=== PATIENT | female | born 1980 | race Caucasian/White ===

== ENCOUNTER → 2018-11-06 11:48 | Outpatient (CLI) | payer OTHER, SELFPAY ==
[2018-11-06 12:17] LABS: International Normalized Ratio 1.7; Prothrombin Time (Protime)PT. 19.6 SECONDS (11.7-14.9)
--- OUTSIDE RECORDS SUMMARY | 2019-02-08 02:00 | XMS RPT_ITS | Continuity of Care Document ---
:1980 Author Organization [facility] Address [facility] [address] [address] Phone Care Team Providers Name Role Phone Kylie Junior DO Unavailable Dr. Mago Ponce MD Unavailable Dr. Jayden Izaguirre Unavailable Dr. 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 Blood chemistry abnormality (Renamed from Abnormal blood chemistry) (R79.9, 790.6) Status: Active BMI 29.0-29.9,adult (Z68.29, V85.25) Status: Active Dysuria (R30.0, 788.1) Status: Active Elevated high sensitivity C-reactive protein (R79.82, 790.95) Status: Active Elevated liver function tests (R94.5, 790.6) Status: Active Encounter for gynecological examination with abnormal finding (Z01.411, V72.31) Status: Active Encounter for screening mammogram for breast cancer (Renamed from Encounter for screening mammogram for malignant neoplasm of breast) (Z12.31, V76.12) Status: Active Family history of thyroid disease (Z83.49, V18.19) Status: Active immunity check Status: Active [facility] WELLNESS EXAM Status: Active [facility] WELLNESS EXAM Status: Active [facility] WELLNESS PHYSICAL Status: Active Need for prophylactic vaccination and inoculation against influenza (Z23, V04.81) Status: Active Nonsmoker (Z78.9, V49.89) Status: Active Pregnancies () Comments: 0 Status: Active Screening for HPV (human papillomavirus) (Renamed from Encounter for screening for human papillomavirus (HPV)) (Z11.51, V73.81) Status: Active Screening for HPV (human papillomavirus) (Renamed from Encounter for screening for human papillomavirus (HPV)) (Z11.51, V73.81) Status: Active Sinusitis, chronic (J32.9, 473.9) Comments: happens 1-2 times a year- doesnt want further workup Status: Active 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, 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 Unspecified Diagnosis Status: Active 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 (I82.4Z9, 453.42) 05-Jun-2012 Status: Active Vitamin D deficiency (E55.9, 268.9) Comments: chronic stable-continue present regimen Status: Active Well female exam with routine gynecological exam (Z01.419, V72.31) Status: Active Medications Name Dates Details CALTRATE 600+D PLUS, 315-354XH-CVKJ (Oral Tablet) Active 1 tab qd (600-400 MG-UNIT) Coumadin 2 MG Oral Tablet uad Tablet qd for 0 days Quantity: 90 {Tablet} Refills: 3 Ordered:02-Nov-2018 Fast DOHuberta AFaayush BARCENAS Kylie A Start : 02-Nov-2018 Active Dispense as Written Comments:ELISABETH Coumadin 5 MG Oral Tablet 1 1/2 Tablet qd for 0 days Quantity: 135 {Tablet} Refills: 3 Ordered:30-Nov-2016 Fast DO, Kylie AFaayush DO Kylie A Start : 30-Nov-2016 Active Dispense as Written Comments:elisabeth Diflucan 150 MG Oral Tablet 1 (one) Tablet qd for 1 days Quantity: 1 {Tablet} Refills: 0 Ordered:03-Nov-2018 Long LINE CREW SUPERVISORJoyce Start : 03-Nov-2018 Active Eliquis 5 MG Oral Tablet 1 (one) Tablet bid for 0 days Quantity: 60 {Tablet} Refills: 11 Ordered:01-Nov-2018 Fast DO, Kylie AFast DO, Kylie A Start : 01-Nov-2018 Active GLUCOSAMINE 1500 COMPLEX (Oral Capsule) for 0 days Refills: 0 Ordered:08-Feb-2011 Darlene DrewActive MULTIVITAMIN (Oral Liquid) for 0 days Refills: 0 Ordered:11-Nov-2017 Slarb LINE CREW SUPERVISOR, AngelaActive Amoxicillin 875 MG Oral Tablet 1 (one) Tablet Tablet bid for 0 days Quantity: 20 {Tablet} Refills: 0 Ordered:17-Nov-2016 Jett Wang Start : 09-Jul-2016 End : 17-Nov-2016 Inactive COUMADIN, 5MG (Oral Tablet) 1 qd (5 MG) Inactive Comments:alt with 7.5mg ProAir HFA 108 (90 Base) MCG/ACT Inhalation Aerosol Solution 2 (two) Aerosol Soln Aerosol Soln puffs 15 min prior to exercise for 0 days Quantity: 1 {Inhaler} Refills: 2 Ordered:01-Nov-2018 Jammie Sanchez Start : 17-Nov-2016 End : 01-Nov-2018 Inactive ZYRTEC ALLERGY, 10MG (Oral Tablet) for 0 days Refills: 0 Ordered:24-Nov-2009 Mylene Harrison LPNInactive AUGMENTIN, 875-125MG (Oral Tablet) 1 (one) Tablet two times daily for 0 days Quantity: 28 {Tablet} Refills: 0 Ordered:29-Apr-2014 Darlene Drew Start : 14-Dec-2013 End : 29-Apr-2014 Discontinued Eliquis 2.5 MG Oral Tablet 1 (one) Tablet bid for 0 days Quantity: 60 {Tablet} Refills: 3 Ordered:17-Nov-2016 Fast DO, Kylie AFast DO, Kylie A Start : 17-Nov-2016 End : 30-Nov-2016 Discontinued Xarelto 20 MG Oral Tablet 1 (one) Tablet qd for 0 days Quantity: 30 {Tablet} Refills: 3 Ordered:17-Nov-2016 Fast DO, Kylie AFast DO, Kylie A Start : 17-Nov-2016 End : 30-Nov-2016 Discontinued Allergies and Adverse Reactions Name Dates Details NKDA (Allergy) Status: Active No Known Drug Allergies (Allergy) Onset: 08-Jun-2017 Status: Active Past Medical History Name Dates Details Abnormal blood chemistry (R79.9, 790.6) Status: Resolved as of 05-Jun-2012 Acute pharyngitis (J02.9, 462) Comments: add claritin if not help add otc PPI. david sheri few weeks if still sore throat Status: Resolved as of 07-Feb-2015 Acute Sinusitis (Renamed from Acute infection of nasal sinus) (J01.90, 461.9) Status: Inactive as of 14-Oct-2014 Bursitis of hip, unspecified laterality (726.5) Comments: we [facility] she will consdier and call if wants referral Status: Inactive as of 11-Nov-2014 family hx of thyroid disease Status: Inactive as of 14-Oct-2014 familyhx of high chol Status: Inactive as of 14-Oct-2014 Fatigue (R53.83, 780.79) Comments: discussed she notes specifically in afternoon so reviewed meals and doing alot of simple carbs- discussed hypoglycemia high protien freq meals low glycemic index and see if helps- if not appt sooner than 6 mos Status: Resolved as of 05-Jun-2012 Finger pain (M79.646, 729.5) Comments: fx? stove? soft tissue ijury? 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 [place] [address] Fax REHABILITATION SERVICES BRETT Escobar EVALUATION MR#: [id number] Acct: [id number] Name: TILA CARRERA Rep #: [id number] : 1980 36 From: Adrienne Mahoney DPT Referring Dr.: Kylie Junior DO Status: REG RCR Insurance: MEDICAL [facility] IO Patient's Visit Information TILA CARRERA is a 36 year old F referred to Physical Therapy by Kylie Junior DO with a diagnosis of Leg and Knee Pain. Date of Evaluation: 08/04/16 Physical Therapis t: Adrienne Mahoney - Visit Plan Frequency: 3x /Week Duration: 3 Weeks Plan: Focus on core s/s. - Subjective Subjective: Patient reports having issue with the right knee-January- ran the marathon and then took some time off. Pain is located in the anterior knee and the top of the gastroc. Taking time off-from March did not run- then started back after about a month- 2- 3 miles at a time 3-4x a week. Slower the pace the less pain she had. Has done a few half marathons- walk/run pace group. Would like to start training again. Had a massage and it felt much better. Worst: 3/ 10 Agg: running, getting in/out of the car, squats. Eases: rest, hot bath with Epsom salt. Best: 0/1-. Pain is located in the anterior knee and the gastroc top. Dull and achy pain. No radiating pain. 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 PMHx: DVT in the posterior knee when she was 25 years old and has been on blood thinners since. Just had a full ultrasound and no current blood clot Meds: Coumadin. Wears good shoes- gets new ones all the time. Has orthotics and does not wear them- aggravate the feet. - Objective Posture: FH, RS- can correct with verbal cues. Gait: no deviation noted with normal ambulation. Observation: pes planus in standing right>left- increased muscle bulk on the right. Squat: weight shift to the left-no heel raise. Anterior trunk lean and anterior pelvic tilt- challenged to cor rect with VC's. HR/TR: Heel raise- increased muscle tone left>right. TR : no differences. Balance: SLS 30 sec but increased sway and muscle activation right>left. Poor control with eyes closed. Sensation/Reflex: WNL. ROM: WNL. Palpation: not tender around knee- increased tenderness throughout head of lateral and medial gastroc. Strength: Core-fair minus, Hip: 4-/5 throughout, Knee: 4+/ 5, Ankle: 5/5. Flexibility: ITBand: severe, Gastroc: mod , Soleus-mod, Hamstring: mod, Quad: moderate - Goals Goal 1:: Patient will be I with HEP and progression Goal Time Frame: 4-6 Weeks Goal 2:: Pat ient will demo 4+/5 strength in LE where deficit to ease ADL's Goal Time Frame: 4-6 Weeks Goal 3:: Patient will maintain proper posture t/o tx session to demo increased core s/s. Goal Time Frame: 4-6 We eks Goal 4:: Patient will report 0/10 pain for 1 week with all normal ADL's and recreational activities. Goal Time Frame: 4-6 Weeks - Rehabilitation Potential Physical Therapy Diagnosis: Patient presen ts with hypomobility- she has decreased strength, flexibility and muscular endurance leading to pain with functional mobility. Rehabilitation Potential: Fair - Anticipated Interventions Patient/Client Instruction: Educate patient on: Benefits of Fitness Program For the Purpose of:: To increase tolerance to activity/condition/position Therapeutic Exercise to Include: Strength training, Endurance train ing, Balance training, Agility training, Body mechanics, Postural training, Flexibilty training, Gait and locomotor training, Dynamic Lumbar Stabilization, Scapular Strength/Stabilization For the Purpos e of:: To improve muscle performance and motor function Manual Therapy Techniques to Include: Functional dry needling For the Purpose of:: To decrease swelling/inflammation Thank you for the spencer cat to evaluate your patient. For Medicare and Medicare HMO plans, please review the plan of care and approve it. It will need to be FAXED BACK to us at [phone] for Medicare purposes. Please le t me know if there are questions or concerns regarding this plan of care. Physician Signature: Date: <Electronically signed by Pat Mahoney DPT> 08/04/16 1641 CC: Kylie Junior DO ELR Signed For Medicare only, by signing this I certify the plan of care. Physicians Signature Date 26-Mar-2016 PT D/C Summary (1) Result: Comments: See Note; NOTES: [facility] [address] [place] [address] Fax REHABILITATION SE RVICES DISCHARGE SUMMARY MR#: [id number] Acct: [id number] Name: TILA CARRERA Rep #: [id number] : 1980 36 From: Kade Dejesus PT, FRANK, SCS, CSCS Referring Dr.: Tonny Farris Status: REG RC R Insurance: [facility] - PT D/C Summary It has been my pleasure to treat TILA CARRERA under orders from Tonny Farris DO, for the diagnosis of RIGHT KNEE ,GASTROCSOLEUS STRAIN,PER HANSEN IN,,IT BAND for a total of 8 visit(s) . Please see the following information for a summary of their discharge status. - Subjective Subjective: I finished the marathon weekend and had a co urse CO of 4:25. Only had knee pain after I stopped and if I took smaller steps it seemed to go away. - Pain Right Pain Intensity (Out of 10): 0 - Objective Objective/Function: tree. well - Goals Goal 1:: Independant with HEP to manage knee pain Goal Progress: Goal Met Goal 2:: Decrease knee pain with running 75% to compete in a marathon, Goal Progress: Goal Met Goal 3:: Improve biom echanics of running to decrease knee pain. Goal Progress: Progressing Goal 4:: Patient able to run with in limitations to complete marathon. Goal 5:: Perform video anaylisis Goal Progress: Progressi ng - Plan Plan: Redesigned a HEp to include corrective exercises - D/C Information If there are questions or concerns regarding this patient's physical therapy, please feel free to call me at . Thank you for the referral of this patient. Sincerely, Kade Dejesus <Electronically signed by Kade Dejesus PT, FRANK, SCS, CSCS> 03/26/16 1541 CC: Kylie Junior DO; Tonny Farris Signed 08-Mar-2016 Inital Evaluation (1) - PT Result: Comments: See Note; NOTES: [facility] [address] [place], [place] [address] Fax REHABILITATION SE RVICES INITIAL EVALUATION MR#: [id number] Acct: [id number] Name: TILA CARRERA Rep #: [id number] : 1980 35 From: Yohannes Iverson PT, Cert. MDT Referring Dr.: Tonny Farris Status: REG R Insurance: [facility] Date: Patient's Visit Information TILA CARRERA is a 35 year old F referred to Physical Therapy by Tonny Farris DO with a diagnosis of RIGHT KNEE ,GASTROCS OLEUS STRAIN,PERONEAL SRAIN,,IT BAND. Date of Evaluation: 03/05/16 Physical Therapist: Yohannes Iverson - Visit Plan Frequency: 3x /Week Duration: 4 Weeks - Subjective Subjective: This 35 y/o f emale presents to physical therapy with right knee pain lateral aspect for 4 weeks. Patient noticed increase in pain during a run ,especially down hill , descending steps.Walking /standing /bike aggrav ates symptoms.Does trail running ,last race 25k traik run. Some better on trails. Denies parathesia/tingling. Runs in [place] long run, [place] run [place].Patients training for marathon ,last at [employer] run tuesday 12 miles ,walk run because pain. SOCIAL: single. HOBBIES : running. 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 - Pain Right Pain Intensity (Out of 10): 0 Pain Intensity Range: 10 - Objective POSTURE: PATELLA NIKOS ,normal arch,wide foot. GAIT: normal wilfredo. SHOE WEAR : lateral posterior heel. PALPATION : LATERAL I-TBAND ,latera G-S instertion ,lateral soleus,greater tronchen ter. AROM KNEE : 0- 135 DEGREES. FLEXABILTY: WNL I-T band,hams,quad,rectus femoris,IR /ER ,PRIFORMIS. MMT:5/5 quads/hams/ankle,ER/IR4/5,HIP EXT 4/5,GLUTS 4/5,HIPABD 4/5,4-/5 HIP ADD. PROPRIOCEPTION: sl iightlty impaired. NO ASSYMMTRIES AFTER PERFORMING BRIDGE. - Special Tests R Knee Esau - Meniscus: Negative R Knee Apley - Meniscus: Negative R Knee Patellar Apprehension - PFS: Negative R Kne e Patellar Grind - PFS: Negative R Knee Medial Patellar Plica - Plica Syndrome: Negative - Goals Goal 1:: Independant with HEP to manage knee pain Goal Time Frame: 4-6 Weeks Goal 2:: Decrease knee pain with running 75% to compete in a marathon, Goal Time Frame: 4-6 Weeks Goal 3:: Improve biomechanics of running to decrease knee pain. Goal Time Frame: 4-6 Weeks Goal 4:: Patient able to run wi th in limitations to complete marathon. Goal Time Frame: 4-6 Weeks Goal 5:: Perform video anaylisis Goal Time Frame: 4-6 Weeks - Rehabilitation Potential Physical Therapy Diagnosis: This 35 y/o fe male who is a advid runner has had knee pain with longer distance lateral aspect of knee along with IT BAND pain with tender trigger muscle along IT BAND and gastroc region thus will benifit from skill ed PT Rehabilitation Potential: Good - Anticipated Interventions Patient/Client Instruction: Educate patient on: Condition, Plan of Care, Benefits of Fitness Program For the Purpose of:: To decrea se pain, To decrease swelling/inflammation, To improve muscle performance and motor function, To improve ability of physical actions for home/community/work/ leisure, To improve gait and locomotor func tions, To improve health of tissue Other: RUNNING Therapeutic Exercise to Include: Strength training, Balance training, Agility training, Flexibilty training For the Purpose of:: To decrease pain, T o decrease swelling/inflammation, To improve nutrient delivery to tissue, To improve muscle performance and motor function, To increase tolerance to activity/condition/position, To improve ability of physical actions for home/community/work/ leisure, To improve gait and locomotor functions, To increase flexibility/ROM, To prevent re- injury Other: RUNNING Functional Training to Include: Functional sports training For the Purpose of:: To decrease pain, To increase oxygenation perfusion, To increase tolerance to activity/condition/position Other: RUNNING Manual Therapy Techniques to Include: Tr igger point massage, Massage, Mobilization, Functional dry needling Comment: HAWK For the Purpose of:: To decrease pain, To increase ROM, To improve muscle performance and motor function, To increase tolerance to activity/condition/position, To improve ability of physical actions for home/community/work/leisure, To improve health of tissue, To decrease soft tissue restriction, To prevent re-injur y IF ES: Yes Cryotherapy (ice pack, ice massage): Yes Thermo therapy (hot pack): Yes Ultrasound (thermal/non thermal): Yes For the Purpose of:: To decrease pain, To decrease swelling/inflammation, To improve health of tissue, To improve self management Thank you for the opportunity to evaluate your patient. For Medicare and Medicare HMO plans, please review the plan of care and approve it . It will need to be FAXED BACK to us at [phone] for Medicare purposes. Please let me know if there are questions or concerns regarding this plan of care. Physician Signature: Date: <Electronically signed by Yohanens Iversno PT, Cert. MDT> 03/08/16 1021 CC: Kylie Farris DT: 02/19 04/05 Signed For Medicare only, by signing this I certify the plan of care. Physicians Signature Date 21-Apr-2015 Inital Evaluation - PT Result: Comments: See Note; NOTES: [facility] 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 Farris with a diagnosis of right knee lateral gastroc IT band str ain. This is an individual, who is running and slipped or caught her foot on a metal object and fell forward onto her right knee. She typically runs between 20-40 miles a week with 1 speed work, 1 hil l work out if possible. She is training for a marathon on March 23 in [place]. This weekend she is traveling to [place] to compete in a 10 K with her friends. She denies injuring her knee prior . Dr. Farris took x-rays, but no MRI at this point. She is managing her pain with Advil or Aleve. She rates her pain at 5 or 6 or higher when she is running, none when she is walking. OBJECTIVE: This is a relatively healthy 34-year-old, who presents in no acute distress. When I took a look at her knee, there was no meniscal type symptoms. Both varus and valgus did not increase any of her familiar pain. She had no tenderness over the insertion of the IT band nor was able to elicit any clicking or popping over that region. When I turned my attention to her lower extremity over the lateral gastr oc soleus complex, she had crepitus and pain with palpation. She does have tight gastroc soleus complex to begin with. Neurologically, I felt she was intact. ASSESSMENT: Right soleus strain. PROB LEMS: 1. Decreased ADLs or ability to run. 2. Pain. 3. Altered strength. PLAN: The plan is to see her 2-3 times a week for 4-5 weeks depending on her progress. Today I used ultrasound, some soft tissue massage. I am going to have her use the softball and foam roller, both on her quads, hamstrings and gastrocs and then as she is feeling better, will initiate an eccentric strengthening program to help her compensate. I think the mechanism of injury of falling forward in a dorsiflexed foot is the same mechanism as the soleus strain. I asked her to use the compression sleeve with her when she is jogging to see if that helps a little bit. I did have an opportunity to look at her gait on the treadmill where she ran 5 miles per hour, then 6 and then 6.5. I did not notice anything unusual ot her than she has a little bit of a forefoot whip upon contact. Kade Emanuel C: Tonny Farris T: [facility] JOB: [id number] <Electronically signed by Kade Dejesus > 04/21/15 1615 CC: Signed For Medicare only, by signing this I certify the plan of care. Physicians Signature Date 21-Apr-2015 PT Discharge Summary Result: Comments: See Note; NOTES: [facility] [address] [place] [address] Fax REHABILITATION SERVICES DISCHARGE SUMMARY MR#: [id number] Acct: [id number] Name: TILA CARRERA Rep #: [id number] : 1980 35 From: Kade Dejesus Referring Dr.: Tonny Farris Status: PRE RCR Eval Date: Discharge Da te: DATE OF SERVICE: 04/15/2015 Tila has been seen for 10 of her scheduled 12 visits. She has recently competed in both Half [place] in [place] as well as a Full [place] in [place] on the same weekend. She has essentially no more right lateral soleus pain at all. I have given her some exercises to continue to perform specifically inhibition techniques and some stretching as well as so me eccentric strengthening. If Tila has any problems in the near future, I would be happy to see her otherwise she is discharged from our care. Kade Emanuel C: Tonny Farris T: [facility] JOB: [id number] <Electronically signed by Kade Dejesus > 04/21/15 1615 CC: Signed 07-Feb-2015 Knee 4 or More Views Result: Comments: See Note; NOTES: [facility] Imaging Services [address] [place] [address] Radiology Report MR#: [id number] Acct: [id number] Name: TILA CARRERA Rep #: [id number] : 1980 F 34 From: Rajani Grossman MD PCP: Kylie Junior DO Status: REG CLI Study: Knee 4 or More Views Date of Exam: 02/07/15 Exam# [id number] Ordering Dr: Kylie Junior DO STUDY: X-RAY - RI T KNEE REASON FOR EXAM: Female, 34 years old. Knee pain TECHNIQUE: 4 view(s) of the knee. COMPARISON: None. FINDINGS: Normal visualized distal femur. Norm al visualized proximal tibia and fibula. Normal proximal tibiofibular articulation. Normal medial femorotibial compartment. Normal lateral femorotibial compartment. Normal patellofemoral articulatio n. The soft tissue structures are unremarkable. IMPRESSION: Normal x-ray examination of the knee. Electronically Signed: Shamir Grossman MD at 14:4 9 EDT Tel , Service support [phone], RAD/Knee 4 or More Views IMPRESSION: Normal x-ray examination of the knee. Electronically Signed: Alireza Garza MD at 14:49 EDT Tel , Service support [phone], CC: Kylie Junior DO Search Analyst: Signed 07-Feb-2015 Knee 4 or More Views Result: Comments: See Note; NOTES: [facility] Imaging Services [address] [place] [address] Radiology Report MR#: [id number] Acct: [id number] Name: TILA CARRERA Rep #: [id number] : 1980 F 34 From: Rajani Grossman MD PCP: Kylie Junior DO Status: REG CLI Study: Knee 4 or More Views Date of Exam: 02/07/15 Exam# [id number] Ordering Dr: Kylie Junior DO STUDY: X-RAY - RI GHT KNEE REASON FOR EXAM: Female, 34 years old. Knee pain TECHNIQUE: 4 view(s) of the knee. COMPARISON: None. FINDINGS: Normal visualized distal femur. Norm al visualized proximal tibia and fibula. Normal proximal tibiofibular articulation. Normal medial femorotibial compartment. Normal lateral femorotibial compartment. Normal patellofemoral articulatio n. The soft tissue structures are unremarkable. IMPRESSION: Normal x-ray examination of the knee. Electronically Signed: Shamir Grossman MD at 14:4 9 EDT Tel , Service support [phone], RAD/Knee 4 or More Views IMPRESSION: Normal x-ray examination of the knee. 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 Status: Active Smoking Status Name Dates Details Former smoker Vital Signs Date Test Result Details :08 Temperature 97.9 f Comments: Method: Temporal Pulse 48 /min Comments: Pattern: Regular Respiration Rate 16 /min Comments: Pattern: Unlabored BP Systolic 108 mm[Hg] Comments: Patient Position: Sitting; Cuff Location: Left Arm; Cuff Size: Standard BP Diastolic 68 mm[Hg] Comments: Patient Position: Sitting; Cuff Location: Left Arm; Cuff Size: Standard Weight 183 lb Height 65.75 in Body Mass Index Calculated 29.76 kg/m2 Body Surface Area Calculated 1.92 m2 :49 Temperature 97.9 f Pulse 69 /min Comments: Pattern: Regular Respiration Rate 16 /min Comments: Pattern: Unlabored O2 SAT 98 % Comments: Room air BP Systolic 104 mm[Hg] Comments: Patient Position: Sitting; Cuff Location: Left Arm; Cuff Size: Standard BP Diastolic 72 mm[Hg] Comments: Patient Position: Sitting; Cuff Location: Left Arm; Cuff Size: Standard Weight 180 lb Height 65.75 in Body Mass Index Calculated 29.27 kg/m2 Body Surface Area Calculated 1.91 m2 :36 Temperature 98.2 f Comments: Method: Temporal Pulse 40 /min Comments: Pattern: Regular Respiration Rate 16 /min Comments: Pattern: Unlabored BP Systolic 115 mm[Hg] Comments: Patient Position: Sitting; Cuff Location: Left Arm; Cuff Size: Standard BP Diastolic 62 mm[Hg] Comments: Patient Position: Sitting; Cuff Location: Left Arm; Cuff Size: Standard Weight 182 lb Height 65.75 in Body Mass Index Calculated 29.6 kg/m2 Body Surface Area Calculated 1.92 m2 :04 Temperature 98 f Pulse 54 /min Comments: Pattern: Regular Respiration Rate 16 /min Comments: Pattern: Unlabored BP Systolic 106 mm[Hg] Comments: Patient Position: Sitting; Cuff Location: Left Arm; Cuff Size: Standard BP Diastolic 58 mm[Hg] Comments: Patient Position: Sitting; Cuff Location: Left Arm; Cuff Size: Standard Weight 182 lb Height 65.75 in Body Mass Index Calculated 29.6 kg/m2 Body Surface Area Calculated 1.92 m2 :08 Temperature 96.8 f Comments: Method: Temporal Pulse 72 /min Comments: Pattern: Regular Respiration Rate 16 /min Comments: Pattern: Unlabored O2 SAT 98 % Comments: Room air BP Systolic 126 mm[Hg] Comments: Patient Position: Sitting; Cuff Location: Left Arm; Cuff Size: Large BP Diastolic 70 mm[Hg] Comments: Patient Position: Sitting; Cuff Location: Left Arm; Cuff Size: Large Weight 173 lb Height 65.75 in Body Mass Index Calculated 28.14 kg/m2 Body Surface Area Calculated 1.88 m2 :03 Temperature 97.2 f Pulse 56 /min Comments: Pattern: Regular Respiration Rate 16 /min Comments: Pattern: Unlabored BP Systolic 102 mm[Hg] Comments: Patient Position: Sitting; Cuff Location: Left Arm; Cuff Size: Large BP Diastolic 72 mm[Hg] Comments: Patient Position: Sitting; Cuff Location: Left Arm; Cuff Size: Large Weight 173 lb Height 65.75 in Body Mass Index Calculated 28.14 kg/m2 Body Surface Area Calculated 1.88 m2 :17 Temperature 97.8 f Comments: Method: Temporal Pulse 56 /min Comments: Pattern: Regular Respiration Rate 18 /min Comments: Pattern: Unlabored O2 SAT 99 % Comments: Room air BP Systolic 108 mm[Hg] Comments: Patient Position: Sitting; Cuff Location: Left Arm; Cuff Size: Standard BP Diastolic 70 mm[Hg] Comments: Patient Position: Sitting; Cuff Location: Left Arm; Cuff Size: Standard Weight 170 lb Height 65.75 in Body Mass Index Calculated 27.65 kg/m2 Body Surface Area Calculated 1.86 m2 :19 Temperature 97 f Comments: Method: Temporal Pulse 64 /min Comments: Pattern: Regular Respiration Rate 20 /min Comments: Pattern: Unlabored BP Systolic 110 mm[Hg] Comments: Patient Position: Sitting; Cuff Location: Left Arm; Cuff Size: Standard BP Diastolic 70 mm[Hg] Comments: Patient Position: Sitting; Cuff Location: Left Arm; Cuff Size: Standard Weight 170 lb Height 65.75 in Body Mass Index Calculated 27.65 kg/m2 Body Surface Area Calculated 1.86 m2 :14 Temperature 98.5 f Comments: Method: Temporal Pulse 56 /min Comments: Pattern: Regular Respiration Rate 18 /min Comments: Pattern: Unlabored O2 SAT 98 % Comments: Room air BP Systolic 118 mm[Hg] Comments: Patient Position: Sitting; Cuff Location: Left Arm; Cuff Size: Standard BP Diastolic 72 mm[Hg] Comments: Patient Position: Sitting; Cuff Location: Left Arm; Cuff Size: Standard Weight 172.9 lb Height 65.75 in Body Mass Index Calculated 28.12 kg/m2 Body Surface Area Calculated 1.88 m2 :20 Temperature 98.8 f Pulse 48 /min Comments: Pattern: Regular Respiration Rate 16 /min Comments: Pattern: Unlabored BP Systolic 108 mm[Hg] Comments: Patient Position: Sitting; Cuff Location: Left Arm; Cuff Size: Large BP Diastolic 70 mm[Hg] Comments: Patient Position: Sitting; Cuff Location: Left Arm; Cuff Size: Large Weight 171 lb Height 65.75 in Body Mass Index Calculated 27.81 kg/m2 Body Surface Area Calculated 1.87 m2 :23 Temperature 100 f Pulse 46 /min Comments: Pattern: Regular Respiration Rate 18 /min Comments: Pattern: Unlabored BP Systolic 112 mm[Hg] Comments: Patient Position: Sitting; Cuff Location: Left Arm; Cuff Size: Large BP Diastolic 82 mm[Hg] Comments: Patient Position: Sitting; Cuff Location: Left Arm; Cuff Size: Large Weight 171 lb Height 65.75 in Body Mass Index Calculated 27.81 kg/m2 Body Surface Area Calculated 1.87 m2 :58 Temperature 98.6 f Comments: Method: Oral Pulse 64 /min Comments: Pattern: Regular Respiration Rate 18 /min Comments: Pattern: Unlabored BP Systolic 118 mm[Hg] Comments: Patient Position: Sitting; Cuff Location: Left Arm; Cuff Size: Large BP Diastolic 68 mm[Hg] Comments: Patient Position: Sitting; Cuff Location: Left Arm; Cuff Size: Large Weight 168.5625 lb Height 65.75 in Body Mass Index Calculated 27.41 kg/m2 Body Surface Area Calculated 1.85 m2 :37 Temperature 97.9 f Pulse 60 /min Comments: Pattern: Regular Respiration Rate 18 /min Comments: Pattern: Unlabored BP Systolic 110 mm[Hg] Comments: Patient Position: Sitting; Cuff Location: Left Arm; Cuff Size: Large BP Diastolic 76 mm[Hg] Comments: Patient Position: Sitting; Cuff Location: Left Arm; Cuff Size: Large Weight 187 lb Height 65.75 in Body Mass Index Calculated 30.41 kg/m2 Body Surface Area Calculated 1.94 m2 :00 Temperature 98.5 f Pulse 64 /min Comments: Pattern: Regular Respiration Rate 16 /min Comments: Pattern: Unlabored BP Systolic 108 mm[Hg] Comments: Patient Position: Sitting; Cuff Location: Left Arm; Cuff Size: Large BP Diastolic 74 mm[Hg] Comments: Patient Position: Sitting; Cuff Location: Left Arm; Cuff Size: Large Weight 190 lb Height 65.75 in Body Mass Index Calculated 30.9 kg/m2 Body Surface Area Calculated 1.95 m2 :21 Temperature 97.9 f Pulse 60 /min Comments: Pattern: Regular Respiration Rate 16 /min Comments: Pattern: Unlabored BP Systolic 106 mm[Hg] Comments: Patient Position: Sitting; Cuff Location: Left Arm; Cuff Size: Large BP Diastolic 60 mm[Hg] Comments: Patient Position: Sitting; Cuff Location: Left Arm; Cuff Size: Large Weight 203 lb Height 65.5 in Body Mass Index Calculated 33.27 kg/m2 Body Surface Area Calculated 2 m2 :27 Temperature 98.8 f Pulse 64 /min Comments: Pattern: Regular Respiration Rate 16 /min Comments: Pattern: Unlabored BP Systolic 124 mm[Hg] Comments: Patient Position: Sitting; Cuff Location: Left Arm; Cuff Size: Standard BP Diastolic 84 mm[Hg] Comments: Patient Position: Sitting; Cuff Location: Left Arm; Cuff Size: Standard Weight 201 lb Height 65.5 in Body Mass Index Calculated 32.94 kg/m2 Body Surface Area Calculated 1.99 m2 :02 Temperature 98.1 f Comments: Method: Oral Pulse 72 /min Comments: Pattern: Regular Respiration Rate 16 /min Comments: Pattern: Unlabored BP Systolic 100 mm[Hg] Comments: Patient Position: Sitting; Cuff Location: Left Arm; Cuff Size: Large BP Diastolic 62 mm[Hg] Comments: Patient Position: Sitting; Cuff Location: Left Arm; Cuff Size: Large Weight 202 lb :55 Temperature 100.3 f Comments: Method: Oral Pulse 80 /min Comments: Pattern: Regular Respiration Rate 20 /min Comments: Pattern: Unlabored BP Systolic 118 mm[Hg] Comments: Patient Position: Sitting; Cuff Location: Left Arm; Cuff Size: Large BP Diastolic 78 mm[Hg] Comments: Patient Position: Sitting; Cuff Location: Left Arm; Cuff Size: Large Weight 195 lb Height 66 in Body Mass Index Calculated 31.47 kg/m2 Body Surface Area Calculated 1.98 m2 [id number] Pulse 60 /min Comments: Pattern: Regular Respiration Rate 16 /min Comments: Pattern: Unlabored BP Systolic 142 mm[Hg] Comments: Patient Position: Supine; Cuff Location: Left Arm; Cuff Size: Standard BP Diastolic 90 mm[Hg] Comments: Patient Position: Supine; Cuff Location: Left Arm; Cuff Size: Standard Weight 195 lb Height 66 in Body Mass Index Calculated 31.47 kg/m2 Body Surface Area Calculated 1.98 m2 Head Circumference 0.00 cm Results Date Description Value Details :58 HPV automatic Comments: Source.............Cervix;EndocervixNo. of containers..01 ThinPrep VialPATIENT NOT FASTINGPERFORMED BY: WB [facility] [address] [id number] BY: =G [facility] Isidra ([id number]) [id number] [facility] [id number] Information: [id number] HPV, high-risk Negative Comments: This high-risk HPV test detects thirteen high- risk types(16/18/31/33/35/39/45/51/52/56/58/59/68) without differentiation. . (Normal) Note: PAPSMR (Normal) Comments: The Pap smear is a screening test designed to aid in the detection ofpremalignant and malignant conditions of the uterine cervix. It is not adiagnostic procedure and should not be used as the sole mean s of detectingcervical cancer. Both false-positive and false-negative reports do occur. .This liquid based ThinPrep(R) pap test w as screened with theuse of an image guided system. See Note . (Normal) DIAGNOSIS: SPRCS (Normal) Comments: NEGATIVE FOR INTRAEPITHELIAL LESION AND MALIGNANCY.FUNGAL ORGANISMS MORPHOLOGICALLY CONSISTENT WITH CATHERINE SPECIES AREPRESENT.CELLULAR CHANGES ASSOCIATED WITH INFLAMMATION ARE PRESENT.THIS SPECIMEN WAS RESCREENED PART OF OUR DOCTOR'S ASSISTANT PROGRAM.Satisfactory for evaluation. Endocervical and/or squamous metaplasticcells (endocervical component) are present.Z11.51Scjoshua Gerardo, Revenue Officer ([facility])Deirdre Martines, Supervisory Revenue Officer ([facility]) [id number]-[id number]:30 PT (Prothrobim Time) ([id number]) Comments: PATIENT NOT FASTINGPERFORMED BY: [facility] Wcayos1749 [facility] [id number] Prothrombin Time 32.4 {sec} (Abnormal) Range: 9.1-12.0 INR 3.4 (Abnormal) Range: 0.8-1.2 Comments: Reference interval is for non-anticoagulated patients. . Suggested INR therapeutic range for Vitamin K anta gonist therapy: Standard Dose (moderate intensity therapeutic range): 2.0 - 3.0 Higher intensity therapeutic range 2.5 - 3.5 :03 PT (Prothrobim Time) (42251) Comments: PATIENT NOT FASTINGPERFORMED BY: [facility] Bbsyez0919 [facility] [id number] Prothrombin Time 32.4 {sec} (Abnormal) Range: 9.1-12.0 INR 3.4 (Abnormal) Range: 0.8-1.2 Comments: Reference interval is for non-anticoagulated patients. . Suggested INR therapeutic range for Vitamin K anta gonist therapy: Standard Dose (moderate intensity therapeutic range): 2.0 - 3.0 Higher intensity therapeutic range 2.5 - 3.5 :14 PT (Prothrobim Time) Comments: PATIENT NOT FASTINGPERFORMED BY: [facility] [facility] Eqpvcb8508 [facility] [id number] Information: NURSE DRAW ([id number]) Prothrombin Time 22.2 {sec} (Abnormal) Range: 9.1-12.0 INR 2.2 (Abnormal) Range: 0.8-1.2 Comments: Reference interval is for non-anticoagulated patients. . Suggested INR therapeutic range for Vitamin K anta gonist therapy: Standard Dose (moderate intensity therapeutic range): 2.0 - 3.0 Higher intensity therapeutic range 2.5 - 3.5 :56 PT (Prothrobim Time) (66586) Comments: PATIENT NOT FASTINGPERFORMED BY: [facility] [facility] [id number] Prothrombin Time 24.0 {sec} (Abnormal) Range: 9.1-12.0 INR 2.4 (Abnormal) Range: 0.8-1.2 Comments: Reference interval is for non-anticoagulated patients. . Suggested INR therapeutic range for Vitamin K anta gonist therapy: Standard Dose (moderate intensity therapeutic range): 2.0 - 3.0 Higher intensity therapeutic range 2.5 - 3.5 :35 PT (Prothrobim Time) (11279) Comments: PATIENT NOT FASTINGPERFORMED BY: [facility] [facility] [id number] Prothrombin Time 19.3 {sec} (Abnormal) Range: 9.1-12.0 INR 2.0 (Abnormal) Range: 0.8-1.2 Comments: Reference interval is for non-anticoagulated patients. . Suggested INR therapeutic range for Vitamin K anta gonist therapy: Standard Dose (moderate intensity therapeutic range): 2.0 - 3.0 Higher intensity therapeutic range 2.5 - 3.5 :14 CBC W/AUTO DIFF WBC Comments: PATIENT NOT FASTINGPERFORMED BY: [facility] [facility] [id number] Information: NURSE DRAW ([id number]) Immature Grans (Abs) 0.0 {x10E3/uL} (Normal) Range: 0.0-0.1 Immature Granulocytes 0 % (Normal) Baso (Absolute) 0.0 {x10E3/uL} (Normal) Range: 0.0-0.2 Eos (Absolute) 0.1 {x10E3/uL} (Normal) Range: 0.0-0.4 Monocytes(Absolute) 0.3 {x10E3/uL} (Normal) Range: 0.1-0.9 Lymphs (Absolute) 1.5 {x10E3/uL} (Normal) Range: 0.7-3.1 Neutrophils (Absolute) 3.3 {x10E3/uL} (Normal) Range: 1.4-7.0 Basos 0 % (Normal) Eos 2 % (Normal) Monocytes 7 % (Normal) Lymphs 29 % (Normal) Neutrophils 62 % (Normal) Platelets 194 {x10E3/uL} (Normal) Range: 150-379 RDW 13.1 % (Normal) Range: 12.3-15.4 MCHC 32.4 g/dL (Normal) Range: 31.5-35.7 MCH 29.1 pg (Normal) Range: 26.6-33.0 MCV 90 fL (Normal) Range: 79-97 Hematocrit 41.3 % (Normal) Range: 34.0-46.6 Hemoglobin 13.4 g/dL (Normal) Range: 11.1-15.9 RBC 4.61 {x10E6/uL} (Normal) Range: 3.77-5.28 WBC 5.3 {x10E3/uL} (Normal) Range: 3.4-10.8 82-Pey-54729:14 METABOLIC PANEL, COMPREHENSIVE Comments: PATIENT NOT FASTINGPERFORMED BY: [facility]CoHoly Name [facility] CenterShdmaa6900 [facility] [id number] ([id number]) ALT (SGPT) 25 [iU]/L (Normal) Range: 0-32 AST (SGOT) 42 [iU]/L (Abnormal) Range: 0-40 Alkaline Phosphatase 47 [iU]/L (Normal) Range: 39-117 Bilirubin, Total 0.4 mg/dL (Normal) Range: 0.0-1.2 A/G Ratio 2.2 (Normal) Range: 1.2-2.2 Globulin, Total 2.1 g/dL (Normal) Range: 1.5-4.5 Albumin 4.6 g/dL (Normal) Range: 3.5-5.5 Protein, Total 6.7 g/dL (Normal) Range: 6.0-8.5 Calcium 9.4 mg/dL (Normal) Range: 8.7-10.2 Carbon Dioxide, Total 20 mmol/L (Normal) Range: 20-29 Chloride 101 mmol/L (Normal) Range: 96-106 Potassium 4.3 mmol/L (Normal) Range: 3.5-5.2 Sodium 139 mmol/L (Normal) Range: 134-144 BUN/Creatinine Ratio 20 (Normal) Range: 9-23 eGFR If Africn Am 128 mL/min/1.73 (Normal) eGFR If NonAfricn Am 111 mL/min/1.73 (Normal) Creatinine 0.69 mg/dL (Normal) Range: 0.57-1.00 BUN 14 mg/dL (Normal) Range: 6-20 Glucose 80 mg/dL (Normal) Range: 65-99 94-Uqb-98842:14 C-REACT PROT HIGH SENS(hsCRP) Comments: PATIENT NOT FASTINGPERFORMED BY: [facility] [id number] ([id number]) C-Reactive Protein, Cardiac 3.48 mg/L (Abnormal) Range: 0.00-3.00 Comments: Relative Risk for Future Cardiovascular Event Low <1.00 Average 1.00 - 3.00 High >3.00 :50 PT (Prothrobim Time) ([id number]) Comments: PATIENT WAS FASTINGPERFORMED BY: [place] [id number] Prothrombin Time 25.6 {sec} (Abnormal) Range: 9.1-12.0 INR 2.7 (Abnormal) Range: 0.8-1.2 Comments: Reference interval is for non-anticoagulated patients. . Suggested INR therapeutic range for Vitamin K anta gonist therapy: Standard Dose (moderate intensity therapeutic range): 2.0 - 3.0 Higher intensity therapeutic range 2.5 - 3.5 :26 CBC W/AUTO DIFF WBC ([id number]) Comments: PATIENT NOT FASTINGPERFORMED BY: [facility] InvestmentsCarolin[facility] [id number] Immature Grans (Abs) 0.0 {x10E3/uL} (Normal) Range: 0.0-0.1 Immature Granulocytes 0 % (Normal) Baso (Absolute) 0.0 {x10E3/uL} (Normal) Range: 0.0-0.2 Eos (Absolute) 0.1 {x10E3/uL} (Normal) Range: 0.0-0.4 Monocytes(Absolute) 0.4 {x10E3/uL} (Normal) Range: 0.1-0.9 Lymphs (Absolute) 1.9 {x10E3/uL} (Normal) Range: 0.7-3.1 Neutrophils (Absolute) 5.7 {x10E3/uL} (Normal) Range: 1.4-7.0 Basos 0 % (Normal) Eos 1 % (Normal) Monocytes 5 % (Normal) Lymphs 23 % (Normal) Neutrophils 71 % (Normal) Platelets 231 {x10E3/uL} (Normal) Range: 150-379 RDW 13.5 % (Normal) Range: 12.3-15.4 MCHC 32.8 g/dL (Normal) Range: 31.5-35.7 MCH 29.0 pg (Normal) Range: 26.6-33.0 MCV 88 fL (Normal) Range: 79-97 Hematocrit 42.1 % (Normal) Range: 34.0-46.6 Hemoglobin 13.8 g/dL (Normal) Range: 11.1-15.9 Comments: Please note reference interval change RBC 4.76 {x10E6/uL} (Normal) Range: 3.77-5.28 WBC 8.1 {x10E3/uL} (Normal) Range: 3.4-10.8 28-Oct-20178:26 METABOLIC PANEL, COMPREHENSIVE Comments: PATIENT NOT FASTINGPERFORMED BY: [facility]CoHoly Name [facility] CenterVnbveu5701 [facility] [id number] ([id number]) ALT (SGPT) 16 [iU]/L (Normal) Range: 0-32 AST (SGOT) 27 [iU]/L (Normal) Range: 0-40 Alkaline Phosphatase, S 55 [iU]/L (Normal) Range: 39-117 Bilirubin, Total 0.7 mg/dL (Normal) Range: 0.0-1.2 A/G Ratio 1.7 (Normal) Range: 1.2-2.2 Globulin, Total 2.6 g/dL (Normal) Range: 1.5-4.5 Albumin, Serum 4.4 g/dL (Normal) Range: 3.5-5.5 Protein, Total, Serum 7.0 g/dL (Normal) Range: 6.0-8.5 Calcium, Serum 9.2 mg/dL (Normal) Range: 8.7-10.2 Carbon Dioxide, Total 22 mmol/L (Normal) Range: 18-29 Chloride, Serum 101 mmol/L (Normal) Range: 96-106 Potassium, Serum 4.3 mmol/L (Normal) Range: 3.5-5.2 Sodium, Serum 139 mmol/L (Normal) Range: 134-144 BUN/Creatinine Ratio 22 (Normal) Range: 9-23 eGFR If Africn Am 112 mL/min/1.73 (Normal) eGFR If NonAfricn Am 97 mL/min/1.73 (Normal) Creatinine, Serum 0.78 mg/dL (Normal) Range: 0.57-1.00 BUN 17 mg/dL (Normal) Range: 6-20 Glucose, Serum 88 mg/dL (Normal) Range: 65-99 :19 PT (Prothrobim Time) ([id number]) Comments: PATIENT NOT FASTINGPERFORMED BY: SEVEN Authentic ResponseHoly Name Medical CenterShfxto2088 [facility] [id number] Prothrombin Time 26.4 {sec} (Abnormal) Range: 9.1-12.0 INR 2.7 (Abnormal) Range: 0.8-1.2 Comments: Reference interval is for non-anticoagulated patients. . Suggested INR therapeutic range for Vitamin K anta gonist therapy: Standard Dose (moderate intensity therapeutic range): 2.0 - 3.0 Higher intensity therapeutic range 2.5 - 3.5 02-Yfd-716415:06 PT (Prothrobim Time) (34102) Comments: PATIENT NOT FASTINGPERFORMED BY: [facility] ResponseHoly Name Medical CenterEwuwep4547 [facility] [id number] Prothrombin Time 27.6 {sec} (Abnormal) Range: 9.1-12.0 INR 2.9 (Abnormal) Range: 0.8-1.2 Comments: Reference interval is for non-anticoagulated patients. . Suggested INR therapeutic range for Vitamin K anta gonist therapy: Standard Dose (moderate intensity therapeutic range): 2.0 - 3.0 Higher intensity therapeutic range 2.5 - 3.5 :07 HPV automatic Comments: Source.............Cervix;EndocervixNo. of containers..01 CYTYC Thin Prep VialPATIENT NOT FASTINGPERFORMED BY: Lab[address] [id number] BY: =G [employer] ([id number]) [address] [place] [address] [place] [id number] Information: [id number] HPV, high-risk Negative Comments: This high-risk HPV test detects thirteen high- risk types(16/18/31/33/35/39/45/51/52/56/58/59/68) without differentiation. . (Normal) Note: PAPSMR (Normal) Comments: The Pap smear is a screening test designed to aid in the detection ofpremalignant and malignant conditions of the uterine cervix. It is not adiagnostic procedure and should not be used as the sole mean s of detectingcervical cancer. Both false-positive and false-negative reports do occur. .This liquid based ThinPrep(R) pap test w as screened with theuse of an image guided system. See Note . (Normal) DIAGNOSIS: SPRCS (Normal) Comments: UNSATISFACTORY FOR EVALUATION.Suggest follow up as clinically appropriate.Specimen processed and examined but unsatisfactory for evaluation ofepithelial abnormality because of insufficient cellularity.A reas of partially obscuring inflammtory exudate are present.Z11.51Jose Lynn, Revenue Officer ([employer])Asia Mcallister, Supervisory Revenue Officer ([employer]) 58-Rvs-566315:29 PT (Prothrobim Time) ([id number]) Comments: PATIENT NOT FASTINGPERFORMED BY: [facility]Co[facility] Wtfioc6238 TalkpushCarolinas [facility] [id number] Prothrombin Time 19.3 {sec} (Abnormal) Range: 9.1-12.0 INR 1.9 (Abnormal) Range: 0.8-1.2 Comments: Reference interval is for non-anticoagulated patients. . Suggested INR therapeutic range for Vitamin K anta gonist therapy: Standard Dose (moderate intensity therapeutic range): 2.0 - 3.0 Higher intensity therapeutic range 2.5 - 3.5 22-Xsu-845073:40 CBC W/AUTO DIFF WBC ([id number]) Comments: PATIENT NOT FASTINGPERFORMED BY: SingulexCoLyksKclile6493 [place] FreshplumCarolinas [facility] [id number] Immature Grans (Abs) 0.0 {x10E3/uL} (Normal) Range: 0.0-0.1 Immature Granulocytes 0 % (Normal) Baso (Absolute) 0.0 {x10E3/uL} (Normal) Range: 0.0-0.2 Eos (Absolute) 0.1 {x10E3/uL} (Normal) Range: 0.0-0.4 Monocytes(Absolute) 0.5 {x10E3/uL} (Normal) Range: 0.1-0.9 Lymphs (Absolute) 2.3 {x10E3/uL} (Normal) Range: 0.7-3.1 Neutrophils (Absolute) 4.6 {x10E3/uL} (Normal) Range: 1.4-7.0 Basos 0 % (Normal) Eos 1 % (Normal) Monocytes 7 % (Normal) Lymphs 30 % (Normal) Neutrophils 62 % (Normal) Platelets 206 {x10E3/uL} (Normal) Range: 150-379 RDW 13.8 % (Normal) Range: 12.3-15.4 MCHC 34.0 g/dL (Normal) Range: 31.5-35.7 MCH 29.3 pg (Normal) Range: 26.6-33.0 MCV 86 fL (Normal) Range: 79-97 Hematocrit 40.0 % (Normal) Range: 34.0-46.6 Hemoglobin 13.6 g/dL (Normal) Range: 11.1-15.9 RBC 4.64 {x10E6/uL} (Normal) Range: 3.77-5.28 WBC 7.5 {x10E3/uL} (Normal) Range: 3.4-10.8 74-Fmc-695715:40 METABOLIC PANEL, COMPREHENSIVE Comments: PATIENT NOT FASTINGPERFORMED BY: LabCoHoly Name Medical CenterEuakvz8009 [facility] [id number] ([id number]) ALT (SGPT) 15 [iU]/L (Normal) Range: 0-32 AST (SGOT) 24 [iU]/L (Normal) Range: 0-40 Alkaline Phosphatase, S 49 [iU]/L (Normal) Range: 39-117 Bilirubin, Total 0.4 mg/dL (Normal) Range: 0.0-1.2 A/G Ratio 1.7 (Normal) Range: 1.2-2.2 Globulin, Total 2.5 g/dL (Normal) Range: 1.5-4.5 Albumin, Serum 4.2 g/dL (Normal) Range: 3.5-5.5 Protein, Total, Serum 6.7 g/dL (Normal) Range: 6.0-8.5 Calcium, Serum 8.8 mg/dL (Normal) Range: 8.7-10.2 Carbon Dioxide, Total 21 mmol/L (Normal) Range: 18-29 Chloride, Serum 103 mmol/L (Normal) Range: 96-106 Potassium, Serum 4.1 mmol/L (Normal) Range: 3.5-5.2 Sodium, Serum 141 mmol/L (Normal) Range: 134-144 BUN/Creatinine Ratio 22 (Normal) Range: 9-23 eGFR If Africn Am 129 mL/min/1.73 (Normal) eGFR If NonAfricn Am 112 mL/min/1.73 (Normal) Creatinine, Serum 0.68 mg/dL (Normal) Range: 0.57-1.00 BUN 15 mg/dL (Normal) Range: 6-20 Glucose, Serum 65 mg/dL (Normal) Range: 65-99 24-Upt-574271:40 Vitamin D Hydroxy (30593) Comments: PATIENT NOT FASTINGPERFORMED BY: E-nterview70 TalkpushCarolinas [facility] [id number] Vitamin D, 25-Hydroxy 49.2 ng/mL (Normal) Range: 30.0-100.0 Comments: Vitamin D deficiency has been defined by the [place] of[place] and an Endocrine Society practice guideline as alevel of serum 25-OH vitamin D less than 20 ng/mL (1,2).The Endocrine Society went on to further define vitamin Dinsufficiency as a level between 21 and 29 ng/mL (2).1. IOM ([place] of [employer]). 2010. Dietary reference intakes for calcium and D. [place]: The National Academies Press.2. Dominick MF, [place], [place], et al. Evaluation, treatment, and prevention of vitamin D deficiency: an Endocrine Society clinical practice guideline. JCEM. 2010; 96(7):1911-30. 52-Obb-972117:29 METABOLIC PANEL, COMPREHENSIVE Comments: PATIENT NOT FASTINGPERFORMED BY: E-nterview70 [facility] [id number] ([id number]) ALT (SGPT) 17 [iU]/L (Normal) Range: 0-32 AST (SGOT) 20 [iU]/L (Normal) Range: 0-40 Alkaline Phosphatase, S 45 [iU]/L (Normal) Range: 39-117 Bilirubin, Total 0.6 mg/dL (Normal) Range: 0.0-1.2 A/G Ratio 1.7 (Normal) Range: 1.1-2.5 Globulin, Total 2.5 g/dL (Normal) Range: 1.5-4.5 Albumin, Serum 4.2 g/dL (Normal) Range: 3.5-5.5 Protein, Total, Serum 6.7 g/dL (Normal) Range: 6.0-8.5 Calcium, Serum 9.3 mg/dL (Normal) Range: 8.7-10.2 Carbon Dioxide, Total 24 mmol/L (Normal) Range: 18-29 Chloride, Serum 103 mmol/L (Normal) Range: 96-106 Potassium, Serum 4.3 mmol/L (Normal) Range: 3.5-5.2 Sodium, Serum 141 mmol/L (Normal) Range: 134-144 BUN/Creatinine Ratio 19 (Normal) Range: 8-20 eGFR If Africn Am 133 mL/min/1.73 (Normal) eGFR If NonAfricn Am 116 mL/min/1.73 (Normal) Creatinine, Serum 0.63 mg/dL (Normal) Range: 0.57-1.00 BUN 12 mg/dL (Normal) Range: 6-20 Glucose, Serum 83 mg/dL (Normal) Range: 65-99 25-Tlf-209593:29 CBC W/AUTO DIFF WBC (68110) Comments: PATIENT NOT FASTINGPERFORMED BY: [facility] Kavtxt3565 [facility] [id number] Immature Grans (Abs) 0.0 {x10E3/uL} (Normal) Range: 0.0-0.1 Immature Granulocytes 0 % (Normal) Baso (Absolute) 0.0 {x10E3/uL} (Normal) Range: 0.0-0.2 Eos (Absolute) 0.1 {x10E3/uL} (Normal) Range: 0.0-0.4 Monocytes(Absolute) 0.5 {x10E3/uL} (Normal) Range: 0.1-0.9 Lymphs (Absolute) 2.1 {x10E3/uL} (Normal) Range: 0.7-3.1 Neutrophils (Absolute) 3.7 {x10E3/uL} (Normal) Range: 1.4-7.0 Basos 0 % (Normal) Eos 1 % (Normal) Monocytes 8 % (Normal) Lymphs 33 % (Normal) Neutrophils 58 % (Normal) Platelets 212 {x10E3/uL} (Normal) Range: 150-379 RDW 13.3 % (Normal) Range: 12.3-15.4 MCHC 33.4 g/dL (Normal) Range: 31.5-35.7 MCH 29.1 pg (Normal) Range: 26.6-33.0 MCV 87 fL (Normal) Range: 79-97 Hematocrit 41.3 % (Normal) Range: 34.0-46.6 Hemoglobin 13.8 g/dL (Normal) Range: 11.1-15.9 RBC 4.74 {x10E6/uL} (Normal) Range: 3.77-5.28 WBC 6.3 {x10E3/uL} (Normal) Range: 3.4-10.8 68-Oss-945928:29 SED RATE ERYTHROCYTE (77548) Comments: PATIENT NOT FASTINGPERFORMED BY: [facility] ResponseHoly Name Medical CenterIgvopc8868 [facility] [id number] Sedimentation Rate-Westergren 2 mm/h (Normal) Range: 0-32 70-Hfw-837616:29 C-REACTIVE PROTEIN (93536) Comments: PATIENT NOT FASTINGPERFORMED BY: [facility] [facility] [id number] C-Reactive Protein, Quant 0.6 mg/L (Normal) Range: 0.0-4.9 52-Wae-279069:29 RUBELLA IgG (27153) Comments: PATIENT NOT FASTINGPERFORMED BY: [facility] [facility] [id number] Rubella Antibodies, IgG 1.44 {index} (Normal) Comments: Non-immune <0.90 Equivocal 0.90 - 0.99 Immune >0.99 78-Yqq-861343:29 RUBEOLA IgG (47172) Comments: PATIENT NOT FASTINGPERFORMED BY: [facility] [facility] [id number] Rubeola Ab, IgG 38.9 AU/mL (Normal) Comments: Negative <25.0 Equivocal 25.0 - 29.9 Positive >29.9 Presence of antibodies to Rubeola is presumptive evidence of immunity except when acute infection is suspected. 87-Asx-505108:29 MUMPS IgG (36102) Comments: PATIENT NOT FASTINGPERFORMED BY: [facility] [facility] [id number] Mumps Abs, IgG 43.9 AU/mL (Normal) Comments: Negative <9.0 Equivocal 9.0 - 10.9 Positive >10.9 A positive result genera lly indicates past exposure to Mumps virus or previous vaccination. 5-Vvc-666332:29 PT (Prothrobim Time) (67208) Comments: STANDING ORDER; PATIENT NOT FASTINGPERFORMED BY: [facility] [facility] [id number] Prothrombin Time 21.2 {sec} (Abnormal) Range: 9.1-12.0 INR 2.1 (Abnormal) Range: 0.8-1.2 Comments: Reference interval is for non-anticoagulated patients. . Suggested INR therapeutic range for Vitamin K anta gonist therapy: Standard Dose (moderate intensity therapeutic range): 2.0 - 3.0 Higher intensity therapeutic range 2.5 - 3.5 :14 PT (Prothrobim Time) Comments: STANDING ORDER; PATIENT NOT FASTINGPERFORMED BY: [facility] [facility] [id number] Information: [id number] ([id number]) Prothrombin Time 24.1 {sec} (Abnormal) Range: 9.1-12.0 INR 2.4 (Abnormal) Range: 0.8-1.2 Comments: Reference interval is for non-anticoagulated patients. . Suggested INR therapeutic range for Vitamin K anta gonist therapy: Standard Dose (moderate intensity therapeutic range): 2.0 - 3.0 Higher intensity therapeutic range 2.5 - 3.5 :32 PT (Prothrobim Time) Comments: STANDING ORDER; PATIENT NOT FASTINGPERFORMED BY: [facility] [facility] [id number] Information: [id number] ([id number]) Prothrombin Time 22.5 {sec} (Abnormal) Range: 9.1-12.0 INR 2.2 (Abnormal) Range: 0.8-1.2 Comments: Reference interval is for non-anticoagulated patients. . Suggested INR therapeutic range for Vitamin K anta gonist therapy: Standard Dose (moderate intensity therapeutic range): 2.0 - 3.0 Higher intensity therapeutic range 2.5 - 3.5 :00 URINE JAVON CULTURE-IDENTIFICATN Comments: PATIENT NOT FASTINGPERFORMED BY: [facility] [facility] [id number] Information: [id number] ([id number]) Result 1 ECV (Abnormal) Comments: Escherichia coli, identified by an automated biochemical system.Greater than 100,000 colony forming units per mL S = Susceptible; I = Intermediate; R = Resistant P = Positiv e; N = Negative MICS are expressed in micrograms per mL Antibiotic RSLT#1 RSLT#2 RSLT#3 RSLT#4Amoxicillin/Clavulanic Acid SAmpicillin SCefepi me SCeftriaxone SCefuroxime SCephalothin SCiprofloxacin SErtapenem SGentamicin SImipenem SLevofloxacin SNitrofurantoin SPiperacillin STetracycline STobramycin STrimethoprim/Sulfa S Urine Final report Culture,Comprehensi (Abnormal) ve :09 Urinalysis, Office (96579) UA - LEUKOCYTE ESTERASE Small (Normal) UA - NITRITE Negative (Normal) URINE UROBILINGN RICCO TIMED Normal mg/dL (Normal) UA - PROTEIN Negative mg/dL (Normal) UA - PH 5.0 (Normal) UA - BLOOD Hemolyzed Small (Normal) UA - SPECIFIC GRAVITY 1.020 (Normal) UA - KETONES Negative mg/dL (Normal) UA - BILIRUBIN Negative (Normal) UA - GLUCOSE Negative (Normal) 52-Bng-311339:42 PT (Prothrobim Time) (95895) Comments: STANDING ORDER; PATIENT NOT FASTINGPERFORMED BY: [facility] [facility] [id number] Prothrombin Time 27.3 {sec} (Abnormal) Range: 9.1-12.0 INR 2.7 (Abnormal) Range: 0.8-1.2 Comments: Reference interval is for non-anticoagulated patients. . Suggested INR therapeutic range for Vitamin K anta gonist therapy: Standard Dose (moderate intensity therapeutic range): 2.0 - 3.0 Higher intensity therapeutic range 2.5 - 3.5 3-Ktd-023214:00 PT (Prothrobim Time) (10346) Comments: STANDING ORDER; PATIENT NOT FASTINGPERFORMED BY: [facility] [facility] [id number] Prothrombin Time 24.1 {sec} (Abnormal) Range: 9.1-12.0 INR 2.4 (Abnormal) Range: 0.8-1.2 Comments: Reference interval is for non-anticoagulated patients. . Suggested INR therapeutic range for Vitamin K anta gonist therapy: Standard Dose (moderate intensity therapeutic range): 2.0 - 3.0 Higher intensity therapeutic range 2.5 - 3.5 5-Eqz-716816:48 PT (Prothrobim Time) (75117) Comments: STANDING ORDER; PATIENT NOT FASTINGPERFORMED BY: [facility] [facility] [id number] Prothrombin Time 24.3 {sec} (Abnormal) Range: 9.1-12.0 INR 2.4 (Abnormal) Range: 0.8-1.2 Comments: Reference interval is for non-anticoagulated patients. . Suggested INR therapeutic range for Vitamin K anta gonist therapy: Standard Dose (moderate intensity therapeutic range): 2.0 - 3.0 Higher intensity therapeutic range 2.5 - 3.5 :01 PT (Prothrobim Time) Comments: STANDING ORDER; PATIENT NOT FASTINGPERFORMED BY: [facility] [facility] [id number] Information: [id number] ([id number]) Prothrombin Time 29.0 {sec} (Abnormal) Range: 9.1-12.0 INR 2.8 (Abnormal) Range: 0.8-1.2 Comments: Reference interval is for non-anticoagulated patients. . Suggested INR therapeutic range for Vitamin K anta gonist therapy: Standard Dose (moderate intensity therapeutic range): 2.0 - 3.0 Higher intensity therapeutic range 2.5 - 3.5 :20 PT (Prothrobim Time) Comments: STANDING ORDER; PATIENT NOT FASTINGPERFORMED BY: [place] [address] [facility] [id number] Information: [id number] ([id number]) Prothrombin Time 31.4 {sec} (Abnormal) Range: 9.1-12.0 INR 3.0 (Abnormal) Range: 0.8-1.2 Comments: Reference interval is for non-anticoagulated patients. . Suggested INR therapeutic range for Vitamin K anta gonist therapy: Standard Dose (moderate intensity therapeutic range): 2.0 - 3.0 Higher intensity therapeutic range 2.5 - 3.5 50-Qfo-454968:35 PT (Prothrobim Time) Comments: STANDING ORDER; PATIENT NOT FASTINGPERFORMED BY: [facility] [facility] [id number] Information: [id number] ([id number]) Prothrombin Time 23.2 {sec} (Abnormal) Range: 9.1-12.0 INR 2.2 (Abnormal) Range: 0.8-1.2 Comments: Reference interval is for non-anticoagulated patients. . Suggested INR therapeutic range for Vitamin K anta gonist therapy: Standard Dose (moderate intensity therapeutic range): 2.0 - 3.0 Higher intensity therapeutic range 2.5 - 3.5 :22 PT (Prothrobim Time) Comments: STANDING ORDER; PATIENT NOT FASTINGPERFORMED BY: [facility] [facility] [id number] Information: [id number] ([id number]) Prothrombin Time 26.3 {sec} (Abnormal) Range: 9.1-12.0 INR 2.5 (Abnormal) Range: 0.8-1.2 Comments: Reference interval is for non-anticoagulated patients. . Suggested INR therapeutic range for Vitamin K anta gonist therapy: Standard Dose (moderate intensity therapeutic range): 2.0 - 3.0 Higher intensity therapeutic range 2.5 - 3.5 67-Kgz-287647:15 PT (Prothrobim Time) Comments: STANDING ORDER; PATIENT NOT FASTINGPERFORMED BY: [place] [address] [facility] [id number] Information: [id number] ([id number]) Prothrombin Time 20.6 {sec} (Abnormal) Range: 9.1-12.0 INR 2.0 (Abnormal) Range: 0.8-1.2 Comments: Reference interval is for non-anticoagulated patients. . Suggested INR therapeutic range for Vitamin K anta gonist therapy: Standard Dose (moderate intensity therapeutic range): 2.0 - 3.0 Higher intensity therapeutic range 2.5 - 3.5 :47 PT (Prothrobim Time) Comments: STANDING ORDER; PATIENT NOT FASTINGPERFORMED BY: [address] [id number] Information: [id number] ([id number]) Prothrombin Time 21.0 {sec} (Abnormal) Range: 9.1-12.0 INR 2.0 (Abnormal) Range: 0.8-1.2 Comments: Reference interval is for non-anticoagulated patients. . Suggested INR therapeutic range for Vitamin K anta gonist therapy: Standard Dose (moderate intensity therapeutic range): 2.0 - 3.0 Higher intensity therapeutic range 2.5 - 3.5 :40 Prothrombin Time w/INR Comments: Test performed at:[facility] [address]jpq[address]xw[address] [place], [place] [id number] INR 2.3 (Normal) PROTIME 25.6 s (Abnormal) Range: 11.7-14.9 :52 Prothrombin Time (PT) Comments: PATIENT NOT FASTINGPERFORMED BY: [address] [id number] Information: [id number] Prothrombin Time 20.4 {sec} (Abnormal) Range: 9.1-12.0 INR 1.9 (Abnormal) Range: 0.8-1.2 Comments: Reference interval is for non-anticoagulated patients. . Suggested INR therapeutic range for Vitamin K anta gonist therapy: Standard Dose (moderate intensity therapeutic range): 2.0 - 3.0 Higher intensity therapeutic range 2.5 - 3.5 :06 Prothrombin Time (PT) Comments: PATIENT NOT FASTINGPERFORMED BY: [place] [address] [facility] [id number] Information: [id number] Prothrombin Time 19.1 {sec} (Abnormal) Range: 9.1-12.0 INR 1.8 (Abnormal) Range: 0.8-1.2 Comments: Reference interval is for non-anticoagulated patients. . Suggested INR therapeutic range for Vitamin K anta gonist therapy: Standard Dose (moderate intensity therapeutic range): 2.0 - 3.0 Higher intensity therapeutic range 2.5 - 3.5 91-Juv-052407:43 PT (Prothrobim Time) Comments: Standing Order; PATIENT NOT FASTINGPERFORMED BY: [facility] [facility] [id number] Information: [id number] ([id number]) Prothrombin Time 27.4 {sec} (Abnormal) Range: 9.1-12.0 INR 2.6 (Abnormal) Range: 0.8-1.2 Comments: Reference interval is for non-anticoagulated patients. . Suggested INR therapeutic range for Vitamin K anta gonist therapy: Standard Dose (moderate intensity therapeutic range): 2.0 - 3.0 Higher intensity therapeutic range 2.5 - 3.5 :21 PT (Prothrobim Time) Comments: Standing Order; PATIENT NOT FASTINGPERFORMED BY: [facility] [facility] [id number] Information: [id number] ([id number]) Prothrombin Time 21.0 {sec} (Abnormal) Range: 9.1-12.0 INR 2.0 (Abnormal) Range: 0.8-1.2 Comments: Reference interval is for non-anticoagulated patients. . Suggested INR therapeutic range for Vitamin K anta gonist therapy: Standard Dose (moderate intensity therapeutic range): 2.0 - 3.0 Higher intensity therapeutic range 2.5 - 3.5 :01 PT (Prothrobim Time) Comments: Standing Order; PATIENT NOT FASTINGPERFORMED BY: [facility] [facility] [id number] Information: [id number] ([id number]) Prothrombin Time 27.3 {sec} (Abnormal) Range: 9.1-12.0 INR 2.5 (Abnormal) Range: 0.8-1.2 Comments: Reference interval is for non-anticoagulated patients. . Suggested INR therapeutic range for Vitamin K anta gonist therapy: Standard Dose (moderate intensity therapeutic range): 2.0 - 3.0 Higher intensity therapeutic range 2.5 - 3.5 :28 PT (Prothrobim Time) Comments: Standing Order; PATIENT NOT FASTINGPERFORMED BY: [place] [address] [facility] [id number] Information: [id number] ([id number]) Prothrombin Time 23.2 {sec} (Abnormal) Range: 9.1-12.0 INR 2.1 (Abnormal) Range: 0.8-1.2 Comments: Reference interval is for non-anticoagulated patients. . Suggested INR therapeutic range for Vitamin K anta gonist therapy: Standard Dose (moderate intensity therapeutic range): 2.0 - 3.0 Higher intensity therapeutic range 2.5 - 3.5 :58 PT (Prothrobim Time) Comments: Standing Order; PATIENT NOT FASTINGPERFORMED BY: [facility] [facility] [id number] Information: [id number] ([id number]) Prothrombin Time 29.7 {sec} (Abnormal) Range: 9.1-12.0 INR 2.7 (Abnormal) Range: 0.8-1.2 Comments: Reference interval is for non-anticoagulated patients. . Suggested INR therapeutic range for Vitamin K anta gonist therapy: Standard Dose (moderate intensity therapeutic range): 2.0 - 3.0 Higher intensity therapeutic range 2.5 - 3.5 17-Yup-332414:09 Throat Culture (10173) Comments: PATIENT NOT FASTINGPERFORMED BY: [facility] Xzspbo8632 [facility] [id number] Information: SRC:THRT [id number] Result 1 RRF (Normal) Comments: Routine respiratory fernando Upper Respiratory Culture Final report (Normal) 48-Gao-13658:20 Rapid Strep Test, Office (75622) Rapid Strep Test, Office Negative (Normal) 9-Xjf-956295:20 PT (Prothrobim Time) Comments: Standing Order; PATIENT NOT FASTINGPERFORMED BY: [facility]Co[facility] CenterYkkomp3688 [facility] [id number] Information: [id number] ([id number]) Prothrombin Time 26.6 {sec} (Abnormal) Range: 9.1-12.0 INR 2.4 (Abnormal) Range: 0.8-1.2 Comments: Reference interval is for non-anticoagulated patients. . Suggested INR therapeutic range for Vitamin K anta gonist therapy: Standard Dose (moderate intensity therapeutic range): 2.0 - 3.0 Higher intensity therapeutic range 2.5 - 3.5 04-Snw-47183:27 Rapid Strep Test, Office (79649) Rapid Strep Test, Office Positive (Normal) 65-Fbp-708491:18 PT (Prothrobim Time) Comments: Standing Order; PATIENT NOT FASTINGPERFORMED BY: [facility] CenterSoahbd8360 [facility] [id number] Information: [id number] (06153) Prothrombin Time 17.6 {sec} (Abnormal) Range: 9.1-12.0 INR 1.6 (Abnormal) Range: 0.8-1.2 Comments: Reference interval is for non-anticoagulated patients. . Suggested INR therapeutic range for Vitamin K anta gonist therapy: Standard Dose (moderate intensity therapeutic range): 2.0 - 3.0 Higher intensity therapeutic range 2.5 - 3.5 :14 PT (PROTHROMBIN TIME) Comments: PATIENT NOT FASTINGPERFORMED BY: [facility] Thnmen5000 [facility] [id number] Information: [id number] ([id number]) Prothrombin Time 20.8 {sec} (Abnormal) Range: 9.1-12.0 INR 2.0 (Abnormal) Range: 0.8-1.2 Comments: Reference interval is for non-anticoagulated patients. . Suggested INR therapeutic range for Vitamin K anta gonist therapy: Standard Dose (moderate intensity therapeutic range): 2.0 - 3.0 Higher intensity therapeutic range 2.5 - 3.5 :25 PT (Prothrobim Time) Comments: Standing Order; PATIENT NOT FASTINGPERFORMED BY: [facility] [facility] [id number] Information: [id number] ([id number]) Prothrombin Time 23.5 {sec} (Abnormal) Range: 9.1-12.0 INR 2.2 (Abnormal) Range: 0.8-1.2 Comments: Reference interval is for non-anticoagulated patients. . Suggested INR therapeutic range for Vitamin K anta gonist therapy: Standard Dose (moderate intensity therapeutic range): 2.0 - 3.0 Higher intensity therapeutic range 2.5 - 3.5 :29 PT (PROTHROMBIN TIME) Comments: PATIENT NOT FASTINGPERFORMED BY: [place] [address] [facility] [id number] Information: [id number] ([id number]) Prothrombin Time 26.1 {sec} (Abnormal) Range: 9.1-12.0 INR 2.4 (Abnormal) Range: 0.8-1.2 Comments: Reference interval is for non-anticoagulated patients. . Suggested INR therapeutic range for Vitamin K anta gonist therapy: Standard Dose (moderate intensity therapeutic range): 2.0 - 3.0 Higher intensity therapeutic range 2.5 - 3.5 :18 PT (Prothrobim Time) Comments: Standing Order; PATIENT NOT FASTINGPERFORMED BY: [facility] [facility] [id number] Information: [id number] ([id number]) Prothrombin Time 23.2 {sec} (Abnormal) Range: 9.1-12.0 INR 2.1 (Abnormal) Range: 0.8-1.2 Comments: Reference interval is for non-anticoagulated patients. . Suggested INR therapeutic range for Vitamin K anta gonist therapy: Standard Dose (moderate intensity therapeutic range): 2.0 - 3.0 Higher intensity therapeutic range 2.5 - 3.5 :18 PT (PROTHROMBIN TIME) Comments: PATIENT NOT FASTINGPERFORMED BY: [place] [address] [facility] [id number] Information: [id number] ([id number]) Prothrombin Time 22.3 {sec} (Abnormal) Range: 9.1-12.0 INR 2.1 (Abnormal) Range: 0.8-1.2 Comments: Reference interval is for non-anticoagulated patients. . Suggested INR therapeutic range for Vitamin K anta gonist therapy: Standard Dose (moderate intensity therapeutic range): 2.0 - 3.0 Higher intensity therapeutic range 2.5 - 3.5 :16 PT (PROTHROMBIN TIME) Comments: PATIENT NOT FASTINGPERFORMED BY: [place] [address] [facility] [id number] Information: [id number],2ND ORDER NO DRAW F EE (80011) Prothrombin Time 29.6 {sec} (Abnormal) Range: 9.1-12.0 INR 2.9 (Abnormal) Range: 0.8-1.2 Comments: Reference interval is for non-anticoagulated patients. . Suggested INR therapeutic range for Vitamin K anta gonist therapy: Standard Dose (moderate intensity therapeutic range): 2.0 - 3.0 Higher intensity therapeutic range 2.5 - 3.5 :52 PT (PROTHROMBIN TIME) Comments: PATIENT NOT FASTINGPERFORMED BY: [place] [address] [facility] [id number] Information: [id number] ([id number]) Prothrombin Time 25.4 {sec} (Abnormal) Range: 9.1-12.0 INR 2.4 (Abnormal) Range: 0.8-1.2 Comments: Reference interval is for non-anticoagulated patients. . Suggested INR therapeutic range for Vitamin K anta gonist therapy: Standard Dose (moderate intensity therapeutic range): 2.0 - 3.0 Higher intensity therapeutic range 2.5 - 3.5 23-Zrh-044493:47 HPV automatic Comments: Source.............Cervical;EndocervicalNo. of containers..01 CYTYC Thin Prep VialPATIENT NOT FASTINGPERFORMED BY: WB [facility] Ejlylrxsaj548 [facility] HospitalterenceGrace Hospitallouisepalisades medical center [place] [id number] BY: Lexa Escobar (59534) [facility] Ezoooncits183 [place] Octavianopalisades medical [facility] [place] [id number] Information: [id number] HPV, high-risk Negative Comments: This high-risk HPV test detects thirteen high- risk types(16/18/31/33/35/39/45/51/52/56/58/59/68) without differentiation. . (Normal) Note: PAPSMR (Normal) Comments: The Pap smear is a screening test designed to aid in the detection ofpremalignant and malignant conditions of the uterine cervix. It is not adiagnostic procedure and should not be used as the sole mean s of detectingcervical cancer. Both false-positive and false-negative reports do occur. .This liquid based ThinPrep(R) pap test w as screened with theuse of an image guided system. See Note . (Normal) DIAGNOSIS: SPRCS (Normal) Comments: NEGATIVE FOR INTRAEPITHELIAL LESION AND MALIGNANCY.Satisfactory for evaluation. Endocervical and/or squamous metaplasticcells (endocervical component) are present.V70.0 ; Routine general wa dical examin [facility] county medical centerGlendy Castillo Revenue Officer (ASCP) 00-Zul-285645:47 PT (PROTHROMBIN TIME) Comments: PATIENT NOT FASTINGPERFORMED BY: [facility] Tvllzr4684 [facility] [id number] Information: [id number] ([id number]) Prothrombin Time 24.4 {sec} (Abnormal) Range: 9.1-12.0 INR 2.3 (Abnormal) Range: 0.8-1.2 Comments: Reference interval is for non-anticoagulated patients. . Suggested INR therapeutic range for Vitamin K anta gonist therapy: Standard Dose (moderate intensity therapeutic range): 2.0 - 3.0 Higher intensity therapeutic range 2.5 - 3.5 :16 TSH (82576) Comments: PATIENT WAS FASTINGPERFORMED BY: [facility] [facility] [id number] TSH 1.090 {uIU/mL} (Normal) Range: 0.450-4.500 :16 LIPID PANEL (50603) Comments: PATIENT WAS FASTINGPERFORMED BY: [facility] [facility] [id number] LDL/HDL Ratio 1.4 {ratio_units} (Normal) Range: 0.0-3.2 LDL Cholesterol Calc 83 mg/dL (Normal) Range: 0-99 HDL Cholesterol 61 mg/dL (Normal) Comments: According to ATP-III Guidelines, HDL-C >59 mg/dL is considered anegative risk factor for CHD. VLDL Cholesterol David 24 mg/dL (Normal) Range: 5-40 Triglycerides 119 mg/dL (Normal) Range: 0-149 Cholesterol, Total 168 mg/dL (Normal) Range: 100-199 :16 CBC WITH MANUAL DIFF Comments: PATIENT WAS FASTINGPERFORMED BY: [facility] [facility] [id number] Information: [id number] ([id number]) Immature Grans (Abs) 0.0 {x10E3/uL} (Normal) Range: 0.0-0.1 Immature Granulocytes 0 % (Normal) Range: 0-2 Baso (Absolute) 0.0 {x10E3/uL} (Normal) Range: 0.0-0.2 Eos (Absolute) 0.1 {x10E3/uL} (Normal) Range: 0.0-0.4 Monocytes(Absolute) 0.4 {x10E3/uL} (Normal) Range: 0.1-0.9 Lymphs (Absolute) 1.9 {x10E3/uL} (Normal) Range: 0.7-3.1 Neutrophils (Absolute) 3.1 {x10E3/uL} (Normal) Range: 1.4-7.0 Basos 1 % (Normal) Range: 0-3 Eos 2 % (Normal) Range: 0-5 Monocytes 7 % (Normal) Range: 4-12 Lymphs 34 % (Normal) Range: 14-46 Neutrophils 56 % (Normal) Range: 40-74 Platelets 173 {x10E3/uL} (Normal) Range: 150-379 Comments: Please note reference interval change RDW 13.3 % (Normal) Range: 12.3-15.4 MCHC 33.0 g/dL (Normal) Range: 31.5-35.7 MCH 28.3 pg (Normal) Range: 26.6-33.0 MCV 86 fL (Normal) Range: 79-97 Hematocrit 40.6 % (Normal) Range: 34.0-46.6 Hemoglobin 13.4 g/dL (Normal) Range: 11.1-15.9 RBC 4.73 {x10E6/uL} (Normal) Range: 3.77-5.28 WBC 5.5 {x10E3/uL} (Normal) Range: 3.4-10.8 92-Kac-67470:16 METABOLIC PANEL, COMPREHENSIVE Comments: PATIENT WAS FASTINGPERFORMED BY: [facility] CenterSzdvfx7[facility] [id number] ([id number]) ALT (SGPT) 29 [iU]/L (Normal) Range: 0-32 AST (SGOT) 30 [iU]/L (Normal) Range: 0-40 Alkaline Phosphatase, S 50 [iU]/L (Normal) Range: 39-117 A/G Ratio 1.7 (Normal) Range: 1.1-2.5 Bilirubin, Total 0.7 mg/dL (Normal) Range: 0.0-1.2 Globulin, Total 2.4 g/dL (Normal) Range: 1.5-4.5 Albumin, Serum 4.1 g/dL (Normal) Range: 3.5-5.5 Protein, Total, Serum 6.5 g/dL (Normal) Range: 6.0-8.5 Calcium, Serum 9.3 mg/dL (Normal) Range: 8.7-10.2 Carbon Dioxide, Total 24 mmol/L (Normal) Range: 18-29 Comments: Please note reference interval change Chloride, Serum 102 mmol/L (Normal) Range: 97-108 Potassium, Serum 4.2 mmol/L (Normal) Range: 3.5-5.2 BUN/Creatinine Ratio 14 (Normal) Range: 8-20 Sodium, Serum 139 mmol/L (Normal) Range: 134-144 eGFR If Africn Am 129 mL/min/1.73 (Normal) eGFR If NonAfricn Am 111 mL/min/1.73 (Normal) BUN 10 mg/dL (Normal) Range: 6-20 Creatinine, Serum 0.71 mg/dL (Normal) Range: 0.57-1.00 Glucose, Serum 83 mg/dL (Normal) Range: 65-99 83-Dtn-063986:05 PT (Prothrobim Time) Comments: PATIENT NOT FASTINGPERFORMED BY: [address] [id number] Information: [id number] ([id number]) Prothrombin Time 27.2 {sec} (Abnormal) Range: 9.1-12.0 INR 2.6 (Abnormal) Range: 0.8-1.2 Comments: Reference interval is for non-anticoagulated patients. . Suggested INR therapeutic range for Vitamin K anta gonist therapy: Standard Dose (moderate intensity therapeutic range): 2.0 - 3.0 Higher intensity therapeutic range 2.5 - 3.5 83-Eym-972779:14 PT (PROTHROMBIN TIME) Comments: PATIENT NOT FASTINGPERFORMED BY: [place] [id number] [facility] [id number] Information: [id number] ([id number]) Prothrombin Time 20.0 {sec} (Abnormal) Range: 9.1-12.0 INR 1.9 (Abnormal) Range: 0.8-1.2 Comments: Reference interval is for non-anticoagulated patients. . Suggested INR therapeutic range for Vitamin K anta gonist therapy: Standard Dose (moderate intensity therapeutic range): 2.0 - 3.0 Higher intensity therapeutic range 2.5 - 3.5 8-Xov-997331:22 PT (PROTHROMBIN TIME) Comments: PATIENT NOT FASTINGPERFORMED BY: [place] [id number] [facility] [id number] Information: [id number] ([id number]) Prothrombin Time 18.0 {sec} (Abnormal) Range: 9.1-12.0 INR 1.7 (Abnormal) Range: 0.8-1.2 Comments: Reference interval is for non-anticoagulated patients. . Suggested INR therapeutic range for Vitamin K anta gonist therapy: Standard Dose (moderate intensity therapeutic range): 2.0 - 3.0 Higher intensity therapeutic range 2.5 - 3.5 67-Haq-308660:35 Prothrombin Time (PT) Comments: PATIENT NOT FASTINGPERFORMED BY: [place] [id number] [facility] [id number] Information: [id number] Prothrombin Time 26.9 {sec} (Abnormal) Range: 9.1-12.0 INR 2.6 (Abnormal) Range: 0.8-1.2 Comments: Reference interval is for non-anticoagulated patients. . Suggested INR therapeutic range for Vitamin K anta gonist therapy: Standard Dose (moderate intensity therapeutic range): 2.0 - 3.0 Higher intensity therapeutic range 2.5 - 3.5 53-Gbz-195598:26 PT (PROTHROMBIN TIME) Comments: PATIENT NOT FASTINGPERFORMED BY: [place] [id number] [facility] [id number] Information: [id number] ([id number]) Prothrombin Time 27.3 {sec} (Abnormal) Range: 9.1-12.0 INR 2.6 (Abnormal) Range: 0.8-1.2 Comments: Reference interval is for non-anticoagulated patients. . Suggested INR therapeutic range for Vitamin K anta gonist therapy: Standard Dose (moderate intensity therapeutic range): 2.0 - 3.0 Higher intensity therapeutic range 2.5 - 3.5 71-Rnx-848131:16 Prothrombin Time (PT) Comments: PERFORMED BY: [address] [id number] Information: PT ON ANTIBIOTICS Prothrombin Time 31.7 {sec} (Abnormal) Range: 9.1-12.0 INR 3.1 (Abnormal) Range: 0.8-1.2 Comments: Reference interval is for non-anticoagulated patients. . Suggested INR therapeutic range for Vitamin K anta gonist therapy: Standard Dose (moderate intensity therapeutic range): 2.0 - 3.0 Higher intensity therapeutic range 2.5 - 3.5 :32 PT (PROTHROMBIN TIME) Comments: PATIENT NOT FASTINGPERFORMED BY: [facility] [facility] [id number] Information: [id number] ([id number]) Prothrombin Time 36.1 {sec} (Abnormal) Range: 9.1-12.0 INR 3.5 (Abnormal) Range: 0.8-1.2 Comments: Reference interval is for non-anticoagulated patients. . Suggested INR therapeutic range for Vitamin K anta gonist therapy: Standard Dose (moderate intensity therapeutic range): 2.0 - 3.0 Higher intensity therapeutic range 2.5 - 3.5 :49 PT (PROTHROMBIN TIME) Comments: PATIENT NOT FASTINGPERFORMED BY: [facility] [facility] [id number] Information: [id number] ([id number]) Prothrombin Time 27.3 {sec} (Abnormal) Range: 9.1-12.0 INR 2.6 (Abnormal) Range: 0.8-1.2 Comments: Reference interval is for non-anticoagulated patients. . Suggested INR therapeutic range for Vitamin K anta gonist therapy: Standard Dose (moderate intensity therapeutic range): 2.0 - 3.0 Higher intensity therapeutic range 2.5 - 3.5 :09 Prothrombin Time (PT) Comments: PERFORMED BY: [facility] [facility] [id number] Prothrombin Time 16.0 {sec} (Abnormal) Range: 9.1-12.0 INR 1.5 (Abnormal) Range: 0.8-1.2 Comments: Reference interval is for non-anticoagulated patients. . Suggested INR therapeutic range for Vitamin K anta gonist therapy: Standard Dose (moderate intensity therapeutic range): 2.0 - 3.0 Higher intensity therapeutic range 2.5 - 3.5 :00 FINGER(S) MIN 2 VIEWS Radiology Report See Note (Normal) Comments: STUDY: X-RAY - RIGHT HAND, ATTENTION FOURTH FINGER REASON FOR EXAM: Female, 33 years old. Pain following injury. TECHNIQUE: 3 view(s) of the finger were obtained. COMPARISON: None._ FINDINGS:Normal metacarpal head. Normal metacarpophalangeal joint. Normal proximal phalanx. Normal middle phalanx. Normal distal phalanx. Normal proximal interphalangeal joint. Normal distal interphalangealjoint. IMPRESSION:Normal x-ray examination of the finger. Signed:Bud Major M.D.August 07, 2013 at 1:31:09 PM [phone] Signed GP/GP If you are the referring physician and would like to consult with theradiologist who provided this interpretation, please contact [place] at [phone]. I f this radiologist is unavailable, youwill be directed to another radiologist to assist. If you are a patient with a question regarding this report, pleasecontactyour referring physician directly. Profe ssional Interpretation Provided By: [employer], Phone , These documents contain legally protected and confidential healthinformation intended only for the use of the indiv idual or entity namedabove. If you are not the intended recipient, you are hereby notifiedthatany disclosure, copying, distribution, or other use of these documents isstrictly prohibited. If you have re ceived this information in error,pleasenotify the sender immediately and arrange for the return or destructionofthese documents. Dictated on 08/07/131330 by Archie Major MDribed on 08/07 by ITS IMPORTSign by Bud Major MD on 08/07/131334 Sign by: Bud Major MD 1-Wsz-491129:00 PT (Prothrobim Time) Comments: PATIENT NOT FASTINGPERFORMED BY: [place] [id number] [facility] [id number] Information: [id number] ([id number]) Prothrombin Time 12.2 {sec} (Abnormal) Range: 9.1-12.0 Comments: Please note reference interval change INR 1.2 (Normal) Range: 0.8-1.2 Comments: Reference interval is for non-anticoagulated patients. . Suggested INR therapeutic range for Vitamin K anta gonist therapy: Standard Dose (moderate intensity therapeutic range): 2.0 - 3.0 Higher intensity therapeutic range 2.5 - 3.5 Please note reference interval change 26-Fbu-629602:12 PT (Prothrobim Time) Comments: PATIENT NOT FASTINGPERFORMED BY: [facility] [facility] [id number] Information: [id number] ([id number]) Prothrombin Time 26.6 {sec} (Abnormal) Range: 9.1-12.0 INR 2.6 (Abnormal) Range: 0.8-1.2 Comments: Reference interval is for non-anticoagulated patients. . Suggested INR therapeutic range for Vitamin K anta gonist therapy: Standard Dose (moderate intensity therapeutic range): 2.0 - 3.0 Higher intensity therapeutic range 2.5 - 3.5 :29 PT (Prothrobim Time) Comments: PATIENT NOT FASTINGPERFORMED BY: [address] [id number] Information: ADD [id number] AND DRAW FEE [id number] ([id number]) Prothrombin Time 18.7 {sec} (Abnormal) Range: 9.1-12.0 INR 1.8 (Abnormal) Range: 0.8-1.2 Comments: Reference interval is for non-anticoagulated patients. . Suggested INR therapeutic range for Vitamin K anta gonist therapy: Standard Dose (moderate intensity therapeutic range): 2.0 - 3.0 Higher intensity therapeutic range 2.5 - 3.5 47-Plc-022560:01 PT (Prothrobim Time) Comments: PATIENT NOT FASTINGPERFORMED BY: [place] [id number] [facility] [id number] Information: [id number] ([id number]) Prothrombin Time 22.0 {sec} (Abnormal) Range: 9.1-12.0 INR 2.1 (Abnormal) Range: 0.8-1.2 Comments: Reference interval is for non-anticoagulated patients. . Suggested INR therapeutic range for Vitamin K anta gonist therapy: Standard Dose (moderate intensity therapeutic range): 2.0 - 3.0 Higher intensity therapeutic range 2.5 - 3.5 06-Hjt-126043:23 PT (Prothrobim Time) Comments: PATIENT NOT FASTINGPERFORMED BY: [place] [id number] [facility] [id number] Information: [id number] ([id number]) Prothrombin Time 28.7 {sec} (Abnormal) Range: 9.1-12.0 INR 2.8 (Abnormal) Range: 0.8-1.2 Comments: Reference interval is for non-anticoagulated patients. . Suggested INR therapeutic range for Vitamin K anta gonist therapy: Standard Dose (moderate intensity therapeutic range): 2.0 - 3.0 Higher intensity therapeutic range 2.5 - 3.5 78-Hhk-780209:35 PT (Prothrobim Time) Comments: PATIENT NOT FASTINGPERFORMED BY: [address] [id number] Information: ADD [id number] AND DRAW FEE [id number] ([id number]) Prothrombin Time 26.3 {sec} (Abnormal) Range: 9.1-12.0 INR 2.6 (Abnormal) Range: 0.8-1.2 Comments: Reference interval is for non-anticoagulated patients. . Suggested INR therapeutic range for Vitamin K anta gonist therapy: Standard Dose (moderate intensity therapeutic range): 2.0 - 3.0 Higher intensity therapeutic range 2.5 - 3.5 27-Yac-658846:57 Prothrombin Time (PT) Comments: PERFORMED BY: [address] [id number] Prothrombin Time 16.3 {sec} (Abnormal) Range: 9.1-12.0 INR 1.6 (Abnormal) Range: 0.8-1.2 Comments: Reference interval is for non-anticoagulated patients. . Suggested INR therapeutic range for Vitamin K anta gonist therapy: Standard Dose (moderate intensity therapeutic range): 2.0 - 3.0 Higher intensity therapeutic range 2.5 - 3.5 :11 PT (Prothrobim Time) Comments: PATIENT NOT FASTINGPERFORMED BY: [place] [id number] [facility] [id number] Information: [id number] ([id number]) Prothrombin Time 16.1 {sec} (Abnormal) Range: 9.1-12.0 INR 1.5 (Abnormal) Range: 0.8-1.2 Comments: Reference interval is for non-anticoagulated patients. . Suggested INR therapeutic range for Vitamin K anta gonist therapy: Standard Dose (moderate intensity therapeutic range): 2.0 - 3.0 Higher intensity therapeutic range 2.5 - 3.5 9-Cja-910471:16 Prothrombin Time (PT) Comments: PERFORMED BY: [facility] [facility] [id number] Prothrombin Time 21.4 {sec} (Abnormal) Range: 9.1-12.0 INR 2.1 (Abnormal) Range: 0.8-1.2 Comments: Reference interval is for non-anticoagulated patients. . Suggested INR therapeutic range for Vitamin K anta gonist therapy: Standard Dose (moderate intensity therapeutic range): 2.0 - 3.0 Higher intensity therapeutic range 2.5 - 3.5 1-Hxk-159043:04 PT (Prothrobim Time) Comments: PATIENT NOT FASTINGPERFORMED BY: [facility] [facility] [id number] Information: [id number] ([id number]) Prothrombin Time 46.9 {sec} (Abnormal) Range: 9.1-12.0 Comments: Please note reference interval change INR 4.6 (Abnormal) Range: 0.8-1.2 Comments: Client Requested Flag Reference interval is for non- anticoagulated patients. . Suggested INR therapeutic ra nge for Vitamin K antagonist therapy: Standard Dose (moderate intensity therapeutic range): 2.0 - 3.0 Higher intensi ty therapeutic range 2.5 - 3.5 Please note reference interval change :51 PT (Prothrobim Time) Comments: PATIENT NOT FASTINGPERFORMED BY: [place] [id number] [facility] [id number] Information: [id number] ([id number]) Prothrombin Time 18.5 {sec} (Abnormal) Range: 9.1-12.0 INR 1.8 (Abnormal) Range: 0.8-1.2 Comments: Reference interval is for non-anticoagulated patients. . Suggested INR therapeutic range for Vitamin K anta gonist therapy: Standard Dose (moderate intensity therapeutic range): 2.0 - 3.0 Higher intensity therapeutic range 2.5 - 3.5 :10 PT (Prothrobim Time) Comments: PATIENT NOT FASTINGPERFORMED BY: [place] [id number] [facility] [id number] Information: [id number] ([id number]) Prothrombin Time 22.5 {sec} (Abnormal) Range: 9.1-12.0 INR 2.2 (Abnormal) Range: 0.8-1.2 Comments: Reference interval is for non-anticoagulated patients. . Suggested INR therapeutic range for Vitamin K anta gonist therapy: Standard Dose (moderate intensity therapeutic range): 2.0 - 3.0 Higher intensity therapeutic range 2.5 - 3.5 :14 PT (Prothrobim Time) Comments: PATIENT NOT FASTINGPERFORMED BY: [facility] [facility] [id number] Information: [id number] ([id number]) Prothrombin Time 28.0 {sec} (Abnormal) Range: 9.1-12.0 INR 2.7 (Abnormal) Range: 0.8-1.2 Comments: Reference interval is for non-anticoagulated patients. . Suggested INR therapeutic range for Vitamin K anta gonist therapy: Standard Dose (moderate intensity therapeutic range): 2.0 - 3.0 Higher intensity therapeutic range 2.5 - 3.5 :12 PT (Prothrobim Time) Comments: PATIENT NOT FASTINGPERFORMED BY: [facility] [facility] [id number] Information: [id number] ([id number]) Prothrombin Time 18.6 {sec} (Abnormal) Range: 9.1-12.0 INR 1.8 (Abnormal) Range: 0.8-1.2 Comments: Reference interval is for non-anticoagulated patients. . Suggested INR therapeutic range for Vitamin K anta gonist therapy: Standard Dose (moderate intensity therapeutic range): 2.0 - 3.0 Higher intensity therapeutic range 2.5 - 3.5 :00 Prothrombin Time (PT) Comments: A duplicate report has been generated due to demographic updates.PERFORMED BY: [facility] [facility] [id number] Information: ACCT# CORRECTED 08-16-12. Prothrombin Time 21.1 {sec} (Abnormal) Range: 9.1-12.0 INR 2.0 (Abnormal) Range: 0.8-1.2 Comments: Reference interval is for non-anticoagulated patients. . Suggested INR therapeutic range for Vitamin K anta gonist therapy: Standard Dose (moderate intensity therapeutic range): 2.0 - 3.0 Higher intensity therapeutic range 2.5 - 3.5 :01 PT INR 2.6 (Normal) PTP 26.0 s (Abnormal) Range: 11.9-14.4 :00 PT INR 1.8 (Normal) PTP 19.6 s (Abnormal) Range: 11.9-14.4 :40 PT INR 1.9 (Normal) PTP 20.3 s (Abnormal) Range: 11.9-14.4 :02 PT INR 1.7 (Normal) PTP 18.9 s (Abnormal) Range: 11.9-14.4 :56 PT INR 2.2 (Normal) PTP 22.4 s (Abnormal) Range: 11.9-14.4 :00 PT INR 2.7 (Normal) PTP 26.1 s (Abnormal) Range: 11.9-14.4 :01 CBCMD RBCM NORM C+C {NORMAL} (Normal) PE ADEQUATE (Normal) EOS 2 % (Normal) Range: 0-5 MON 4 % (Normal) Range: 0-10 LYMPH 27 % (Normal) Range: 19-41 PMN 67 % (Normal) Range: 47-70 MAYCO 100 (Normal) ANC 5.2 3/uL (Normal) Range: 2.0-7.7 PLT 180 K/mm3 (Normal) Range: 150-450 RDW 13.4 % (Normal) Range: 11.6-14.6 MCHC 34.6 g/dL (Normal) Range: 32-36 MCH 29.9 pg (Normal) Range: 27.0-32.0 MCV 86.6 fL (Normal) Range: 81-99 HCT 39.1 % (Normal) Range: 37-47 HGB 13.5 g/dL (Normal) Range: 12.0-16.0 RBC 4.52 {M/mm3} (Normal) Range: 4.2-5.4 WBC 7.4 K/mm3 (Normal) Range: 4.4-11.0 :01 CMP GAP 7 (Normal) Range: 5-15 CO2 27.0 mmol/L (Normal) Range: 21.0-32.0 CL 106 mmol/L (Normal) Range: 98-107 K 4.2 mmol/L (Normal) Range: 3.5-5.1 NA 140 mmol/L (Normal) Range: 136-145 BIT 0.60 mg/dL (Normal) Range: 0.00-1.00 ALT 31 U/L (Normal) Range: 12-78 ALK 47 U/L (Abnormal) Range: 50-136 AST 26 U/L (Normal) Range: 15-37 CA 8.5 mg/dL (Normal) Range: 8.5-10.1 AG 1.6 {RATIO} (Normal) Range: 0.9-2.4 GLOB 2.7 g/dL (Normal) Range: 2.7-4.2 ALB 4.2 g/dL (Normal) Range: 3.4-5.0 TPROT 6.9 g/dL (Normal) Range: 6.4-8.2 BC 17.8 {RATIO} (Normal) Range: 10-20 GFRAA 93 mL/min (Normal) GFR 77 mL/min (Normal) CREAT 0.9 mg/dL (Normal) Range: 0.6-1.0 BUN 16 mg/dL (Normal) Range: 7-18 GLU 82 mg/dL (Normal) Range: 70-110 :01 LIPID VLDL 20 mg/dL (Normal) Range: 5-40 LDL 96 mg/dL (Normal) Range: 0-130 HDL 51 mg/dL (Normal) Comments: Reference Range HDL <40 mg/dL Low HDL Cholesterol HDL >or= 60 mg/dL High HDL Cholesterol TRIG 102 mg/dL (Normal) Comments: Serum Triglycerides Reference Interval Normal <150 mg/dL Borderline high 150 - 199 mg/dL High 200 - 499 mg/dL Very High > or = 500 mg/dL CHOL 167 mg/dL (Normal) Comments: <200 mg/dL Desirable 200-240 mg/dL Borderline >240 mg/dL High Risk PT INR 4.0 (Abnormal) PTP 35.3 s (Abnormal) Range: 11.9-14.4 : TSH 0.56 {uIU/mL} (Normal) Range: 0.358-3.74 : PAPIG3 tHPVHR Negative (Normal) Comments: This high-risk HPV test detects thirteen high-risk types(16/18/31/33/35/39/45/51/52/56/58/59/68) withoutdifferentiation. .Performed at: - [address] [id number] Director: Asha Osborne MD, Phone: [phone] at: =G - [facility] [address] [id number] Director: Asha Osborne MD, Phone: [phone] [facility] Comment (Normal) Comments: The Pap smear is a screening test designed to aid in thedetection of premalignant and malignant conditions of theuterine cervix. It is not a diagnostic procedure andshould not be used as the sole means of detecting cervicalcancer. Both false-positive and false-negative reports dooccur. . tCOM2 . (Normal) tDIAG Comment (Normal) Comments: NEGATIVE FOR INTRAEPITHELIAL LESION AND MALIGNANCY.Satisfactory for evaluation. Endocervical and/or squamous metaplasticcells (endocervical component) are present.Layne Andres, Revenue Officer ([facility] [place]This liquid based ThinPrep(R) pap test was screened withthe use of an image guided system. :13 PT INR 2.5 (Normal) PTP 25.2 s (Abnormal) Range: 11.9-14.4 :57 PT INR 1.0 (Normal) PTP 13.2 s (Normal) Range: 11.9-14.4 :01 PT INR 3.3 (Normal) PTP 31.9 s (Abnormal) Range: 11.9-14.4 :46 PT INR 3.2 (Normal) PTP 30.9 s (Abnormal) Range: 11.9-14.4 :01 PT INR 2.8 (Normal) PTP 28.4 s (Abnormal) Range: 11.9-14.4 :46 PRO TIME INR 2.6 (Normal) PROTIME 26.8 s (Abnormal) Range: 11.9-14.4 :44 PRO TIME INR 2.3 (Normal) PROTIME 24.4 s (Abnormal) Range: 11.9-14.4 :35 PRO TIME INR 2.3 (Normal) PROTIME 24.0 s (Abnormal) Range: 11.9-14.4 :51 PRO TIME INR 2.6 (Normal) PROTIME 26.4 s (Abnormal) Range: 11.9-14.4 :12 PRO TIME INR 2.5 (Normal) PROTIME 26.3 s (Abnormal) Range: 11.9-14.4 :13 PRO TIME INR 2.9 (Normal) PROTIME 29.1 s (Abnormal) Range: 11.9-14.4 :08 PRO TIME INR 2.0 (Normal) PROTIME 22.2 s (Abnormal) Range: 11.9-14.4 Comments: Effective APRIL 20, 2011. 06-Nmg-281701:28 PRO TIME INR 1.2 (Normal) PROTIME 13.0 s (Abnormal) Range: 9.1-11.7 :08 LQDPAP [id number] Comments: CYTOLOGY INFORMATION:- CLINICAL INFORMATION: - DATE LMP/MENOPAUSE: [id number] LMP- COLLECTION VIAL: Thin Prep Vial- ANALYSIS SPECIALIST SOURCE: - COLLECTION TECHNIQUE: PAPSMR Comment (Normal) Comments: The Pap smear is a screening test designed to aid in thedetection of premalignant and malignant conditions of theuterine cervix. It is not a diagnostic procedure andshould not be used as the sole means of detecting cervicalcancer. Both false-positive and false-negative reports dooccur. .The HPV DNA reflex criteria were not met with this speci menresult therefore, no HPV testing was performed. .Performed at: [facility] [id number] Director: Asha Osborne MD, Phone: [phone] COMM . (Normal) DIAGN Comment (Normal) Comments: NEGATIVE FOR INTRAEPITHELIAL LESION AND MALIGNANCY.Satisfactory for evaluation. Endocervical and/or squamous metaplasticcells (endocervical component) are present.Ada Perez, CytotechnologistThis liquid based ThinPrep(R) pap test was screened withthe use of an image guided system. 67-Rqe-158710:20 PRO TIME INR 2.4 (Normal) PROTIME 24.8 s (Abnormal) Range: 9.1-11.7 :23 VIT D,25 25530 66.3 ng/mL (Normal) Range: 32.0-100.0 Comments: Recent studies consider the lower limit of 32.0 ng/mL to claire threshold for optimal health.Terrance GARCIA. J Nutr. 2004;135(2):317-22.Performed at: - [address] [id number] Director: Ninfa Nash MD, Phone: [phone] :43 T4 FREE DIRECT 1.05 ng/dL (Normal) Range: 0.76-1.46 :43 VITAMIN B12 782 pg/mL (Normal) Range: 254-1320 Comments: There is a low frequency possibility that high titers ofintrinsic blocking antibodies may not be completely inactivated during the reaction pretreatment stepof this testing method. If test results are i n conflictwith the clinical diagnosis, patient should be testedfor the presence of intrinsic factor blocking antibodies. :43 TSH 0.58 {uIU/mL} (Normal) Range: 0.358-3.74 :43 FREE T3 2.6 pg/mL (Normal) Range: 2.18-3.98 :29 PRO TIME INR 1.8 (Normal) PROTIME 19.0 s (Abnormal) Range: 9.1-11.7 :23 PRO TIME INR 2.3 (Normal) PROTIME 23.9 s (Abnormal) Range: 9.1-11.7 :27 CBC MPV 10.1 fL (Normal) Range: 6.5-12.0 PLT 179 K/mm3 (Normal) Range: 150-450 RDW 12.8 % (Normal) Range: 11.6-14.6 MCH 30.1 pg (Normal) Range: 27.0-32.0 MCHC 34.8 g/dL (Normal) Range: 32-36 HCT 39.5 % (Normal) Range: 37-47 MCV 86.5 fL (Normal) Range: 81-99 HGB 13.8 g/dL (Normal) Range: 12.0-16.0 RBC 4.57 {M/mm3} (Normal) Range: 4.2-5.4 WBC 5.3 K/mm3 (Normal) Range: 4.4-11.0 :27 COMP METABOLIC GAP 8 (Normal) Range: 5-15 CL 105 mmol/L (Normal) Range: 98-107 CO2 26.0 mmol/L (Normal) Range: 21.0-32.0 K 4.0 mmol/L (Normal) Range: 3.5-5.1 NA 139 mmol/L (Normal) Range: 136-145 T BILI 0.50 mg/dL (Normal) Range: 0.00-1.00 ALK P 46 U/L (Abnormal) Range: 50-136 ALT 22 U/L (Normal) Range: 12-78 AST 15 U/L (Normal) Range: 15-37 A/G 1.3 {RATIO} (Normal) Range: 0.9-2.4 CA 9.4 mg/dL (Normal) Range: 8.5-10.1 GLOB 3.1 g/dL (Normal) Range: 2.7-4.2 ALB 4.0 g/dL (Normal) Range: 3.4-5.0 T PROT 7.1 g/dL (Normal) Range: 6.4-8.2 BUN/CRE 12.2 {RATIO} (Normal) Range: 10-20 CREAT,SERUM 0.9 mg/dL (Normal) Range: 0.6-1.0 EST GFR 78 mL/min (Normal) EST GFR - AA 95 mL/min (Normal) BUN 11 mg/dL (Normal) Range: 7-18 GLU 84 mg/dL (Normal) Range: 70-110 :27 LIPID HDL 57 mg/dL (Normal) Comments: Reference Range HDL <40 mg/dL Low HDL Cholesterol HDL >or= 60 mg/dL High HDL Cholesterol LDL 100 mg/dL (Normal) Range: 0-130 TRIG 119 mg/dL (Normal) Comments: Serum Triglycerides Reference Interval Normal <150 mg/dL Borderline high 150 - 199 mg/dL High 200 - 499 mg/dL Very High > or = 500 mg/dL VLDL 24 mg/dL (Normal) Range: 5-40 CHOL 181 mg/dL (Normal) Comments: <200 mg/dL Desirable 200-240 mg/dL Borderline >240 mg/dL High Risk :27 PRO TIME INR 3.8 (Abnormal) PROTIME 39.5 s (Abnormal) Range: 9.1-11.7 :58 PRO TIME INR 1.9 (Normal) PROTIME 19.6 s (Abnormal) Range: 9.1-11.7 :53 PRO TIME INR 2.2 (Normal) PROTIME 22.9 s (Abnormal) Range: 9.1-11.7 :12 PRO TIME INR 1.7 (Normal) PROTIME 17.5 s (Abnormal) Range: 9.1-11.7 :55 PRO TIME INR 1.4 (Normal) PROTIME 14.6 s (Abnormal) Range: 9.1-11.7 :19 PRO TIME INR 1.4 (Normal) PROTIME 14.3 s (Abnormal) Range: 9.1-11.7 :19 PRO TIME INR 1.9 (Normal) PROTIME 19.5 s (Abnormal) Range: 9.1-11.7 :08 PRO TIME INR 4.1 (Abnormal) Comments: RESULTS CALLED TO SOPHIA DIAZ 07/16/10 CRYSTAL HANSEN.REPORT READ BACK BY SAME . PROTIME 42.5 s (Abnormal) Range: 9.1-11.7 :49 PRO TIME INR 2.3 (Normal) PROTIME 24.1 s (Abnormal) Range: 9.1-11.7 :59 PRO TIME INR 2.6 (Normal) PROTIME 26.3 s (Abnormal) Range: 9.1-11.7 :28 PRO TIME INR 3.2 (Normal) PROTIME 32.9 s (Abnormal) Range: 9.1-11.7 :26 PRO TIME INR 2.8 (Normal) PROTIME 29.3 s (Abnormal) Range: 9.1-11.7 :59 PRO TIME INR 2.8 (Normal) PROTIME 29.1 s (Abnormal) Range: 9.1-11.7 :14 PRO TIME INR 2.1 (Normal) PROTIME 23.4 s (Abnormal) Range: 9.1-11.7 :48 PRO TIME INR 1.4 (Normal) PROTIME 15.0 s (Abnormal) Range: 9.1-11.7 :38 CULTURE, THROAT See Note (Normal) Comments: Normal throat fernando isolated. No beta-hemolyticstreptococcus isolated. :04 PRO TIME INR 2.4 (Normal) PROTIME 27.1 s (Abnormal) Range: 9.1-11.7 :15 PRO TIME Comments: STAT PLEASE CALL DR OATES WITH RESULTS INR 3.5 (Normal) PROTIME 40.9 s (Abnormal) Range: 9.1-11.7 0-Lho-[id number]:45 PT (PROTHROMBIN TIME) Comments: PATIENT NOT FASTINGPERFORMED BY: [id number] [id number] Information: [id number] ([id number]) Prothrombin Time 26.6 {sec} (Abnormal) Range: 9.1-12.0 INR 2.6 (Abnormal) Range: 0.8-1.2 Comments: Reference interval is for non-anticoagulated patients. . Suggested INR therapeutic range for Vitamin K anta gonist therapy: Standard Dose (moderate intensity therapeutic range): 2.0 - 3.0 Higher intensity therapeutic range 2.5 - 3.5 Plan of Care Name Dates Details Instructions BMI 29.0-29.9,adult : Eprescribed prescriptions (G8553) Indication: BMI 29.0-29.9,adult Nonsmoker : Eprescribed prescriptions (G8553) Indication: Nonsmoker Well female exam with routine gynecological exam : Self breast exam Indication: Well female exam with routine gynecological exam Well female exam with routine gynecological exam : *Well Female Maintenance ([facility]) Indication: Well female exam with routine gynecological exam Well female exam with routine gynecological exam : Pap/Pelvic/Bimanual/Rectal/Breast Exam was done. Indication: Well female exam with routine gynecological exam Nonsmoker : Eprescribed prescriptions (G8553) Indication: Nonsmoker Nonsmoker : Eprescribed prescriptions (G8553) Indication: Nonsmoker Dysuria : Eprescribed prescriptions (G8553) Indication: Dysuria Dysuria : Bladder Infection: Brief Version *: uti Indication: Dysuria Lower Leg Pain : Eprescribed prescriptions (G8553) Indication: Lower Leg Pain Acute pharyngitis : *URI Treatment Indication: Acute pharyngitis Acute pharyngitis : *URI Symptoms Indication: Acute pharyngitis Acute pharyngitis : *Antibiotic Usage Education - Female Indication: Acute pharyngitis Acute pharyngitis : Sore throat: diagnosis and treatment Indication: Acute pharyngitis Well female exam with routine gynecological exam : Self breast exam Indication: Well female exam with routine gynecological exam Well female exam with routine gynecological exam : Pap/Pelvic/Bimanual/Rectal/Breast Exam was done. Indication: Well female exam with routine gynecological exam 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 : Eprescribed prescriptions (G8553) Indication: 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 : Deep Vein Thrombosis *: blood clots Indication: 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 Well female exam with routine gynecological exam : Pap Test (Cervical Smear) *: pap smear of cervix Indication: Well female exam with routine gynecological exam Well female exam with routine gynecological exam : HPV Vaccine Information 2005 Indication: Well female exam with routine gynecological exam Well female exam with routine gynecological exam : Self breast exam Indication: Well female exam with routine gynecological exam Well female exam with routine gynecological exam : *Well Female Maintenance ([facility]) Indication: Well female exam with routine gynecological exam Well female exam with routine gynecological exam : Pap/Pelvic/Bimanual/Rectal/Breast Exam was done. Indication: Well female exam with routine gynecological exam Well female exam with routine gynecological exam : SELF BREAST EXAM Indication: Well female exam with routine gynecological exam Well female exam with routine gynecological exam : *Well Female Maintenance ([facility]) Indication: Well female exam with routine gynecological exam Well female exam with routine gynecological exam : Pap/Pelvic/Bimanual/Rectal/Breast Exam was done. Indication: Well female exam with routine gynecological exam Lower Leg Pain : Follow up Indication: Lower Leg Pain Planned Observations METABOLIC PANEL, COMPREHENSIVE ([id number])Indication: Elevated liver function tests On: 18-Vah-976985:23 Request CBC W/AUTO DIFF WBC ([id number])Indication: 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 On: 70-Cbz-802839:23 Request LIPID PANEL ([id number])Indication: Elevated high sensitivity C-reactive protein On: 27-Pfu-621487:21 Request Thin prep Pap ([id number]) (no STD testing)Indication: Encounter for gynecological examination with abnormal finding On: 18-Qys-096292:46 Request PT (Prothrobim Time) ([id number])Indication: 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 On: 03-Aug-2018 Request PT (Prothrobim Time) ([id number])Indication: 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 On: 04-Jul-2018 Request PT (Prothrobim Time) ([id number])Indication: 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 On: 04-Jun-2018 Request PT (Prothrobim Time) ([id number])Indication: 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 On: 06-Mar-2018 Request LIPID PANEL ([id number])Indication: Elevated high sensitivity C-reactive protein On: 06-Hdi-37410:35 Request Thin prep Pap ([id number]) (no STD testing)Indication: Well female exam with routine gynecological exam On: 93-Fok-474252:33 Request PT (Prothrobim Time) ([id number])Indication: 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 On: 08-Jul-2015 Request Comments: Standing Order PT (Prothrobim Time) ([id number])Indication: 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 On: 08-Jun-2015 Request Comments: Standing Order PT (Prothrobim Time) ([id number])Indication: 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 On: 09-May-2015 Request Comments: Standing Order JAVON CULTURE-OTHER ([id number])Indication: Acute pharyngitis On: 48-Lfs-92329:27 Request Thin prep Pap ([id number]) (no STD testing)Indication: Well female exam with routine gynecological exam On: 73-Udb-835833:14 Request PT (PROTHROMBIN TIME) ([id number])Indication: 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 On: 06-Apr-2014 Request CBC WITH MANUAL DIFF ([id number])Indication: 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 On: 1-Gbl-730580:33 Request METABOLIC PANEL, COMPREHENSIVE ([id number])Indication: 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 On: 0-Mhr-352413:32 Request TSH ([id number])Indication: family hx of thyroid disease On: 8-Syf-490582:32 Request LIPID PANEL ([id number])Indication: familyhx of high chol On: 2-Efg-773366:31 Request HPV automatic ([id number])Indication: Well female exam with routine gynecological exam On: 4-Xts-291994:58 Request Thin prep Pap ([id number]) (no STD testing)Indication: Well female exam with routine gynecological exam On: 2-Ytx-046417:58 Request PT (Prothrobim Time) ([id number])Indication: 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 On: 37-Fyg-228176:43 Request Comments: standing order Thin prep Pap ([id number]) (no STD testing)Indication: Well female exam with routine gynecological exam On: :19 Request PT (PROTHROMBIN TIME) ([id number])Indication: 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 On: :49 Request Vitamin D Hydroxy ([id number])Indication: Fatigue On: :49 Request T3, FREE (TRIDOTHYRONINE) ([id number])Indication: Fatigue On: :48 Request T4, FREE (THYROXINE) ([id number])Indication: Fatigue On: :48 Request VITAMIN B-12 (CYANOCOBALAMIN) ([id number])Indication: Fatigue On: :48 Request TSH ([id number])Indication: Fatigue On: :48 Request PT (PROTHROMBIN TIME) ([id number])Indication: Pulmonary embolism On: :45 Request Comments: standing order CBC & PLATELETS (AUTO) ([id number])Indication: Abnormal blood chemistry On: :45 Request LIPID PANEL ([id number])Indication: Abnormal blood chemistry On: :45 Request METABOLIC PANEL, COMPREHENSIVE ([id number])Indication: Abnormal blood chemistry On: :45 Request JAVON CULTURE-OTHER ([id number])Indication: Acute pharyngitis On: :57 Request Rapid Strep Test, Office ([id number])Indication: Acute pharyngitis On: :57 Request Planned Encounters Medical; [facility] 3 Month FU - On: 07-Feb-2019 15:30 [facility] Fast DO, Kylie A Fast DO, Kylie A Planned Procedures SCREENING DIGITAL TOMOSYNTHESIS OF On: 01-Nov-2018 Intent BREAST ([id number])By: Fast DO, Kylie A Fast DO, Kylie A ELECTROCARDIOGRAM, COMPLETE (ECG) On: 01-Nov-2018 Intent ([id number])By: Fast DO, Kylie A Fast Comments: ekg showed normal sinus rhythym, normal axis, no acute st/t wave changes sinus kellie= she a runner DO, Kylie A ELECTROCARDIOGRAM, COMPLETE (ECG) On: 11-Nov-2017 Intent ([id number])By: Kylie Junior DO Comments: ekg showed normal sinus rhythym, normal axis, no acute st/t wave changes sinus kellie DOHuberta A ELECTROCARDIOGRAM, COMPLETE (ECG) On: 29-Nov-2016 Intent ([id number])By: Kylie Junior DO Comments: ekg showed normal sinus rhythym, normal axis, no acute st/t wave changes Kylie BARCENAS A Flu Vaccine (Quadrivalent) On: 29-Sep-2016 Intent 06949Hs: Visit, Nurse Comments: Lot:[id number]:05/20/17mt:0.5mlRoute:IMSite: L DltdGiven By: MARISA Mccormick signed Radiology - Knee - Right - Weight On: 07-Feb-2015 Intent BearingBy: Kylie Junior DO Comments: stat call results Kylie BARCENAS Doppler Ultrasound OtherBy: Fast On: 07-Feb-2015 Intent Kylie BARCENAS DO, Debra A Comments: right leg- hx of dvt- stat call results SPECIMEN HNDLNG/TRNSPRT, OFFC > On: 14-Oct-2014 Intent LAB ([id number])By: Michael RAIN, Nata Prather Eprescribed prescriptions On: 14-Dec-2013 Intent (G8553)By: Darlene Drew FLU VAC, SPLIT, >3 YEARS, On: 06-Aug-2013 Intent INTRAMUSC ([id number])By: Darryl BARCENAS, Comments: Lot:[id number]:0.5mLRoute:IMSite:L DltdGiven By:ILYA signed Francine IMMUNIZ ADMNIN, 1 VAC, SNGL/COMBO On: 06-Aug-2013 Intent ([id number])By: Francine Andrews DO Eprescribed prescriptions On: 06-Aug-2013 Intent (G8553)By: Francine Andrews DO Radiology - Finger(s) - LeftBy: On: 06-Aug-2013 Intent Francine Andrews DO IMMUNIZ ADMNIN, 1 VAC, SNGL/COMBO On: 14-Aug-2012 Intent ([id number])By: Joyce Evans LPN Comments: Lot #[id number]-L dltd, IMDose prefilled syringegiven by:MARISA Velez signed FLU VAC, SPLIT, >3 YEARS, On: 14-Aug-2012 Intent INTRAMUSC ([id number])By: Joyce Evans LPN Eprescribed prescriptions On: 25-Apr-2012 Intent (G8553)By: Fast DO, Kylie A Fast DO, Kylie A FLU VAC, SPLIT, >3 YEARS, On: 18-Aug-2011 Intent INTRAMUSC ([id number])By: Sanjeev, Comments: Lot:[id number]:05/10/12Amt:prefilledRoute:IMSite:left deltGiven By: KELL Zaragoza Anais TDAP VACCINE >7 IM ([id number])By: Vernon On: 08-Feb-2011 Intent DO, Kylie A Fast DO, Kylie A Comments: Lot #[id number]/13Site-L dltd, IMDose prefilledgiven by: FLU VAC, SPLIT, >3 YEARS, On: 14-Sep-2010 Intent INTRAMUSC ([id number])By: Kimo, Comments: Lot #:[id number] Expiration date:mount given:.5mlRoute: IMSite given:left deltoid Given by: altaf JOHNSON IMMUNIZ ADMNIN, 1 VAC, SNGL/COMBO On: 14-Sep-2010 Intent ([id number])By: ELIZABETH Malin Doppler Ultrasound OtherBy: Ciesa On: 29-Jul-2009 Intent Юлия REYES Instructions Name Dates Details BMI 29.0-29.9,adult : How to access health information online Indication: BMI 29.0-29.9,adult BMI 29.0-29.9,adult : How to access health information online - Detail Indication: BMI 29.0-29.9,adult BMI 29.0-29.9,adult : Patient Instructions Indication: BMI 29.0-29.9,adult Nonsmoker : How to access health information online Indication: Nonsmoker Nonsmoker : How to access health information online - Detail Indication: Nonsmoker Nonsmoker : Patient Instructions Indication: Nonsmoker Nonsmoker : How to access health information online Indication: Nonsmoker Nonsmoker : How to access health information online - Detail Indication: Nonsmoker Nonsmoker : Patient Instructions Indication: Nonsmoker Nonsmoker : How to access health information online Indication: Nonsmoker Nonsmoker : How to access health information online - Detail Indication: Nonsmoker Nonsmoker : Patient Instructions Indication: Nonsmoker Dysuria : How to access health information online Indication: Dysuria Dysuria : How to access health information online - Detail Indication: Dysuria Dysuria : Patient Instructions Indication: Dysuria Lower Leg Pain : Patient Instructions Indication: Lower Leg Pain Well female exam with routine gynecological exam : Patient Instructions Indication: Well female exam with routine gynecological exam 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 : Patient Instructions Indication: 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 Acute Sinusitis (Renamed from Acute infection of nasal sinus) : Patient Instructions Indication: Acute Sinusitis (Renamed from Acute infection of nasal sinus) Finger pain : Patient Instructions Indication: Finger pain Encounters Phone Encounter On: 03-Nov-2018 14:39 Encounter Diagnosis: Unspecified Diagnosis End: 03-Nov-2018 14:42 [facility] Review On: 01-Nov-2018 13:07 Encounter Reason: Physical female exam - Last seen less than 1 month ago. General health: feels well with no complaints, has good energy level and is sleeping well. The patient's appetite is normal. Nutrition: normal/emeterio quate. Exercises 5 (5-6) days per week. Sleeps on average 8 hours per night. Normal bowel and bladder habits. Safety measures include appropriate use of safety belts, appropriate use of helmets and home smoke detectors , but do not include counseling regarding safe sex/HIV or counseling regarding substance abuse. There are no current emotional problems. screening, Pap smear and screening, visual acuit y (2016). Note for Physical exam: [facility]:Encounter Diagnosis: Nonsmoker, BMI 29.0-29.9,adult, 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 (453.42), [facility]LL[facility] EXAM, Encounter for screening mammogram for breast cancer (Renamed from Encounter for screening mammogram for malignant neoplasm of breast), Encounter for gynecological examination with abnormal finding, Screening for HPV (human papillomavirus) (Renamed from Encounter for screening for human papillomavirus (HPV)), Elevated high sensitivity C-reactive protein, Elevated liver function tests [facility] Phone Encounter On: 27-Mar-2018 11:29 [facility] End: 27-Mar-2018 11:31 Phone Encounter On: 02-Jan-2018 10:20 [facility] End: 02-Jan-2018 10:22 Office Visit On: 11-Nov-2017 7:40 Encounter Reason: Follow up tests - Diagnostic tests include other (labs). Date: (10/2017)., [ADDITIONAL REASON] Physical female exam - Last seen less than 1 month ago. General health: feels we End: 27-Nov-2017 15:28 ll with no complaints, has good energy level and is sleeping well. The patient's appetite is normal. Nutrition: normal/adequate. Exercises 7 days per week. Sleeps on average 7 hours per night. Normal jose wel and bladder habits. Safety measures include appropriate use of safety belts, appropriate use of helmets and home smoke detectors , but do not include counseling regarding safe sex/HIV or counseling regarding substance abuse. There are no current emotional problems. screening, Pap smear and screening, visual acuity (2015). Note for Physical exam: mostly running for exercise - at least mile daily and longer runs 4-5 days a week and it band was leg issue and better- got flu shot this year- had pap and skin check Encounter Diagnosis: Nonsmoker, BMI 29.0- 29.9,adult, Vitamin D deficiency, Thrombophlebitis migrans (453.1), [facility] EXAM, Elevated high sensitivity C-reactive protein, Abnormal lung function test [facility] Office Visit On: 28-Oct-2017 7:02 Encounter Diagnosis: Abnormal lung function test End: 28-Oct-2017 7:18 [facility] Historical Summary On: 07-Sep-2017 16:00 Encounter Diagnosis: 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 (453.42) End: 07-Sep-2017 16:01 [facility] Phone Encounter On: 10-Jun-2017 11:37 [facility] End: 10-Jun-2017 11:40 Office Visit On: 08-Jun-2017 13:31 Encounter Reason: Well Women Exam - The patient feels well with no complaints, has good energy level and is sleeping well. Pap smear: date of last pap: (2013). Contraceptive history: The patient is not using any method o End: 08-Jun-2017 14:54 f contraception at this time. Patient exercises 3 - 4 times per week. The patient's libido is normal. The patient reports that she performs monthly self breast exam. Calcium intake includes 1200 mg mar y supplment. The patient denies the use of oral contraceptives or hormone replacement therapy. Menstruation: Last menstrual period date: (may).Encounter Diagnosis: Nonsmoker, Well female exam with routine gynecological exam, Screening for HPV (human papillomavirus) (Renamed from Encounter for screening for human papillomavirus (HPV)), Atypical nevus [facility] Phone Encounter On: 28-Mar-2017 8:48 [facility] End: 28-Mar-2017 8:51 Office Visit On: 30-Nov-2016 10:32 Encounter Diagnosis: 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 (453.42) End: 30-Nov-2016 10:36 [facility] Office Visit On: 17-Nov-2016 8:00 Encounter Reason: Physical female exam - General health: feels well with no complaints, has good energy level and is sleeping well. The patient's appetite is normal. Nutrition: normal/adequate. Exercises 5 days per week. End: 01-Dec-2016 11:10 Sleeps on average 8 hours per night. Normal bowel and bladder habits. Safety measures include appropriate use of safety belts, appropriate use of helmets and home smoke detectors , but do not include c ounseling regarding safe sex/HIV or counseling regarding substance abuse. There are no current emotional problems. screening, Pap smear and screening, visual acuity (2014). Note for Physical exam: bp is good she not exercising like she was so weight upEncounter Diagnosis: BMI 29.0- 29.9,adult, Nonsmoker, 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 (453.42), immunity check, Atypical nevus, Blood chemistry abnormality (Renamed from Abnormal blood chemistry), Abnormal lung function test, [facility], Vitamin D deficiency [facility] Phone Encounter On: 30-Sep-2016 11:57 [facility] End: 30-Sep-2016 11:59 Office Visit On: 29-Sep-2016 15:40 Encounter Reason: Injections - The medication the patient is here to receive is other (flu inj).Encounter Diagnosis: Need for prophylactic vaccination and inoculation against influenza End: 29-Sep-2016 15:42 [facility] Phone Encounter On: 19-Jul-2016 12:06 [facility] End: 19-Jul-2016 12:08 Phone Encounter On: 12-Jul-2016 11:10 [facility] End: 12-Jul-2016 11:11 Office Visit On: 09-Jul-2016 7:07 Encounter Reason: UTI - The urinary symptoms are described as painful urination, frequency and urgency. The symptoms have been occurring for 1 day and have been increasing. The urine is described as bloody. There has be End: 09-Jul-2016 9:33 en no associated abdominal pain or low back pain. The patient denies the use of oral contraceptives, antibiotics, hormone replacement therapy or pyridium/uristat. Note for Infection: not drinking much caffeine - and drinking plenty of water- hit her all of suddenEncounter Diagnosis: Dysuria [facility] Phone Encounter On: 07-Apr-2016 15:16 [facility] End: 07-Apr-2016 15:18 Phone Encounter On: 22-Mar-2016 14:17 [facility] End: 22-Mar-2016 14:18 Phone Encounter On: 15-Jan-2016 15:20 [facility] End: 15-Jan-2016 15:21 Phone Encounter On: 18-Dec-2015 13:44 [facility] End: 18-Dec-2015 13:45 Phone Encounter On: 04-Dec-2015 14:54 [facility] End: 04-Dec-2015 14:55 Phone Encounter On: 06-Nov-2015 14:16 [facility] End: 06-Nov-2015 14:19 Phone Encounter On: 05-Nov-2015 15:34 Encounter Diagnosis: 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 (453.42) End: 05-Nov-2015 15:38 [facility] Phone Encounter On: 10-Sep-2015 11:50 [facility] End: 10-Sep-2015 11:56 Phone Encounter On: 02-Jul-2015 12:11 [facility] End: 02-Jul-2015 12:14 Phone Encounter On: 14-May-2015 16:09 [facility] End: 14-May-2015 16:11 Phone Encounter On: 05-Mar-2015 14:18 [facility] End: 05-Mar-2015 14:21 Office Visit On: 07-Feb-2015 7:59 Encounter Reason: Knee Pain - The injury involved the right knee. This occurred 5 day(s) ago at home. The injury resulted from a fall (was jogging). Symptoms include knee pain and swelling, while symptoms do not include End: 09-Feb-2015 22:47 warmth, redness, stiffness, decreased range of motion or difficulty ambulating. Symptoms are located in the right knee and right lateral knee. The pain radiates to the right lower leg (calf). The patien t describes the pain as dull. Onset was sudden. The symptoms occur constantly. The patient describes symptoms as unchanged. Associated symptoms do not include fever or chills. Note for Knee pain: no p ain unless running now- onlateral side of knee into calf- pain only when pushes off- no fever chills sob-- no leg swelling Encounter Diagnosis: Lower Leg Pain (719.46) [facility] Phone Encounter On: 06-Feb-2015 15:04 [facility] End: 06-Feb-2015 15:06 Phone Encounter On: 31-Jan-2015 7:57 [facility] End: 31-Jan-2015 7:59 Office Visit On: 29-Jan-2015 10:51 [facility] End: 29-Jan-2015 10:53 Phone Encounter On: 24-Dec-2014 9:11 [facility] End: 24-Dec-2014 9:11 Lab Order On: 11-Nov-2014 11:43 Encounter Diagnosis: PHARYNGITIS, ACUTE (462.) End: 11-Nov-2014 11:44 [facility] Office Visit On: 11-Nov-2014 9:17 Encounter Diagnosis: PHARYNGITIS, ACUTE (462.) End: 11-Nov-2014 9:38 [facility] Phone Encounter On: 22-Oct-2014 10:14 [facility] End: 22-Oct-2014 10:14 Office Visit On: 14-Oct-2014 9:18 Encounter Diagnosis: PHARYNGITIS, ACUTE (462.) End: 14-Oct-2014 9:36 [facility] Phone Encounter On: 13-Aug-2014 8:45 [facility] End: 13-Aug-2014 8:46 Lab Order On: 12-Aug-2014 15:12 Encounter Diagnosis: 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 (453.42) End: 12-Aug-2014 15:13 [facility] Phone Encounter On: 03-Jul-2014 9:18 [facility] End: 03-Jul-2014 9:19 Phone Encounter On: 19-Jun-2014 14:20 [facility] End: 19-Jun-2014 14:23 Office Visit On: 12-Jun-2014 10:01 [facility] End: 12-Jun-2014 10:06 Phone Encounter On: 15-May-2014 12:51 [facility] End: 15-May-2014 12:51 Office Visit On: 08-May-2014 14:13 Encounter Reason: Well Women Exam - The patient feels well with no complaints, has good energy level and is sleeping well. Pap smear: date of last pap: (April 2012). Contraceptive history: The patient is not using any met End: 08-May-2014 20:57 hod of contraception at this time. Patient exercises every other day. The patient's libido is normal. The patient reports that she does not perform monthly breast self exam. Calcium intake includes 1500 mg with Vit D daily supplement. The patient denies the use of oral contraceptives or hormone replacement therapy. Menstruation: Last menstrual period date: (tuesday).Encounter Diagnosis: Well Female (Younger Female) (V72.31) [facility] Office Visit On: 29-Apr-2014 10:16 Encounter Reason: Follow up for chronic medical issues - The patient feels well with minor complaints (right hip pain), has good energy level and is sleeping well. Patient has been compliant with instructions. Current wa End: 29-Apr-2014 11:09 dication use: no side effects and compliant with dosing regimen. Patient sleeps 8 hours per night. Nutrition: balanced diet and supplemental vitamins. The medical issues the patient is following up for include All identified problems below and other (hx of PE, dvt, headaches and lower leg pain). Note for Follow up for chronic medical issues: No routine labs done.- bp is good and weigth stable- she is vegetarian , [ADDITIONAL REASON] Hip Problem - Symptoms include hip problem, while symptoms do not include fever or chills. The symptoms are located in the right hip. The patient describes the hip problem as hip pa in. Onset was gradual 2 month(s) ago. The symptoms occur frequently. Encounter Diagnosis: 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 (453.42), Hip bursitis 726.5, screening , Family history of thyroid disease [facility] Phone Encounter On: 16-Apr-2014 9:15 [facility] End: 16-Apr-2014 9:16 Lab Order On: 12-Apr-2014 9:48 Encounter Diagnosis: 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 (453.42) End: 12-Apr-2014 14:03 [facility] Phone Encounter On: 05-Apr-2014 8:37 [facility] End: 05-Apr-2014 8:38 Phone Encounter On: 11-Mar-2014 9:07 [facility] End: 11-Mar-2014 9:09 Office Visit On: 14-Dec-2013 8:19 Encounter Reason: Cold Symptoms - Symptoms include nasal congestion, runny nose, postnasal drainage, scratchy throat, hoarseness, productive cough, facial pressure and facial pain, while symptoms do not include sore thro End: 14-Dec-2013 8:45 at, dry cough or headache. Onset was sudden 6 day(s) ago. The symptoms occur constantly. The patient describes this as improving. Associated symptoms include plugged ear(s), while associated symptoms do not include ear pain, wheezing, shortness of breath, fatigue, nausea, vomiting, diarrhea, fever or chills. The patient is not currently being treated for this problem. Note for Cold symptoms: she fee ls alot of draiange pain in face so bad over the weekend had to ice face- fair amount of cough but getting better- no fever - she is getting some colored draiange- tried sudafed sinus and mucinexEncounter Diagnosis: Acute Sinusitis (Renamed from Acute infection of nasal sinus), Laryngitis(464.00) [facility] Phone Encounter On: 30-Nov-2013 8:34 [facility] End: 30-Nov-2013 8:38 Office Visit On: 07-Nov-2013 15:47 Encounter Diagnosis: 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 (453.42) End: 07-Nov-2013 15:48 [facility] Office Visit On: 06-Aug-2013 15:19 Encounter Reason: Finger Sprain/Strain - The injury is to the right ring finger. The injury occurred 2 week(s) ago. The injury resulted from a fall. Presenting symptoms included pain, swelling and bruising.Encounter Diagnosis: Finger pain (729.5), End: 06-Aug-2013 17:09 Need for prophylactic vaccination and inoculation against influenza (V04.81) [facility] Phone Encounter On: 16-Nov-2012 16:24 [facility] End: 16-Nov-2012 16:29 Annotation/Addendum On: 16-Aug-2012 14:52 Encounter Diagnosis: 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 (453.42) End: 16-Aug-2012 14:53 [facility] Office Visit On: 14-Aug-2012 15:01 Encounter Reason: Injections - The medication the patient is here to receive is other.Encounter Diagnosis: Need for prophylactic vaccination and inoculation against influenza (V04.81) End: 14-Aug-2012 15:11 [facility] Phone Encounter On: 12-Jul-2012 15:56 [facility] End: 12-Jul-2012 15:57 Office Visit On: 05-Jun-2012 9:29 Encounter Reason: Follow up for chronic medical issues - The patient feels well with no complaints, has good energy level and is sleeping well. Patient has been compliant with instructions. Current medication use: no edel End: 05-Jun-2012 9:56 e effects and compliant with dosing regimen. Patient sleeps 8 hours per night. Nutrition: balanced diet and supplemental vitamins. The medical issues the patient is following up for include All identifi ed problems below and other (hx of PE, dvt, headaches and lower leg pain). Note for Follow up for chronic medical issues: she is feeling good and exercising rotuine,ly weight is coming down and lab ar e good- never went to [facility] for skin check is willing now- and no dale routine, [ADDITIONAL REASON] Follow up, Laboratory Test Results - Date: (04/28/12). 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 Pap smear: date of last pap: (03/09/11). Contraceptive history: The patient is not using any metho End: 25-Apr-2012 12:49 d of contraception at this time. Patient exercises every other day. The patient's libido is normal. The patient reports that she does not perform monthly breast self exam. Calcium intake includes 1500 m g with Vit D daily supplement. The patient denies the use of oral contraceptives or hormone replacement therapy. Menstruation: Last menstrual period date: (04/17/12). Note for Well Women Exam: her weig ht coming down 13 pounds- she exercises alot- and counting calories- bp is goodEncounter Diagnosis: Well Female (Younger Female) (V72.31), 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 (453.42), familyhx of high chol, family hx of thyroid disease [facility] Phone Encounter On: 12-Apr-2012 13:48 [facility] End: 12-Apr-2012 13:49 Annotation/Addendum On: 27-Mar-2012 15:45 [facility] End: 27-Mar-2012 15:47 Phone Encounter On: 13-Mar-2012 18:51 [facility] End: 13-Mar-2012 18:52 Annotation/Addendum On: 03-Jan-2012 11:41 Encounter Diagnosis: 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 (453.42) End: 03-Jan-2012 11:45 [facility] Office Visit On: 18-Aug-2011 11:37 Encounter Reason: Injections - The medication the patient is here to receive is other (flu vaccine).Encounter Diagnosis: Need for prophylactic vaccination and inoculation against influenza (V04.81) End: 18-Aug-2011 11:50 [facility] Phone Encounter On: 20-Jul-2011 16:55 [facility] End: 20-Jul-2011 16:57 Phone Encounter On: 01-Jun-2011 14:15 [facility] End: 01-Jun-2011 14:17 Phone Encounter On: 27-Apr-2011 17:34 [facility] End: 27-Apr-2011 17:38 Office Visit On: 09-Mar-2011 15:15 Encounter Reason: Well Women Exam - The patient feels well with no complaints, has good energy level and is sleeping well. Pap smear: date of last pap: (over 1 year ago). Contraceptive history: The patient is not using a End: 09-Mar-2011 22:31 ny method of contraception at this time. Patient exercises every other day. The patient's libido is normal. The patient reports that she does not perform monthly breast self exam. Calcium intake include s 1200 mg with Vit D daily supplement and 1 serving milk daily. The patient denies the use of oral contraceptives or hormone replacement therapy. Menstruation: Last menstrual period date: (02/15/11). Not e for Well Women Exam: she did get gardasil - did consent to new hpv testingEncounter Diagnosis: Well Female (Younger Female) (V72.31), Atypical Nevus(238.2), Fatigue (780.79) [facility] Erroneous Entry On: 16-Feb-2011 14:47 Encounter Diagnosis: 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 (453.42) End: 16-Feb-2011 14:49 [facility] Annotation/Addendum On: 08-Feb-2011 16:03 [facility] End: 08-Feb-2011 16:06 Office Visit On: 08-Feb-2011 14:18 Encounter Reason: Follow up for chronic medical issues - The patient feels well with minor complaints (ongoing lower leg pain on right near mishra- not sure if varicose veins or mishra splints), has good energy level and is End: 08-Feb-2011 15:34 sleeping well. Patient has been compliant with instructions. Current medication use: no side effects and compliant with dosing regimen. Patient sleeps 8 hours per night. Nutrition: balanced diet and sup plemental vitamins. The medical issues the patient is following up for include All identified problems below and other (hx of PE, dvt, headaches and lower leg pain). weight : ([employer]- 204). 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.42), Fatigue (780.79) [facility] Phone Encounter On: 19-Jan-2011 15:46 [facility] End: 19-Jan-2011 15:50 Phone Encounter On: 19-Jan-2011 15:44 Encounter Diagnosis: Abnormal blood chemistry (790.6), Pulmonary embolism (415.19) End: 19-Jan-2011 15:45 [facility] Phone Encounter On: 14-Oct-2010 17:26 [facility] End: 14-Oct-2010 17:29 Annotation/Addendum On: 07-Oct-2010 19:09 [facility] End: 07-Oct-2010 19:11 Office Visit On: 14-Sep-2010 15:37 Encounter Reason: here for flu vaccineEncounter Diagnosis: Need for prophylactic vaccination and inoculation against influenza (V04.81) End: 14-Sep-2010 15:50 [facility] Phone Encounter On: 24-Jul-2010 15:10 [facility] End: 24-Jul-2010 15:11 Phone Encounter On: 16-Jul-2010 16:35 [facility] End: 16-Jul-2010 16:38 Phone Encounter On: 04-Jun-2010 15:13 [facility] End: 04-Jun-2010 15:15 Phone Encounter On: 20-May-2010 17:46 [facility] End: 20-May-2010 17:48 Historical Summary On: 13-May-2010 17:34 [facility] End: 13-May-2010 17:35 Phone Encounter On: 24-Apr-2010 14:33 [facility] End: 24-Apr-2010 14:37 Historical Summary On: 27-Feb-2010 16:46 [facility] End: 27-Feb-2010 16:48 Office Visit On: 26-Dec-2009 6:57 Encounter Reason: Physical female exam - General health: feels well with no complaints. The patient's appetite is normal. Nutrition: normal/adequate. Exercises 2 days per week. Sleeps on average 7 hours per night. Normal End: 26-Dec-2009 7:34 bowel and bladder habits. Safety measures include appropriate use of safety belts and home smoke detectors. There are no current emotional problems. Encounter Diagnosis: Pulmonary embolism (415.19), 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 (453.42) [facility] Annotation/Addendum On: 24-Dec-2009 15:53 Encounter Diagnosis: Pulmonary embolism (415.19) End: 24-Dec-2009 15:56 [facility] Phone Encounter On: 24-Dec-2009 15:51 [facility] End: 24-Dec-2009 15:53 Phone Encounter On: 24-Dec-2009 15:38 Encounter Diagnosis: Abnormal blood chemistry (790.6) End: 24-Dec-2009 15:43 [facility] Office Visit On: 24-Nov-2009 14:54 Encounter Reason: Sore throat - The onset of the sore throat has been sudden and has been occurring in a persistent pattern for 2 days. The course has been worsening. The symptoms have been associated with difficulty in End: 24-Nov-2009 15:37 swallowing ,fever and swelling of neck glands, while the symptoms have not been associated with cough or ear pain. Encounter Diagnosis: PHARYNGITIS, ACUTE (462.), Lower Leg Pain (719.46) [facility] Phone Encounter On: 13-Aug-2009 13:28 [facility] End: 13-Aug-2009 13:29 Historical Summary On: 30-Jul-2009 10:03 [facility] End: 30-Jul-2009 10:06 Historical Summary On: 29-Jul-2009 18:50 [facility] End: 29-Jul-2009 18:52 Office Visit On: 29-Jul-2009 14:52 Encounter Reason: Leg pain - The leg pain began suddenly and has been occurring for 1 days. The symptoms have been occurring in a persistent pattern. The symptoms are described as a ache (when touch) and are mild to mode End: 29-Jul-2009 15:39 rate in severity. The symptoms occur at rest. There is involvement of the right lower extremity (on mishra, knot). There are no precipitating factors. There are no aggravating factors. There are no reliev ing factors. There has been no associated chest pain. Previous evaluations have included venogram (has had dopplers in the past to two blood clots). 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
--- OUTSIDE RECORDS SUMMARY | 2019-02-08 02:01 | XMS RPT_ITS | Continuity of Care Document ---
:1980 Author Organization [facility] Address [facility]7 [facility] [address] [place] [address] Phone Care Team Providers Name Role Phone Kylie Junior DO Unavailable Dr. Mago Ponce MD Unavailable Dr. Jayden Izaguirre Unavailable Dr. 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 Blood chemistry abnormality (Renamed from Abnormal blood chemistry) (R79.9, 790.6) Status: Active BMI 29.0-29.9,adult (Z68.29, V85.25) Status: Active Dysuria (R30.0, 788.1) Status: Active Elevated high sensitivity C-reactive protein (R79.82, 790.95) Status: Active Encounter for gynecological examination with [...] Active 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, 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.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, 453.42) 05-Jun-2012 Status: Active Vitamin D deficiency (E55.9, 268.9) Comments: chronic stable-continue present regimen Status: Active Well female exam with routine gynecological exam (Z01.419, V72.31) Status: Active Medications Name Dates Details CALTRATE 600+D PLUS, 212-246TU-LQRW (Oral Tablet) Active 1 tab qd (600-400 MG-UNIT) Coumadin 2 MG Oral Tablet uad Tablet qd for 0 days Quantity: 90 {Tablet} Refills: 3 Ordered:17-Oct-2017 Darlene Drew Start : 17-Oct-2017 Active Dispense as Written Comments:ELISABETH Coumadin 5 MG Oral Tablet 1 1/2 Tablet qd for 0 days Quantity: 135 {Tablet} Refills: 3 Ordered:30-Nov-2016 Fast DOKylie DO, Debra A Start : 30-Nov-2016 Active Dispense as Written Comments:elisabeth Eliquis 5 MG Oral Tablet 1 (one) Tablet bid for 0 days Quantity: 60 {Tablet} Refills: 11 Ordered:01-Nov-2018 Fast DOHuberta Kylie Prince DO Start : 01-Nov-2018 Active GLUCOSAMINE 1500 COMPLEX (Oral Capsule) for 0 days Refills: 0 Ordered:08-Feb-2011 Darlene DrewActive MULTIVITAMIN (Oral Liquid) for 0 days Refills: 0 Ordered:11-Nov-2017 Nila CASTORENA AngelaActive Amoxicillin 875 MG Oral Tablet 1 [...] 0 days Refills: 0 Ordered:24-Nov-2009 Mylene Harrison LPEVELYNnactive AUGMENTIN, 875-125MG (Oral Tablet) 1 (one) Tablet [...] - PT Result: Comments: See Note; NOTES: [facility]. [address] [place] [address] Fax REHABILITATION SERVICES BRETT Escobar EVALUATION MR#: [id number] Acct: [id number] Name: TILA CARRERA Rep #: [id number] : 1980 36 From: Adrienne Mahoney DPT Referring DrGladys: Kylie Junior DO Status: REG RCR Insurance: [facility] Patient's Visit Information TILA CARRERA is a [...] to be FAXED BACK to us at [phone] for Medicare purposes. Please le t me know if there are questions or concerns regarding this plan of care. Physician Signature: Date: <Electronically signed by Pat Mahoney DPT> 08/04/16 1641 CC: Kylie Junior DO ELR Signed For Medicare only, by signing this I certify the plan of care. Physicians Signature Date 26-Mar-2016 PT D/C Summary (1) Result: Comments: See Note; NOTES: [facility] [address] [place] [address] Fax REHABILITATION SE RVICES DISCHARGE SUMMARY MR#: [id number] Acct: [id number] Name: TILA CARRERA Rep #: [id number] : 1980 36 From: Kade Dejesus PT, FRANK, SCS, CSCS Referring DrGladys: Tonny Farris Status: REG RC R Insurance: [facility] - PT D/C Summary It has been my pleasure to treat TILA CARRERA under orders from Tonny Farris DO, for the diagnosis of RIGHT KNEE ,GASTROCSOLEUS STRAIN,PER TYRONE TELLEZ,,IT BAND for a total of 8 visit(s) . Please see the following information for a summary of their discharge status. - Subjective Subjective: I finished the marathon weekend and had a co urse AL of 4:25. Only had knee pain after [...] - PT Result: Comments: See Note; NOTES: [facility] [address] [facility]. [address] [place] [address] Fax REHABILITATION SE RVICES INITIAL EVALUATION MR#: [id number] Acct: [id number] Name: TILA CARRERA Rep #: [id number] : 1980 35 From: Yohannes Iverson PT, Cert. MDT Referring Dr.: Tonny Farris Status: REG R Insurance: [facility] Date: Patient's Visit Information TILA CARRERA is [...] parathesia/tingling. Runs in [place] run, [place].Patients training for marathon ,last at [employer] run tuesday 12 miles ,walk run because pain. SOCIAL: single. HOBBIES : running. 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 Please let me know if there are questions or concerns regarding this plan of care. Physician Signature: Date: <Electronically signed by Sarika Ozuna PT. MDT> 03/08/16 1021 CC: Kylie Farris DT: 02/19 04/05 Signed For Medicare only, by signing this I certify the plan of care. Physicians Signature Date 21-Apr-2015 Inital Evaluation - PT Result: Comments: See Note; NOTES: [facility] [address] [place] [address]. 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 This weekend she is traveling to [place] to compete in a 10 K with [...] whip upon contact. Kade Emanuel C: Tonny Kee: PAULY JOB: [id number] <Electronically signed by Kade Dejesus > 04/21/15 1615 CC: Signed For Medicare only, by signing this I certify the plan of care. Physicians Signature Date 21-Apr-2015 PT Discharge Summary Result: Comments: See Note; NOTES: [facility] [address] [place] [address]. [address] [place], [place] [id number] Fax REHABILITATION SERVICES DISCHARGE SUMMARY MR#: [id number] Acct: [id number] Name: TILA CARRERA Rep #: [id number] : 1980 35 From: Kade Dejesus Referring Dr.: Tonny Farris Status: PRE RCR Eval Date: Discharge Da te: DATE OF SERVICE: 04/15/2015 Tila has been seen for 10 of her scheduled 12 visits. She has recently competed in both Half [place] in [place] as well as a Full [place] in [place] on the same weekend. She has essentially [...] from our care. Kade Emanuel C: Tonny Kee: PAULY JOB: [id number] <Electronically signed by Kade Dejesus > 04/21/15 1615 CC: Signed 07-Feb-2015 Knee 4 or More Views Result: Comments: See Note; NOTES: [facility] Imaging Services [address] [place] [address] Radiology Report MR#: [id number] Acct: [id number] Name: DEBIJUANTILA Rep #: [id number] : 1980 F 34 From: Rajani Grossman MD PCP: Kylie Junior DO Status: REG CLI Study: Knee 4 or More Views Date of Exam: 02/07/15 Exam# [id number] Ordering Dr: Kylie Junior DO STUDY: X-RAY [...] 14:4 9 EDT Tel , Service support [phone], RAD/Knee 4 or More Views IMPRESSION: Normal x-ray examination of the knee. Electronically Signed: Alireza Garza MD at 14:49 EDT Tel , Service support [phone], CC: Kylie Junior DO Hand Button Splitter: Signed 07-Feb-2015 Knee 4 or More Views Result: Comments: See Note; NOTES: [facility] Imaging Services [address] [place] [address] Radiology Report MR#: [id number] Acct: [id number] Name: TILA CARRERA Rep #: [id number] : 1980 F 34 From: Rajani Grossamn MD PCP: Kylie Junior DO Status: REG CLI Study: Knee 4 or More Views Date of Exam: 02/07/15 Exam# [id number] Ordering Dr: Kylie Junior DO STUDY: X-RAY [...] 14:4 9 EDT Tel , Service support [phone], RAD/Knee 4 or More Views IMPRESSION: Normal x-ray examination of the knee. 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 Status: Active Smoking Status Name Dates Details Former smoker Vital Signs Date Test Result Details 67-Tpe-661661:08 Temperature 97.9 f Comments: Method: Temporal Pulse [...] kg/m2 Body Surface Area Calculated 1.87 m2 15-Jvw-938542:58 Temperature 98.6 f Comments: Method: Oral Pulse [...] kg/m2 Body Surface Area Calculated 1.98 m2 :54 Pulse 60 /min Comments: Pattern: Regular Respiration [...] 0.00 cm Results Date Description Value Details 33-Pnl-560307:30 PT (Prothrobim Time) (81531) Comments: PATIENT NOT FASTINGPERFORMED BY: Rajant CorporationKindred Hospital at WayneTycagq7669 [facility] [id number] Prothrombin Time 32.4 {sec} (Abnormal) Range: 9.1-12.0 INR 3.4 (Abnormal) Range: 0.8-1.2 Comments: Reference interval is for non-anticoagulated patients. . Suggested INR therapeutic range for Vitamin K anta gonist therapy: Standard Dose (moderate intensity therapeutic range): 2.0 - 3.0 Higher intensity therapeutic range 2.5 - 3.5 8-Xkv-006001:03 PT (Prothrobim Time) (57122) Comments: PATIENT NOT FASTINGPERFORMED BY: Rajant CorporationKindred Hospital at WayneVrrjae2847 [facility] [id number] Prothrombin Time 32.4 {sec} (Abnormal) Range: 9.1-12.0 INR 3.4 (Abnormal) Range: 0.8-1.2 Comments: Reference interval is for non-anticoagulated patients. . Suggested INR therapeutic range for Vitamin K anta gonist therapy: Standard Dose (moderate intensity therapeutic range): 2.0 - 3.0 Higher intensity therapeutic range 2.5 - 3.5 56-Ygh-92498:14 PT (Prothrobim Time) Comments: PATIENT NOT FASTINGPERFORMED BY: Rajant CorporationKindred Hospital at WayneYuxkzn4016 [facility] [id number] Information: NURSE DRAW ([id number]) Prothrombin Time 22.2 {sec} (Abnormal) Range: 9.1-12.0 INR 2.2 (Abnormal) Range: 0.8-1.2 Comments: Reference interval is for non-anticoagulated patients. . Suggested INR therapeutic range for Vitamin K anta gonist therapy: Standard Dose (moderate intensity therapeutic range): 2.0 - 3.0 Higher intensity therapeutic range 2.5 - 3.5 :56 PT (Prothrobim Time) (45651) Comments: PATIENT NOT FASTINGPERFORMED BY: [facility] [id number] Prothrombin Time 24.0 {sec} (Abnormal) Range: 9.1-12.0 INR 2.4 (Abnormal) Range: 0.8-1.2 Comments: Reference interval is for non-anticoagulated patients. . Suggested INR therapeutic range for Vitamin K anta gonist therapy: Standard Dose (moderate intensity therapeutic range): 2.0 - 3.0 Higher intensity therapeutic range 2.5 - 3.5 :35 PT (Prothrobim Time) (19665) Comments: PATIENT NOT FASTINGPERFORMED BY: [facility]6370 [facility] [id number] Prothrombin Time 19.3 {sec} (Abnormal) Range: 9.1-12.0 INR 2.0 (Abnormal) Range: 0.8-1.2 Comments: Reference interval is for non-anticoagulated patients. . Suggested INR therapeutic range for Vitamin K anta gonist therapy: Standard Dose (moderate intensity therapeutic range): 2.0 - 3.0 Higher intensity therapeutic range 2.5 - 3.5 :14 CBC W/AUTO DIFF WBC Comments: PATIENT NOT FASTINGPERFORMED BY: [facility]6370 [facility] [id number] Information: NURSE DRAW (49806) Immature Grans (Abs) 0.0 {x10E3/uL} (Normal) Range: [...] 3.77-5.28 WBC 5.3 {x10E3/uL} (Normal) Range: 3.4-10.8 63-Jqz-51674:14 METABOLIC PANEL, COMPREHENSIVE Comments: PATIENT NOT FASTINGPERFORMED BY: [facility] Pcsxni4339 [facility] [id number] ([id number]) ALT (SGPT) 25 [iU]/L (Normal) Range: 0-32 [...] 6-20 Glucose 80 mg/dL (Normal) Range: 65-99 40-Iqv-88165:14 C-REACT PROT HIGH SENS(hsCRP) Comments: PATIENT NOT FASTINGPERFORMED BY: [facility] [id number] ([id number]) C-Reactive Protein, Cardiac 3.48 mg/L (Abnormal) Range: 0.00-3.00 Comments: Relative Risk for Future Cardiovascular Event Low <1.00 Average 1.00 - 3.00 High >3.00 :50 PT (Prothrobim Time) (29921) Comments: PATIENT WAS FASTINGPERFORMED BY: [employer]70 [facility] [id number] Prothrombin Time 25.6 {sec} (Abnormal) Range: 9.1-12.0 INR 2.7 (Abnormal) Range: 0.8-1.2 Comments: Reference interval is for non-anticoagulated patients. . Suggested INR therapeutic range for Vitamin K anta gonist therapy: Standard Dose (moderate intensity therapeutic range): 2.0 - 3.0 Higher intensity therapeutic range 2.5 - 3.5 :26 CBC W/AUTO DIFF WBC (19977) Comments: PATIENT NOT FASTINGPERFORMED BY: [employer]70 [facility] [id number] Immature Grans (Abs) 0.0 {x10E3/uL} (Normal) Range: [...] PANEL, COMPREHENSIVE Comments: PATIENT NOT FASTINGPERFORMED BY: [facility] Shtzhs1740 [facility] [id number] ([id number]) ALT (SGPT) 16 [iU]/L (Normal) Range: 0-32 [...] (Normal) Range: 65-99 :19 PT (Prothrobim Time) (15957) Comments: PATIENT NOT FASTINGPERFORMED BY: [employer]6370 [facility] [id number] Prothrombin Time 26.4 {sec} (Abnormal) Range: 9.1-12.0 INR 2.7 (Abnormal) Range: 0.8-1.2 Comments: Reference interval is for non-anticoagulated patients. . Suggested INR therapeutic range for Vitamin K anta gonist therapy: Standard Dose (moderate intensity therapeutic range): 2.0 - 3.0 Higher intensity therapeutic range 2.5 - 3.5 29-Jry-603564:06 PT (Prothrobim Time) (41558) Comments: PATIENT NOT FASTINGPERFORMED BY: [employer]6370 KennedyiPolicy NetworksCone [facility] [id number] Prothrombin Time 27.6 {sec} (Abnormal) Range: 9.1-12.0 INR 2.9 (Abnormal) Range: 0.8-1.2 Comments: Reference interval is for non-anticoagulated patients. . Suggested INR therapeutic range for Vitamin K anta gonist therapy: Standard Dose (moderate intensity therapeutic range): 2.0 - 3.0 Higher intensity therapeutic range 2.5 - 3.5 :07 HPV automatic Comments: Source.............Cervix;EndocervixNo. of containers..01 CYTYC Thin Prep VialPATIENT NOT FASTINGPERFORMED BY: Rajant Corporationrp Michelet [place] [id number] BY: =G [employer] (49672) rp Michelet [place] [id number] Information: [id number] HPV, high-risk Negative Comments: This high-risk HPV [...] partially obscuring inflammtory exudate are present.Z11.51Jose Lynn, Quality Lead (ASCP)Asia Mcallister, Supervisory Quality Lead (ASCP) 51-Qrv-182883:29 PT (Prothrobim Time) (23221) Comments: PATIENT NOT FASTINGPERFORMED BY: [employer] Ijobke1529 [facility] CoinsetterAd[facility]Health [id number] Prothrombin Time 19.3 {sec} (Abnormal) Range: 9.1-12.0 INR 1.9 (Abnormal) Range: 0.8-1.2 Comments: Reference interval is for non-anticoagulated patients. . Suggested INR therapeutic range for Vitamin K anta gonist therapy: Standard Dose (moderate intensity therapeutic range): 2.0 - 3.0 Higher intensity therapeutic range 2.5 - 3.5 62-Org-093329:40 CBC W/AUTO DIFF WBC (68891) Comments: PATIENT NOT FASTINGPERFORMED BY: [employer] Ncqvga7858 Westfield Center RoadCone Health Moses [facility] [id number] Immature Grans (Abs) 0.0 {x10E3/uL} (Normal) Range: [...] 3.77-5.28 WBC 7.5 {x10E3/uL} (Normal) Range: 3.4-10.8 74-Nty-103528:40 METABOLIC PANEL, COMPREHENSIVE Comments: PATIENT NOT FASTINGPERFORMED BY: LabCoKindred Hospital at WayneUxgbnq3988 [facility] [id number] ([id number]) ALT (SGPT) 15 [iU]/L (Normal) Range: 0-32 [...] Glucose, Serum 65 mg/dL (Normal) Range: 65-99 65-Ymq-983061:40 Vitamin D Hydroxy (02731) Comments: PATIENT NOT FASTINGPERFORMED BY: LabCoKindred Hospital at WayneNlgrml8151 [facility] [id number] Vitamin D, 25-Hydroxy 49.2 ng/mL (Normal) Range: 30.0-100.0 Comments: Vitamin D deficiency has been defined by the [place] ofThe Metrohealth Systemcine and an Endocrine Society practice guideline as alevel of serum 25-OH vitamin D less than 20 ng/mL (1,2).The Endocrine Society went on to further define vitamin Dinsufficiency as a level between 21 and 29 ng/mL (2).1. IOM ([place] of Medicine). 2010. Dietary reference intakes for calcium and D. [place]: The National Academies Press.2. Dominick MF, Wale DEL RIO, Beverly DALE, et al. Evaluation, treatment, and prevention of vitamin D deficiency: an Endocrine Society clinical practice guideline. JCEM. 2010; 96(7):1911-30. 49-Yjm-961427:29 METABOLIC PANEL, COMPREHENSIVE Comments: PATIENT NOT FASTINGPERFORMED BY: [facility] Polvza1993 [facility] [id number] (11315) ALT (SGPT) 17 [iU]/L (Normal) Range: 0-32 [...] Glucose, Serum 83 mg/dL (Normal) Range: 65-99 88-Upb-774555:29 CBC W/AUTO DIFF WBC (24991) Comments: PATIENT NOT FASTINGPERFORMED BY: LabCoKindred Hospital at WayneUjkoqb1699 [facility] [id number] Immature Grans (Abs) 0.0 {x10E3/uL} (Normal) Range: [...] 3.77-5.28 WBC 6.3 {x10E3/uL} (Normal) Range: 3.4-10.8 64-Gjd-252538:29 SED RATE ERYTHROCYTE (17798) Comments: PATIENT NOT FASTINGPERFORMED BY: TrampolineCoKindred Hospital at WayneYlvenv3620 [facility] [id number] Sedimentation Rate-Westergren 2 mm/h (Normal) Range: 0-32 18-Gja-338214:29 C-REACTIVE PROTEIN (20383) Comments: PATIENT NOT FASTINGPERFORMED BY: LabCoKindred Hospital at WaynePyklly9351 [facility] [id number] C-Reactive Protein, Quant 0.6 mg/L (Normal) Range: 0.0-4.9 31-Abo-781315:29 RUBELLA IgG (36841) Comments: PATIENT NOT FASTINGPERFORMED BY: LabCoKindred Hospital at WayneHuuepu9565 [facility] [id number] Rubella Antibodies, IgG 1.44 {index} (Normal) Comments: Non-immune <0.90 Equivocal 0.90 - 0.99 Immune >0.99 59-Fte-140050:29 RUBEOLA IgG (06107) Comments: PATIENT NOT FASTINGPERFORMED BY: [facility]6370 [facility] [id number] Rubeola Ab, IgG 38.9 AU/mL (Normal) Comments: Negative <25.0 Equivocal 25.0 - 29.9 Positive >29.9 Presence of antibodies to Rubeola is presumptive evidence of immunity except when acute infection is suspected. 29-Cxg-360204:29 MUMPS IgG (55280) Comments: PATIENT NOT FASTINGPERFORMED BY: [facility]6370 [facility] [id number] Mumps Abs, IgG 43.9 AU/mL (Normal) Comments: Negative <9.0 Equivocal 9.0 - 10.9 Positive >10.9 A positive result genera lly indicates past exposure to Mumps virus or previous vaccination. 9-Zez-422922:29 PT (Prothrobim Time) (30665) Comments: STANDING ORDER; PATIENT NOT FASTINGPERFORMED BY: [facility]6370 [facility] [id number] Prothrombin Time 21.2 {sec} (Abnormal) Range: 9.1-12.0 INR 2.1 (Abnormal) Range: 0.8-1.2 Comments: Reference interval is for non-anticoagulated patients. . Suggested INR therapeutic range for Vitamin K anta gonist therapy: Standard Dose (moderate intensity therapeutic range): 2.0 - 3.0 Higher intensity therapeutic range 2.5 - 3.5 89-Tbz-31760:14 PT (Prothrobim Time) Comments: STANDING ORDER; PATIENT NOT FASTINGPERFORMED BY: [facility]6370 [facility] [id number] Information: [id number] (23309) Prothrombin Time 24.1 {sec} (Abnormal) Range: 9.1-12.0 INR 2.4 (Abnormal) Range: 0.8-1.2 Comments: Reference interval is for non-anticoagulated patients. . Suggested INR therapeutic range for Vitamin K anta gonist therapy: Standard Dose (moderate intensity therapeutic range): 2.0 - 3.0 Higher intensity therapeutic range 2.5 - 3.5 :32 PT (Prothrobim Time) Comments: STANDING ORDER; PATIENT NOT FASTINGPERFORMED BY: [facility] CenterCoKindred Hospital at WayneCnpmyt8125 [facility] [id number] Information: [id number] (51113) Prothrombin Time 22.5 {sec} (Abnormal) Range: 9.1-12.0 INR 2.2 (Abnormal) Range: 0.8-1.2 Comments: Reference interval is for non-anticoagulated patients. . Suggested INR therapeutic range for Vitamin K anta gonist therapy: Standard Dose (moderate intensity therapeutic range): 2.0 - 3.0 Higher intensity therapeutic range 2.5 - 3.5 :00 URINE JAVON CULTURE-IDENTIFICATN Comments: PATIENT NOT FASTINGPERFORMED BY: LabCoKindred Hospital at WayneOgfibn2744 [facility] [id number] Information: [id number] (08642) Result 1 ECV (Abnormal) Comments: Escherichia coli, [...] report Culture,Comprehensi (Abnormal) ve :09 Urinalysis, Office (36495) UA - LEUKOCYTE ESTERASE Small (Normal) UA - NITRITE Negative (Normal) URINE UROBILINGN RICCO TIMED Normal mg/dL (Normal) UA - PROTEIN Negative mg/dL (Normal) UA - PH 5.0 (Normal) UA - BLOOD Hemolyzed Small (Normal) UA - SPECIFIC GRAVITY 1.020 (Normal) UA - KETONES Negative mg/dL (Normal) UA - BILIRUBIN Negative (Normal) UA - GLUCOSE Negative (Normal) 58-Esx-580910:42 PT (Prothrobim Time) (29526) Comments: STANDING ORDER; PATIENT NOT FASTINGPERFORMED BY: [facility]ampolineStra[facility] Surgery6370 [facility] [id number] Prothrombin Time 27.3 {sec} (Abnormal) Range: 9.1-12.0 INR 2.7 (Abnormal) Range: 0.8-1.2 Comments: Reference interval is for non-anticoagulated patients. . Suggested INR therapeutic range for Vitamin K anta gonist therapy: Standard Dose (moderate intensity therapeutic range): 2.0 - 3.0 Higher intensity therapeutic range 2.5 - 3.5 6-Uao-740075:00 PT (Prothrobim Time) (93417) Comments: STANDING ORDER; PATIENT NOT FASTINGPERFORMED BY: [facility]Stra[facility] Surgery6370 [facility] [id number] Prothrombin Time 24.1 {sec} (Abnormal) Range: 9.1-12.0 INR 2.4 (Abnormal) Range: 0.8-1.2 Comments: Reference interval is for non-anticoagulated patients. . Suggested INR therapeutic range for Vitamin K anta gonist therapy: Standard Dose (moderate intensity therapeutic range): 2.0 - 3.0 Higher intensity therapeutic range 2.5 - 3.5 :48 PT (Prothrobim Time) (53550) Comments: STANDING ORDER; PATIENT NOT FASTINGPERFORMED BY: [facility]6370 [facility] [id number] Prothrombin Time 24.3 {sec} (Abnormal) Range: 9.1-12.0 INR 2.4 (Abnormal) Range: 0.8-1.2 Comments: Reference interval is for non-anticoagulated patients. . Suggested INR therapeutic range for Vitamin K anta gonist therapy: Standard Dose (moderate intensity therapeutic range): 2.0 - 3.0 Higher intensity therapeutic range 2.5 - 3.5 :01 PT (Prothrobim Time) Comments: STANDING ORDER; PATIENT NOT FASTINGPERFORMED BY: [facility]6370 [facility] [id number] Information: [id number] (99324) Prothrombin Time 29.0 {sec} (Abnormal) Range: 9.1-12.0 INR 2.8 (Abnormal) Range: 0.8-1.2 Comments: Reference interval is for non-anticoagulated patients. . Suggested INR therapeutic range for Vitamin K anta gonist therapy: Standard Dose (moderate intensity therapeutic range): 2.0 - 3.0 Higher intensity therapeutic range 2.5 - 3.5 :20 PT (Prothrobim Time) Comments: STANDING ORDER; PATIENT NOT FASTINGPERFORMED BY: [facility]6370 [facility] [id number] Information: [id number] (05249) Prothrombin Time 31.4 {sec} (Abnormal) Range: 9.1-12.0 INR 3.0 (Abnormal) Range: 0.8-1.2 Comments: Reference interval is for non-anticoagulated patients. . Suggested INR therapeutic range for Vitamin K anta gonist therapy: Standard Dose (moderate intensity therapeutic range): 2.0 - 3.0 Higher intensity therapeutic range 2.5 - 3.5 :35 PT (Prothrobim Time) Comments: STANDING ORDER; PATIENT NOT FASTINGPERFORMED BY: [place] [address]9670 [facility] [id number] Information: [id number] ([id number]) Prothrombin Time 23.2 {sec} (Abnormal) Range: 9.1-12.0 INR 2.2 (Abnormal) Range: 0.8-1.2 Comments: Reference interval is for non-anticoagulated patients. . Suggested INR therapeutic range for Vitamin K anta gonist therapy: Standard Dose (moderate intensity therapeutic range): 2.0 - 3.0 Higher intensity therapeutic range 2.5 - 3.5 :22 PT (Prothrobim Time) Comments: STANDING ORDER; PATIENT NOT FASTINGPERFORMED BY: [facility] [id number] Information: [id number] ([id number]) Prothrombin Time 26.3 {sec} (Abnormal) Range: 9.1-12.0 INR 2.5 (Abnormal) Range: 0.8-1.2 Comments: Reference interval is for non-anticoagulated patients. . Suggested INR therapeutic range for Vitamin K anta gonist therapy: Standard Dose (moderate intensity therapeutic range): 2.0 - 3.0 Higher intensity therapeutic range 2.5 - 3.5 :15 PT (Prothrobim Time) Comments: STANDING ORDER; PATIENT NOT FASTINGPERFORMED BY: [place] 5269670 [facility] [id number] Information: [id number] ([id number]) Prothrombin Time 20.6 {sec} (Abnormal) Range: 9.1-12.0 INR 2.0 (Abnormal) Range: 0.8-1.2 Comments: Reference interval is for non-anticoagulated patients. . Suggested INR therapeutic range for Vitamin K anta gonist therapy: Standard Dose (moderate intensity therapeutic range): 2.0 - 3.0 Higher intensity therapeutic range 2.5 - 3.5 :47 PT (Prothrobim Time) Comments: STANDING ORDER; PATIENT NOT FASTINGPERFORMED BY: [place] 5269670 [facility] [id number] Information: [id number] ([id number]) Prothrombin Time 21.0 {sec} (Abnormal) Range: 9.1-12.0 INR 2.0 (Abnormal) Range: 0.8-1.2 Comments: Reference interval is for non-anticoagulated patients. . Suggested INR therapeutic range for Vitamin K anta gonist therapy: Standard Dose (moderate intensity therapeutic range): 2.0 - 3.0 Higher intensity therapeutic range 2.5 - 3.5 :40 Prothrombin Time w/INR Comments: Test performed at:[facility] [address] [place], [place] [id number] INR 2.3 (Normal) PROTIME 25.6 s (Abnormal) Range: 11.7-14.9 :52 Prothrombin Time (PT) Comments: PATIENT NOT FASTINGPERFORMED BY: [address] [id number] Information: [id number] Prothrombin Time 20.4 {sec} (Abnormal) Range: 9.1-12.0 INR 1.9 (Abnormal) Range: 0.8-1.2 Comments: Reference interval is for non-anticoagulated patients. . Suggested INR therapeutic range for Vitamin K anta gonist therapy: Standard Dose (moderate intensity therapeutic range): 2.0 - 3.0 Higher intensity therapeutic range 2.5 - 3.5 :06 Prothrombin Time (PT) Comments: PATIENT NOT FASTINGPERFORMED BY: [place] 5269670 [facility] [id number] Information: [id number] Prothrombin Time 19.1 {sec} (Abnormal) Range: 9.1-12.0 INR 1.8 (Abnormal) Range: 0.8-1.2 Comments: Reference interval is for non-anticoagulated patients. . Suggested INR therapeutic range for Vitamin K anta gonist therapy: Standard Dose (moderate intensity therapeutic range): 2.0 - 3.0 Higher intensity therapeutic range 2.5 - 3.5 60-Ktp-169582:43 PT (Prothrobim Time) Comments: Standing Order; PATIENT NOT FASTINGPERFORMED BY: [place] 5269670 [facility] [id number] Information: [id number] ([id number]) Prothrombin Time 27.4 {sec} (Abnormal) Range: 9.1-12.0 INR 2.6 (Abnormal) Range: 0.8-1.2 Comments: Reference interval is for non-anticoagulated patients. . Suggested INR therapeutic range for Vitamin K anta gonist therapy: Standard Dose (moderate intensity therapeutic range): 2.0 - 3.0 Higher intensity therapeutic range 2.5 - 3.5 05-Rbr-377072:21 PT (Prothrobim Time) Comments: Standing Order; PATIENT NOT FASTINGPERFORMED BY: [facility] [id number] Information: [id number] ([id number]) Prothrombin Time 21.0 {sec} (Abnormal) Range: 9.1-12.0 INR 2.0 (Abnormal) Range: 0.8-1.2 Comments: Reference interval is for non-anticoagulated patients. . Suggested INR therapeutic range for Vitamin K anta gonist therapy: Standard Dose (moderate intensity therapeutic range): 2.0 - 3.0 Higher intensity therapeutic range 2.5 - 3.5 :01 PT (Prothrobim Time) Comments: Standing Order; PATIENT NOT FASTINGPERFORMED BY: [place] 5269670 [facility] [id number] Information: [id number] ([id number]) Prothrombin Time 27.3 {sec} (Abnormal) Range: 9.1-12.0 INR 2.5 (Abnormal) Range: 0.8-1.2 Comments: Reference interval is for non-anticoagulated patients. . Suggested INR therapeutic range for Vitamin K anta gonist therapy: Standard Dose (moderate intensity therapeutic range): 2.0 - 3.0 Higher intensity therapeutic range 2.5 - 3.5 :28 PT (Prothrobim Time) Comments: Standing Order; PATIENT NOT FASTINGPERFORMED BY: [facility] [id number] Information: [id number] ([id number]) Prothrombin Time 23.2 {sec} (Abnormal) Range: 9.1-12.0 INR 2.1 (Abnormal) Range: 0.8-1.2 Comments: Reference interval is for non-anticoagulated patients. . Suggested INR therapeutic range for Vitamin K anta gonist therapy: Standard Dose (moderate intensity therapeutic range): 2.0 - 3.0 Higher intensity therapeutic range 2.5 - 3.5 :58 PT (Prothrobim Time) Comments: Standing Order; PATIENT NOT FASTINGPERFORMED BY: [facility] [id number] Information: [id number] ([id number]) Prothrombin Time 29.7 {sec} (Abnormal) Range: 9.1-12.0 INR 2.7 (Abnormal) Range: 0.8-1.2 Comments: Reference interval is for non-anticoagulated patients. . Suggested INR therapeutic range for Vitamin K anta gonist therapy: Standard Dose (moderate intensity therapeutic range): 2.0 - 3.0 Higher intensity therapeutic range 2.5 - 3.5 93-Pub-788145:09 Throat Culture ([id number]) Comments: PATIENT NOT FASTINGPERFORMED BY: [facility] [id number] Information: SRC:THRT [id number] Result 1 RRF (Normal) Comments: Routine respiratory fernando Upper Respiratory Culture Final report (Normal) 76-Ilo-23161:20 Rapid Strep Test, Office (37136) Rapid Strep Test, Office Negative (Normal) 4-Wqs-617306:20 PT (Prothrobim Time) Comments: Standing Order; PATIENT NOT FASTINGPERFORMED BY: [place] [address]9670 [facility] [id number] Information: [id number] ([id number]) Prothrombin Time 26.6 {sec} (Abnormal) Range: 9.1-12.0 INR 2.4 (Abnormal) Range: 0.8-1.2 Comments: Reference interval is for non-anticoagulated patients. . Suggested INR therapeutic range for Vitamin K anta gonist therapy: Standard Dose (moderate intensity therapeutic range): 2.0 - 3.0 Higher intensity therapeutic range 2.5 - 3.5 :27 Rapid Strep Test, Office (06338) Rapid Strep Test, Office Positive (Normal) 81-Uqv-113043:18 PT (Prothrobim Time) Comments: Standing Order; PATIENT NOT FASTINGPERFORMED BY: [facility] [id number] Information: [id number] ([id number]) Prothrombin Time 17.6 {sec} (Abnormal) Range: 9.1-12.0 INR 1.6 (Abnormal) Range: 0.8-1.2 Comments: Reference interval is for non-anticoagulated patients. . Suggested INR therapeutic range for Vitamin K anta gonist therapy: Standard Dose (moderate intensity therapeutic range): 2.0 - 3.0 Higher intensity therapeutic range 2.5 - 3.5 :14 PT (PROTHROMBIN TIME) Comments: PATIENT NOT FASTINGPERFORMED BY: [facility] [id number] Information: [id number] ([id number]) Prothrombin Time 20.8 {sec} (Abnormal) Range: 9.1-12.0 INR 2.0 (Abnormal) Range: 0.8-1.2 Comments: Reference interval is for non-anticoagulated patients. . Suggested INR therapeutic range for Vitamin K anta gonist therapy: Standard Dose (moderate intensity therapeutic range): 2.0 - 3.0 Higher intensity therapeutic range 2.5 - 3.5 :25 PT (Prothrobim Time) Comments: Standing Order; PATIENT NOT FASTINGPERFORMED BY: [place] [address]96[address] [facility] [id number] Information: [id number] ([id number]) Prothrombin Time 23.5 {sec} (Abnormal) Range: 9.1-12.0 INR 2.2 (Abnormal) Range: 0.8-1.2 Comments: Reference interval is for non-anticoagulated patients. . Suggested INR therapeutic range for Vitamin K anta gonist therapy: Standard Dose (moderate intensity therapeutic range): 2.0 - 3.0 Higher intensity therapeutic range 2.5 - 3.5 :29 PT (PROTHROMBIN TIME) Comments: PATIENT NOT FASTINGPERFORMED BY: [facility] [id number] Information: [id number] ([id number]) Prothrombin Time 26.1 {sec} (Abnormal) Range: 9.1-12.0 INR 2.4 (Abnormal) Range: 0.8-1.2 Comments: Reference interval is for non-anticoagulated patients. . Suggested INR therapeutic range for Vitamin K anta gonist therapy: Standard Dose (moderate intensity therapeutic range): 2.0 - 3.0 Higher intensity therapeutic range 2.5 - 3.5 :18 PT (Prothrobim Time) Comments: Standing Order; PATIENT NOT FASTINGPERFORMED BY: [facility] [id number] Information: [id number] ([id number]) Prothrombin Time 23.2 {sec} (Abnormal) Range: 9.1-12.0 INR 2.1 (Abnormal) Range: 0.8-1.2 Comments: Reference interval is for non-anticoagulated patients. . Suggested INR therapeutic range for Vitamin K anta gonist therapy: Standard Dose (moderate intensity therapeutic range): 2.0 - 3.0 Higher intensity therapeutic range 2.5 - 3.5 60-Kfo-841043:18 PT (PROTHROMBIN TIME) Comments: PATIENT NOT FASTINGPERFORMED BY: [place] 5269670 [facility] [id number] Information: [id number] ([id number]) Prothrombin Time 22.3 {sec} (Abnormal) Range: 9.1-12.0 INR 2.1 (Abnormal) Range: 0.8-1.2 Comments: Reference interval is for non-anticoagulated patients. . Suggested INR therapeutic range for Vitamin K anta gonist therapy: Standard Dose (moderate intensity therapeutic range): 2.0 - 3.0 Higher intensity therapeutic range 2.5 - 3.5 :16 PT (PROTHROMBIN TIME) Comments: PATIENT NOT FASTINGPERFORMED BY: [address] [id number] Information: [id number],2ND ORDER NO DRAW F EE ([id number]) Prothrombin Time 29.6 {sec} (Abnormal) Range: 9.1-12.0 INR 2.9 (Abnormal) Range: 0.8-1.2 Comments: Reference interval is for non-anticoagulated patients. . Suggested INR therapeutic range for Vitamin K anta gonist therapy: Standard Dose (moderate intensity therapeutic range): 2.0 - 3.0 Higher intensity therapeutic range 2.5 - 3.5 :52 PT (PROTHROMBIN TIME) Comments: PATIENT NOT FASTINGPERFORMED BY: [place] 52696[address] [facility] [id number] Information: [id number] ([id number]) Prothrombin Time 25.4 {sec} (Abnormal) Range: 9.1-12.0 INR 2.4 (Abnormal) Range: 0.8-1.2 Comments: Reference interval is for non-anticoagulated patients. . Suggested INR therapeutic range for Vitamin K anta gonist therapy: Standard Dose (moderate intensity therapeutic range): 2.0 - 3.0 Higher intensity therapeutic range 2.5 - 3.5 42-Ocs-602621:47 HPV automatic Comments: Source.............Cervical;EndocervicalNo. of containers..01 CYTYC Thin Prep VialPATIENT NOT FASTINGPERFORMED BY: WB [facility] Hbe[address]kviav[address] [id number] BY: Lexa Escobar ([id number]) [facility] Rwdnhmaupj284 [facility] W [id number] Information: [id number] HPV, high-risk Negative Comments: This high-risk HPV [...] (endocervical component) are present.V70.0 ; Routine general me dical examin [facility] hospitalGlendy Castillo Quality Lead (ASCP) 99-Bgf-074590:47 PT (PROTHROMBIN TIME) Comments: PATIENT NOT FASTINGPERFORMED BY: [facility] Thaliv4395 [facility] [id number] Information: [id number] ([id number]) Prothrombin Time 24.4 {sec} (Abnormal) Range: 9.1-12.0 INR 2.3 (Abnormal) Range: 0.8-1.2 Comments: Reference interval is for non-anticoagulated patients. . Suggested INR therapeutic range for Vitamin K anta gonist therapy: Standard Dose (moderate intensity therapeutic range): 2.0 - 3.0 Higher intensity therapeutic range 2.5 - 3.5 :16 TSH (79944) Comments: PATIENT WAS FASTINGPERFORMED BY: [employer] Nrmqrg9888 [facility] [id number] TSH 1.090 {uIU/mL} (Normal) Range: 0.450-4.500 :16 LIPID PANEL (88354) Comments: PATIENT WAS FASTINGPERFORMED BY: LabAridhia InformaticsKindred Hospital at WayneGgaezz3963 [facility] [id number] LDL/HDL Ratio 1.4 {ratio_units} (Normal) Range: 0.0-3.2 [...] MANUAL DIFF Comments: PATIENT WAS FASTINGPERFORMED BY: LabCoKindred Hospital at WayneLtgvqw6981 [facility] [id number] Information: [id number] ([id number]) Immature Grans (Abs) 0.0 {x10E3/uL} (Normal) Range: [...] 3.77-5.28 WBC 5.5 {x10E3/uL} (Normal) Range: 3.4-10.8 12-Ngi-81437:16 METABOLIC PANEL, COMPREHENSIVE Comments: PATIENT WAS FASTINGPERFORMED BY: LabCoKindred Hospital at WayneRfpvfg3516 [facility] [id number] (70947) ALT (SGPT) 29 [iU]/L (Normal) Range: 0-32 [...] Glucose, Serum 83 mg/dL (Normal) Range: 65-99 35-Lde-541038:05 PT (Prothrobim Time) Comments: PATIENT NOT FASTINGPERFORMED BY: [place] 5269670 [facility] [id number] Information: [id number] ([id number]) Prothrombin Time 27.2 {sec} (Abnormal) Range: 9.1-12.0 INR 2.6 (Abnormal) Range: 0.8-1.2 Comments: Reference interval is for non-anticoagulated patients. . Suggested INR therapeutic range for Vitamin K anta gonist therapy: Standard Dose (moderate intensity therapeutic range): 2.0 - 3.0 Higher intensity therapeutic range 2.5 - 3.5 61-Yzo-561930:14 PT (PROTHROMBIN TIME) Comments: PATIENT NOT FASTINGPERFORMED BY: [facility] [id number] Information: [id number] (87173) Prothrombin Time 20.0 {sec} (Abnormal) Range: 9.1-12.0 INR 1.9 (Abnormal) Range: 0.8-1.2 Comments: Reference interval is for non-anticoagulated patients. . Suggested INR therapeutic range for Vitamin K anta gonist therapy: Standard Dose (moderate intensity therapeutic range): 2.0 - 3.0 Higher intensity therapeutic range 2.5 - 3.5 0-Yyi-341232:22 PT (PROTHROMBIN TIME) Comments: PATIENT NOT FASTINGPERFORMED BY: [facility] [id number] Information: [id number] (05264) Prothrombin Time 18.0 {sec} (Abnormal) Range: 9.1-12.0 INR 1.7 (Abnormal) Range: 0.8-1.2 Comments: Reference interval is for non-anticoagulated patients. . Suggested INR therapeutic range for Vitamin K anta gonist therapy: Standard Dose (moderate intensity therapeutic range): 2.0 - 3.0 Higher intensity therapeutic range 2.5 - 3.5 43-Hfc-228395:35 Prothrombin Time (PT) Comments: PATIENT NOT FASTINGPERFORMED BY: [address] [id number] Information: [id number], [id number] Prothrombin Time 26.9 {sec} (Abnormal) Range: 9.1-12.0 INR 2.6 (Abnormal) Range: 0.8-1.2 Comments: Reference interval is for non-anticoagulated patients. . Suggested INR therapeutic range for Vitamin K anta gonist therapy: Standard Dose (moderate intensity therapeutic range): 2.0 - 3.0 Higher intensity therapeutic range 2.5 - 3.5 19-Zhb-545234:26 PT (PROTHROMBIN TIME) Comments: PATIENT NOT FASTINGPERFORMED BY: [address] [id number] Information: [id number] ([id number]) Prothrombin Time 27.3 {sec} (Abnormal) Range: 9.1-12.0 INR 2.6 (Abnormal) Range: 0.8-1.2 Comments: Reference interval is for non-anticoagulated patients. . Suggested INR therapeutic range for Vitamin K anta gonist therapy: Standard Dose (moderate intensity therapeutic range): 2.0 - 3.0 Higher intensity therapeutic range 2.5 - 3.5 36-Dvz-499334:16 Prothrombin Time (PT) Comments: PERFORMED BY: [address] [id number] Information: PT ON ANTIBIOTICS Prothrombin Time 31.7 {sec} (Abnormal) Range: 9.1-12.0 INR 3.1 (Abnormal) Range: 0.8-1.2 Comments: Reference interval is for non-anticoagulated patients. . Suggested INR therapeutic range for Vitamin K anta gonist therapy: Standard Dose (moderate intensity therapeutic range): 2.0 - 3.0 Higher intensity therapeutic range 2.5 - 3.5 :32 PT (PROTHROMBIN TIME) Comments: PATIENT NOT FASTINGPERFORMED BY: [facility] [id number] Information: [id number] (83094) Prothrombin Time 36.1 {sec} (Abnormal) Range: 9.1-12.0 INR 3.5 (Abnormal) Range: 0.8-1.2 Comments: Reference interval is for non-anticoagulated patients. . Suggested INR therapeutic range for Vitamin K anta gonist therapy: Standard Dose (moderate intensity therapeutic range): 2.0 - 3.0 Higher intensity therapeutic range 2.5 - 3.5 :49 PT (PROTHROMBIN TIME) Comments: PATIENT NOT FASTINGPERFORMED BY: [facility] [id number] Information: [id number] ([id number]) Prothrombin Time 27.3 {sec} (Abnormal) Range: 9.1-12.0 INR 2.6 (Abnormal) Range: 0.8-1.2 Comments: Reference interval is for non-anticoagulated patients. . Suggested INR therapeutic range for Vitamin K anta gonist therapy: Standard Dose (moderate intensity therapeutic range): 2.0 - 3.0 Higher intensity therapeutic range 2.5 - 3.5 :09 Prothrombin Time (PT) Comments: PERFORMED BY: [facility] [id number] Prothrombin Time 16.0 {sec} (Abnormal) Range: 9.1-12.0 [...] Major M.D.August 07, 2013 at 1:31:09 PM [id number] Signed GP/GP If you are the referring physician and would like to consult with theradiologist who provided this interpretation, please contact [place] at [phone]. I f this radiologist is unavailable, youwill be directed to another radiologist to assist. If you are a patient with a question regarding this report, pleasecontactyour referring physician directly. Profe ssional Interpretation Provided By: [employer], Phone , These documents contain legally protected [...] the return or destructionofthese documents. Dictated on 08/07/131 by Luke Major MDscribed on 08/07 by ITS IMPORTSign by Moriah RAIN,Bud on 08/07/131334 Sign by: Bud Major MD 2-Lyj-049616:00 PT (Prothrobim Time) Comments: PATIENT NOT FASTINGPERFORMED BY: [facility] [id number] Information: [id number] ([id number]) Prothrombin Time 12.2 {sec} (Abnormal) Range: 9.1-12.0 Comments: Please note reference interval change INR 1.2 (Normal) Range: 0.8-1.2 Comments: Reference interval is for non-anticoagulated patients. . Suggested INR therapeutic range for Vitamin K anta gonist therapy: Standard Dose (moderate intensity therapeutic range): 2.0 - 3.0 Higher intensity therapeutic range 2.5 - 3.5 Please note reference interval change 95-Bkd-006583:12 PT (Prothrobim Time) Comments: PATIENT NOT FASTINGPERFORMED BY: [facility] [id number] Information: [id number] (86367) Prothrombin Time 26.6 {sec} (Abnormal) Range: 9.1-12.0 INR 2.6 (Abnormal) Range: 0.8-1.2 Comments: Reference interval is for non-anticoagulated patients. . Suggested INR therapeutic range for Vitamin K anta gonist therapy: Standard Dose (moderate intensity therapeutic range): 2.0 - 3.0 Higher intensity therapeutic range 2.5 - 3.5 4-Lij-513246:29 PT (Prothrobim Time) Comments: PATIENT NOT FASTINGPERFORMED BY: [facility] [id number] Information: ADD [id number] AND DRAW FEE [id number] (06402) Prothrombin Time 18.7 {sec} (Abnormal) Range: 9.1-12.0 INR 1.8 (Abnormal) Range: 0.8-1.2 Comments: Reference interval is for non-anticoagulated patients. . Suggested INR therapeutic range for Vitamin K anta gonist therapy: Standard Dose (moderate intensity therapeutic range): 2.0 - 3.0 Higher intensity therapeutic range 2.5 - 3.5 :01 PT (Prothrobim Time) Comments: PATIENT NOT FASTINGPERFORMED BY: [facility] [address] [id number] Information: [id number] ([id number]) Prothrombin Time 22.0 {sec} (Abnormal) Range: 9.1-12.0 INR 2.1 (Abnormal) Range: 0.8-1.2 Comments: Reference interval is for non-anticoagulated patients. . Suggested INR therapeutic range for Vitamin K anta gonist therapy: Standard Dose (moderate intensity therapeutic range): 2.0 - 3.0 Higher intensity therapeutic range 2.5 - 3.5 :23 PT (Prothrobim Time) Comments: PATIENT NOT FASTINGPERFORMED BY: [address] [id number] Information: [id number] ([id number]) Prothrombin Time 28.7 {sec} (Abnormal) Range: 9.1-12.0 INR 2.8 (Abnormal) Range: 0.8-1.2 Comments: Reference interval is for non-anticoagulated patients. . Suggested INR therapeutic range for Vitamin K anta gonist therapy: Standard Dose (moderate intensity therapeutic range): 2.0 - 3.0 Higher intensity therapeutic range 2.5 - 3.5 :35 PT (Prothrobim Time) Comments: PATIENT NOT FASTINGPERFORMED BY: [address] [id number] Information: ADD [id number] AND DRAW FEE [id number] (35153) Prothrombin Time 26.3 {sec} (Abnormal) Range: 9.1-12.0 INR 2.6 (Abnormal) Range: 0.8-1.2 Comments: Reference interval is for non-anticoagulated patients. . Suggested INR therapeutic range for Vitamin K anta gonist therapy: Standard Dose (moderate intensity therapeutic range): 2.0 - 3.0 Higher intensity therapeutic range 2.5 - 3.5 :57 Prothrombin Time (PT) Comments: PERFORMED BY: [address] [place] [id number] Prothrombin Time 16.3 {sec} (Abnormal) Range: 9.1-12.0 INR 1.6 (Abnormal) Range: 0.8-1.2 Comments: Reference interval is for non-anticoagulated patients. . Suggested INR therapeutic range for Vitamin K anta gonist therapy: Standard Dose (moderate intensity therapeutic range): 2.0 - 3.0 Higher intensity therapeutic range 2.5 - 3.5 4-Wvg-803906:11 PT (Prothrobim Time) Comments: PATIENT NOT FASTINGPERFORMED BY: [place] [address] [facility] [id number] Information: [id number] ([id number]) Prothrombin Time 16.1 {sec} (Abnormal) Range: 9.1-12.0 INR 1.5 (Abnormal) Range: 0.8-1.2 Comments: Reference interval is for non-anticoagulated patients. . Suggested INR therapeutic range for Vitamin K anta gonist therapy: Standard Dose (moderate intensity therapeutic range): 2.0 - 3.0 Higher intensity therapeutic range 2.5 - 3.5 3-Fsx-346136:16 Prothrombin Time (PT) Comments: PERFORMED BY: [place] 52696[address] [facility] [id number] Prothrombin Time 21.4 {sec} (Abnormal) Range: 9.1-12.0 INR 2.1 (Abnormal) Range: 0.8-1.2 Comments: Reference interval is for non-anticoagulated patients. . Suggested INR therapeutic range for Vitamin K anta gonist therapy: Standard Dose (moderate intensity therapeutic range): 2.0 - 3.0 Higher intensity therapeutic range 2.5 - 3.5 9-Bct-852742:04 PT (Prothrobim Time) Comments: PATIENT NOT FASTINGPERFORMED BY: [place] [address]96[address] [facility] [id number] Information: [id number] ([id number]) Prothrombin Time 46.9 {sec} (Abnormal) Range: 9.1-12.0 Comments: Please note reference interval change INR 4.6 (Abnormal) Range: 0.8-1.2 Comments: Client Requested Flag Reference interval is for non- anticoagulated patients. . Suggested INR therapeutic ra nge for Vitamin K antagonist therapy: Standard Dose (moderate intensity therapeutic range): 2.0 - 3.0 Higher intensi ty therapeutic range 2.5 - 3.5 Please note reference interval change 65-Gsj-611433:51 PT (Prothrobim Time) Comments: PATIENT NOT FASTINGPERFORMED BY: [place] [address]96[address] [facility] [id number] Information: [id number] ([id number]) Prothrombin Time 18.5 {sec} (Abnormal) Range: 9.1-12.0 INR 1.8 (Abnormal) Range: 0.8-1.2 Comments: Reference interval is for non-anticoagulated patients. . Suggested INR therapeutic range for Vitamin K anta gonist therapy: Standard Dose (moderate intensity therapeutic range): 2.0 - 3.0 Higher intensity therapeutic range 2.5 - 3.5 16-Aqz-051262:10 PT (Prothrobim Time) Comments: PATIENT NOT FASTINGPERFORMED BY: [facility] [id number] Information: [id number] ([id number]) Prothrombin Time 22.5 {sec} (Abnormal) Range: 9.1-12.0 INR 2.2 (Abnormal) Range: 0.8-1.2 Comments: Reference interval is for non-anticoagulated patients. . Suggested INR therapeutic range for Vitamin K anta gonist therapy: Standard Dose (moderate intensity therapeutic range): 2.0 - 3.0 Higher intensity therapeutic range 2.5 - 3.5 :14 PT (Prothrobim Time) Comments: PATIENT NOT FASTINGPERFORMED BY: [facility] [id number] Information: [id number] ([id number]) Prothrombin Time 28.0 {sec} (Abnormal) Range: 9.1-12.0 INR 2.7 (Abnormal) Range: 0.8-1.2 Comments: Reference interval is for non-anticoagulated patients. . Suggested INR therapeutic range for Vitamin K anta gonist therapy: Standard Dose (moderate intensity therapeutic range): 2.0 - 3.0 Higher intensity therapeutic range 2.5 - 3.5 :12 PT (Prothrobim Time) Comments: PATIENT NOT FASTINGPERFORMED BY: SEVEN [facility] [id number] Information: [id number] ([id number]) Prothrombin Time 18.6 {sec} (Abnormal) Range: 9.1-12.0 INR 1.8 (Abnormal) Range: 0.8-1.2 Comments: Reference interval is for non-anticoagulated patients. . Suggested INR therapeutic range for Vitamin K anta gonist therapy: Standard Dose (moderate intensity therapeutic range): 2.0 - 3.0 Higher intensity therapeutic range 2.5 - 3.5 :00 Prothrombin Time (PT) Comments: A duplicate report has been generated due to demographic updates.PERFORMED BY: SEVEN [facility] [id number] Information: ACCT# CORRECTED 08-16-12. Prothrombin Time 21.1 [...] (Normal) PTP 22.4 s (Abnormal) Range: 11.9-14.4 49-Rdg-793777:00 PT INR 2.7 (Normal) PTP 26.1 s [...] 200-240 mg/dL Borderline >240 mg/dL High Risk : PT INR 4.0 (Abnormal) PTP 35.3 s (Abnormal) Range: 11.9-14.4 : TSH 0.56 {uIU/mL} (Normal) Range: 0.358-3.74 : PAPIG3 tHPVHR Negative (Normal) Comments: This high-risk HPV test detects thirteen high-risk types(16/18/31/33/35/39/45/51/52/56/58/59/68) withoutdifferentiation. .Performed at: - [facility] [id number] Director: Asha Osborne MD, Phone: [phone] at: =G - [facility] [address] [id number] Director: Asha Osborne MD, Phone: [phone] tPAPSMR Comment (Normal) Comments: The Pap smear is [...] squamous metaplasticcells (endocervical component) are present.Layne Andres, Quality Lead ([facility] )This liquid based ThinPrep(R) pap test was [...] Range: 11.9-14.4 Comments: Effective APRIL 20, 2011. 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 .Performed at: [address] [id number] Director: Asha Osborne MD, Phone: [phone] COMM . (Normal) DIAGN Comment (Normal) Comments: NEGATIVE FOR INTRAEPITHELIAL LESION AND MALIGNANCY.Satisfactory for evaluation. Endocervical and/or squamous metaplasticcells (endocervical component) are present.Ada Perez, CytotechnologistThis liquid based ThinPrep(R) pap test was screened withthe use of an image guided system. 04-Xlr-561591:20 PRO TIME INR 2.4 (Normal) PROTIME 24.8 s (Abnormal) Range: 9.1-11.7 :23 VIT D,25 16675 66.3 ng/mL (Normal) Range: 32.0-100.0 Comments: Recent studies consider the lower limit of 32.0 ng/mL to claire threshold for optimal health.Terrance GARCIA. J Nutr. 2004;135(2):317-22.Performed at: - Lab[address] [id number] Director: Ninfa Nash MD, Phone: [phone] 81-Kra-918309:43 T4 FREE DIRECT 1.05 ng/dL (Normal) Range: [...] PRO TIME Comments: STAT PLEASE CALL DR AOTES WITH RESULTS INR 3.5 (Normal) PROTIME 40.9 s (Abnormal) Range: 9.1-11.7 2-Ycd-029536:45 PT (PROTHROMBIN TIME) Comments: PATIENT NOT FASTINGPERFORMED BY: SEVEN [facility] [id number] [place] [place] [id number] Information: [id number] ([id number]) Prothrombin Time 26.6 {sec} (Abnormal) Range: 9.1-12.0 [...] up Indication: Lower Leg Pain Planned Observations HPV automatic (25972)Indication: Screening for HPV (human papillomavirus) (Renamed from Encounter for screening for human papillomavirus (HPV)) On: 67-Qco-644803:47 Request Thin prep Pap (13597) (no STD testing)Indication: Encounter for gynecological examination with abnormal finding On: 47-Rkc-752187:46 Request PT (Prothrobim Time) (87272)Indication: 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 On: 03-Aug-2018 Request PT (Prothrobim Time) ([id number])Indication: 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 On: 04-Jul-2018 Request PT (Prothrobim Time) (85875)Indication: 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 On: 04-Jun-2018 Request PT (Prothrobim Time) (07288)Indication: 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 On: 06-Mar-2018 Request LIPID PANEL (06083)Indication: Elevated high sensitivity C-reactive protein On: 24-Yzl-73708:35 Request Thin prep Pap (57160) (no STD testing)Indication: Well female exam with routine gynecological exam On: 17-Tig-350042:33 Request PT (Prothrobim Time) (77098)Indication: 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 On: 08-Jul-2015 Request Comments: Standing Order PT (Prothrobim Time) (79307)Indication: 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 On: 08-Jun-2015 Request Comments: Standing Order PT (Prothrobim Time) ([id number])Indication: 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 On: 09-May-2015 Request Comments: Standing Order JAVON CULTURE-OTHER ([id number])Indication: Acute pharyngitis On: 61-Ilk-38054:27 Request Thin prep Pap (52068) (no STD testing)Indication: Well female exam with routine gynecological exam On: 33-Bde-527645:14 Request PT (PROTHROMBIN TIME) ([id number])Indication: 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 On: 06-Apr-2014 Request CBC WITH MANUAL DIFF ([id number])Indication: 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 On: 3-Eih-173825:33 Request METABOLIC PANEL, COMPREHENSIVE (75986)Indication: 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 On: 7-Zwn-797226:32 Request TSH (67148)Indication: family hx of thyroid disease On: 3-Ywu-333603:32 Request LIPID PANEL (94099)Indication: familyhx of high chol On: 6-Nre-285424:31 Request HPV automatic (27320)Indication: Well female exam with routine gynecological exam On: 4-Avi-415233:58 Request Thin prep Pap (98842) (no STD testing)Indication: Well female exam with routine gynecological exam On: 0-Plj-012498:58 Request PT (Prothrobim Time) (45160)Indication: 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 On: 87-Khl-189093:43 Request Comments: standing order Thin prep Pap (80170) (no STD testing)Indication: Well female exam with routine gynecological exam On: :19 Request PT (PROTHROMBIN TIME) (00311)Indication: 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 On: :49 Request Vitamin D Hydroxy (06433)Indication: Fatigue On: :49 Request T3, FREE (TRIDOTHYRONINE) (03823)Indication: Fatigue On: :48 Request T4, FREE (THYROXINE) (44894)Indication: Fatigue On: :48 Request VITAMIN B-12 (CYANOCOBALAMIN) (76412)Indication: Fatigue On: :48 Request TSH (70300)Indication: Fatigue On: :48 Request PT (PROTHROMBIN TIME) (45738)Indication: Pulmonary embolism On: :45 Request Comments: standing order CBC & PLATELETS (AUTO) ([id number])Indication: Abnormal blood chemistry On: :45 Request LIPID PANEL (29478)Indication: Abnormal blood chemistry On: :45 Request METABOLIC PANEL, COMPREHENSIVE (75642)Indication: Abnormal blood chemistry On: :45 Request JAVON CULTURE-OTHER (32577)Indication: Acute pharyngitis On: :57 Request Rapid Strep Test, Office (67717)Indication: Acute pharyngitis On: :57 Request Planned Procedures SCREENING DIGITAL TOMOSYNTHESIS OF On: 01-Nov-2018 Intent BREAST (03823)By: Fast DO, Kylie A Fast DO, Kylie A ELECTROCARDIOGRAM, COMPLETE (ECG) On: 01-Nov-2018 Intent (96532)By: Fast DO, Kylie A Fast DO, Kylie A ELECTROCARDIOGRAM, COMPLETE (ECG) On: 11-Nov-2017 Intent (98686)By: Fast DO, Kylie A Fast Comments: ekg showed normal sinus rhythym, normal axis, no acute st/t wave changes sinus kellie DO, Kylie A ELECTROCARDIOGRAM, COMPLETE (ECG) On: 29-Nov-2016 Intent (07964)By: Fast DO, Kylie A Fast Comments: ekg showed normal sinus rhythym, normal axis, no acute st/t wave changes DO, Kylie A Flu Vaccine (Quadrivalent) On: 29-Sep-2016 Intent 52015Ke: Visit, Nurse Comments: Lot:[id number]:05/20/17mt:0.5mlRoute:IMSite: L DltdGiven By: MARISA Mccormick signed Radiology - Knee - Right - Weight On: 07-Feb-2015 Intent BearingBy: Fast DO, Kylie A Fast Comments: stat call results DO, Kylie A Doppler Ultrasound OtherBy: Fast On: 07-Feb-2015 Intent DO, Kylie A Fast DO, Kylie A Comments: right leg- hx of dvt- stat call results SPECIMEN HNDLNG/TRNSPRT, OFFC > On: 14-Oct-2014 Intent LAB ([id number])By: Nata Rodriguez MD Eprescribed prescriptions On: 14-Dec-2013 Intent (G8553)By: Darlene Drew FLU VAC, SPLIT, >3 YEARS, On: 06-Aug-2013 Intent INTRAMUSC (30856)By: Darryl BARCENAS, Comments: Lot:[id number]:Dose:0.5mLRoute:IMSite:L DltdGiven By:ILYA signed Francine IMMUNIZ ADMNIN, 1 VAC, SNGL/COMBO On: 06-Aug-2013 Intent (32977)By: Francine Andrews DO Eprescribed prescriptions On: 06-Aug-2013 Intent (G8553)By: Francine Andrews DO Radiology - Finger(s) - LeftBy: On: 06-Aug-2013 Intent Francine Andrews DO IMMUNIZ ADMNIN, 1 VAC, SNGL/COMBO On: 14-Aug-2012 Intent (81081)By: Joyce Evans LPN Comments: Lot #[id number]-L dltd, IMDose prefilled syringegiven by:MARISA Velez signed FLU VAC, SPLIT, >3 YEARS, On: 14-Aug-2012 Intent INTRAMUSC (93628)By: Joyce Evans LPN Eprescribed prescriptions On: 25-Apr-2012 Intent (G8553)By: Vernon DO, Kylie A Fast DO, Kylie A FLU VAC, SPLIT, >3 YEARS, On: 18-Aug-2011 Intent INTRAMUSC (47416)By: Sanjeev, Comments: Lot:[id number]:05/10/12Amt:prefilledRoute:IMSite:left deltGiven By: KELL Zaragoza Anais TDAP VACCINE >7 IM (06883)By: Vernon On: 08-Feb-2011 Intent DO, Kylie A Fast DO, Kylie A Comments: Lot #[id number]/13Site-L dltd, IMDose prefilledgiven by:MICHELLE FLU VAC, SPLIT, >3 YEARS, On: 14-Sep-2010 Intent INTRAMUSC (19056)By: Kimo, Comments: Lot #:[id number] 4-p Expiration date:mount given:.5mlRoute: IMSite given:left deltoid Given by: altaf JOHNSON IMMUNIZ ADMNIN, 1 VAC, SNGL/COMBO On: 14-Sep-2010 Intent (81394)By: ELIZABETH Malin Doppler Ultrasound OtherBy: Ciesa On: [...] : Patient Instructions Indication: Finger pain Encounters Review On: 01-Nov-2018 13:07 Encounter Reason: Physical [...] Encounter for screening for human papillomavirus (HPV)) [facility] Phone Encounter On: 27-Mar-2018 [...] screening, Pap smear and screening, visual acuity (2016). Note for Physical exam: mostly running for [...] replacement therapy. Menstruation: Last menstrual period date: ( of may).Encounter Diagnosis: Nonsmoker, Well female exam with routine [...] replacement therapy. Menstruation: Last menstrual period date: (last tuesday).Encounter Diagnosis: Well Female (Younger Female) (V72.31) [facility] Office Visit On: 29-Apr-2014 10:16 Encounter Reason: Follow up for chronic medical issues - The patient feels well with minor complaints (right hip pain), has good energy level and is sleeping well. Patient has been compliant with instructions. Current me End: 29-Apr-2014 11:09 dication use: no side [...] lab ar e good- never went 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
--- OUTSIDE RECORDS SUMMARY | 2019-02-08 02:02 | XMS RPT_ITS ---
:1980 Author Organization OH[facility] Care Team Providers Name Role Phone Fast DO, Kylie A Attending Unavailable Fast DO, Kylie A Referring Unavailable Fast DO, Kylie A Consulting Unavailable Fast, Kylie Attending Unavailable Fast, Kylie Referring Unavailable Fast, Kylie Primary Care Unavailable Fast, Kylie Primary Care Unavailable Referred, Self Attending Unavailable PROBLEMS PROBLEMS DATE TYPE CONDITION / CODE ATTENDING STATUS SOURCE 11/06/2018 Unknown I82.4Z9 - Acute Fast, Kylie Active [place] embolism and [facility] thrombosis of Hospital unspecified deep Repository veins of unspecified distal lower extremity / I82.4Z9(ICD-10) PROCEDURES PROCEDURES No Procedure Records FoundRESULTS RESULTS PROTHROMBIN TIME W/INR Collected: 11/06/2018 Status: F Source: [place] 10:[address] [facility] REPOSITORY TYPE CODE TESTS RESULT OUT OF RANGE REFERENCE UNITS LAB L300.4150 11.7-14.9 SECONDS High PROTIME 19.6 LAB L300.4200 Normal INR 1.7 Performed By: #### L300.3900 #### [facility] [address] [place], [address] ALLERGIES ALLERGIES No Allergies Records FoundENCOUNTERS ENCOUNTERS ADMIT/DISCHARGE ACCOUNT ADMITTING ENCOUNTER LOCATION SOURCE NUMBER CLASS 12/11/2018 [id number] Ambulatory [address] ing:MASS Repository 11/06/2018 [id number] Ambulatory [place] [facility] ing:LAB Repository 11/01/2018 [id number] Ambulatory Building:[facility] OHIP Practices Repository PAYERS PAYERS ENCOUNTER GUARANTOR PAYER SUBSCRIBER SOURCE 12/11/2018 CIRILO [facility]ather Primary NOT GIVENUNK [place] [id number] Insurance:SELF PAY [place], [place] Number: Effective Repository [id number]: [phone]) Date:2018-01-10-8218 (HP) 11/06/2018 CIRILO Prather Primary CIRILO M [place] [id number] Insurance:MEDICAL FORRESTDOB: [facility] [id number]: Repository [id number]: [phone] [id number] [phone] () Date:[id number] [address] [address]YA: 11/06/2018 Secondary NOT GIVENUNK [place] Insurance:SELF PAY [facility] Number: Effective Repository Date:2018-11-06 11/01/2018 CIRILO Prather Primary CIRILO M [facility] Practices FORRESTDOB: Insurance:Medical FORRESTDOB: Repository [facility] [id number] Wendy Number: Wendy CainSal[place], [place] [id number] DrW[place], [place] [address]Ysr: ([phone]) Date:[id number] 13611Klr: Name:[facility] [phone] () (HP)Tel: [phone], [place] [phone] () [phone]: 11/01/2018 Secondary CIRILO M [facility] Practices Insurance:Medical FORRESTDOB: Repository [facility] [id number] Number: Wendy [id number] [place], [place] Date: - [address]Niq: 330 [id number] [phone] (HP) Name:[facility] [address] [address], [place] [phone]:
--- OUTSIDE RECORDS SUMMARY | 2019-02-08 02:02 | XMS RPT_ITS | Continuity of Care Document ---
:1980 Author Organization [facility] Address [address] [facility] [address] [place] [address] Phone Care Team Providers Name Role Phone [...] Medications Name Dates Details CALTRATE 600+D PLUS, [id number]-ZTGR (Oral Tablet) Active 1 tab qd (600-400 MG-UNIT) Coumadin 2 MG Oral Tablet uad Tablet qd for 0 days Quantity: 90 {Tablet} Refills: 3 Ordered:02-Nov-2018 Kylie Junior DO, DO, Debra A Start : 02-Nov-2018 Active Dispense as Written Comments:ELISABETH Coumadin 5 MG Oral Tablet 1 1/2 Tablet qd for 0 days Quantity: 135 {Tablet} Refills: 3 Ordered:30-Nov-2016 Kylie Junior DO, DO, Debra A Start : 30-Nov-2016 Active Dispense as Written Comments:elisabeth Eliquis 5 MG Oral Tablet 1 (one) Tablet bid for 0 days Quantity: 60 {Tablet} Refills: 11 Ordered:01-Nov-2018 Kylie Junior DO, DO, Debra A Start : 01-Nov-2018 Active GLUCOSAMINE 1500 COMPLEX (Oral Capsule) for 0 days Refills: 0 Ordered:08-Feb-2011 Darlene DrewActive MULTIVITAMIN (Oral Liquid) for 0 days Refills: 0 Ordered:11-Nov-2017 Slarb KELL, AngelaActive Amoxicillin 875 MG Oral Tablet 1 (one) Tablet Tablet bid for 0 days Quantity: 20 {Tablet} Refills: 0 Ordered:17-Nov-2016 Felipe Jett Start : 09-Jul-2016 End : 17-Nov-2016 Inactive [...] days Quantity: 60 {Tablet} Refills: 3 Ordered:17-Nov-2016 Kylie Junior DO, DO Kylie A Start : 17-Nov-2016 End : 30-Nov-2016 Discontinued Xarelto 20 MG Oral Tablet 1 (one) Tablet qd for 0 days Quantity: 30 {Tablet} Refills: 3 Ordered:17-Nov-2016 Kylie Junior DO, DO Kylie A Start : 17-Nov-2016 End : [...] (726.5) Comments: [facility] will consdier and call if wants [...] - PT Result: Comments: See Note; NOTES: [facility] [address] [place] [address]. [address] [place] [address] Fax REHABILITATION SERVICES INITIA L EVALUATION MR#: [id number] Acct: [id number] Name: TILA CARRERA Rep #: [id number] : 1980 36 From: Adrienne Mahoney DPT Referring Dr.: Kylie Junior DO Status: REG RCR Insurance: MEDICAL [facility] Patient's Visit Information TILA CARRERA is a 36 year old F referred to Physical Therapy by Kylie Jnuior DO with a diagnosis of Leg and [...] to be FAXED BACK to us at [phone] for Medicare purposes. Please le t me know if there are questions or concerns regarding this plan of care. Physician Signature: Date: <Electronically signed by Pat MACDONALDT> 08/04/16 1641 CC: Kylie Junior DO ELR Signed For Medicare only, by signing this I certify the plan of care. Physicians Signature Date 26-Mar-2016 PT D/C Summary (1) Result: Comments: See Note; NOTES: [facility] [address] [place] [address] Fax REHABILITATION SE RVICES DISCHARGE SUMMARY MR#: [id number] Acct: [id number] Name: TILA CARRERA Rep #: [id number] : 1980 36 From: Kade Dejesus PT, FRANK, SCS, CSCS Referring Dr.: Tonny Farris Status: REG RC R Insurance: [facility] - PT D/C Summary It has been my pleasure to treat TILA CARRERA under orders from Tonny Farris DO, for the diagnosis of RIGHT KNEE ,GASTROCSOLEUS STRAIN,PER TYRONE TELLEZ,,IT BAND for a total of 8 visit(s) . Please see the following information for a summary of their discharge status. - Subjective Subjective: I finished the marathon weekend and had a co urse [place] of 4:25. Only had knee pain after [...] for the referral of this patient. Sincerely, Kdae Dejesus <Electronically signed by Kade Dejesus PT, FRANK, SCS, CSCS> 03/26/16 1541 CC: Kylie Junior DO; Tonny Farris Signed 08-Mar-2016 Inital Evaluation (1) - PT Result: Comments: See Note; NOTES: [facility] [address] [place], [place] [address] Fax REHABILITATION SE RVICES INITIAL EVALUATION MR#: [id number] Acct: [id number] Name: TILA CARRERA Rep #: [id number] : 1980 35 From: Yohannes Iverson PT, Cert. MDT Referring Dr.: Tonny Farris Status: REG [facility] Insurance: [facility] Date: Patient's Visit Information TILA CARRERA is [...] parathesia/tingling. Runs in [place], [place].Patients training for marathon ,last at [employer] [place] tuesday 12 miles ,walk run because pain. SOCIAL: single. HOBBIES : running. 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 Please let me know if there are questions or concerns regarding this plan of care. Physician Signature: Date: <Electronically signed by Yohannes Iverson PT, Cert. MDT> 03/08/16 1021 CC: Kylie Farris DT: 02/19 04/05 Signed For Medicare only, by signing this I certify the plan of care. Physicians Signature Date 21-Apr-2015 Inital Evaluation - PT Result: Comments: See Note; NOTES: [facility] [address] [place] [address]. 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 This weekend she is traveling to [place] to compete in a 10 K with [...] of a forefoot whip upon contact. Kade Emanuel: Tonny Kee: PAULY JOB: [id number] <Electronically signed by Kade Dejesus > 04/21/15 1615 CC: Signed For Medicare only, by signing this I certify the plan of care. Physicians Signature Date 21-Apr-2015 PT Discharge Summary Result: Comments: See Note; NOTES: [facility] [address] [place] [address]. [address] [place] [address] Fax REHABILITATION SERVICES DISCHARGE SUMMARY MR#: [id number] Acct: [id number] Name: TILA CARRERA Rep #: [id number] : 1980 35 From: Kade Dejesus Referring : Tonny Farris Status: PRE RCR Eval Date: Discharge Da te: DATE OF SERVICE: 04/15/2015 Tila has been seen for 10 of her scheduled 12 visits. She has recently competed in both [place] in [place] as well as a Full [place] in [place] on the same weekend. She has essentially no more right lateral soleus pain at all. I have given her some exercises to continue to perform specifically inhibition techniques and some stretching as well as so me eccentric strengthening. If Tila has any problems in the near future, I would be happy to see her otherwise she is discharged from our care. Kade Emanuel: Tonny Kee: PAULY JOB: [id number] <Electronically signed by Kade Dejesus > 04/21/15 1615 CC: Signed 07-Feb-2015 Knee 4 or More Views Result: Comments: See Note; NOTES: [facility] Imaging Services [address] [place] [address] Radiology Report MR#: [id number] Acct: [id number] Name: TILA CARRERA Rep #: [id number] : 1980 F 34 From: Rajani Grossman MD PCP: Kylie Junior DO Status: REG CLI Study: Knee 4 or More Views Date of Exam: 02/07/15 Exam# [id number] Ordering Dr: Kylie Junior DO STUDY: X-RAY [...] 14:4 9 EDT Tel , Service support [phone], RAD/Knee 4 or More Views IMPRESSION: Normal x-ray examination of the knee. Electronically Signed: Alireza Garza MD at 14:49 EDT Tel , Service support [phone], CC: Kylie Junior DO Co Op: Signed 07-Feb-2015 Knee 4 or More Views Result: Comments: See Note; NOTES: [facility] Imaging Services [address] [place] [address] Radiology Report MR#: [id number] Acct: [id number] Name: TILA CARRERA Rep #: [id number] : 1980 F 34 From: Rajani Grossman MD PCP: Kylie Junior DO Status: REG CLI Study: Knee 4 or More Views Date of Exam: 02/07/15 Exam# [id number] Ordering Dr: Kylie Junior DO STUDY: X-RAY [...] 14:4 9 EDT Tel , Service support [phone], RAD/Knee 4 or More Views IMPRESSION: Normal x-ray examination of the knee. 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 Status: Active No Caffeine Use Status: Active [...] kg/m2 Body Surface Area Calculated 1.87 m2 43-Cgh-587393:58 Temperature 98.6 f Comments: Method: Oral Pulse [...] kg/m2 Body Surface Area Calculated 1.98 m2 9-Kli-124891:54 Pulse 60 /min Comments: Pattern: Regular Respiration [...] 0.00 cm Results Date Description Value Details 19-Hun-674481:30 PT (Prothrobim Time) (77674) Comments: PATIENT NOT FASTINGPERFORMED BY: bookletmobile Urbytv0973 [facility] [id number] Prothrombin Time 32.4 {sec} (Abnormal) Range: 9.1-12.0 INR 3.4 (Abnormal) Range: 0.8-1.2 Comments: Reference interval is for non-anticoagulated patients. . Suggested INR therapeutic range for Vitamin K anta gonist therapy: Standard Dose (moderate intensity therapeutic range): 2.0 - 3.0 Higher intensity therapeutic range 2.5 - 3.5 4-Exp-570287:03 PT (Prothrobim Time) (28885) Comments: PATIENT NOT FASTINGPERFORMED BY: bookletmobileVirtua MarltonKlxyla5458 [facility] [id number] Prothrombin Time 32.4 {sec} (Abnormal) Range: 9.1-12.0 INR 3.4 (Abnormal) Range: 0.8-1.2 Comments: Reference interval is for non-anticoagulated patients. . Suggested INR therapeutic range for Vitamin K anta gonist therapy: Standard Dose (moderate intensity therapeutic range): 2.0 - 3.0 Higher intensity therapeutic range 2.5 - 3.5 25-Ggo-93213:14 PT (Prothrobim Time) Comments: PATIENT NOT FASTINGPERFORMED BY: [place] [id number] [facility] [id number] Information: NURSE DRAW ([id number]) Prothrombin Time 22.2 {sec} (Abnormal) Range: 9.1-12.0 INR 2.2 (Abnormal) Range: 0.8-1.2 Comments: Reference interval is for non-anticoagulated patients. . Suggested INR therapeutic range for Vitamin K anta gonist therapy: Standard Dose (moderate intensity therapeutic range): 2.0 - 3.0 Higher intensity therapeutic range 2.5 - 3.5 :56 PT (Prothrobim Time) (06801) Comments: PATIENT NOT FASTINGPERFORMED BY: bookletmobileGallup Indian Medical CenterMpmlyk8727 [facility] [id number] Prothrombin Time 24.0 {sec} (Abnormal) Range: 9.1-12.0 INR 2.4 (Abnormal) Range: 0.8-1.2 Comments: Reference interval is for non-anticoagulated patients. . Suggested INR therapeutic range for Vitamin K anta gonist therapy: Standard Dose (moderate intensity therapeutic range): 2.0 - 3.0 Higher intensity therapeutic range 2.5 - 3.5 :35 PT (Prothrobim Time) (42531) Comments: PATIENT NOT FASTINGPERFORMED BY: bookletmobile Hivorn4684 [facility] [id number] Prothrombin Time 19.3 {sec} (Abnormal) Range: 9.1-12.0 INR 2.0 (Abnormal) Range: 0.8-1.2 Comments: Reference interval is for non-anticoagulated patients. . Suggested INR therapeutic range for Vitamin K anta gonist therapy: Standard Dose (moderate intensity therapeutic range): 2.0 - 3.0 Higher intensity therapeutic range 2.5 - 3.5 :14 CBC W/AUTO DIFF WBC Comments: PATIENT NOT FASTINGPERFORMED BY: [facility]6370 [facility] [id number] Information: NURSE DRAW (03609) Immature Grans (Abs) 0.0 {x10E3/uL} (Normal) Range: [...] 3.77-5.28 WBC 5.3 {x10E3/uL} (Normal) Range: 3.4-10.8 62-Gfx-08099:14 METABOLIC PANEL, COMPREHENSIVE Comments: PATIENT NOT FASTINGPERFORMED BY: LabCoVirtua MarltonMxmktf1131 [facility] [id number] (81611) ALT (SGPT) 25 [iU]/L (Normal) Range: 0-32 [...] 6-20 Glucose 80 mg/dL (Normal) Range: 65-99 44-Ejl-11012:14 C-REACT PROT HIGH SENS(hsCRP) Comments: PATIENT NOT FASTINGPERFORMED BY: [employer] [facility] [id number] (09314) C-Reactive Protein, Cardiac 3.48 mg/L (Abnormal) Range: 0.00-3.00 Comments: Relative Risk for Future Cardiovascular Event Low <1.00 Average 1.00 - 3.00 High >3.00 :50 PT (Prothrobim Time) (52438) Comments: PATIENT WAS FASTINGPERFORMED BY: [employer] [facility] [id number] Prothrombin Time 25.6 {sec} (Abnormal) Range: 9.1-12.0 INR 2.7 (Abnormal) Range: 0.8-1.2 Comments: Reference interval is for non-anticoagulated patients. . Suggested INR therapeutic range for Vitamin K anta gonist therapy: Standard Dose (moderate intensity therapeutic range): 2.0 - 3.0 Higher intensity therapeutic range 2.5 - 3.5 :26 CBC W/AUTO DIFF WBC (98173) Comments: PATIENT NOT FASTINGPERFORMED BY: [facility]70 StudyEggCaroMont [facility] [id number] Immature Grans (Abs) 0.0 {x10E3/uL} (Normal) Range: [...] PANEL, COMPREHENSIVE Comments: PATIENT NOT FASTINGPERFORMED BY: LabCoVirtua MarltonSckeau1380 [facility] [id number] (75036) ALT (SGPT) 16 [iU]/L (Normal) Range: 0-32 [...] (Normal) Range: 65-99 :19 PT (Prothrobim Time) (71359) Comments: PATIENT NOT FASTINGPERFORMED BY: [facility] [id number] Prothrombin Time 26.4 {sec} (Abnormal) Range: 9.1-12.0 INR 2.7 (Abnormal) Range: 0.8-1.2 Comments: Reference interval is for non-anticoagulated patients. . Suggested INR therapeutic range for Vitamin K anta gonist therapy: Standard Dose (moderate intensity therapeutic range): 2.0 - 3.0 Higher intensity therapeutic range 2.5 - 3.5 63-Bfs-588950:06 PT (Prothrobim Time) (95731) Comments: PATIENT NOT FASTINGPERFORMED BY: SinColalin6370 [facility] [id number] Prothrombin Time 27.6 {sec} (Abnormal) Range: 9.1-12.0 INR 2.9 (Abnormal) Range: 0.8-1.2 Comments: Reference interval is for non-anticoagulated patients. . Suggested INR therapeutic range for Vitamin K anta gonist therapy: Standard Dose (moderate intensity therapeutic range): 2.0 - 3.0 Higher intensity therapeutic range 2.5 - 3.5 :07 HPV automatic Comments: Source.............Cervix;EndocervixNo. of containers..01 CYTYC Thin Prep VialPATIENT NOT FASTINGPERFORMED BY: WB [facility] [place] [id number] BY: =G LabBNY Mellon (16187) rp [place] [id number] Information: [id number] HPV, high-risk Negative Comments: This high-risk HPV [...] partially obscuring inflammtory exudate are present.Z11.51Jose Lynn, Inside Sales Associate (ASCP)Asia Mcallister, Supervisory Inside Sales Associate (ASCP) 48-Uwc-263104:29 PT (Prothrobim Time) (31905) Comments: PATIENT NOT FASTINGPERFORMED BY: CB [facility] Qnxuij5469 [facility] [id number] Prothrombin Time 19.3 {sec} (Abnormal) Range: 9.1-12.0 INR 1.9 (Abnormal) Range: 0.8-1.2 Comments: Reference interval is for non-anticoagulated patients. . Suggested INR therapeutic range for Vitamin K anta gonist therapy: Standard Dose (moderate intensity therapeutic range): 2.0 - 3.0 Higher intensity therapeutic range 2.5 - 3.5 72-Fka-932470:40 CBC W/AUTO DIFF WBC (62554) Comments: PATIENT NOT FASTINGPERFORMED BY: [facility]6370 [facility] [id number] Immature Grans (Abs) 0.0 {x10E3/uL} (Normal) Range: [...] 3.77-5.28 WBC 7.5 {x10E3/uL} (Normal) Range: 3.4-10.8 33-Ftx-855543:40 METABOLIC PANEL, COMPREHENSIVE Comments: PATIENT NOT FASTINGPERFORMED BY: [facility]6370 [facility] [id number] (16336) ALT (SGPT) 15 [iU]/L (Normal) Range: 0-32 [...] Glucose, Serum 65 mg/dL (Normal) Range: 65-99 75-Xdx-967955:40 Vitamin D Hydroxy (25137) Comments: PATIENT NOT FASTINGPERFORMED BY: [facility] Yulpjt9732 [facility] [id number] Vitamin D, 25-Hydroxy 49.2 ng/mL (Normal) Range: 30.0-100.0 Comments: Vitamin D deficiency has been defined by the [place] of[place]icine and an Endocrine Society practice guideline as alevel of serum 25-OH vitamin D less than 20 ng/mL (1,2).The Endocrine Society went on to further define vitamin Dinsufficiency as a level between 21 and 29 ng/mL (2).1. IOM ([place] of Medicine). 2010. Dietary reference intakes for calcium and D. [place]: The National Academies Press.2. Dominick MF, Wale [place], Beverly DALE, et al. Evaluation, treatment, and prevention of vitamin D deficiency: an Endocrine Society clinical practice guideline. JCEM. 2010; 96(7):8471-30. 18-Sbb-207616:29 METABOLIC PANEL, COMPREHENSIVE Comments: PATIENT NOT FASTINGPERFORMED BY: LabCoVirtua MarltonKuqcma0570 [facility] [id number] (83786) ALT (SGPT) 17 [iU]/L (Normal) Range: 0-32 [...] Glucose, Serum 83 mg/dL (Normal) Range: 65-99 99-Vgu-568228:29 CBC W/AUTO DIFF WBC (77852) Comments: PATIENT NOT FASTINGPERFORMED BY: LabCoVirtua MarltonUhzwwc3357 [facility] [id number] Immature Grans (Abs) 0.0 {x10E3/uL} (Normal) Range: [...] 3.77-5.28 WBC 6.3 {x10E3/uL} (Normal) Range: 3.4-10.8 87-Pux-920834:29 SED RATE ERYTHROCYTE (83597) Comments: PATIENT NOT FASTINGPERFORMED BY: bookletmobile Tiukyn4818 [facility] [id number] Sedimentation Rate-Westergren 2 mm/h (Normal) Range: 0-32 91-Vxd-874516:29 C-REACTIVE PROTEIN (37618) Comments: PATIENT NOT FASTINGPERFORMED BY: bookletmobile Acgwlv2132 [facility]EggCaroMont [facility] [id number] C-Reactive Protein, Quant 0.6 mg/L (Normal) Range: 0.0-4.9 00-Tbd-916337:29 RUBELLA IgG (37290) Comments: PATIENT NOT FASTINGPERFORMED BY: bookletmobile Saofky6995 [facility] [id number] Rubella Antibodies, IgG 1.44 {index} (Normal) Comments: Non-immune <0.90 Equivocal 0.90 - 0.99 Immune >0.99 52-Hkj-941719:29 RUBEOLA IgG (13979) Comments: PATIENT NOT FASTINGPERFORMED BY: [facility]6370 [facility] [id number] Rubeola Ab, IgG 38.9 AU/mL (Normal) Comments: Negative <25.0 Equivocal 25.0 - 29.9 Positive >29.9 Presence of antibodies to Rubeola is presumptive evidence of immunity except when acute infection is suspected. 29-Saa-693068:29 MUMPS IgG (24221) Comments: PATIENT NOT FASTINGPERFORMED BY: [facility]6370 [facility] [id number] Mumps Abs, IgG 43.9 AU/mL (Normal) Comments: Negative <9.0 Equivocal 9.0 - 10.9 Positive >10.9 A positive result genera lly indicates past exposure to Mumps virus or previous vaccination. 7-Lgw-042252:29 PT (Prothrobim Time) (78528) Comments: STANDING ORDER; PATIENT NOT FASTINGPERFORMED BY: [facility]6370 [facility] [id number] Prothrombin Time 21.2 {sec} (Abnormal) Range: 9.1-12.0 INR 2.1 (Abnormal) Range: 0.8-1.2 Comments: Reference interval is for non-anticoagulated patients. . Suggested INR therapeutic range for Vitamin K anta gonist therapy: Standard Dose (moderate intensity therapeutic range): 2.0 - 3.0 Higher intensity therapeutic range 2.5 - 3.5 27-Eaj-08109:14 PT (Prothrobim Time) Comments: STANDING ORDER; PATIENT NOT FASTINGPERFORMED BY: [place] 1340570 [facility] [id number] Information: [id number] (33505) Prothrombin Time 24.1 {sec} (Abnormal) Range: 9.1-12.0 INR 2.4 (Abnormal) Range: 0.8-1.2 Comments: Reference interval is for non-anticoagulated patients. . Suggested INR therapeutic range for Vitamin K anta gonist therapy: Standard Dose (moderate intensity therapeutic range): 2.0 - 3.0 Higher intensity therapeutic range 2.5 - 3.5 :32 PT (Prothrobim Time) Comments: STANDING ORDER; PATIENT NOT FASTINGPERFORMED BY: [facility] LeatherAsc[facility] Hospital6370 [facility] [id number] Information: [id number] (80011) Prothrombin Time 22.5 {sec} (Abnormal) Range: 9.1-12.0 INR 2.2 (Abnormal) Range: 0.8-1.2 Comments: Reference interval is for non-anticoagulated patients. . Suggested INR therapeutic range for Vitamin K anta gonist therapy: Standard Dose (moderate intensity therapeutic range): 2.0 - 3.0 Higher intensity therapeutic range 2.5 - 3.5 :00 URINE JAVON CULTURE-IDENTIFICATN Comments: PATIENT NOT FASTINGPERFORMED BY: LabCoVirtua MarltonBfebsu7327 [facility] [id number] Information: [id number] (18369) Result 1 ECV (Abnormal) Comments: Escherichia coli, [...] report Culture,Comprehensi (Abnormal) ve :09 Urinalysis, Office (60894) UA - LEUKOCYTE ESTERASE Small (Normal) UA - NITRITE Negative (Normal) URINE UROBILINGN RICCO TIMED Normal mg/dL (Normal) UA - PROTEIN Negative mg/dL (Normal) UA - PH 5.0 (Normal) UA - BLOOD Hemolyzed Small (Normal) UA - SPECIFIC GRAVITY 1.020 (Normal) UA - KETONES Negative mg/dL (Normal) UA - BILIRUBIN Negative (Normal) UA - GLUCOSE Negative (Normal) :42 PT (Prothrobim Time) (64814) Comments: STANDING ORDER; PATIENT NOT FASTINGPERFORMED BY: bookletmobileLaura [place] [id number] [facility] [id number] Prothrombin Time 27.3 {sec} (Abnormal) Range: 9.1-12.0 INR 2.7 (Abnormal) Range: 0.8-1.2 Comments: Reference interval is for non-anticoagulated patients. . Suggested INR therapeutic range for Vitamin K anta gonist therapy: Standard Dose (moderate intensity therapeutic range): 2.0 - 3.0 Higher intensity therapeutic range 2.5 - 3.5 5-Wkj-568637:00 PT (Prothrobim Time) (87799) Comments: STANDING ORDER; PATIENT NOT FASTINGPERFORMED BY: [facility]atherAsc[facility]6370 [facility] [id number] Prothrombin Time 24.1 {sec} (Abnormal) Range: 9.1-12.0 INR 2.4 (Abnormal) Range: 0.8-1.2 Comments: Reference interval is for non-anticoagulated patients. . Suggested INR therapeutic range for Vitamin K anta gonist therapy: Standard Dose (moderate intensity therapeutic range): 2.0 - 3.0 Higher intensity therapeutic range 2.5 - 3.5 :48 PT (Prothrobim Time) (47232) Comments: STANDING ORDER; PATIENT NOT FASTINGPERFORMED BY: [place] [id number] [facility] [id number] Prothrombin Time 24.3 {sec} (Abnormal) Range: 9.1-12.0 INR 2.4 (Abnormal) Range: 0.8-1.2 Comments: Reference interval is for non-anticoagulated patients. . Suggested INR therapeutic range for Vitamin K anta gonist therapy: Standard Dose (moderate intensity therapeutic range): 2.0 - 3.0 Higher intensity therapeutic range 2.5 - 3.5 :01 PT (Prothrobim Time) Comments: STANDING ORDER; PATIENT NOT FASTINGPERFORMED BY: [address] Gonzalez StreetDublin [place] [id number] Information: [id number] (68362) Prothrombin Time 29.0 {sec} (Abnormal) Range: 9.1-12.0 INR 2.8 (Abnormal) Range: 0.8-1.2 Comments: Reference interval is for non-anticoagulated patients. . Suggested INR therapeutic range for Vitamin K anta gonist therapy: Standard Dose (moderate intensity therapeutic range): 2.0 - 3.0 Higher intensity therapeutic range 2.5 - 3.5 66-Mdk-677375:20 PT (Prothrobim Time) Comments: STANDING ORDER; PATIENT NOT FASTINGPERFORMED BY: [place] [id number] [facility] [id number] Information: [id number] (15790) Prothrombin Time 31.4 {sec} (Abnormal) Range: 9.1-12.0 INR 3.0 (Abnormal) Range: 0.8-1.2 Comments: Reference interval is for non-anticoagulated patients. . Suggested INR therapeutic range for Vitamin K anta gonist therapy: Standard Dose (moderate intensity therapeutic range): 2.0 - 3.0 Higher intensity therapeutic range 2.5 - 3.5 37-Wqw-946875:35 PT (Prothrobim Time) Comments: STANDING ORDER; PATIENT NOT FASTINGPERFORMED BY: [facility]6370 [facility] [id number] Information: [id number] (61973) Prothrombin Time 23.2 {sec} (Abnormal) Range: 9.1-12.0 INR 2.2 (Abnormal) Range: 0.8-1.2 Comments: Reference interval is for non-anticoagulated patients. . Suggested INR therapeutic range for Vitamin K anta gonist therapy: Standard Dose (moderate intensity therapeutic range): 2.0 - 3.0 Higher intensity therapeutic range 2.5 - 3.5 :22 PT (Prothrobim Time) Comments: STANDING ORDER; PATIENT NOT FASTINGPERFORMED BY: [place] [id number] [facility] [id number] Information: [id number] ([id number]) Prothrombin Time 26.3 {sec} (Abnormal) Range: 9.1-12.0 INR 2.5 (Abnormal) Range: 0.8-1.2 Comments: Reference interval is for non-anticoagulated patients. . Suggested INR therapeutic range for Vitamin K anta gonist therapy: Standard Dose (moderate intensity therapeutic range): 2.0 - 3.0 Higher intensity therapeutic range 2.5 - 3.5 :15 PT (Prothrobim Time) Comments: STANDING ORDER; PATIENT NOT FASTINGPERFORMED BY: bookletmobileVirtua MarltonRymkaa4085 [facility] [id number] Information: [id number] ([id number]) Prothrombin Time 20.6 {sec} (Abnormal) Range: 9.1-12.0 INR 2.0 (Abnormal) Range: 0.8-1.2 Comments: Reference interval is for non-anticoagulated patients. . Suggested INR therapeutic range for Vitamin K anta gonist therapy: Standard Dose (moderate intensity therapeutic range): 2.0 - 3.0 Higher intensity therapeutic range 2.5 - 3.5 :47 PT (Prothrobim Time) Comments: STANDING ORDER; PATIENT NOT FASTINGPERFORMED BY: [facility]Asc[facility]6370 [facility] [id number] Information: [id number] ([id number]) Prothrombin Time 21.0 {sec} (Abnormal) Range: 9.1-12.0 INR 2.0 (Abnormal) Range: 0.8-1.2 Comments: Reference interval is for non-anticoagulated patients. . Suggested INR therapeutic range for Vitamin K anta gonist therapy: Standard Dose (moderate intensity therapeutic range): 2.0 - 3.0 Higher intensity therapeutic range 2.5 - 3.5 :40 Prothrombin Time w/INR Comments: Test performed at:[facility] [address] [place], [place] [address] INR 2.3 (Normal) PROTIME 25.6 s (Abnormal) Range: 11.7-14.9 :52 Prothrombin Time (PT) Comments: PATIENT NOT FASTINGPERFORMED BY: [facility]6370 [facility] [id number] Information: [id number] Prothrombin Time 20.4 {sec} (Abnormal) Range: 9.1-12.0 INR 1.9 (Abnormal) Range: 0.8-1.2 Comments: Reference interval is for non-anticoagulated patients. . Suggested INR therapeutic range for Vitamin K anta gonist therapy: Standard Dose (moderate intensity therapeutic range): 2.0 - 3.0 Higher intensity therapeutic range 2.5 - 3.5 4-Vze-749520:06 Prothrombin Time (PT) Comments: PATIENT NOT FASTINGPERFORMED BY: [place] [id number] [facility] [id number] Information: [id number] Prothrombin Time 19.1 {sec} (Abnormal) Range: 9.1-12.0 INR 1.8 (Abnormal) Range: 0.8-1.2 Comments: Reference interval is for non-anticoagulated patients. . Suggested INR therapeutic range for Vitamin K anta gonist therapy: Standard Dose (moderate intensity therapeutic range): 2.0 - 3.0 Higher intensity therapeutic range 2.5 - 3.5 71-Rne-180338:43 PT (Prothrobim Time) Comments: Standing Order; PATIENT NOT FASTINGPERFORMED BY: [facility]6370 [facility] [id number] Information: [id number] ([id number]) Prothrombin Time 27.4 {sec} (Abnormal) Range: 9.1-12.0 INR 2.6 (Abnormal) Range: 0.8-1.2 Comments: Reference interval is for non-anticoagulated patients. . Suggested INR therapeutic range for Vitamin K anta gonist therapy: Standard Dose (moderate intensity therapeutic range): 2.0 - 3.0 Higher intensity therapeutic range 2.5 - 3.5 67-Bpl-740146:21 PT (Prothrobim Time) Comments: Standing Order; PATIENT NOT FASTINGPERFORMED BY: [facility]6370 [facility] [id number] Information: [id number] ([id number]) Prothrombin Time 21.0 {sec} (Abnormal) Range: 9.1-12.0 INR 2.0 (Abnormal) Range: 0.8-1.2 Comments: Reference interval is for non-anticoagulated patients. . Suggested INR therapeutic range for Vitamin K anta gonist therapy: Standard Dose (moderate intensity therapeutic range): 2.0 - 3.0 Higher intensity therapeutic range 2.5 - 3.5 :01 PT (Prothrobim Time) Comments: Standing Order; PATIENT NOT FASTINGPERFORMED BY: [place] [id number] [facility] [id number] Information: [id number] ([id number]) Prothrombin Time 27.3 {sec} (Abnormal) Range: 9.1-12.0 INR 2.5 (Abnormal) Range: 0.8-1.2 Comments: Reference interval is for non-anticoagulated patients. . Suggested INR therapeutic range for Vitamin K anta gonist therapy: Standard Dose (moderate intensity therapeutic range): 2.0 - 3.0 Higher intensity therapeutic range 2.5 - 3.5 :28 PT (Prothrobim Time) Comments: Standing Order; PATIENT NOT FASTINGPERFORMED BY: [place] [id number] [facility] [id number] Information: [id number] ([id number]) Prothrombin Time 23.2 {sec} (Abnormal) Range: 9.1-12.0 INR 2.1 (Abnormal) Range: 0.8-1.2 Comments: Reference interval is for non-anticoagulated patients. . Suggested INR therapeutic range for Vitamin K anta gonist therapy: Standard Dose (moderate intensity therapeutic range): 2.0 - 3.0 Higher intensity therapeutic range 2.5 - 3.5 :58 PT (Prothrobim Time) Comments: Standing Order; PATIENT NOT FASTINGPERFORMED BY: [facility]6370 [facility] [id number] Information: [id number] ([id number]) Prothrombin Time 29.7 {sec} (Abnormal) Range: 9.1-12.0 INR 2.7 (Abnormal) Range: 0.8-1.2 Comments: Reference interval is for non-anticoagulated patients. . Suggested INR therapeutic range for Vitamin K anta gonist therapy: Standard Dose (moderate intensity therapeutic range): 2.0 - 3.0 Higher intensity therapeutic range 2.5 - 3.5 75-Bnp-923429:09 Throat Culture (69331) Comments: PATIENT NOT FASTINGPERFORMED BY: [place] [id number] [facility] [id number] Information: SRC:THRT [id number] Result 1 RRF (Normal) Comments: Routine respiratory fernando Upper Respiratory Culture Final report (Normal) 66-Trg-37814:20 Rapid Strep Test, Office (58953) Rapid Strep Test, Office Negative (Normal) 6-Ahn-511262:20 PT (Prothrobim Time) Comments: Standing Order; PATIENT NOT FASTINGPERFORMED BY: [facility]6370 [facility] [id number] Information: [id number] ([id number]) Prothrombin Time 26.6 {sec} (Abnormal) Range: 9.1-12.0 INR 2.4 (Abnormal) Range: 0.8-1.2 Comments: Reference interval is for non-anticoagulated patients. . Suggested INR therapeutic range for Vitamin K anta gonist therapy: Standard Dose (moderate intensity therapeutic range): 2.0 - 3.0 Higher intensity therapeutic range 2.5 - 3.5 49-Bis-18556:27 Rapid Strep Test, Office (29065) Rapid Strep Test, Office Positive (Normal) 23-Uwc-102095:18 PT (Prothrobim Time) Comments: Standing Order; PATIENT NOT FASTINGPERFORMED BY: [facility]6370 [facility] [id number] Information: [id number] ([id number]) Prothrombin Time 17.6 {sec} (Abnormal) Range: 9.1-12.0 INR 1.6 (Abnormal) Range: 0.8-1.2 Comments: Reference interval is for non-anticoagulated patients. . Suggested INR therapeutic range for Vitamin K anta gonist therapy: Standard Dose (moderate intensity therapeutic range): 2.0 - 3.0 Higher intensity therapeutic range 2.5 - 3.5 :14 PT (PROTHROMBIN TIME) Comments: PATIENT NOT FASTINGPERFORMED BY: [facility]6370 [facility] [id number] Information: [id number] ([id number]) Prothrombin Time 20.8 {sec} (Abnormal) Range: 9.1-12.0 INR 2.0 (Abnormal) Range: 0.8-1.2 Comments: Reference interval is for non-anticoagulated patients. . Suggested INR therapeutic range for Vitamin K anta gonist therapy: Standard Dose (moderate intensity therapeutic range): 2.0 - 3.0 Higher intensity therapeutic range 2.5 - 3.5 :25 PT (Prothrobim Time) Comments: Standing Order; PATIENT NOT FASTINGPERFORMED BY: [facility]6370 [facility] [id number] Information: [id number] ([id number]) Prothrombin Time 23.5 {sec} (Abnormal) Range: 9.1-12.0 INR 2.2 (Abnormal) Range: 0.8-1.2 Comments: Reference interval is for non-anticoagulated patients. . Suggested INR therapeutic range for Vitamin K anta gonist therapy: Standard Dose (moderate intensity therapeutic range): 2.0 - 3.0 Higher intensity therapeutic range 2.5 - 3.5 :29 PT (PROTHROMBIN TIME) Comments: PATIENT NOT FASTINGPERFORMED BY: [facility]6370 [facility] [id number] Information: [id number] ([id number]) Prothrombin Time 26.1 {sec} (Abnormal) Range: 9.1-12.0 INR 2.4 (Abnormal) Range: 0.8-1.2 Comments: Reference interval is for non-anticoagulated patients. . Suggested INR therapeutic range for Vitamin K anta gonist therapy: Standard Dose (moderate intensity therapeutic range): 2.0 - 3.0 Higher intensity therapeutic range 2.5 - 3.5 :18 PT (Prothrobim Time) Comments: Standing Order; PATIENT NOT FASTINGPERFORMED BY: [facility]6370 [facility] [id number] Information: [id number] ([id number]) Prothrombin Time 23.2 {sec} (Abnormal) Range: 9.1-12.0 INR 2.1 (Abnormal) Range: 0.8-1.2 Comments: Reference interval is for non-anticoagulated patients. . Suggested INR therapeutic range for Vitamin K anta gonist therapy: Standard Dose (moderate intensity therapeutic range): 2.0 - 3.0 Higher intensity therapeutic range 2.5 - 3.5 22-Mhy-372701:18 PT (PROTHROMBIN TIME) Comments: PATIENT NOT FASTINGPERFORMED BY: [facility]6370 [facility] [id number] Information: [id number] ([id number]) Prothrombin Time 22.3 {sec} (Abnormal) Range: 9.1-12.0 INR 2.1 (Abnormal) Range: 0.8-1.2 Comments: Reference interval is for non-anticoagulated patients. . Suggested INR therapeutic range for Vitamin K anta gonist therapy: Standard Dose (moderate intensity therapeutic range): 2.0 - 3.0 Higher intensity therapeutic range 2.5 - 3.5 :16 PT (PROTHROMBIN TIME) Comments: PATIENT NOT FASTINGPERFORMED BY: [place] [id number] [facility] [id number] Information: [id number],2ND ORDER NO DRAW F EE ([id number]) Prothrombin Time 29.6 {sec} (Abnormal) Range: 9.1-12.0 INR 2.9 (Abnormal) Range: 0.8-1.2 Comments: Reference interval is for non-anticoagulated patients. . Suggested INR therapeutic range for Vitamin K anta gonist therapy: Standard Dose (moderate intensity therapeutic range): 2.0 - 3.0 Higher intensity therapeutic range 2.5 - 3.5 :52 PT (PROTHROMBIN TIME) Comments: PATIENT NOT FASTINGPERFORMED BY: [facility]6370 [facility] [id number] Information: [id number] ([id number]) Prothrombin Time 25.4 {sec} (Abnormal) Range: 9.1-12.0 INR 2.4 (Abnormal) Range: 0.8-1.2 Comments: Reference interval is for non-anticoagulated patients. . Suggested INR therapeutic range for Vitamin K anta gonist therapy: Standard Dose (moderate intensity therapeutic range): 2.0 - 3.0 Higher intensity therapeutic range 2.5 - 3.5 30-Igb-945955:47 HPV automatic Comments: Source.............Cervical;EndocervicalNo. of containers..01 CYTYC Thin Prep VialPATIENT NOT FASTINGPERFORMED BY: WB [facility] [address] [id number] BY: Lexa Escobar ([id number]) [facility] [address] [id number] Information: [id number] HPV, high-risk Negative Comments: This high-risk HPV [...] (endocervical component) are present.V70.0 ; Routine general hi dical examin [facility] health care centerGlendy Castillo Inside Sales Associate (ASCP) 49-Nmj-545484:47 PT (PROTHROMBIN TIME) Comments: PATIENT NOT FASTINGPERFORMED BY: [facility] Eymsfu6827 Kennedy RoadDublin [place] [id number] Information: [id number] ([id number]) Prothrombin Time 24.4 {sec} (Abnormal) Range: 9.1-12.0 INR 2.3 (Abnormal) Range: 0.8-1.2 Comments: Reference interval is for non-anticoagulated patients. . Suggested INR therapeutic range for Vitamin K anta gonist therapy: Standard Dose (moderate intensity therapeutic range): 2.0 - 3.0 Higher intensity therapeutic range 2.5 - 3.5 :16 TSH (07285) Comments: PATIENT WAS FASTINGPERFORMED BY: bookletmobile Itevli3095 [facility] [id number] TSH 1.090 {uIU/mL} (Normal) Range: 0.450-4.500 :16 LIPID PANEL (31388) Comments: PATIENT WAS FASTINGPERFORMED BY: bookletmobileVirtua MarltonEucteh7247 [facility] [id number] LDL/HDL Ratio 1.4 {ratio_units} (Normal) Range: 0.0-3.2 [...] MANUAL DIFF Comments: PATIENT WAS FASTINGPERFORMED BY: [facility]atherAsc[facility]6370 [facility] [id number] Information: [id number] ([id number]) Immature Grans (Abs) 0.0 {x10E3/uL} (Normal) Range: [...] 3.77-5.28 WBC 5.5 {x10E3/uL} (Normal) Range: 3.4-10.8 :16 METABOLIC PANEL, COMPREHENSIVE Comments: PATIENT WAS FASTINGPERFORMED BY: LabCoVirtua MarltonAzxkjl5181 [facility] [id number] (86910) ALT (SGPT) 29 [iU]/L (Normal) Range: 0-32 [...] Glucose, Serum 83 mg/dL (Normal) Range: 65-99 87-Nzq-304602:05 PT (Prothrobim Time) Comments: PATIENT NOT FASTINGPERFORMED BY: [place] 1340570 [facility] [id number] Information: [id number] ([id number]) Prothrombin Time 27.2 {sec} (Abnormal) Range: 9.1-12.0 INR 2.6 (Abnormal) Range: 0.8-1.2 Comments: Reference interval is for non-anticoagulated patients. . Suggested INR therapeutic range for Vitamin K anta gonist therapy: Standard Dose (moderate intensity therapeutic range): 2.0 - 3.0 Higher intensity therapeutic range 2.5 - 3.5 :14 PT (PROTHROMBIN TIME) Comments: PATIENT NOT FASTINGPERFORMED BY: [facility]6370 [facility] [id number] Information: [id number] ([id number]) Prothrombin Time 20.0 {sec} (Abnormal) Range: 9.1-12.0 INR 1.9 (Abnormal) Range: 0.8-1.2 Comments: Reference interval is for non-anticoagulated patients. . Suggested INR therapeutic range for Vitamin K anta gonist therapy: Standard Dose (moderate intensity therapeutic range): 2.0 - 3.0 Higher intensity therapeutic range 2.5 - 3.5 1-Tft-203091:22 PT (PROTHROMBIN TIME) Comments: PATIENT NOT FASTINGPERFORMED BY: [facility]6370 [facility] [id number] Information: [id number] ([id number]) Prothrombin Time 18.0 {sec} (Abnormal) Range: 9.1-12.0 INR 1.7 (Abnormal) Range: 0.8-1.2 Comments: Reference interval is for non-anticoagulated patients. . Suggested INR therapeutic range for Vitamin K anta gonist therapy: Standard Dose (moderate intensity therapeutic range): 2.0 - 3.0 Higher intensity therapeutic range 2.5 - 3.5 97-Iud-022767:35 Prothrombin Time (PT) Comments: PATIENT NOT FASTINGPERFORMED BY: [address] [id number] Information: [id number], [id number] Prothrombin Time 26.9 {sec} (Abnormal) Range: 9.1-12.0 INR 2.6 (Abnormal) Range: 0.8-1.2 Comments: Reference interval is for non-anticoagulated patients. . Suggested INR therapeutic range for Vitamin K anta gonist therapy: Standard Dose (moderate intensity therapeutic range): 2.0 - 3.0 Higher intensity therapeutic range 2.5 - 3.5 61-Gtv-069800:26 PT (PROTHROMBIN TIME) Comments: PATIENT NOT FASTINGPERFORMED BY: [place] 1340570 [facility] [id number] Information: [id number] ([id number]) Prothrombin Time 27.3 {sec} (Abnormal) Range: 9.1-12.0 INR 2.6 (Abnormal) Range: 0.8-1.2 Comments: Reference interval is for non-anticoagulated patients. . Suggested INR therapeutic range for Vitamin K anta gonist therapy: Standard Dose (moderate intensity therapeutic range): 2.0 - 3.0 Higher intensity therapeutic range 2.5 - 3.5 34-Rvb-045101:16 Prothrombin Time (PT) Comments: PERFORMED BY: [address] [id number] Information: PT ON ANTIBIOTICS Prothrombin Time 31.7 {sec} (Abnormal) Range: 9.1-12.0 INR 3.1 (Abnormal) Range: 0.8-1.2 Comments: Reference interval is for non-anticoagulated patients. . Suggested INR therapeutic range for Vitamin K anta gonist therapy: Standard Dose (moderate intensity therapeutic range): 2.0 - 3.0 Higher intensity therapeutic range 2.5 - 3.5 :32 PT (PROTHROMBIN TIME) Comments: PATIENT NOT FASTINGPERFORMED BY: [place] 1340570 [facility] [id number] Information: [id number] ([id number]) Prothrombin Time 36.1 {sec} (Abnormal) Range: 9.1-12.0 INR 3.5 (Abnormal) Range: 0.8-1.2 Comments: Reference interval is for non-anticoagulated patients. . Suggested INR therapeutic range for Vitamin K anta gonist therapy: Standard Dose (moderate intensity therapeutic range): 2.0 - 3.0 Higher intensity therapeutic range 2.5 - 3.5 :49 PT (PROTHROMBIN TIME) Comments: PATIENT NOT FASTINGPERFORMED BY: [facility]6370 [facility] [id number] Information: [id number] ([id number]) Prothrombin Time 27.3 {sec} (Abnormal) Range: 9.1-12.0 INR 2.6 (Abnormal) Range: 0.8-1.2 Comments: Reference interval is for non-anticoagulated patients. . Suggested INR therapeutic range for Vitamin K anta gonist therapy: Standard Dose (moderate intensity therapeutic range): 2.0 - 3.0 Higher intensity therapeutic range 2.5 - 3.5 :09 Prothrombin Time (PT) Comments: PERFORMED BY: [facility]6370 [facility] [id number] Prothrombin Time 16.0 {sec} (Abnormal) Range: 9.1-12.0 INR 1.5 (Abnormal) Range: 0.8-1.2 Comments: Reference interval is for non-anticoagulated patients. . Suggested INR therapeutic range for Vitamin K anta gonist therapy: Standard Dose (moderate intensity therapeutic range): 2.0 - 3.0 Higher intensity therapeutic range 2.5 - 3.5 79-Ypw-60786:00 FINGER(S) MIN 2 VIEWS Radiology Report See [...] Major M.D.August 07, 2013 at 1:31:09 PM [phone] Signed GP/GP If you are the referring physician and would like to consult with theradiologist who provided this interpretation, please contact [place] at [phone]. I f this radiologist is unavailable, youwill be directed to another radiologist to assist. If you are a patient with a question regarding this report, pleasecontactyour referring physician directly. Profe ssional Interpretation Provided By: [employer], Phone , These documents contain legally protected [...] the return or destructionofthese documents. Dictated on 08/07/13 1331 by Moriah RAIN,JerrellrieleTranscribed on 08/07 1335 by ITS IMPORTSign by Bud Major MD on 08/07/13 1335 Sign by: Bud Major MD 4-Aym-851160:00 PT (Prothrobim Time) Comments: PATIENT NOT FASTINGPERFORMED BY: LabCoVirtua MarltonYmknbh3359 [facility] [id number] Information: [id number] ([id number]) Prothrombin Time 12.2 {sec} (Abnormal) Range: 9.1-12.0 Comments: Please note reference interval change INR 1.2 (Normal) Range: 0.8-1.2 Comments: Reference interval is for non-anticoagulated patients. . Suggested INR therapeutic range for Vitamin K anta gonist therapy: Standard Dose (moderate intensity therapeutic range): 2.0 - 3.0 Higher intensity therapeutic range 2.5 - 3.5 Please note reference interval change 00-Lrl-197083:12 PT (Prothrobim Time) Comments: PATIENT NOT FASTINGPERFORMED BY: [facility]6370 [facility] [id number] Information: [id number] ([id number]) Prothrombin Time 26.6 {sec} (Abnormal) Range: 9.1-12.0 INR 2.6 (Abnormal) Range: 0.8-1.2 Comments: Reference interval is for non-anticoagulated patients. . Suggested INR therapeutic range for Vitamin K anta gonist therapy: Standard Dose (moderate intensity therapeutic range): 2.0 - 3.0 Higher intensity therapeutic range 2.5 - 3.5 0-Yke-749833:29 PT (Prothrobim Time) Comments: PATIENT NOT FASTINGPERFORMED BY: [facility]Asc[facility]6370 [facility] [id number] Information: ADD [id number] AND DRAW FEE [id number] ([id number]) Prothrombin Time 18.7 {sec} (Abnormal) Range: 9.1-12.0 INR 1.8 (Abnormal) Range: 0.8-1.2 Comments: Reference interval is for non-anticoagulated patients. . Suggested INR therapeutic range for Vitamin K anta gonist therapy: Standard Dose (moderate intensity therapeutic range): 2.0 - 3.0 Higher intensity therapeutic range 2.5 - 3.5 :01 PT (Prothrobim Time) Comments: PATIENT NOT FASTINGPERFORMED BY: [place] 1340570 [facility] [id number] Information: [id number] ([id number]) Prothrombin Time 22.0 {sec} (Abnormal) Range: 9.1-12.0 INR 2.1 (Abnormal) Range: 0.8-1.2 Comments: Reference interval is for non-anticoagulated patients. . Suggested INR therapeutic range for Vitamin K anta gonist therapy: Standard Dose (moderate intensity therapeutic range): 2.0 - 3.0 Higher intensity therapeutic range 2.5 - 3.5 :23 PT (Prothrobim Time) Comments: PATIENT NOT FASTINGPERFORMED BY: [place] 1340570 [facility] [id number] Information: [id number] ([id number]) Prothrombin Time 28.7 {sec} (Abnormal) Range: 9.1-12.0 INR 2.8 (Abnormal) Range: 0.8-1.2 Comments: Reference interval is for non-anticoagulated patients. . Suggested INR therapeutic range for Vitamin K anta gonist therapy: Standard Dose (moderate intensity therapeutic range): 2.0 - 3.0 Higher intensity therapeutic range 2.5 - 3.5 :35 PT (Prothrobim Time) Comments: PATIENT NOT FASTINGPERFORMED BY: [place] 1340570 [facility] [id number] Information: ADD [id number] AND DRAW FEE [id number] ([id number]) Prothrombin Time 26.3 {sec} (Abnormal) Range: 9.1-12.0 INR 2.6 (Abnormal) Range: 0.8-1.2 Comments: Reference interval is for non-anticoagulated patients. . Suggested INR therapeutic range for Vitamin K anta gonist therapy: Standard Dose (moderate intensity therapeutic range): 2.0 - 3.0 Higher intensity therapeutic range 2.5 - 3.5 :57 Prothrombin Time (PT) Comments: PERFORMED BY: [facility]6370 [facility] [id number] Prothrombin Time 16.3 {sec} (Abnormal) Range: 9.1-12.0 INR 1.6 (Abnormal) Range: 0.8-1.2 Comments: Reference interval is for non-anticoagulated patients. . Suggested INR therapeutic range for Vitamin K anta gonist therapy: Standard Dose (moderate intensity therapeutic range): 2.0 - 3.0 Higher intensity therapeutic range 2.5 - 3.5 9-Dky-657949:11 PT (Prothrobim Time) Comments: PATIENT NOT FASTINGPERFORMED BY: [place] 1340570 [facility] [id number] Information: [id number] ([id number]) Prothrombin Time 16.1 {sec} (Abnormal) Range: 9.1-12.0 INR 1.5 (Abnormal) Range: 0.8-1.2 Comments: Reference interval is for non-anticoagulated patients. . Suggested INR therapeutic range for Vitamin K anta gonist therapy: Standard Dose (moderate intensity therapeutic range): 2.0 - 3.0 Higher intensity therapeutic range 2.5 - 3.5 1-Okf-214086:16 Prothrombin Time (PT) Comments: PERFORMED BY: [facility]6370 [facility] [id number] Prothrombin Time 21.4 {sec} (Abnormal) Range: 9.1-12.0 INR 2.1 (Abnormal) Range: 0.8-1.2 Comments: Reference interval is for non-anticoagulated patients. . Suggested INR therapeutic range for Vitamin K anta gonist therapy: Standard Dose (moderate intensity therapeutic range): 2.0 - 3.0 Higher intensity therapeutic range 2.5 - 3.5 8-Yax-510900:04 PT (Prothrobim Time) Comments: PATIENT NOT FASTINGPERFORMED BY: [place] 1340570 [facility] [id number] Information: [id number] ([id number]) Prothrombin Time 46.9 {sec} (Abnormal) Range: 9.1-12.0 Comments: Please note reference interval change INR 4.6 (Abnormal) Range: 0.8-1.2 Comments: Client Requested Flag Reference interval is for non- anticoagulated patients. . Suggested INR therapeutic ra nge for Vitamin K antagonist therapy: Standard Dose (moderate intensity therapeutic range): 2.0 - 3.0 Higher intensi ty therapeutic range 2.5 - 3.5 Please note reference interval change 00-Kkk-184769:51 PT (Prothrobim Time) Comments: PATIENT NOT FASTINGPERFORMED BY: [place] [id number] [facility] [id number] Information: [id number] ([id number]) Prothrombin Time 18.5 {sec} (Abnormal) Range: 9.1-12.0 INR 1.8 (Abnormal) Range: 0.8-1.2 Comments: Reference interval is for non-anticoagulated patients. . Suggested INR therapeutic range for Vitamin K anta gonist therapy: Standard Dose (moderate intensity therapeutic range): 2.0 - 3.0 Higher intensity therapeutic range 2.5 - 3.5 27-Lru-891140:10 PT (Prothrobim Time) Comments: PATIENT NOT FASTINGPERFORMED BY: [place] [id number] [facility] [id number] Information: [id number] ([id number]) Prothrombin Time 22.5 {sec} (Abnormal) Range: 9.1-12.0 INR 2.2 (Abnormal) Range: 0.8-1.2 Comments: Reference interval is for non-anticoagulated patients. . Suggested INR therapeutic range for Vitamin K anta gonist therapy: Standard Dose (moderate intensity therapeutic range): 2.0 - 3.0 Higher intensity therapeutic range 2.5 - 3.5 :14 PT (Prothrobim Time) Comments: PATIENT NOT FASTINGPERFORMED BY: [place] [id number] [facility] [id number] Information: [id number] ([id number]) Prothrombin Time 28.0 {sec} (Abnormal) Range: 9.1-12.0 INR 2.7 (Abnormal) Range: 0.8-1.2 Comments: Reference interval is for non-anticoagulated patients. . Suggested INR therapeutic range for Vitamin K anta gonist therapy: Standard Dose (moderate intensity therapeutic range): 2.0 - 3.0 Higher intensity therapeutic range 2.5 - 3.5 :12 PT (Prothrobim Time) Comments: PATIENT NOT FASTINGPERFORMED BY: [facility]6[address] [facility] [id number] Information: [id number] ([id number]) Prothrombin Time 18.6 {sec} (Abnormal) Range: 9.1-12.0 INR 1.8 (Abnormal) Range: 0.8-1.2 Comments: Reference interval is for non-anticoagulated patients. . Suggested INR therapeutic range for Vitamin K anta gonist therapy: Standard Dose (moderate intensity therapeutic range): 2.0 - 3.0 Higher intensity therapeutic range 2.5 - 3.5 :00 Prothrombin Time (PT) Comments: A duplicate report has been generated due to demographic updates.PERFORMED BY: [facility]atherAsc[facility] [id number] Information: ACCT# CORRECTED 08-16-12. Prothrombin Time 21.1 [...] 7-18 GLU 82 mg/dL (Normal) Range: 70-110 : LIPID VLDL 20 mg/dL (Normal) Range: 5-40 [...] thirteen high-risk types(16/18/31/33/35/39/45/51/52/56/58/59/68) withoutdifferentiation. .Performed at: - Me bC[address] [id number] Director: Asha Osborne MD, Phone: [phone] at: =G - [facility] [id number] Director: Asha Osborne MD, Phone: [phone] tPAPSMR Comment (Normal) Comments: The Pap smear [...] squamous metaplasticcells (endocervical component) are present.Layne Andres, Inside Sales Associate ([facility] )This liquid based ThinPrep(R) pap test was [...] (Normal) PTP 28.4 s (Abnormal) Range: 11.9-14.4 21-Dll-235826:46 PRO TIME INR 2.6 (Normal) PROTIME 26.8 [...] Range: 11.9-14.4 Comments: Effective APRIL 20, 2011. 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 .Performed at: [address] [id number] Director: Asha Osborne MD, Phone: [phone] COMM . (Normal) DIAGN Comment (Normal) Comments: NEGATIVE FOR INTRAEPITHELIAL LESION AND MALIGNANCY.Satisfactory for evaluation. Endocervical and/or squamous metaplasticcells (endocervical component) are present.Ada Perez, CytotechnologistThis liquid based ThinPrep(R) pap test was screened withthe use of an image guided system. 01-Vkx-110531:20 PRO TIME INR 2.4 (Normal) PROTIME 24.8 s (Abnormal) Range: 9.1-11.7 :23 VIT D,25 95754 66.3 ng/mL (Normal) Range: 32.0-100.0 Comments: Recent studies consider the lower limit of 32.0 ng/mL to claire threshold for optimal health.Terrance GARCIA. J Nutr. 2004;135(2):317-22.Performed at: [facility] [id number] Director: Ninfa Nash MD, Phone: [phone] :43 T4 FREE DIRECT 1.05 ng/dL (Normal) [...] (Normal) PROTIME 27.1 s (Abnormal) Range: 9.1-11.7 9-Tyq-652526:15 PRO TIME Comments: STAT PLEASE CALL DR OATES WITH RESULTS INR 3.5 (Normal) PROTIME 40.9 s (Abnormal) Range: 9.1-11.7 1-Cjs-462359:45 PT (PROTHROMBIN TIME) Comments: PATIENT NOT FASTINGPERFORMED BY: [facility] Jjuabj3122 [facility] [id number] Information: [id number] ([id number]) Prothrombin Time 26.6 {sec} (Abnormal) Range: 9.1-12.0 [...] Leg Pain Planned Observations METABOLIC PANEL, COMPREHENSIVE ([id number])Indication: Elevated liver function tests On: 34-Lla-397906:23 Request CBC W/AUTO DIFF WBC (12030)Indication: 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 On: 54-Zvd-652546:23 Request LIPID PANEL (17507)Indication: Elevated high sensitivity C-reactive protein On: 22-Shf-570764:21 Request HPV automatic (82173)Indication: Screening for HPV (human papillomavirus) (Renamed from Encounter for screening for human papillomavirus (HPV)) On: 40-Gwh-055126:47 Request Thin prep Pap ([id number]) (no STD testing)Indication: Encounter for gynecological examination with abnormal finding On: 09-Bfp-324004:46 Request PT (Prothrobim Time) ([id number])Indication: 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 On: 03-Aug-2018 Request PT (Prothrobim Time) ([id number])Indication: 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 On: 04-Jul-2018 Request PT (Prothrobim Time) ([id number])Indication: 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 On: 04-Jun-2018 Request PT (Prothrobim Time) ([id number])Indication: 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 On: 06-Mar-2018 Request LIPID PANEL ([id number])Indication: Elevated high sensitivity C-reactive protein On: 84-Eni-76730:35 Request Thin prep Pap (78206) (no STD testing)Indication: Well female exam with routine gynecological exam On: 03-Roo-628262:33 Request PT (Prothrobim Time) ([id number])Indication: 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 On: 08-Jul-2015 Request Comments: Standing Order PT (Prothrobim Time) ([id number])Indication: 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 On: 08-Jun-2015 Request Comments: Standing Order PT (Prothrobim Time) ([id number])Indication: 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 On: 09-May-2015 Request Comments: Standing Order JAVON CULTURE-OTHER ([id number])Indication: Acute pharyngitis On: 07-Nlz-80715:27 Request Thin prep Pap ([id number]) (no STD testing)Indication: Well female exam with routine gynecological exam On: 51-Rqb-561617:14 Request PT (PROTHROMBIN TIME) ([id number])Indication: 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 On: 06-Apr-2014 Request CBC WITH MANUAL DIFF ([id number])Indication: 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 On: 4-Exq-787089:33 Request METABOLIC PANEL, COMPREHENSIVE ([id number])Indication: 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 On: 6-Kfx-618836:32 Request TSH ([id number])Indication: family hx of thyroid disease On: 7-Boh-238233:32 Request LIPID PANEL ([id number])Indication: familyhx of high chol On: 8-Mpt-001159:31 Request HPV automatic ([id number])Indication: Well female exam with routine gynecological exam On: :58 Request Thin prep Pap (59241) (no STD testing)Indication: Well female exam with routine gynecological exam On: :58 Request PT (Prothrobim Time) ([id number])Indication: 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 On: :43 Request Comments: standing order Thin prep Pap ([id number]) (no STD testing)Indication: Well female exam with routine gynecological exam On: :19 Request PT (PROTHROMBIN TIME) ([id number])Indication: 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 On: :49 Request Vitamin D Hydroxy (56583)Indication: Fatigue On: :49 Request T3, FREE (TRIDOTHYRONINE) (90778)Indication: Fatigue On: :48 Request T4, FREE (THYROXINE) ([id number])Indication: Fatigue On: :48 Request VITAMIN B-12 (CYANOCOBALAMIN) (79028)Indication: Fatigue On: :48 Request TSH ([id number])Indication: Fatigue On: :48 Request PT (PROTHROMBIN TIME) ([id number])Indication: Pulmonary embolism On: :45 Request Comments: standing order CBC & PLATELETS (AUTO) ([id number])Indication: Abnormal blood chemistry On: :45 Request LIPID PANEL (36097)Indication: Abnormal blood chemistry On: :45 Request METABOLIC PANEL, COMPREHENSIVE (94336)Indication: Abnormal blood chemistry On: :45 Request JAVON CULTURE-OTHER (06368)Indication: Acute pharyngitis On: :57 Request Rapid Strep Test, Office ([id number])Indication: Acute pharyngitis On: :57 Request Planned Encounters Medical; [facility] 3 Month FU - On: 07-Feb-2019 15:30 [facility] Fast DO, Kylie A Fast DO, Kylie A Planned Procedures SCREENING DIGITAL TOMOSYNTHESIS OF On: 01-Nov-2018 Intent BREAST (20026)By: Kylie Junior DO A Fast DO, Kylie A ELECTROCARDIOGRAM, COMPLETE (ECG) On: 01-Nov-2018 Intent (50667)By: Kylie Junior DO Comments: ekg showed normal sinus rhythym, normal axis, no acute st/t wave changes sinus kellie= she a runner DO, Kylie A ELECTROCARDIOGRAM, COMPLETE (ECG) On: 11-Nov-2017 Intent (06162)By: Kylie Junior DO Comments: ekg showed normal sinus rhythym, normal axis, no acute st/t wave changes sinus kellie DO, Kylie A ELECTROCARDIOGRAM, COMPLETE (ECG) On: 29-Nov-2016 Intent (01367)By: Kylie Junior DO Comments: ekg showed normal sinus rhythym, normal axis, no acute st/t wave changes DO Kylie A Flu Vaccine (Quadrivalent) On: 29-Sep-2016 Intent 57389Jl: Visit, Nurse Comments: Lot:[id number]:05/20/17mt:0.5mlRoute:IMSite: L DltdGiven By: MARISA Mccormick signed Radiology - Knee - Right - Weight On: 07-Feb-2015 Intent BearingBy: Kylie Junior DO Comments: stat call results Kylie BARCENAS Doppler Ultrasound OtherBy: Fast On: 07-Feb-2015 Intent Kylie BARCENAS DO Kylie A Comments: right leg- hx of dvt- stat call results SPECIMEN HNDLNG/TRNSPRT, OFFC > On: 14-Oct-2014 Intent LAB ([id number])By: Nata Rodriguez MD Eprescribed prescriptions On: 14-Dec-2013 Intent (G8553)By: Darlene Drew FLU VAC, SPLIT, >3 YEARS, On: 06-Aug-2013 Intent INTRAMUSC (75420)By: Darryl BARCENAS, Comments: Lot:[id number]:Dose:0.5mLRoute:IMSite:L DltdGiven By:ILYA signed Francine IMMUNIZ ADMNIN, 1 VAC, SNGL/COMBO On: 06-Aug-2013 Intent (67950)By: Francine Andrews DO Eprescribed prescriptions On: 06-Aug-2013 Intent (G8553)By: Darryl BARCENAS Francine Radiology - Finger(s) - LeftBy: On: 06-Aug-2013 Intent Darryl BARCENAS Francine IMMUNIZ ADMNIN, 1 VAC, SNGL/COMBO On: 14-Aug-2012 Intent (51132)By: Joyce Evans LPN Comments: Lot #[id number]-L dltd, IMDose prefilled syringegiven by:MARISA Velez signed FLU VAC, SPLIT, >3 YEARS, On: 14-Aug-2012 Intent INTRAMUSC (88811)By: Joyce Evans LPN Eprescribed prescriptions On: 25-Apr-2012 Intent (G8553)By: Fast DO, Kylie A Fast DO, Kylie A FLU VAC, SPLIT, >3 YEARS, On: 18-Aug-2011 Intent INTRAMUSC (67767)By: Sanjeev, Comments: Lot:[id number]:05/10/12Amt:prefilledRoute:IMSite:left deltGiven By: KELL Zaragoza Anais TDAP VACCINE >7 IM (24149)By: Vernon On: 08-Feb-2011 Intent DO, Kylie A Fast DO, Kylie A Comments: Lot #[id number]/13Site-L dltd, IMDose prefilledgiven by: FLU VAC, SPLIT, >3 YEARS, On: 14-Sep-2010 Intent INTRAMUSC (65103)By: Kimo, Comments: Lot #:[id number] Expiration date:mount given:.5mlRoute: IMSite given:left deltoid Given by: altaf JOHNSON IMMUNIZ ADMNIN, 1 VAC, SNGL/COMBO On: 14-Sep-2010 Intent (21223)By: ELIZABETH Malin Doppler Ultrasound OtherBy: Janice On: 29-Jul-2009 Intent Юлия REYES Instructions Name [...] lab ar e good- never went to [facility] for skin check is willing now- and [...] chronic medical issues: - 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
== END ==
PROVIDERS: Family Provider Internal Medicine; PCP Internal Medicine; Referring Provider Internal Medicine; Visit Provider Internal Medicine
DX: I82.4Z9 Acute embolism and thrombosis of unspecified deep veins of unspecified distal lower extremity (principal)
CPT/HCPCS: 85610

== ENCOUNTER → 2018-12-22 15:47 | Outpatient (CLI) | payer OTHER, SELFPAY ==
--- NOTE | 2018-12-22 15:50 | BI_ITS ---
MAMMOGRAPHY - BILATERAL SCREENING REASON FOR EXAM: Female, 38 years old. Routine annual screening examination. PERTINENT HISTORY: Non-contributory. TECHNIQUE: Digital bilateral breast karissa (3D mammographic acquisition) in the CC and MLO projections. 2-D mediolateral oblique (MLO) and craniocaudad (CC) views of both breasts were obtained. CAD: Full Field Digital Mammography with Computer Added Detection was performed. COMPARISON: None. Baseline examination. FINDINGS: Breast Composition: The breasts are heterogeneously dense, which may obscure small masses. There are no dominant masses or suspicious calcifications. No other significant abnormalities are identified. BI/SCREENING MAMM (CAD), BILAT IMPRESSION: Negative screening mammogram. Yearly followup mammogram recommended. (A) ASSESSMENT CATEGORY: BIRADS Category 1: Negative. A letter regarding these results will be sent to the patient by the facility within 30 days. Approximately 10% of breast cancers are not detected by mammography. A normal mammogram should not delay biopsy of a clinically suspicious abnormality. [id number] Electronically Signed: Bud Major MD at 8:38 EST , Service support ,
== END ==
PROVIDERS: Family Provider Internal Medicine; PCP Internal Medicine; Referring Provider Internal Medicine; Visit Provider Internal Medicine
DX: Z12.31 Encounter for screening mammogram for malignant neoplasm of breast (principal)
CPT/HCPCS: 77063; 77067

== ENCOUNTER → 2021-01-01 16:26 | Outpatient (CLI) | payer OTHER, SELFPAY ==
--- NOTE | 2021-01-01 16:28 | BI_ITS ---
MAMMOGRAPHY - BILATERAL SCREENING REASON FOR EXAM: Female, 40 years old. Routine annual screening examination. PERTINENT HISTORY: Non-contributory. TECHNIQUE: Digital bilateral breast nola (3D mammographic acquisition) in the CC and MLO projections. 2-D mediolateral oblique (MLO) and craniocaudad (CC) views of both breasts were obtained. CAD: Full Field Digital Mammography with Computer Added Detection was performed. COMPARISON: Comparison is made with prior examination dated 12/22/2018. FINDINGS: Breast Composition: The breasts are heterogeneously dense, which may obscure small masses. There are no dominant masses or suspicious calcifications. No other significant abnormalities are identified. There has been no significant change since the prior study. BI/SCRN MAMM (CAD)W/NOLA BILAT IMPRESSION: Stable bilateral screening mammogram. Yearly follow-up mammogram recommended. (A) ASSESSMENT CATEGORY: BIRADS Category 1: Negative. A letter regarding these results will be sent to the patient by the facility within 30 days. Approximately 10% of breast cancers are not detected by mammography. A normal mammogram should not delay biopsy of a clinically suspicious abnormality. [id number] Electronically Signed: Bud Major MD at 10:15 EST , Service support ,
== END ==
PROVIDERS: PCP Internal Medicine; Referring Provider Internal Medicine; Visit Provider Internal Medicine
DX: Z12.31 Encounter for screening mammogram for malignant neoplasm of breast (principal)
CPT/HCPCS: 77063; 77067

== ENCOUNTER → 2023-10-31 | Outpatient (CLI) | payer OTHER, SELFPAY ==
--- NOTE | 2023-10-31 14:58 | BI_ITS ---
MAMMOGRAPHY - BILATERAL SCREENING REASON FOR EXAM: Female, 43 years old. Routine annual screening examination. PERTINENT HISTORY: Non-contributory. TECHNIQUE: Digital bilateral breast nola (3D mammographic acquisition) in the CC and MLO projections. 2-D mediolateral oblique (MLO) and craniocaudad (CC) views of both breasts were obtained. CAD: Full Field Digital Mammography with Computer Added Detection was performed. COMPARISON: Comparison is made with prior study of January 01, 2021 and December 22, 2018. FINDINGS: Breast Composition: The breasts are heterogeneously dense, which may obscure small masses. There are no dominant masses or suspicious calcifications. No other significant abnormalities are identified. There has been no significant change since the prior study. BI/SCRN MAMM (CAD)W/NOLA BILAT IMPRESSION: Stable bilateral screening mammogram. Yearly follow-up mammogram recommended. (A) ASSESSMENT CATEGORY: BIRADS Category 1: Negative. A letter regarding these results will be sent to the patient by the facility within 30 days. Approximately 10% of breast cancers are not detected by mammography. A normal mammogram should not delay biopsy of a clinically suspicious abnormality. [id number] Electronically Signed: Bud Major MD at 8:09 EST ,
== END | disposition home or self-care (01) ==
LOC: OPBI 14:58
PROVIDERS: PCP Internal Medicine; Referring Provider Internal Medicine; Visit Provider Internal Medicine
DX: Z12.31 Encounter for screening mammogram for malignant neoplasm of breast (principal)
CPT/HCPCS: 77063; 77067

== ENCOUNTER → 2024-04-10 | Outpatient (CLI) | payer OTHER, SELFPAY ==
[2024-04-10 15:27] LABS: Absolute Lymphocyte Count 1.99 X10^3/uL (0.83-4.51); Absolute Neutrophil Count 3.9 X10^3/uL (2.0-7.7); Basophil# 0.04 X10^3/uL; Basophil% 0.6 % (0-1); Eosinophil# 0.08 X10^3/uL; Eosinophils% 1.2 % (0-5); Hematocrit 39.7 % (37-47); Lymphocyte # 1.99 X10^3/ul (0.83-4.51); Lymphocyte % 30.7 % (19-41); Mean Corp Hgb Conc 32.7 g/dL (32-36); Mean Corpuscular Hgb 28.8 pg (27.0-32.0); Mean Corpuscular Volume 87.8 fL (81-99); Mean Platelet Vol. 11.6 fl (6.2-12.0); Monocyte# 0.42 X10^3/uL; Monocyte% 6.5 % (0-10); NRBC Flagged by Analyzer 0 % (0-5); Neutrophil # 3.94 X10^3/uL (2.7-7.7); Neutrophil % 60.8 % (47-70); Platelet Count 206 K/mm3 (150-450); RBC Distribution Width CV 11.9 % (11.6-14.6); RBC Distribution Width SD 38.2 fl (35.1-43.9); Red Blood Count 4.52 M/mm3 (4.2-5.4); White Blood Count 6.5 K/mm3 (4.4-11.0)
[2024-04-10 15:55] LABS: Erythrocyte Sedimentation Rate 2 mm/hr (0-30)
[2024-04-10 15:57] LABS: ALB/GLOB Ratio 1.2 RATIO (0.9-2.4); AST(SGOT) 19 U/L (15-37); Alanine Aminotransfer ALT/SGPT 20 U/L (13-56); Albumin, Serum 3.8 g/dL (3.2-5.0); Alkaline Phosphatase 42 U/L (45-117); Anion Gap 9 (5-15); BUN 19 mg/dL (7-18); BUN/Creat Ratio 29.5 RATIO (10-20); CRP < 2.90 mg/L (0.0-3.0); Calcium,Total 9.5 mg/dL (8.5-10.1); Chloride 105 mmol/L (98-107); Creatinine, Serum 0.64 mg/dL (0.55-1.02); EST Glomerular Filtration Rate 106 mL/min (>60); Est Glom Filt Rate - Afr Amer 129 mL/min (>60); Globulin 3.2 g/dL (2.2-4.2); Glucose 92 mg/dL (74-106); Sodium Level 140 mmol/L (136-145)
== END | disposition home or self-care (01) ==
LOC: LABSPEC 15:10
PROVIDERS: PCP Internal Medicine; Referring Provider Internal Medicine; Visit Provider Internal Medicine
DX: R10.11 Right upper quadrant pain (principal)
CPT/HCPCS: 80053; 85025; 85652; 86140

== ENCOUNTER → 2025-07-29 | Outpatient (CLI) | payer OTHER, SELFPAY ==
--- NOTE | 2025-07-29 08:00 | BI_ITS ---
EXAM: SCRN MAMM (CAD)W/NOLA BILAT DATE: 07/29/2025 CLINICAL HISTORY: F, Age 45 y/o , SCREENING TECHNIQUE: Procedure Code: BISMWCADBTOM Modality: MG Procedure: SCRN MAMM (CAD)W/NOLA BILAT COMPARISON: Prior exam(s) dated 10/31/2023. FINDINGS: TISSUE DENSITY: There are scattered areas of fibroglandular density. Bilateral Breast Mammographic Findings: There are no suspicious masses, suspicious cluster of microcalcifications, architectural distortion or secondary signs of malignancy identified in either breast. There has been no significant change since the prior study. BI/SCRN MAMM (CAD)W/ONLA BILAT IMPRESSION: Negative screening mammogram OVERALL FINAL ASSESSMENT BI-RADS 1: NEGATIVE. RECOMMENDATION: Routine annual follow-up in 1 Year A letter with findings and recommendations will be mailed to the patient. Reading Location: [id number]
--- OUTSIDE RECORDS SUMMARY | 2025-07-29 08:11 | XMS RPT_ITS | CCD ---
Author Organization [facility] Care Team Providers Care Ring Striker Name Role Phone Fast, Kylie A Unavailable Mago Ponce Unavailable Jayden Izaguirre Unavailable Jamaal Robles Unavailable Slarb, Julia Unavailable Unavailable Manchak, Jammie Unavailable Unavailable Unavailable Unavailable Fast, Kylie A Unavailable Unavailable Fast, Kylie A Unavailable Unavailable Fast, Kylie A Unavailable Unavailable Long, Joyce L Unavailable Unavailable Fast, Kylie A Unavailable Mago Ponce Unavailable Jayden Izaguirre Unavailable Jamaal Robles Unavailable Manchak, Jammie Unavailable Unavailable Long, Joyce L Unavailable Unavailable Unavailable Unavailable Manchak, Jammie Unavailable Unavailable Rosario Goodwin Unavailable Unavailable Fast DO, Kylie A Unavailable Dr. Mago Ponce MD Unavailable Dr. Jayden Izaguirre Unavailable Dr. Jamaal Robles Unavailable Manchak ENVIRONMENTAL HEALTH SANITARIAN, Jammie Unavailable Unavailable Unavailable Unavailable Fast DO, Kylie A Unavailable Fast, Kylie Referring Unavailable Fast, Kylie Attending Unavailable Fast, Kylie Primary Care Unavailable Medications Completed/Discontinued Medications Medication Drug Class(es) Dates Sig (Normalized) Sig (Original) [id number] 200 actuat albuterol 0.09 mg/actuat metered dose inhaler (16 sources) beta2-Adrenergic Agonist Start: 11-17-2016 End: 11-01-2018 ProAir HFA 108 (90 Base) MCG/ACT Inhalation Aerosol Solution 2 (two) Aerosol Soln Aerosol Soln puffs 15 min prior to exercise for 0 days Quantity: 1 {Inhaler} Refills: 2 Ordered: 01-Nov-2018 Jammie Sanchez CMA Start : 17-Nov-2016 End : 01-Nov-2018 Inactive Start: 11-17-2016 End: 11-01-2018 ProAir HFA 108 (90 Base) MCG /ACT Inhalation Aerosol Solution 2 (two) Aerosol Soln Aerosol Soln puffs 15 min prior to exercise for 0 days Quantity: 1 {Inhaler} Refills: 2 Ordered: 01-Nov-2018 Jammie Sanchez CMA Start : 17-Nov-2016 End : 01-Nov-2018 Inactive amoxicillin 500 mg oral capsule (17 sources) Penicillin-class Antibacterial Start: 07-20-2022 End: 07-30-2022 take 500 mg by mouth twice daily Amoxicillin Discontinued 500 MG PO TWICE A DAY 09 09July 19, 2022 11:00pm July 29, 2022 11:04pm Start: 07-09-2016 End: 11-17-2016 take 1 tablet by mouth twice daily Amoxicillin 875 MG Oral Tablet 1 (one) Tablet Tablet bid for 0 days Quantity: 20 {Tablet} Refills: 0 Ordered: 17-Nov-2016 KellyJett vanessa Start : 09-Jul-2016 End : 17-Nov-2016 Inactive amoxicillin 875 mg / clavulanate 125 mg oral tablet (16 sources) Penicillin-class Antibacterial Start: 12-14-2013 End: 04-29-2014 take 1 tablet by mouth twice daily AUGMENTIN, 875-125MG (Oral Tablet) 1 (one) Tablet two times daily for 0 days Quantity: 28 {Tablet} Refills: 0 Ordered: 29-Apr-2014 Darlene Drew Start : 14-Dec-2013 End : 29-Apr-2014 Discontinued apixaban 5 mg oral tablet (20 sources) Factor Xa Inhibitor Start: 09-13-2023 take 1 tablet by mouth twice daily Eliquis 5 mg oral tablet 1 (one) Tablet bid for 90 days Quantity: 180 {Tablet} Refills: 0 Ordered: 13-Sep-2023 Fast DO, Kylie A Fast DO, Kylie A Start : 13-Sep-2023 Active Comments: Mail order. will get more refills at next appt Start: 05-23-2023 take 1 tablet by ryan twice daily Eliquis 5 mg oral tablet 1 (one) Tablet bid for 90 days Quantity: 180 {Tablet} Refills: 0 Ordered: 23-May-2023 Fast DO, Kylie A Fast DO, Kylie A Start : 23-May-2023 Active Comments: Mail order. Start: 02-21-2023 take 1 tablet by ryan twice daily Eliquis 5 mg oral tablet 1 (one) Tablet bid for 0 days Quantity: 180 {Tablet} Refills: 0 Ordered: 21-Feb-2023 Fast DO, Kylie A Fast DO, Kylie A Start : 21-Feb-2023 Active Comments: Mail order. Start: 02-05-2022 take 1 tablet by [facility] twice daily Eliquis 5 MG Oral Tablet 1 (one) Tablet bid for 0 days Quantity: 180 {Tablet} Refills: 3 Ordered: 05-Feb-2022 Fast DO, Kylie A Fast DO, Kylie A Start : 05-Feb-2022 Active Comments: Mail order. Start: 11-02-2021 take 1 tablet by [facility] twice daily Eliquis 5 MG Oral Tablet 1 (one) Tablet bid for 0 days Quantity: 180 {Tablet} Refills: 3 Ordered: 02-Nov-2021 Fast DO, Kylie A Fast DO, Kylie A Start : 02-Nov-2021 Active Comments: Mail order. Start: 11-07-2020 take 1 tablet by [facility] twice daily Eliquis 5 MG Oral Tablet 1 (one) Tablet bid for 0 days Quantity: 180 {Tablet} Refills: 3 Ordered: 07-Nov-2020 Fast DO, Kylie A Fast DO, Kylie A Start : 07-Nov-2020 Active Comments: Mail order. Start: 11-20-2019 take 1 tablet by [facility] twice daily Eliquis 5 MG Oral Tablet 1 (one) Tablet bid for 0 days Quantity: 180 {Tablet} Refills: 3 Ordered: 20-Nov-2019 Fast DO, Kylie A Fast DO, Kylie A Start : 20-Nov-2019 Active Comments: Mail order. Start: 12-06-2018 take 1 tablet by ryan th twice daily Eliquis 5 MG Oral Tablet 1 (one) Tablet bid for 0 days Quantity: 180 {Tablet} Refills: 3 Ordered: 06-Dec-2018 Fast DO, Kylie A Fast DO, Kylie A Start : 06-Dec-2018 Active Start: 11-01-2018 take 1 tablet by ryan th twice daily Eliquis 5 MG Oral Tablet 1 (one) Tablet bid for 0 days Quantity: 60 {Tablet} Refills: 11 Ordered: 01-Nov-2018 Fast DO, Kylie A Fast DO, Kylie A Start : 01-Nov-2018 Active Start: 11-17-2016 End: 11-30-2016 take 1 tablet by mouth twice daily Eliquis 2.5 MG Oral Tablet 1 (one) Tablet bid for 0 days Quantity: 60 {Tablet} Refills: 3 Ordered: 17-Nov-2016 Fast DO, Kylie A Fast DO, Kylie A Start : 17-Nov-2016 End : 30-Nov-2016 Discontinued Comment on above: Mail order. Mail order. will get more refills at next appt azithromycin 250 mg oral tablet (5 sources) Macrolide Antimicrobial Start: 06-02-20 Azithromycin 250 MG Oral Tablet 2 (two) Tablet pills today then 1 qd for 4 days for 0 days Quantity: 6 {Tablet} Refills: 0 Ordered: 02-Jun-2022 Fast DO Kylie A Fast DO, Kylie A Start : 02-Jun-2022 Active calcium carbonate 1500 mg / cholecalciferol 400 unt oral tablet (4 sources) Vitamin D take 1 tablet by mouth once daily CALTRATE 600+D PLUS, [id number] (Oral Tablet) 1 tab qd (600-400 MG-UNIT) Active CALTRATE 600+D PLUS, [id number] (Oral Tablet) (12 sources) take 1 tablet by mouth once daily CALTRATE 600+D PLUS, [id number] (Oral Tablet) 1 tab qd (600-400 MG-UNIT) Active cetirizine hydrochloride 10 mg oral tablet (16 sources) Histamine-1 Receptor Antagonist ZYRTEC ALLERGY, 10MG (Oral Tablet) for 0 days Refills: 0 Ordered: 24-Nov-2009 Mylene Harrison RN Inactive ZYRTEC ALLERGY, 10MG (Oral Tablet) for 0 days Refills: 0 Ordered: 24-Nov-2009 Mylene Harrison LPN Inactive fluconazole 150 mg oral tablet (14 sources) Azole Antifungal Start: 11-03-2018 End: 11-04-2018 take 1 tablet by mouth once daily Diflucan 150 MG Oral Tablet 1 (one) Tablet qd for 1 days Quantity: 1 {Tablet} Refills: 0 Ordered: 03-Nov-2018 Joyce Evans RN Start : 03-Nov-2018 End : 04-Nov-2018 Inactive Glucosamine 1500 Complex (3 sources) GLUCOSAMINE 1500 COMPLEX (Oral Capsule) for 0 days Refills: 0 Ordered: 08-Feb-2011 Darlene Drew Active GLUCOSAMINE 1500 COMPLEX (Oral Capsule) (13 sources) GLUCOSAMINE 1500 COMPLEX (Oral Capsule) for 0 days Refills: 0 Ordered: 08-Feb-2011 Darlene Drew Active Multivitamin preparation (16 sources) MULTIVITAMIN (Or al Liquid) for 0 days Refills: 0 Ordered: 03-Jun-2022 Fast DO, Kylie A Fast DO, Kylie A Active MULTIVITAMIN (Or al Liquid) for 0 days Refills: 0 Ordered: 24-Dec-2020 Manchak ENVIRONMENTAL HEALTH SANITARIAN, Jammie Active MULTIVITAMIN (Or al Liquid) for 0 days Refills: 0 Ordered: 05-Dec-2019 Manchak ENVIRONMENTAL HEALTH SANITARIAN, Jammie Active MULTIVITAMIN (Or al Liquid) for 0 days Refills: 0 Ordered: 01-Nov-2018 Manchak , Jammie Active MULTIVITAMIN (Or al Liquid) for 0 days Refills: 0 Ordered: 11-Nov-2017 Julia Dotson LPN Active rivaroxaban 20 mg oral tablet (16 sources) Factor Xa Inhibitor Start: 11-17-2016 End: 11-30-2016 take 1 tablet by mouth once daily Xarelto 20 MG Oral Tablet 1 (one) Tablet qd for 0 days Quantity: 30 {Tablet} Refills: 3 Ordered: 17-Nov-2016 Fast DO, Kylie A Fast DO, Kylie A Start : 17-Nov-2016 End : 30-Nov-2016 Discontinued warfarin sodium 2 mg oral tablet (20 sources) Vitamin K Antagonist Start: 11-30-2018 End: 11-30-2018 take 1 tablet by mouth once daily Coumadin 2 MG Oral Tablet uad Tablet qd for 0 days Quantity: 90 {Tablet} Refills: 3 Ordered: 30-Nov-2018 Fast DO, Kylie A Fast DO, Kylie A Start : 30-Nov-2018 End : 30-Nov-2018 Discontinued Dispense as Written Comments: Mail order. ELISABETH Start: 10-17-2017 take 1 tablet by ryan th once daily Coumadin 2 MG Oral Tablet uad Tablet qd for 0 days Quantity: 90 {Tablet} Refills: 3 Ordered: 02-Nov-2018 Fast DO, Kylie A Fast DO, Kylie A Start : 02-Nov-2018 Active Dispense as Written Comments: ELISABETH Start: 11-30-2016 End: 11-30-2018 Coumadin 5 MG Oral Tablet 1 1/2 Tablet qd for 0 days Quantity: 135 {Tablet} Refills: 3 Ordered: 30-Nov-2018 Fast DO, Kylie A Fast DO, Kylie A Start : 30-Nov-2018 End : 30-Nov-2018 Discontinued Dispense as Written Comments: Mail order. elisabeth Comment on above: elisabeth alt with 7.5mg Mail order. ELISABETH Problems Active Problems Problem Classification Problem Date Documented Da te Episodic/Chronic Administrative/social admission (8 sources) Medical examinations/reports status; Translations: [Well female exam with routine gynecological exam] 11-11-2017 Episodic Genitourinary symptoms and ill-defined conditions (20 sources) Dysuria; Translations: [Dysuria] 11-11-2017 Episodic Headache; including migraine (20 sources) Headache; Translations: [Headache] Resolved: 2 08-26-2015 Episodic Malaise and fatigue (20 sources) Fatigue; Translations: [Fatigue] Resolved: 2 08-06-2013 Episodic Comment on above: discussed she notes specifically in afternoon so reviewed meals and doing alot of simple carbs- discussed hypoglycemia high protien freq meals low glycemic index and see if helps- if not appt sooner than 6 mos Neoplasms of unspecified nature or uncertain behavior (20 sources) Neoplasm of uncertain behavior of skin; Translations: [Atypical Spitz nevus] 11-11-2017 Episodic Nutritional deficiencies (20 sources) Vitamin D deficiency; Translations: [Vitamin D deficiency] 11-27-2017 Chronic Comment on above: chronic stable-celina nue present regimen great control Other aftercare (13 sources) Long-term current use of anticoagulant; Translations: [Anticoagulant long-term use] 12-28-2020 Episodic Comment on above: monitoring toleratin g well Other and unspecified benign neoplasm (20 sources) Dysplastic nevus of skin; Translations: [Atypical nevus] 11-11-2017 Episodic Other connective tissue disease (20 sources) Pain in finger; Translations: [Finger pain] Resolved: 4 01-01-2016 Episodic Comment on above: fx? stove? soft tiss ue ijury? Other connective tissue disease (20 sources) Enthesopathy of hip region; Translations: [Bursitis of hip, unspecified laterality] Resolved: 4 10-10-2015 Episodic Comment on above: we [facility] [employer] she will consdier and call if wants referral Other non-traumatic joint disorders (20 sources) Pain in unspecified knee; Translations: [Lower Leg Pain] Resolved: 5 05-13-2015 Episodic Other nutritional; endocrine; and metabolic disorders (9 sources) Body mass index 25-29 - overweight; Translations: [BMI 29.0-29.9,adult] Resolved: 1 08-06-2020 Chronic Other nutritional; endocrine; and metabolic disorders (9 sources) Body mass index 25-29 - overweight; Translations: [BMI 28.0-28.9,adult] Resolved: 1 12-24-2020 Episodic Other nutritional; endocrine; and metabolic disorders (20 sources) Overweight in adulthood with body mass index of 25 or more but less than 30; Translations: [BMI 28.0-28.9,adult] Resolved: 1 06-03-2022 Episodic Other screening for suspected conditions (not mental disorders or infectious disease) (20 sources) Breast neoplasm screening status; Translations: [C-reactive protein abnormal] Onset: 5 Resolved: 0 11-01-2018 Episodic Comment on above: better Other upper respiratory infections (20 sources) Chronic sinusitis; Translations: [Sinusitis, chronic] 11-11-2017 Chronic Comment on above: happens 1-2 times a year- doesnt want further workup Peripheral and visceral atherosclerosis (8 sources) Vascular disorder of lower extremity; Translations: [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] Onset: 2 11-01-2018 Chronic Phlebitis; thrombophlebitis and thromboembolism (20 sources) Thrombophlebitis migrans; Translations: [Thrombophlebitis migrans] 11-11-2017 Chronic Comment on above: doing well on eliqui s with no bleeding or issues Phlebitis; thrombophlebitis and thromboembolism (20 sources) Vascular disorder of lower extremity; Translations: [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] Onset: 2 12-24-2020 Episodic Pulmonary heart disease (20 sources) Pulmonary embolism; Translations: [Pulmonary embolism] Resolved: 2 08-06-2013 Episodic Residual codes; unclassified (20 sources) FH: Thyroid disorder; Translations: [Family history of thyroid disease] 11-11-2017 Episodic Residual codes; unclassified (12 sources) Needs influenza immunization; Translations: [Need for prophylactic vaccination and inoculation against influenza] 11-11-2017 Episodic Residual codes; unclassified (4 sources) Increased body mass index; Translations: [BMI 29.0-29.9,adult] 11-01-2018 Episodic Residual codes; unclassified (1 source) Requires diphtheria, tetanus and pertussis vaccination; Translations: [Need for Tdap vaccination (Renamed from Need for xfqyvrijae-rkbepfv-qhq tussis (Tdap) vaccine, adult/adolescent)] 12-24-2020 Episodic Residual codes; unclassified (20 sources) Non-smoker; Translations: [Nonsmoker] 12-24-2020 Episodic Unclassified (20 sources) Unclassified (20 sources) Patient encounter status; Translations: [Encounter for gynecological examination with abnormal finding] 11-01-2018 Unclassified (20 sources) 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 (453.42) Unclassified (20 sources) [facility] WELLNESS EXAM 11-01-2018 Unclassified (20 sources) Non-smoker; Translations: [Nonsmoker] 11-01-2018 Unclassified (20 sources) TONYA-1 homozygous Resolved: 4 10-14-2014 Unclassified (20 sources) Atypical Nevus(238.2) Unclassified (20 sources) screening Resolved: 4 10-14-2014 Unclassified (20 sources) BMI 29.0-29.9,adult Unclassified (17 sources) Encounter for screening mammogram for breast cancer (Renamed from Encounter for screening mammogram for malignant neoplasm of breast) Unclassified (20 sources) Screening for HPV (human papillomavirus) (Renamed from Encounter for screening for human papillomavirus (HPV)) Unclassified (12 sources) Sinusitis,chronic (473.9) Unclassified (20 sources) Elevated high sensitivity C-reactive protein Unclassified (20 sources) Abnormal lung function test Unclassified (12 sources) Hip bursitis 726.5 Unclassified (12 sources) Family history of thyroid disease Unclassified (19 sources) Elevated liver function tests Unclassified (8 sources) BMI 26.0-26.9,adult Viral infection (9 sources) Disease caused by 2019-nCoV; Translations: [COVID] 06-03-2022 Episodic Past or Other Problems Problem Classification Problem Date Documented Date Episodic/Chronic Headache; including migraine (5 sources) Headache; including migraine Immunizations and screening for infectious disease (20 sources) Need for prophylactic vaccination and inoculation against influenza; Translations: [Needs influenza immunization] 12-05-2019 Episodic Influenza (4 sources) Influenza Other non-traumatic joint disorders (8 sources) Knee pain; Translations: [Lower Leg Pain] Resolved: 05-13-2015 05-13-2015 Episodic Other screening for suspected conditions (not mental disorders or infectious disease) (4 sources) Elevated C-reactive protein; Translations: [Elevated high sensitivity C-reactive protein] Resolved: 12-05-2019 08-06-2020 Other upper respiratory infections (20 sources) Laryngitis; Translations: [Acute pharyngitis] Resolved: 02-07-2015 10-31-2015 Episodic Comment on above: voice rest humidific ation- mucinex and water add claritin if not help add otc PPI. david sheri few weeks if still sore throat Pneumonia (except that caused by tuberculosis or sexually transmitted disease) (16 sources) Infective pneumonia; Translations: [Pneumonia, organism unspecified] Resolved: 02-08-2011 10-07-2015 Episodic Unclassified (20 sources) [facility] WELLNESS PHYSICAL 11-11-2017 Unclassified (20 sources) Lower Leg Pain (719.46) Unclassified (20 sources) PHARYNGITIS, ACUTE (462.) Unclassified (20 sources) Abnormal blood chemistry (790.6) Unclassified (20 sources) immunity check 11-11-2017 Unclassified (16 sources) Pregnancies (); Translations: [Pregnancies ()] 11-01-2018 Comment on above: 0 Unclassified (20 sources) Well Female (Younger Female) (V72.31) Unclassified (20 sources) family hx of thyroid disease Resolved: 10-14-2014 10-14-2014 Unclassified (20 sources) familyhx of high chol Resolved: 10-14-2014 10-14-2014 Unclassified (12 sources) Well female exam with routine gynecological exam Unclassified (20 sources) Atypical nevus Unclassified (12 sources) Blood chemistry abnormality (Renamed from Abnormal blood chemistry) Unclassified (12 sources) Finger pain (729.5) Unclassified (20 sources) Unspecified Diagnosis 11-03-2018 Unclassified (5 sources) BMI 28.0-28.9,adult Unclassified (5 sources) Need for Tdap vaccination (Renamed from Need for oqrnzwfcsu-ujpftfu-a ertussis (Tdap) vaccine, adult/adolescent) Unclassified (5 sources) Anticoagulant long-term use Unclassified (5 sources) Immunity status testing Viral infection (1 source) Disease caused by nCoV Results Test Name Value Interpretation Reference Range Facility CBC, PLATELETS & MANUAL DIFF ([id number])Ordered By: Radio Station Operator on 12-08-2020 Basophils (Bld) [#/Vol] 0.0 {x10E3/uL} Normal 0.0-0.2 [facility]; [facility] Work Phone: Comment on above: PATIENT WAS FASTINGP ERFORMED BY: [facility]pl[facility]oFormerly [facility] [id number] Information: NURSE DRAW Basophils (Bld) [#/Vol] 0.0 10*3/uL Normal 0.0-0.2 [facility]; [facility] Work Phone: Comment on above: PATIENT WAS FASTINGP ERFORMED BY: [employer] Disrupt CKFormerly [facility] [id number] Information: NURSE DRAW Basophils/100 WBC (Bld) 1 % Normal [facility]; [facility] Work Phone: Comment on above: PATIENT WAS FASTINGP ERFORMED BY: [employer] ZeristaFormerly [facility] [id number] Information: NURSE DRAW Eosinophils (Bld) [#/Vol] 0.1 {x10E3/uL} Normal 0.0-0.4 [facility]; [facility] Work Phone: Comment on above: PATIENT WAS FASTINGP ERFORMED BY: [place] [id number] [facility] [id number] Information: NURSE DRAW Eosinophils (Bld) [#/Vol] 0.1 10*3/uL Normal 0.0-0.4 [facility]; [facility] Work Phone: Comment on above: PATIENT WAS FASTINGP ERFORMED BY: [address] [id number] Information: NURSE DRAW Eosinophils/100 WBC (Bld) 2 % Normal [facility]; [facility] Work Phone: Comment on above: PATIENT WAS FASTINGP ERFORMED BY: [address] [id number] Information: NURSE DRAW Erythrocyte distribution width (RBC) [Ratio] 12.1 % Normal 11.7-15.4 [facility]; [facility] Work Phone: Comment on above: PATIENT WAS FASTINGP ERFORMED BY: [address] [id number] Information: NURSE DRAW Hematocrit (Bld) [Volume fraction] 40.4 % Normal 34.0-46.6 [facility]; [facility] Work Phone: Comment on above: PATIENT WAS FASTINGP ERFORMED BY: [address] [id number] Information: NURSE DRAW Hemoglobin (Bld) [Mass/Vol] 13.5 g/dL Normal 11.1-15.9 [facility]; [facility] Work Phone: Comment on above: PATIENT WAS FASTINGP ERFORMED BY: [address] [id number] Information: NURSE DRAW Immature granulocytes (Bld) [#/Vol] 0.0 {x10E3/uL} Normal 0.0-0.1 [facility]; [facility] Work Phone: Comment on above: PATIENT WAS FASTINGP ERFORMED BY: SEVEN Negromaryjo Clatjj0054 [facility] [id number] Information: NURSE DRAW Immature granulocytes (Bld) [#/Vol] 0.0 10*3/uL Normal 0.0-0.1 [facility]; [facility] Work Phone: Comment on above: PATIENT WAS FASTINGP ERFORMED BY: [facility] [id number] [id number] Information: NURSE DRAW Immature granulocytes/100 WBC (Bld) 0 % Normal [facility]; [facility] Work Phone: Comment on above: PATIENT WAS FASTINGP ERFORMED BY: SEVEN [address] [id number] Information: NURSE DRAW Lymphocytes (Bld) [#/Vol] 1.7 {x10E3/uL} Normal 0.7-3.1 [facility]; [facility] Work Phone: Comment on above: PATIENT WAS FASTINGP ERFORMED BY: SEVEN Negromaryjo [address] [id number] Information: NURSE DRAW Lymphocytes (Bld) [#/Vol] 1.7 10*3/uL Normal 0.7-3.1 [facility]; [facility] Work Phone: Comment on above: PATIENT WAS FASTINGP ERFORMED BY: SEVEN Phillip[address] [id number] Information: NURSE DRAW Lymphocytes/100 WBC (Bld) 38 % Normal [facility]; [facility] Work Phone: Comment on above: PATIENT WAS FASTINGP ERFORMED BY: [facility] [id number] [id number] Information: NURSE DRAW MCH (RBC) [Entitic mass] 29.9 pg Normal 26.6-33.0 [facility]; [facility] Work Phone: Comment on above: PATIENT WAS FASTINGP ERFORMED BY: SEVEN Negro [id number] [id number] Information: NURSE DRAW MCHC (RBC) [Mass/Vol] 33.4 g/dL Normal 31.5-35.7 [facility]; [facility] Work Phone: Comment on above: PATIENT WAS FASTINGP ERFORMED BY: SEVEN Phillip[address] [id number] Information: NURSE DRAW MCV (RBC) [Entitic vol] 89 fL Normal 79-97 [facility]; [facility] Work Phone: Comment on above: PATIENT WAS FASTINGP ERFORMED BY: [facility] [id number] [id number] Information: NURSE DRAW Monocytes (Bld) [#/Vol] 0.4 {x10E3/uL} Normal 0.1-0.9 [facility]; [facility] Work Phone: Comment on above: PATIENT WAS FASTINGP ERFORMED BY: SEVEN Phillip[address] [id number] Information: NURSE DRAW Monocytes (Bld) [#/Vol] 0.4 10*3/uL Normal 0.1-0.9 [facility]; [facility] Work Phone: Comment on above: PATIENT WAS FASTINGP ERFORMED BY: [address] [id number] Information: NURSE DRAW Monocytes/100 WBC (Bld) 8 % Normal [facility]; [facility] Work Phone: Comment on above: PATIENT WAS FASTINGP ERFORMED BY: SEVEN Phillip[address] [id number] Information: NURSE DRAW Neutrophils (Bld) [#/Vol] 2.3 {x10E3/uL} Normal 1.4-7.0 [facility]; [facility] Work Phone: Comment on above: PATIENT WAS FASTINGP ERFORMED BY: SEVEN Serna70 [facility] [id number] Information: NURSE DRAW Neutrophils (Bld) [#/Vol] 2.3 10*3/uL Normal 1.4-7.0 [facility]; [facility] Work Phone: Comment on above: PATIENT WAS FASTINGP ERFORMED BY: SEVEN Lenz6370 [facility] [id number] Information: NURSE DRAW Neutrophils/100 WBC (Bld) 51 % Normal [facility]; [facility] Work Phone: Comment on above: PATIENT WAS FASTINGP ERFORMED BY: SEVEN Lenz6370 [facility] [id number] Information: NURSE DRAW Platelets (Bld) [#/Vol] 177 {x10E3/uL} Normal 150-450 [facility]; [facility] Work Phone: Comment on above: PATIENT WAS FASTINGP ERFORMED BY: SEVEN Migdalia Lenz6370 [facility] [id number] Information: NURSE DRAW Platelets (Bld) [#/Vol] 177 10*3/uL Normal 150-450 [facility]; [facility] Work Phone: Comment on above: PATIENT WAS FASTINGP ERFORMED BY: SEVEN Negro Tzkcyp5710 [facility] [id number] Information: NURSE DRAW RBC (Bld) [#/Vol] 4.52 {x10E6/uL} Normal 3.77-5.28 [facility] Internal Medicine; [facility] Work Phone: Comment on above: PATIENT WAS FASTINGP ERFORMED BY: SEVEN Rioslin6370 [facility] [id number] Information: NURSE DRAW RBC (Bld) [#/Vol] 4.52 10*6/uL Normal 3.77-5.28 [facility] Internal Medicine; [facility] Work Phone: Comment on above: PATIENT WAS FASTINGP ERFORMED BY: SEVEN LabComaryjo Fixvja4683 [address] RoadDieterblin [place] [id number] Information: NURSE DRAW WBC (Bld) [#/Vol] 4.5 {x10E3/uL} Normal 3.4-10.8 [facility] Internal Medicine; [facility] Work Phone: Comment on above: PATIENT WAS FASTINGP ERFORMED BY: SEVEN [facility] Tkryjh4589 Kennedy Roadblin [place] [id number] Information: NURSE DRAW WBC (Bld) [#/Vol] 4.5 10*3/uL Normal 3.4-10.8 [facility] Internal Medicine; [facility] Work Phone: Comment on above: PATIENT WAS FASTINGP ERFORMED BY: SEVEN Rioslin6370 [address] RoadDublin [place] [id number] Information: NURSE DRAW METABOLIC PANEL, JOE SMITH ([id number])Ordered By: Radio Station Operator on 12-08-2020 Albumin [Mass/Vol] 4.4 g/dL Normal 3.8-4.8 [facility] Internal Medicine; [facility] Work Phone: Comment on above: PATIENT WAS FASTINGP ERFORMED BY: SEVEN Rioslin6370 [address] [facility] Hospitalbl[facility] [place] [id number]; fu 2-3 DF Albumin/Globulin [Mass ratio] 1.8 {ratio} Normal 1.2-2.2 [facility] Internal Medicine; [facility] Work Phone: Comment on above: PATIENT WAS FASTINGP ERFORMED BY: CB [facility] Zguvil1703 [address] RoadDublin [place] [id number]; fu 2-3 DF ALP [Catalytic activity/Vol] 50 [iU]/L Normal 39-117 [facility]; [facility] Work Phone: Comment on above: PATIENT WAS FASTINGP ERFORMED BY: CB [facility] Jvinid8157 [address] RoadDublin [place] [id number]; fu 2-3 DF ALP [Catalytic activity/Vol] 50 U/L Normal 39-117 [facility] Internal Medicine; [facility] Work Phone: Comment on above: PATIENT WAS FASTINGP ERFORMED BY: CB [facility] Mmkggk2260 [address] RoadDublin [place] [id number]; fu 2-3 DF ALT [Catalytic activity/Vol] 21 [iU]/L Normal 0-32 [facility]; [facility] Work Phone: Comment on above: PATIENT WAS FASTINGP ERFORMED BY: CB [facility] Cjfnxy6566 [address] RoadDublin [place] [id number]; fu 2-3 DF ALT [Catalytic activity/Vol] 21 U/L Normal 0-32 [facility]; [facility] Work Phone: Comment on above: PATIENT WAS FASTINGP ERFORMED BY: CB [facility] Lwqbrg7071 [address] RoadDublin [place] [id number]; fu 2-3 DF AST [Catalytic activity/Vol] 28 [iU]/L Normal 0-40 [facility]; [facility] Work Phone: Comment on above: PATIENT WAS FASTINGP ERFORMED BY: CB [facility] Frdcab5828 [address] RoadDublin [place] [id number]; fu 2-3 DF AST [Catalytic activity/Vol] 28 U/L Normal 0-40 [facility]; [facility] Work Phone: Comment on above: PATIENT WAS FASTINGP ERFORMED BY: CB [facility] Fzyicc1193 [address] RoadDublin [place] [id number]; fu 2-3 DF Bilirubin [Mass/Vol] 0.5 mg/dL Normal 0.0-1.2 [facility]; [facility] Work Phone: Comment on above: PATIENT WAS FASTINGP ERFORMED BY: CB [facility] Fzuxrz8458 [address] RoadDublin [place] [id number]; fu 2-3 DF Calcium [Mass/Vol] 9.2 mg/dL Normal 8.7-10.2 [facility]; [facility] Work Phone: Comment on above: PATIENT WAS FASTINGP ERFORMED BY: CB [facility] Jfujfv2707 [address] RoadDublin [place] [id number]; fu 2-3 DF Chloride [Moles/Vol] 103 mmol/L Normal 96-106 [facility]; [facility] Work Phone: Comment on above: PATIENT WAS FASTINGP ERFORMED BY: CB [facility] Rgtohh5977 [address] RoadDublin [place] [id number]; fu 2-3 DF CO2 [Moles/Vol] 23 mmol/L Normal 20-29 [facility] Internal Medicine; [facility] Work Phone: Comment on above: PATIENT WAS FASTINGP ERFORMED BY: CB [facility] Hnpidn9313 [address] RoadDublin [place] [id number]; fu 2-3 DF Creatinine [Mass/Vol] 0.60 mg/dL Normal 0.57-1.00 [facility]; [facility] Work Phone: Comment on above: PATIENT WAS FASTINGP ERFORMED BY: CB [facility] Hnkdqm6550 [address] RoadDublin [place] [id number]; fu 2-3 DF GFR/1.73 sq M predicted among blacks CKD-EPI (S/P/Bld) [Vol rate/Area] 132 mL/min/1.73 Normal [facility]; [facility] Work Phone: Comment on above: PATIENT WAS FASTINGP ERFORMED BY: CB [facility] Baqtbq4970 [address] RoadDublin [place] [id number]; fu 2-3 DF GFR/1.73 sq M predicted among non-blacks CKD-EPI (S/P/Bld) [Vol rate/Area] 114 mL/min/1.73 Normal [facility]; [facility] Work Phone: Comment on above: PATIENT WAS FASTINGP ERFORMED BY: CB [facility] Tqdqzf0028 [address] RoadDublin [place] [id number]; fu 2-3 DF Globulin (S) [Mass/Vol] 2.5 g/dL Normal 1.5-4.5 [facility]; [facility] Work Phone: Comment on above: PATIENT WAS FASTINGP ERFORMED BY: CB [facility] Hteoyr6690 [address] RoadDublin [place] [id number]; fu 2-3 DF Glucose [Mass/Vol] 88 mg/dL Normal 65-99 [facility] Internal Medicine; [facility] Work Phone: Comment on above: PATIENT WAS FASTINGP ERFORMED BY: [facility] Ddcwfz9548 [address] RoadDublin [place] [id number]; fu 2-3 DF Potassium [Moles/Vol] 4.2 mmol/L Normal 3.5-5.2 [facility]; [facility] Work Phone: Comment on above: PATIENT WAS FASTINGP ERFORMED BY: CB [facility] Sefikz9574 [address] RoadDublin [place] [id number]; fu 2-3 DF Protein [Mass/Vol] 6.9 g/dL Normal 6.0-8.5 [facility] Internal [facility]; [facility] Work Phone: Comment on above: PATIENT WAS FASTINGP ERFORMED BY: [facility] Lhhlzx7415 [address] RoadDublin [place] [id number]; fu 2-3 DF Sodium [Moles/Vol] 138 mmol/L Normal 134-144 [facility] Internal Medicine; [facility] Work Phone: Comment on above: PATIENT WAS FASTINGP ERFORMED BY: [facility] Ktblus7963 [address] RoadDublin [place] [id number]; fu 2-3 DF Urea nitrogen [Mass/Vol] 16 mg/dL Normal 6-24 [facility]; [facility] Work Phone: Comment on above: PATIENT WAS FASTINGP ERFORMED BY: [facility] Tolawp2588 [address] RoadDublin [place] [id number]; fu 2-3 DF Urea nitrogen/Creatinine [Mass ratio] 27 mg/mg Abnormal 9-23 [facility]; [facility] Work Phone: Comment on above: PATIENT WAS FASTINGP ERFORMED BY: [facility] Cgorug7260 [address] RoadDublin [place] [id number]; fu 2-3 DF SARS-CoV-2 Antibody, IgGOrde red By: Radio Station Operator on 12-08-2020 SARS-CoV-2 Antibody, IgG Negative Normal [facility]; [facility] Work Phone: Comment on above: This sample does not contain detectable SARS-CoV-2 IgG antibodies.This negative result does not rule out SARS-CoV-2 infection.Correlation with epidemiologic risk factors and other clinical andlaboratory findings is recommended. Serologic results should not beused as the sole basis to diagnose or exclude recent [id number].This assay was performed using the [employer] renalrin Liaison(R)SARS-CoV-2 S1/S2 IgG assay. Test(s) 100490-HIKM- CoV-2 Antibody, IgGhas not been FDA cleared or approved. This test hasbeen authorized by FDA under an Emergency Use Authorization(EUA). This test is only authorized for the duration of thedeclaration that circumstances exist justifying the authorizationof emergency use of in vitro diagnostics for detection and/ordiagnosis of COVID-19 under Section 564(b)(1) of the Act, 21U.S.C. 360bbb-3(b)(1), unless the authorization is terminated orrevoked sooner. This test has been authorized only for detectingthe presence of antibodies against SARS-CoV-2, not for any otherviruses or pathogens.PATIENT NOT FASTINGPERFORMED BY: [facility]6370 [facility] [id number] Information: NURSE DRAW SARS-CoV-2 Antibody, IgG Negative Normal [facility]; [facility] Work Phone: Comment on above: This sample does not contain detectable SARS-CoV-2 IgG antibodies.This negative result does not rule out SARS-CoV-2 infection.Correlation with epidemiologic risk factors and other clinical andlaboratory findings is recommended. Serologic results should not beused as the sole basis to diagnose or exclude recent [id number].This assay was performed using the [employer] Liaison(R)SARS-CoV-2 S1/S2 IgG assay. Test(s) 731244-QOMM- CoV-2 Antibody, IgGhas not been FDA cleared or approved. This test hasbeen authorized by FDA under an Emergency Use Authorization(EUA). This test is only authorized for the duration of thedeclaration that circumstances exist justifying the authorizationof emergency use of in vitro diagnostics for detection and/ordiagnosis of COVID-19 under Section 564(b)(1) of the Act, 21U.S.C. 360bbb-3(b)(1), unless the authorization is terminated orrevoked sooner. This test has been authorized only for detectingthe presence of antibodies against SARS-CoV-2, not for any otherviruses or pathogens.PATIENT NOT FASTINGPERFORMED BY: [address] [id number] Information: NURSE DRAW CBC W/AUTO DIFF WBC ([id number])O rdered By: Radio Station Operator on 11-23-2019 Basophils (Bld) [#/Vol] 0.0 {x10E3/uL} Normal 0.0-0.2 [facility] Work Phone: Comment on above: PATIENT WAS FASTINGP ERFORMED BY: [address] [id number]; appt 15 Basophils (Bld) [#/Vol] 0.0 10*3/uL Normal 0.0-0.2 [facility]; [facility] Work Phone: Comment on above: PATIENT WAS FASTINGP ERFORMED BY: [address] [id number]; appt 15 Basophils/100 WBC (Bld) 0 % Normal [facility] Work Phone: Comment on above: PATIENT WAS FASTINGP ERFORMED BY: [facility]6370 [facility] [id number]; appt 115 Eosinophils (Bld) [#/Vol] 0.1 {x10E3/uL} Normal 0.0-0.4 [facility] Work Phone: Comment on above: PATIENT WAS FASTINGP ERFORMED BY: [address] [id number]; appt 15 Eosinophils (Bld) [#/Vol] 0.1 10*3/uL Normal 0.0-0.4 [facility]; [facility] Work Phone: Comment on above: PATIENT WAS FASTINGP ERFORMED BY: SEVEN LabComaryjo LenzZmgouc5439 [address] [facility] [id number]; appt 12/05 Eosinophils/100 WBC (Bld) 2 % Normal [facility] Work Phone: Comment on above: PATIENT WAS FASTINGP ERFORMED BY: SEVEN LabCo Epfwrb9474 [facility] [id number]; appt 12/05 Erythrocyte distribution width (RBC) [Ratio] 13.8 % Normal 12.3-15.4 [facility] Work Phone: Comment on above: Effective November 26, 2019, the RDW pediatric reference interval will be removed and the adult reference interval will be changing to: Female 11.7 - 15.4 Male 11.6 - 15.4 PATIENT WAS FASTINGP ERFORMED BY: SEVEN LabYelena Wrkupk4406 [facility] [id number]; appt 12/05 Hematocrit (Bld) [Volume fraction] 41.9 % Normal 34.0-46.6 [facility] Work Phone: Comment on above: PATIENT WAS FASTINGP ERFORMED BY: SEVEN LabYelena Klwayl8760 [facility] [id number]; appt 12/05 Hemoglobin (Bld) [Mass/Vol] 14.1 g/dL Normal 11.1-15.9 [facility] Work Phone: Comment on above: PATIENT WAS FASTINGP ERFORMED BY: [facility] Xwcfec6157 [address] [facility] [id number]; appt 12/05 Immature granulocytes (Bld) [#/Vol] 0.0 {x10E3/uL} Normal 0.0-0.1 [facility] Work Phone: Comment on above: PATIENT WAS FASTINGP ERFORMED BY: [facility] Dannfn1228 [address] [facility] [id number]; appt 12/05 Immature granulocytes (Bld) [#/Vol] 0.0 10*3/uL Normal 0.0-0.1 [facility]; [facility] Work Phone: Comment on above: PATIENT WAS FASTINGP ERFORMED BY: SEVEN Migdalia Lenz6370 [facility] [id number]; appt 12/05 Immature granulocytes/100 WBC (Bld) 0 % Normal [facility] Work Phone: Comment on above: PATIENT WAS FASTINGP ERFORMED BY: SEVEN PhillipYelena Jzqedm5144 [facility] [id number]; appt 12/05 Lymphocytes (Bld) [#/Vol] 1.8 {x10E3/uL} Normal 0.7-3.1 [facility] Work Phone: Comment on above: PATIENT WAS FASTINGP ERFORMED BY: SEVEN Rioslin6370 [facility] [id number]; appt 12/05 Lymphocytes (Bld) [#/Vol] 1.8 10*3/uL Normal 0.7-3.1 [facility]; [facility] Work Phone: Comment on above: PATIENT WAS FASTINGP ERFORMED BY: SEVEN Rioslin6370 [facility] [id number]; appt 12/05 Lymphocytes/100 WBC (Bld) 32 % Normal [facility] Work Phone: Comment on above: PATIENT WAS FASTINGP ERFORMED BY: SEVEN [facility] Bpvuic7234 [facility] [id number]; appt 12/05 MCH (RBC) [Entitic mass] 29.4 pg Normal 26.6-33.0 [facility] Work Phone: Comment on above: PATIENT WAS FASTINGP ERFORMED BY: SEVEN [facility] Omfdyd4590 [facility] [id number]; appt 12/05 MCHC (RBC) [Mass/Vol] 33.7 g/dL Normal 31.5-35.7 [facility] Work Phone: Comment on above: PATIENT WAS FASTINGP ERFORMED BY: SEVEN Tom Ilbdnd6286 [address] RoadDublin [place] [id number]; appt 12/05 MCV (RBC) [Entitic vol] 88 fL Normal 79-97 [facility] Work Phone: Comment on above: PATIENT WAS FASTINGP ERFORMED BY: SEVEN [facility] Nugmlv6957 [address] RoadDublin [place] [id number]; appt 12/05 Monocytes (Bld) [#/Vol] 0.4 {x10E3/uL} Normal 0.1-0.9 [facility] Work Phone: Comment on above: PATIENT WAS FASTINGP ERFORMED BY: SEVEN [facility] Siicog0073 [address] RoadDublin [place] [id number]; appt 12/05 Monocytes (Bld) [#/Vol] 0.4 10*3/uL Normal 0.1-0.9 [facility]; [facility] Work Phone: Comment on above: PATIENT WAS FASTINGP ERFORMED BY: SEVEN [facility] Qzoiyb6538 [address] RoadDublin [place] [id number]; appt 12/05 Monocytes/100 WBC (Bld) 8 % Normal [facility] Work Phone: Comment on above: PATIENT WAS FASTINGP ERFORMED BY: SEVEN [facility] Eittjr2041 [address] RoadDublin [place] [id number]; appt 12/05 Neutrophils (Bld) [#/Vol] 3.3 {x10E3/uL} Normal 1.4-7.0 [facility] Work Phone: Comment on above: PATIENT WAS FASTINGP ERFORMED BY: [facility] Gtywkj8906 [address] RoadDublin [place] [id number]; appt 12/05 Neutrophils (Bld) [#/Vol] 3.3 10*3/uL Normal 1.4-7.0 [facility]; [facility] Work Phone: Comment on above: PATIENT WAS FASTINGP ERFORMED BY: [facility] Skcsvr8141 [address] RoadDublin [place] [id number]; appt 12/05 Neutrophils/100 WBC (Bld) 58 % Normal [facility] Work Phone: Comment on above: PATIENT WAS FASTINGP ERFORMED BY: SEVEN LabComaryjo RiosYcoljm5429 [address] RoadDublin [place] [id number]; appt 12/05 Platelets (Bld) [#/Vol] 209 {x10E3/uL} Normal 150-450 [facility] Work Phone: Comment on above: PATIENT WAS FASTINGP ERFORMED BY: CB [facility] Mydymw0762 [address] RoadDublin [place] [id number]; appt 12/05 Platelets (Bld) [#/Vol] 209 10*3/uL Normal 150-450 [facility]; [facility] Work Phone: Comment on above: PATIENT WAS FASTINGP ERFORMED BY: SEVEN [facility] Talewc3782 [address] RoadDublin [place] [id number]; appt 12/05 RBC (Bld) [#/Vol] 4.79 {x10E6/uL} Normal 3.77-5.28 [facility] Internal Medicine Work Phone: Comment on above: PATIENT WAS FASTINGP ERFORMED BY: SEVEN [facility] Vvlfdj7489 [address] RoadDublin [place] [id number]; appt 12/05 RBC (Bld) [#/Vol] 4.79 10*6/uL Normal 3.77-5.28 [facility] Internal Medicine; [facility] Work Phone: Comment on above: PATIENT WAS FASTINGP ERFORMED BY: CB [facility] Mxbmmj2573 [address] RoadDublin [place] [id number]; appt 12/05 WBC (Bld) [#/Vol] 5.7 {x10E3/uL} Normal 3.4-10.8 [facility] Internal Medicine Work Phone: Comment on above: PATIENT WAS FASTINGP ERFORMED BY: CB [facility] Wqrxua6192 [address] RoadDublin [place] [id number]; appt 12/05 WBC (Bld) [#/Vol] 5.7 10*3/uL Normal 3.4-10.8 [facility] Internal Medicine; [facility] Work Phone: Comment on above: PATIENT WAS FASTINGP ERFORMED BY: SEVEN CodinGamemaryjo RiosIundlu48[address] [facility]Former[facility] [id number]; appt 12/05 METABOLIC PANEL, MARICELI LUIS ([id number])Ordered By: Radio Station Operator on 11-23-2019 Albumin [Mass/Vol] 4.3 g/dL Normal 3.5-5.5 [facility] Internal Medicine Work Phone: Comment on above: Effective December 10, 2019 Albumin reference interval will be changing to: Age Male Female 0 - 7 days 3.6 - 4.9 3.6 - 4.9 8 - 30 days 3.4 - 4.7 3.4 - 4.7 1 - 6 month 3.7 - 4.8 3.7 - 4.8 7 months - 2 years 3.9 - 5.0 3.9 - 5.0 3 - 5 years 4.0 - 5.0 4.0 - 5.0 6 - 12 years 4.1 - 5.0 4.0 - 5.0 13 - 30 years 4.1 - 5.2 3.9 - 5.0 31 - 50 years 4.0 - 5.0 3.8 - 4.8 51 - 60 years 3.8 - 4.9 3.8 - 4.9 61 - 70 years 3.8 - 4.8 3.8 - 4.8 71 - 80 years 3.7 - 4.7 3.7 - 4.7 81 - 89 years 3.6 - 4.6 3.6 - 4.6 >89 years 3.5 - 4.6 3.5 - 4.6 PATIENT WAS FASTINGP ERFORMED BY: SEVEN CodinGamemaryjo Nlfnkd3327 [facility] [id number] Albumin/Globulin [Mass ratio] 1.9 {ratio} Normal 1.2-2.2 [facility] Work Phone: Comment on above: PATIENT WAS FASTINGP ERFORMED BY: SEVEN iCeutica6370 [facility] [id number] ALP [Catalytic activity/Vol] 45 [iU]/L Normal 39-117 [facility] Work Phone: Comment on above: PATIENT WAS FASTINGP ERFORMED BY: SEVEN [facility] Wdlahn4286 [address] RoadDublin [place] [id number] ALP [Catalytic activity/Vol] 45 U/L Normal 39-117 [facility]; [facility] Work Phone: Comment on above: PATIENT WAS FASTINGP ERFORMED BY: CB [facility] Kbjusw8556 [address] RoadDublin [place] [id number] ALT [Catalytic activity/Vol] 25 [iU]/L Normal 0-32 [facility] Work Phone: Comment on above: PATIENT WAS FASTINGP ERFORMED BY: SEVEN [facility] Pktfkf7086 [address] RoadDublin [place] [id number] ALT [Catalytic activity/Vol] 25 U/L Normal 0-32 [facility]; [facility] Work Phone: Comment on above: PATIENT WAS FASTINGP ERFORMED BY: [facility] Nbundg5206 [address] RoadDublin [place] [id number] AST [Catalytic activity/Vol] 22 [iU]/L Normal 0-40 [facility] Work Phone: Comment on above: PATIENT WAS FASTINGP ERFORMED BY: LabIsauro Tivtrh9858 [address] RoadDublin [place] [id number] AST [Catalytic activity/Vol] 22 U/L Normal 0-40 [facility]; [facility] Work Phone: Comment on above: PATIENT WAS FASTINGP ERFORMED BY: [facility] Ohkmhv2880 [address] RoadDublin [place] [id number] Bilirubin [Mass/Vol] 0.5 mg/dL Normal 0.0-1.2 Comp [facility] Internal Medicine Work Phone: Comment on above: PATIENT WAS FASTINGP ERFORMED BY: CB [facility] Ecnddg0026 [address] RoadDublin [place] [id number] Calcium [Mass/Vol] 9.2 mg/dL Normal 8.7-10.2 [facility] Internal Medicine Work Phone: Comment on above: PATIENT WAS FASTINGP ERFORMED BY: CB [facility] Hqcess4137 [address] RoadDublin [place] [id number] Chloride [Moles/Vol] 102 mmol/L Normal 96-106 Comp [facility] Internal Medicine Work Phone: Comment on above: PATIENT WAS FASTINGP ERFORMED BY: CB [facility] Fvbqgt2157 [address] RoadD[address] [place] [id number] CO2 [Moles/Vol] 21 mmol/L Normal 20-29 [facility] Internal Medicine Work Phone: Comment on above: PATIENT WAS FASTINGP ERFORMED BY: CB [facility] Ufdyni5905 [address] RoadDublin [place] [id number] Creatinine [Mass/Vol] 0.82 mg/dL Normal 0.57-1.00 [facility] Work Phone: Comment on above: PATIENT WAS FASTINGP ERFORMED BY: CB [facility] Xcfmwe5106 [address] RoadD[address] [place] [id number] GFR/1.73 sq M predicted among blacks CKD-EPI (S/P/Bld) [Vol rate/Area] 104 mL/min/1.73 Normal [facility] Work Phone: Comment on above: PATIENT WAS FASTINGP ERFORMED BY: CB [facility] Bdlqqh5446 [address] RoadDublin [place] [id number] GFR/1.73 sq M predicted among non-blacks CKD-EPI (S/P/Bld) [Vol rate/Area] 90 mL/min/1.73 Normal [facility] Work Phone: Comment on above: PATIENT WAS FASTINGP ERFORMED BY: CB [facility] Sduxaf9275 [address] RoadD[address] [place] [id number] Globulin (S) [Mass/Vol] 2.3 g/dL Normal 1.5-4.5 [facility] Work Phone: Comment on above: PATIENT WAS FASTINGP ERFORMED BY: CB [facility] Yrsxff8483 [address] RoadDublin [place] [id number] Glucose [Mass/Vol] 94 mg/dL Normal 65-99 [facility] Internal Medicine Work Phone: Comment on above: PATIENT WAS FASTINGP ERFORMED BY: [facility] Ujsloh4976 [facility] [id number] Potassium [Moles/Vol] 4.3 mmol/L Normal 3.5-5.2 [facility] Internal Medicine Work Phone: Comment on above: PATIENT WAS FASTINGP ERFORMED BY: [facility] Fhwcqm4594 [facility] [id number] Protein [Mass/Vol] 6.6 g/dL Normal 6.0-8.5 [facility] Internal Medicine Work Phone: Comment on above: PATIENT WAS FASTINGP ERFORMED BY: [facility] Pksdwc2890 [facility] [id number] Sodium [Moles/Vol] 140 mmol/L Normal 134-144 [facility] Internal Medicine Work Phone: Comment on above: PATIENT WAS FASTINGP ERFORMED BY: [facility] Fzfbif8510 [facility] [id number] Urea nitrogen [Mass/Vol] 25 mg/dL Abnormal 6-20 [facility] Internal Medicine Work Phone: Comment on above: PATIENT WAS FASTINGP ERFORMED BY: [facility] Iplqco7573 [facility] [id number] Urea nitrogen/Creatinine [Mass ratio] 30 mg/mg Abnormal 9-23 [facility] Internal Medicine Work Phone: Comment on above: PATIENT WAS FASTINGP ERFORMED BY: [facility] Bzafhz9118 [facility] [id number] Prothrombin Time w/INROrdere d By: Radio Station Operator on 11-06-2018 INR Coag RelTime (PPP) 1.7 {INR} Normal [facility] Work Phone: Comment on above: [facility] [address] [place], [place], [address] Prothrombin time (PT) Coag time (PPP) 19.6 s Abnormal 11.7-14.9 Comprehensi Internal Medicine Work Phone: Comment on above: [facility] Ugmdfumgtj4419 Yun[address] Talamantes [place], [place], [address] HPV automatic ([id number])Ordered By: Radio Station Operator on 11-01-2018 HPV 16+18+31+33+35+39+45 +51+52+56+58+59+68 DNA Probe+sig amp Ql (Cvx) Negative Normal [facility] Work Phone: Comment on above: This high-risk HPV t est detects thirteen high-risk types(16/18/31/33/35/39/45/51/52/56/58/59/68) without differentiation. . Source.............C ervix;EndocervixNo. of containers..01 ThinPrep VialPATIENT NOT FASTINGPERFORMED BY: Pint Please[address] [place] [address] [facility]SmartCentral [facility] [id number] BY: =G Pint Please[address] [place], [place] [address]Spotfav Reporting TechnologiesApparityCentral Valley Medical Center [id number] Information: [id number] HPV 16+18+31+33+35+39+45 +51+52+56+58+59+68 DNA Probe+sig amp Ql (Cvx) Negative Normal [facility]; [facility] Work Phone: Comment on above: This high-risk HPV t est detects thirteen high-risk types(16/18/31/33/35/39/45/51/52/56/58/59/68) without differentiation. . Source.............C ervix;EndocervixNo. of containers..01 ThinPrep VialPATIENT NOT FASTINGPERFORMED BY: Pint Please[address] [place] [address] [facility]SmartCentral [facility] Center [id number] BY: =G Pint Please[address] [place] [address] [facility]SmartCentral [facility] Center [id number] Information: [id number] Microscopic observation Other stain Nom (Unsp spec) . Normal [facility] Work Phone: Comment on above: Source.............C ervix;EndocervixNo. of containers..01 ThinPrep VialPATIENT NOT FASTINGPERFORMED BY: [employer] Michelet Bennett [place] [id number] BY: =G Migdalia Bennett [place] [id number] Information: [id number] Pathology report final diagnosis Narrative [facility] Normal [facility] Work Phone: Comment on above: NEGATIVE FOR INTRAEP ITHELIAL LESION AND MALIGNANCY.FUNGAL ORGANISMS MORPHOLOGICALLY CONSISTENT WITH CATHERINE SPECIES AREPRESENT.CELLULAR CHANGES ASSOCIATED WITH INFLAMMATION ARE PRESENT.THIS SPECIMEN WAS RESCREENED PART OF OUR JEWEL INSPECTOR PROGRAM.Satisfactory for evaluation. Endocervical and/or squamous metaplasticcells (endocervical component) are present.Z11.51Scjoshua Gerardo, Hotel Maintenance Engineer (ASCP)Deirdre Martines, Supervisory Hotel Maintenance Engineer (ASCP) Source.............C ervix;EndocervixNo. of containers..01 ThinPrep VialPATIENT NOT FASTINGPERFORMED BY: [employer] Michelet Bennett [place] [id number] BY: =G Migdalia Bennett [place] [id number] Information: [id number] HPV automatic ([id number]) PAPSMR Normal [facility] Work Phone: Comment on above: The Pap smear is a s creening test designed to aid in the detection ofpremalignant and malignant conditions of the uterine cervix. It is not adiagnostic procedure and should not be used as the sole means of detectingcervical cancer. Both false-positive and false-negative reports do occur. .This liquid based ThinPrep(R) pap test was screened with theuse of an image guided system. Source.............C ervix;EndocervixNo. of containers..01 ThinPrep VialPATIENT NOT FASTINGPERFORMED BY: LabComaryjo Tafoya [facility] HospitalPaoloKindred Hospital South [facility] [id number] BY: =G Migdalia Tafoya [facility] HospitalClaudehoboken university medical center W [id number] Information: [id number] C-REACT PROT HIGH SENS(hsCRP ) (52527)Ordered By: Radio Station Operator on 10-20-2018 CRP High sensitivity method mass conc 3.48 mg/L Abnormal 0.00-3.00 [facility] Work Phone: Comment on above: Relative Risk for Fu ture Cardiovascular Event Low <1.00 Average 1.00 - 3.00 High >3.00 PATIENT NOT FASTINGP ERFORMED BY: SEVEN [address] [id number] CBC W/AUTO DIFF WBC (07579)O rdered By: Radio Station Operator on 10-20-2018 Basophils #/vol (Bld) 0.0 {x10E3/uL} Normal 0.0-0.2 [facility] Work Phone: Comment on above: PATIENT NOT FASTINGP ERFORMED BY: SEVEN [address] [id number] Information: NURSE DRAW Basophils (Bld) [#/Vol] 0.0 10*3/uL Normal 0.0-0.2 [facility]; [facility] Work Phone: Comment on above: PATIENT NOT FASTINGP ERFORMED BY: SEVEN [address] [id number] Information: NURSE DRAW Basophils Auto #/vol (Bld) 0.0 {x10E3/uL} Normal 0.0-0.2 [facility] Work Phone: Basophils/100 WBC (Bld) 0 % Normal [facility] Work Phone: Comment on above: PATIENT NOT FASTINGP ERFORMED BY: SEVEN [address] [id number] Information: NURSE DRAW Basophils/100 WBC Auto (Bld) 0 % Normal [facility] Work Phone: Eosinophils #/vol (Bld) 0.1 {x10E3/uL} Normal 0.0-0.4 [facility] Work Phone: Comment on above: PATIENT NOT FASTINGP ERFORMED BY: SEVEN Migdalia Vpszjq3073 [facility] [id number] Information: NURSE DRAW Eosinophils (Bld) [#/Vol] 0.1 10*3/uL Normal 0.0-0.4 [facility]; [facility] Work Phone: Comment on above: PATIENT NOT FASTINGP ERFORMED BY: SEVEN [address] [id number] Information: NURSE DRAW Eosinophils Auto #/vol (Bld) 0.1 {x10E3/uL} Normal 0.0-0.4 [facility] Work Phone: Eosinophils/100 WBC (Bld) 2 % Normal [facility] Work Phone: Comment on above: PATIENT NOT FASTINGP ERFORMED BY: SEVEN [place] [id number] [facility] [id number] Information: NURSE DRAW Eosinophils/100 WBC Auto (Bld) 2 % Normal [facility] Work Phone: Erythrocyte distribution width Auto Ratio (RBC) 13.1 % Normal 12.3-15.4 [facility] Work Phone: Erythrocyte distribution width Ratio (RBC) 13.1 % Normal 12.3-15.4 [facility] Work Phone: Comment on above: PATIENT NOT FASTINGP ERFORMED BY: SEVEN LabJulie V[place] [id number] [facility] [id number] Information: NURSE DRAW Hematocrit Auto Volume Fraction (Bld) 41.3 % Normal 34.0-46.6 [facility] Work Phone: Hematocrit Volume Fraction (Bld) 41.3 % Normal 34.0-46.6 [facility] Work Phone: Comment on above: PATIENT NOT FASTINGP ERFORMED BY: SEVEN LabCoKelly V[place] [id number] [facility] [id number] Information: NURSE DRAW Hemoglobin mass conc (Bld) 13.4 g/dL Normal 11.1-15.9 [facility] Work Phone: Comment on above: PATIENT NOT FASTINGP ERFORMED BY: SEVEN Tom[address] [id number] Information: NURSE DRAW Immature granulocytes #/vol (Bld) 0.0 {x10E3/uL} Normal 0.0-0.1 [facility] Work Phone: Comment on above: PATIENT NOT FASTINGP ERFORMED BY: [address] [id number] Information: NURSE DRAW Immature granulocytes (Bld) [#/Vol] 0.0 10*3/uL Normal 0.0-0.1 [facility]; [facility] Work Phone: Comment on above: PATIENT NOT FASTINGP ERFORMED BY: [address] [id number] Information: NURSE DRAW Immature granulocytes/100 WBC (Bld) 0 % Normal [facility] Work Phone: Comment on above: PATIENT NOT FASTINGP ERFORMED BY: Phillip[address] [id number] Information: NURSE DRAW Lymphocytes #/vol (Bld) 1.5 {x10E3/uL} Normal 0.7-3.1 [facility] Work Phone: Comment on above: PATIENT NOT FASTINGP ERFORMED BY: [address] [id number] Information: NURSE DRAW Lymphocytes (Bld) [#/Vol] 1.5 10*3/uL Normal 0.7-3.1 [facility]; [facility] Work Phone: Comment on above: PATIENT NOT FASTINGP ERFORMED BY: [address] [id number] Information: NURSE DRAW Lymphocytes Auto #/vol (Bld) 1.5 {x10E3/uL} Normal 0.7-3.1 [facility] Work Phone: Lymphocytes/100 WBC (Bld) 29 % Normal [facility] Work Phone: Comment on above: PATIENT NOT FASTINGP ERFORMED BY: SEVEN Rioslin6370 [facility] [id number] Information: NURSE DRAW Lymphocytes/100 WBC Auto (Bld) 29 % Normal [facility] Work Phone: MCH Auto Entitic mass (RBC) 29.1 pg Normal 26.6-33.0 [facility] Work Phone: MCH Entitic mass (RBC) 29.1 pg Normal 26.6-33.0 [facility] Work Phone: Comment on above: PATIENT NOT FASTINGP ERFORMED BY: SEVEN [address] [id number] Information: NURSE DRAW MCHC Auto mass conc (RBC) 32.4 g/dL Normal 31.5-35.7 [facility] Work Phone: MCHC mass conc (RBC) 32.4 g/dL Normal 31.5-35.7 [facility] Internal Medicine Work Phone: Comment on above: PATIENT NOT FASTINGP ERFORMED BY: SEVEN [address] [id number] Information: NURSE DRAW MCV Auto Entitic volume (RBC) 90 fL Normal 79-97 [facility] Work Phone: MCV Entitic volume (RBC) 90 fL Normal 79-97 [facility] Work Phone: Comment on above: PATIENT NOT FASTINGP ERFORMED BY: SEVEN [address] [id number] Information: NURSE DRAW Monocytes #/vol (Bld) 0.3 {x10E3/uL} Normal 0.1-0.9 [facility] Work Phone: Comment on above: PATIENT NOT FASTINGP ERFORMED BY: SEVEN Negron Oexqpf2607 [facility] [id number] Information: NURSE DRAW Monocytes (Bld) [#/Vol] 0.3 10*3/uL Normal 0.1-0.9 [facility]; [facility] Work Phone: Comment on above: PATIENT NOT FASTINGP ERFORMED BY: SEVEN PhillipIsauro RiosXujvfj0198 [facility] [id number] Information: NURSE DRAW Monocytes Auto #/vol (Bld) 0.3 {x10E3/uL} Normal 0.1-0.9 [facility] Work Phone: Monocytes/100 WBC (Bld) 7 % Normal [facility] Work Phone: Comment on above: PATIENT NOT FASTINGP ERFORMED BY: SEVEN [facility] HospitalIsauro RiosCtvahu[address] [id number] Information: NURSE DRAW Monocytes/100 WBC Auto (Bld) 7 % Normal [facility] Work Phone: Neutrophils #/vol (Bld) 3.3 {x10E3/uL} Normal 1.4-7.0 [facility] Work Phone: Comment on above: PATIENT NOT FASTINGP ERFORMED BY: SEVEN Rioslin6370 [facility] [id number] Information: NURSE DRAW Neutrophils (Bld) [#/Vol] 3.3 10*3/uL Normal 1.4-7.0 [facility]; [facility] Work Phone: Comment on above: PATIENT NOT FASTINGP ERFORMED BY: SEVEN [place] [id number] [facility] [id number] Information: NURSE DRAW Neutrophils Auto #/vol (Bld) 3.3 {x10E3/uL} Normal 1.4-7.0 [facility] Work Phone: Neutrophils/100 WBC (Bld) 62 % Normal [facility] Work Phone: Comment on above: PATIENT NOT FASTINGP ERFORMED BY: SEVEN [address] [id number] Information: NURSE DRAW Neutrophils/100 WBC Auto (Bld) 62 % Normal [facility] Work Phone: Platelets #/vol (Bld) 194 {x10E3/uL} Normal 150-379 [facility] Work Phone: Comment on above: PATIENT NOT FASTINGP ERFORMED BY: SEVEN Rioslin6370 [facility] [id number] Information: NURSE DRAW Platelets (Bld) [#/Vol] 194 10*3/uL Normal 150-379 [facility]; [facility] Work Phone: Comment on above: PATIENT NOT FASTINGP ERFORMED BY: SEVEN iRoslin6370 [facility] [id number] Information: NURSE DRAW Platelets Auto #/vol (Bld) 194 {x10E3/uL} Normal 150-379 [facility] Work Phone: RBC #/vol (Bld) 4.61 {x10E6/uL} Normal 3.77-5.28 [facility]erens[facility] Internal [facility] Work Phone: Comment on above: PATIENT NOT FASTINGP ERFORMED BY: SEVEN Rioslin6370 [facility] [id number] Information: NURSE DRAW RBC (Bld) [#/Vol] 4.61 10*6/uL Normal 3.77-5.28 Compr ensive Internal Medicine; [facility] Work Phone: Comment on above: PATIENT NOT FASTINGP ERFORMED BY: SEVEN PhillipYelenaKelly Ville [id number] [facility] [id number] Information: NURSE DRAW RBC Auto #/vol (Bld) 4.61 {x10E6/uL} Normal 3.77-5.28 [facility] Work Phone: WBC #/vol (Bld) 5.3 {x10E3/uL} Normal 3.4-10.8 Compr ensive Internal Medicine Work Phone: Comment on above: PATIENT NOT FASTINGP ERFORMED BY: SEVEN Rioslin6370 [facility] [id number] Information: NURSE DRAW WBC (Bld) [#/Vol] 5.3 10*3/uL Normal 3.4-10.8 [facility] Internal [facility]; [facility] Work Phone: Comment on above: PATIENT NOT FASTINGP ERFORMED BY: SEVEN Tom Tzmtjd9249 [facility] [id number] Information: NURSE DRAW WBC Auto #/vol (Bld) 5.3 {x10E3/uL} Normal 3.4-10.8 [facility] Work Phone: METABOLIC PANEL, JOE SMITH ([id number])Ordered By: Radio Station Operator on 10-20-2018 Albumin mass conc 4.6 g/dL Normal 3.5-5.5 Compreh [facility] Internal Medicine Work Phone: Comment on above: PATIENT NOT FASTINGP ERFORMED BY: SEVEN Tom Rghhwu1048 [facility] [id number] Albumin/Globulin mass ratio 2.2 {ratio} Normal 1.2-2.2 [facility] Work Phone: Comment on above: PATIENT NOT FASTINGP ERFORMED BY: SEVEN Rioslin6370 [facility] [id number] ALP [Catalytic activity/Vol] 47 U/L Normal 39-117 [facility]; [facility] Work Phone: Comment on above: PATIENT NOT FASTINGP ERFORMED BY: SEVEN Rioslin6370 [facility] [id number] ALP enzyme act/vol 47 [iU]/L Normal 39-117 [facility] Internal Medicine Work Phone: Comment on above: PATIENT NOT FASTINGP ERFORMED BY: SEVEN Rioslin6370 [facility] [id number] ALT [Catalytic activity/Vol] 25 U/L Normal 0-32 [facility]; [facility] Work Phone: Comment on above: PATIENT NOT FASTINGP ERFORMED BY: CB [facility] Gjdrek84[address] [place] [id number] ALT enzyme act/vol 25 [iU]/L Normal 0-32 [facility] Internal Medicine Work Phone: Comment on above: PATIENT NOT FASTINGP ERFORMED BY: CB [facility] Przrhd5043 [address] RoadDublin [place] [id number] AST [Catalytic activity/Vol] 42 U/L Abnormal 0-40 [facility]; [facility] Work Phone: Comment on above: PATIENT NOT FASTINGP ERFORMED BY: CB [facility] Ckdrnq6362 [address]Dublin [place] [id number] AST enzyme act/vol 42 [iU]/L Abnormal 0-40 [facility] Internal Medicine Work Phone: Comment on above: PATIENT NOT FASTINGP ERFORMED BY: SEVEN [facility] Ahdhad0963 [address]Dublin [place] [id number] Bilirubin mass conc 0.4 mg/dL Normal 0.0-1.2 Compr ensive Internal Medicine Work Phone: Comment on above: PATIENT NOT FASTINGP ERFORMED BY: CB [facility] Cbznyk1041 [address]Dublin [place] [id number] Calcium mass conc 9.4 mg/dL Normal 8.7-10.2 [facility] Work Phone: Comment on above: PATIENT NOT FASTINGP ERFORMED BY: [facility] Czpqys2254 [address] [place] [id number] Chloride molar conc 101 mmol/L Normal 96-106 Compr ensive Internal Medicine Work Phone: Comment on above: PATIENT NOT FASTINGP ERFORMED BY: CB [facility] Mtaqwy9906 [address] [place] [id number] CO2 molar conc 20 mmol/L Normal 20-29 Comprehens mckayla Internal Medicine Work Phone: Comment on above: PATIENT NOT FASTINGP ERFORMED BY: CB [facility] Znlzzn3292 [address]Dublin [place] [id number] Creatinine mass conc 0.69 mg/dL Normal 0.57-1.00 Comp [facility] centerensive Internal Medicine Work Phone: Comment on above: PATIENT NOT FASTINGP ERFORMED BY: SEVEN PhillipIsauro RiosLdmues0161 [facility] [id number] GFR/1.73 sq M predicted among blacks CKD-EPI vol rate/area (S/P/Bld) 128 mL/min/1.73 Normal Comprehensiv e Internal Medicine Work Phone: Comment on above: PATIENT NOT FASTINGP ERFORMED BY: SEVEN PhillipYelena Xuzpfv9989 [facility] [id number] GFR/1.73 sq M predicted among non-blacks CKD-EPI vol rate/area (S/P/Bld) 111 mL/min/1.73 Normal [facility] Work Phone: Comment on above: PATIENT NOT FASTINGP ERFORMED BY: SEVEN Tom Hdhxan6500 [facility] [id number] Globulin Calculated mass conc (S) 2.1 g/dL Normal 1.5-4.5 [facility] Work Phone: Globulin mass conc (S) 2.1 g/dL Normal 1.5-4.5 [facility] Work Phone: Comment on above: PATIENT NOT FASTINGP ERFORMED BY: SEVEN Rioslin6370 [facility] [id number] Glucose mass conc 80 mg/dL Normal 65-99 Compreh ensive Internal Medicine Work Phone: Comment on above: PATIENT NOT FASTINGP ERFORMED BY: SEVEN TomSt. Joseph's Wayne HospitalZeebvr5034 [facility] [id number] Potassium molar conc 4.3 mmol/L Normal 3.5-5.2 Comp rehensive Internal Medicine Work Phone: Comment on above: PATIENT NOT FASTINGP ERFORMED BY: SEVEN Tom Dnvxfb6094 [facility] [id number] Protein mass conc 6.7 g/dL Normal 6.0-8.5 Compreh ensive Internal Medicine Work Phone: Comment on above: PATIENT NOT FASTINGP ERFORMED BY: [facility]6370 [facility] [id number] Sodium molar conc 139 mmol/L Normal 134-144 Compreh ensive Internal Medicine Work Phone: Comment on above: PATIENT NOT FASTINGP ERFORMED BY: SEVEN Tom Ilynse5886 [facility] [id number] Urea nitrogen mass conc 14 mg/dL Normal 6-20 [facility] Work Phone: Comment on above: PATIENT NOT FASTINGP ERFORMED BY: [facility]6370 [facility] [id number] Urea nitrogen/Creatinine mass ratio 20 mg/mg Normal 9-23 [facility] Work Phone: Comment on above: PATIENT NOT FASTINGP ERFORMED BY: [facility] Dxshvf9426 [facility] [id number] PT (Prothrobim Time) (03888) Ordered By: Radio Station Operator on 10-20-2018 INR Coag RelTime (PPP) 2.2 {INR} Abnormal 0.8-1.2 [facility] Work Phone: Comment on above: Reference interval i s for non-anticoagulated patients. . Suggested INR therapeutic range for Vitamin K antagonist therapy: Standard Dose (moderate intensity therapeutic range): 2.0 - 3.0 Higher intensity therapeutic range 2.5 - 3.5 PATIENT NOT FASTINGP ERFORMED BY: [facility]6370 [facility] [id number] Information: NURSE DRAW Prothrombin time (PT) Coag time (PPP) 22.2 {sec} Abnormal 9.1-12.0 Comprehensi ve Internal Medicine Work Phone: Comment on above: PATIENT NOT FASTINGP ERFORMED BY: [place] [id number] [facility] [id number] Information: NURSE DRAW PT Coag (PPP) [Time] 22.2 s Abnormal 9.1-12.0 Comp rehensive Internal Medicine; [facility] Work Phone: Comment on above: PATIENT NOT FASTINGP ERFORMED BY: [place] [id number] [facility] [id number] Information: NURSE DRAW PT (Prothrobim Time) (94966) Ordered By: Radio Station Operator on 08-30-2018 INR Coag RelTime (PPP) 2.4 {INR} Abnormal 0.8-1.2 [facility] Work Phone: Comment on above: Reference interval i s for non-anticoagulated patients. . Suggested INR therapeutic range for Vitamin K antagonist therapy: Standard Dose (moderate intensity therapeutic range): 2.0 - 3.0 Higher intensity therapeutic range 2.5 - 3.5 PATIENT NOT FASTINGP ERFORMED BY: SEVEN [facility]Henry [facility]6370 [facility] [id number] Prothrombin time (PT) Coag time (PPP) 24.0 {sec} Abnormal 9.1-12.0 Comprehensi ve Internal Medicine Work Phone: Comment on above: PATIENT NOT FASTINGP ERFORMED BY: SEVEN [facility]Saint [facility] Ihbsps7025 [facility] [id number] PT Coag (PPP) [Time] 24.0 s Abnormal 9.1-12.0 [facility]; [facility] Work Phone: Comment on above: PATIENT NOT FASTINGP ERFORMED BY: SEVEN Tom Ccnjkt7037 [facility] [id number] PT (Prothrobim Time) (91094) Ordered By: Radio Station Operator on 05-05-2018 INR Coag RelTime (PPP) 2.0 {INR} Abnormal 0.8-1.2 [facility] Work Phone: Comment on above: Reference interval i s for non-anticoagulated patients. . Suggested INR therapeutic range for Vitamin K antagonist therapy: Standard Dose (moderate intensity therapeutic range): 2.0 - 3.0 Higher intensity therapeutic range 2.5 - 3.5 PATIENT NOT FASTINGP ERFORMED BY: SEVEN [facility]6370 [facility] [id number] Prothrombin time (PT) Coag time (PPP) 19.3 {sec} Abnormal 9.1-12.0 Comprehensi ve Internal Medicine Work Phone: Comment on above: PATIENT NOT FASTINGP ERFORMED BY: SEVEN [facility] Pmdcet0057 [address]Dublin [place] [id number] PT Coag (PPP) [Time] 19.3 s Abnormal 9.1-12.0 [facility] Internal Medicine; [facility] Internal Medicine Work Phone: Comment on above: PATIENT NOT FASTINGP ERFORMED BY: CB [facility] Esfiao6174 [address] [place] [id number] PT (Prothrobim Time) (03126) Ordered By: Radio Station Operator on 04-03-2018 INR Coag RelTime (PPP) 3.4 {INR} Abnormal 0.8-1.2 [facility] Internal Medicine Work Phone: Comment on above: Reference interval i s for non-anticoagulated patients. . Suggested INR therapeutic range for Vitamin K antagonist therapy: Standard Dose (moderate intensity therapeutic range): 2.0 - 3.0 Higher intensity therapeutic range 2.5 - 3.5 PATIENT NOT FASTINGP ERFORMED BY: CB [facility] Conzem9259 [address]Dublin [place] [id number] Prothrombin time (PT) Coag time (PPP) 32.4 {sec} Abnormal 9.1-12.0 [facility] Work Phone: Comment on above: PATIENT NOT FASTINGP ERFORMED BY: CB [facility] Htwvtl6082 [address] [place] [id number] PT Coag (PPP) [Time] 32.4 s Abnormal 9.1-12.0 [facility] Internal Medicine; [facility] Internal Medicine Work Phone: Comment on above: PATIENT NOT FASTINGP ERFORMED BY: CB [facility] Afwiyf9620 [address]Dublin [place] [id number] PT (Prothrobim Time) (81721) Ordered By: Radio Station Operator on 03-24-2018 INR Coag RelTime (PPP) 3.4 {INR} Abnormal 0.8-1.2 [facility] Internal Medicine Work Phone: Comment on above: Reference interval i s for non-anticoagulated patients. . Suggested INR therapeutic range for Vitamin K antagonist therapy: Standard Dose (moderate intensity therapeutic range): 2.0 - 3.0 Higher intensity therapeutic range 2.5 - 3.5 PATIENT NOT FASTINGP ERFORMED BY: SEVEN Lenz6370 [address] [place] [id number] Prothrombin time (PT) Coag time (PPP) 32.4 {sec} Abnormal 9.1-12.0 Comprehensi ve Internal Medicine Work Phone: Comment on above: PATIENT NOT FASTINGP ERFORMED BY: SEVEN Rioslin6370 [address] [place] [id number] PT Coag (PPP) [Time] 32.4 s Abnormal 9.1-12.0 Comp rehensive Internal Medicine; [facility] Work Phone: Comment on above: PATIENT NOT FASTINGP ERFORMED BY: SEVEN Migdalia Rioslin6370 [address] [place] [id number] PT (Prothrobim Time) (28374) Ordered By: Radio Station Operator on 12-30-2017 INR Coag RelTime (PPP) 2.7 {INR} Abnormal 0.8-1.2 [facility] Work Phone: Comment on above: Reference interval i s for non-anticoagulated patients. . Suggested INR therapeutic range for Vitamin K antagonist therapy: Standard Dose (moderate intensity therapeutic range): 2.0 - 3.0 Higher intensity therapeutic range 2.5 - 3.5 PATIENT NOT FASTINGP ERFORMED BY: SEVEN Migdalia Rioslin6[address] Kennedy RoadDublin [place] [id number] Prothrombin time (PT) Coag time (PPP) 26.4 {sec} Abnormal 9.1-12.0 Comprehensi ve Internal Medicine Work Phone: Comment on above: PATIENT NOT FASTINGP ERFORMED BY: SEVEN Rioslin6[address] Kennedy RoadDublin [place] [id number] PT Coag (PPP) [Time] 26.4 s Abnormal 9.1-12.0 Comp rehensive [facility] Medicine; [facility] Work Phone: Comment on above: PATIENT NOT FASTINGP ERFORMED BY: SEVEN Rioslin6[address] RoadDublin [place] [id number] CBC W/AUTO DIFF WBC (39906)O rdered By: Radio Station Operator on 10-28-2017 Basophils #/vol (Bld) 0.0 {x10E3/uL} Normal 0.0-0.2 [facility] Work Phone: Comment on above: PATIENT NOT FASTINGP ERFORMED BY: [address] [id number] Basophils (Bld) [#/Vol] 0.0 10*3/uL Normal 0.0-0.2 [facility]; [facility] Work Phone: Comment on above: PATIENT NOT FASTINGP ERFORMED BY: [address] [id number] Basophils Auto #/vol (Bld) 0.0 {x10E3/uL} Normal 0.0-0.2 [facility] Work Phone: Basophils/100 WBC (Bld) 0 % Normal [facility] Work Phone: Comment on above: PATIENT NOT FASTINGP ERFORMED BY: [address] [id number] Basophils/100 WBC Auto (Bld) 0 % Normal [facility] Work Phone: Eosinophils #/vol (Bld) 0.1 {x10E3/uL} Normal 0.0-0.4 [facility] Work Phone: Comment on above: PATIENT NOT FASTINGP ERFORMED BY: [place] [id number] [facility] [id number] Eosinophils (Bld) [#/Vol] 0.1 10*3/uL Normal 0.0-0.4 [facility]; [facility] Work Phone: Comment on above: PATIENT NOT FASTINGP ERFORMED BY: [place] [id number] [facility] [id number] Eosinophils Auto #/vol (Bld) 0.1 {x10E3/uL} Normal 0.0-0.4 [facility] Work Phone: Eosinophils/100 WBC (Bld) 1 % Normal [facility] Work Phone: Comment on above: PATIENT NOT FASTINGP ERFORMED BY: SEVEN PhillipComaryjo Pnmukr3355 [facility] [id number] Eosinophils/100 WBC Auto (Bld) 1 % Normal [facility] Work Phone: Erythrocyte distribution width Auto Ratio (RBC) 13.5 % Normal 12.3-15.4 [facility] Work Phone: Erythrocyte distribution width Ratio (RBC) 13.5 % Normal 12.3-15.4 [facility] Work Phone: Comment on above: PATIENT NOT FASTINGP ERFORMED BY: SEVEN PhillipIsauro RiosOvpnnt2531 [facility] [id number] Hematocrit Auto Volume Fraction (Bld) 42.1 % Normal 34.0-46.6 [facility] Work Phone: Hematocrit Volume Fraction (Bld) 42.1 % Normal 34.0-46.6 [facility] Work Phone: Comment on above: PATIENT NOT FASTINGP ERFORMED BY: SEVEN PhillipIsauro RiosXljskd0024 [facility] [id number] Hemoglobin mass conc (Bld) 13.8 g/dL Normal 11.1-15.9 [facility] Work Phone: Comment on above: Please note refere nce interval change PATIENT NOT FASTINGP ERFORMED BY: SEVEN LabComaryjo RiosWmsvif8295 [facility] [id number] Immature granulocytes #/vol (Bld) 0.0 {x10E3/uL} Normal 0.0-0.1 [facility] Work Phone: Comment on above: PATIENT NOT FASTINGP ERFORMED BY: SEVEN [facility] Vczzvt2208 [facility] [id number] Immature granulocytes (Bld) [#/Vol] 0.0 10*3/uL Normal 0.0-0.1 [facility]; [facility] Work Phone: Comment on above: PATIENT NOT FASTINGP ERFORMED BY: SEVEN [facility] Xvnkka9373 [address] [facility] [place] [id number] Immature granulocytes/100 WBC (Bld) 0 % Normal [facility] Work Phone: Comment on above: PATIENT NOT FASTINGP ERFORMED BY: SEVEN [facility] Atdcmx4546 [address] [facility] [id number] Lymphocytes #/vol (Bld) 1.9 {x10E3/uL} Normal 0.7-3.1 [facility] Work Phone: Comment on above: PATIENT NOT FASTINGP ERFORMED BY: [facility] Wfoboh6334 [address] [facility] [id number] Lymphocytes (Bld) [#/Vol] 1.9 10*3/uL Normal 0.7-3.1 [facility]; [facility] Work Phone: Comment on above: PATIENT NOT FASTINGP ERFORMED BY: [facility] Qcorah2827 [address] [facility] [id number] Lymphocytes Auto #/vol (Bld) 1.9 {x10E3/uL} Normal 0.7-3.1 [facility] Work Phone: Lymphocytes/100 WBC (Bld) 23 % Normal [facility] Work Phone: Comment on above: PATIENT NOT FASTINGP ERFORMED BY: LabCoSt. Joseph's Wayne HospitalIazwfc4506 [facility] [id number] Lymphocytes/100 WBC Auto (Bld) 23 % Normal [facility] Work Phone: MCH Auto Entitic mass (RBC) 29.0 pg Normal 26.6-33.0 [facility] Work Phone: MCH Entitic mass (RBC) 29.0 pg Normal 26.6-33.0 [facility] Work Phone: Comment on above: PATIENT NOT FASTINGP ERFORMED BY: [facility] Ufmzuh2280 [address] [facility] [id number] MCHC Auto mass conc (RBC) 32.8 g/dL Normal 31.5-35.7 [facility] Work Phone: MCHC mass conc (RBC) 32.8 g/dL Normal 31.5-35.7 Comp [facility] Internal Medicine Work Phone: Comment on above: PATIENT NOT FASTINGP ERFORMED BY: SEVEN LabSaint [facility] Drmkid7980 [facility] [id number] MCV Auto Entitic volume (RBC) 88 fL Normal 79-97 [facility] Work Phone: MCV Entitic volume (RBC) 88 fL Normal 79-97 [facility] Work Phone: Comment on above: PATIENT NOT FASTINGP ERFORMED BY: LabHenry [facility]6370 [facility] [id number] Monocytes #/vol (Bld) 0.4 {x10E3/uL} Normal 0.1-0.9 [facility] Work Phone: Comment on above: PATIENT NOT FASTINGP ERFORMED BY: LabHenry [facility]6370 [facility] [id number] Monocytes (Bld) [#/Vol] 0.4 10*3/uL Normal 0.1-0.9 [facility]; [facility] Work Phone: Comment on above: PATIENT NOT FASTINGP ERFORMED BY: LabHenry [facility]6370 [facility] [id number] Monocytes Auto #/vol (Bld) 0.4 {x10E3/uL} Normal 0.1-0.9 [facility] Work Phone: Monocytes/100 WBC (Bld) 5 % Normal [facility] Work Phone: Comment on above: PATIENT NOT FASTINGP ERFORMED BY: LabHenry [facility]6370 [facility] [id number] Monocytes/100 WBC Auto (Bld) 5 % Normal [facility] Work Phone: Neutrophils #/vol (Bld) 5.7 {x10E3/uL} Normal 1.4-7.0 [facility] Work Phone: Comment on above: PATIENT NOT FASTINGP ERFORMED BY: SEVEN [facility] Ilrwgy5590 [address] RoadDublin [place] [id number] Neutrophils (Bld) [#/Vol] 5.7 10*3/uL Normal 1.4-7.0 [facility]; [facility] Work Phone: Comment on above: PATIENT NOT FASTINGP ERFORMED BY: CB [facility] Opofqh4218 [address] RoadDublin [place] [id number] Neutrophils Auto #/vol (Bld) 5.7 {x10E3/uL} Normal 1.4-7.0 [facility] Work Phone: Neutrophils/100 WBC (Bld) 71 % Normal [facility] Work Phone: Comment on above: PATIENT NOT FASTINGP ERFORMED BY: SEVEN LabComaryjo LnezClqtuq2496 [address] RoadDublin [place] [id number] Neutrophils/100 WBC Auto (Bld) 71 % Normal [facility] Work Phone: Platelets #/vol (Bld) 231 {x10E3/uL} Normal 150-379 [facility] Work Phone: Comment on above: PATIENT NOT FASTINGP ERFORMED BY: CB [facility] Kytqfa7963 [address] RoadDublin [place] [id number] Platelets (Bld) [#/Vol] 231 10*3/uL Normal 150-379 [facility]; [facility] Work Phone: Comment on above: PATIENT NOT FASTINGP ERFORMED BY: CB [facility] Lpfeit3509 [address] RoadDublin [place] [id number] Platelets Auto #/vol (Bld) 231 {x10E3/uL} Normal 150-379 [facility] Work Phone: RBC #/vol (Bld) 4.76 {x10E6/uL} Normal 3.77-5.28 Comp [facility] Internal Medicine Work Phone: Comment on above: PATIENT NOT FASTINGP ERFORMED BY: CB [facility] Dyuvlm4866 [address] RoadDublin [place] [id number] RBC (Bld) [#/Vol] 4.76 10*6/uL Normal 3.77-5.28 Compr ensive Internal Medicine; [facility] Work Phone: Comment on above: PATIENT NOT FASTINGP ERFORMED BY: SEVEN [facility] Vfnmbx6786 [address] [facility]in [place] [id number] RBC Auto #/vol (Bld) 4.76 {x10E6/uL} Normal 3.77-5.28 [facility] Work Phone: WBC #/vol (Bld) 8.1 {x10E3/uL} Normal 3.4-10.8 Compr ensive [facility] Medicine Work Phone: Comment on above: PATIENT NOT FASTINGP ERFORMED BY: SEVEN LabComaryjo RiosTncjeo7594 [address] [facility] [id number] WBC (Bld) [#/Vol] 8.1 10*3/uL Normal 3.4-10.8 Compre [facility] Internal Medicine; [facility] Work Phone: Comment on above: PATIENT NOT FASTINGP ERFORMED BY: SEVEN [facility] Rurtre4225 [facility] [id number] WBC Auto #/vol (Bld) 8.1 {x10E3/uL} Normal 3.4-10.8 [facility] Work Phone: METABOLIC PANEL, COMPREHENSI VE (63810)Ordered By: Radio Station Operator on 10-28-2017 Albumin mass conc 4.4 g/dL Normal 3.5-5.5 Compreh [facility] Internal Medicine Work Phone: Comment on above: PATIENT NOT FASTINGP ERFORMED BY: SEVEN [facility] Sgtrxc9912 [facility] [id number] Albumin/Globulin mass ratio 1.7 {ratio} Normal 1.2-2.2 [facility] Work Phone: Comment on above: PATIENT NOT FASTINGP ERFORMED BY: SEVEN [facility] Xwrrll1126 [address] [facility] [id number] ALP [Catalytic activity/Vol] 55 U/L Normal 39-117 [facility]; [facility] Work Phone: Comment on above: PATIENT NOT FASTINGP ERFORMED BY: CB [facility] Wjwkas8836 [address] RoadDublin [place] [id number] ALP enzyme act/vol 55 [iU]/L Normal 39-117 [facility] Internal Medicine Work Phone: Comment on above: PATIENT NOT FASTINGP ERFORMED BY: CB [facility] Yhtiis9633 [address] RoadDublin [place] [id number] ALT [Catalytic activity/Vol] 16 U/L Normal 0-32 [facility] Internal Medicine; [facility] Internal Medicine Work Phone: Comment on above: PATIENT NOT FASTINGP ERFORMED BY: CB [facility] Bplaku8943 [address] RoadDublin [place] [id number] ALT enzyme act/vol 16 [iU]/L Normal 0-32 [facility] Internal Medicine Work Phone: Comment on above: PATIENT NOT FASTINGP ERFORMED BY: CB [facility] Hzbxoy6746 [address] RoadDublin [place] [id number] AST [Catalytic activity/Vol] 27 U/L Normal 0-40 [facility] Internal Medicine; [facility] Internal Medicine Work Phone: Comment on above: PATIENT NOT FASTINGP ERFORMED BY: SEVEN [facility] Qviqlc4597 [address] RoadDublin [place] [id number] AST enzyme act/vol 27 [iU]/L Normal 0-40 [facility] Internal Medicine Work Phone: Comment on above: PATIENT NOT FASTINGP ERFORMED BY: CB [facility] Qmaipl2844 [address] RoadDublin [place] [id number] Bilirubin mass conc 0.7 mg/dL Normal 0.0-1.2 [facility] Internal Medicine Work Phone: Comment on above: PATIENT NOT FASTINGP ERFORMED BY: CB [facility] Agqjvx3821 [address] RoadDublin [place] [id number] Calcium mass conc 9.2 mg/dL Normal 8.7-10.2 [facility] Internal Medicine Work Phone: Comment on above: PATIENT NOT FASTINGP ERFORMED BY: CB [facility] Xoqtxy9026 [address] RoadDublin [place] [id number] Chloride molar conc 101 mmol/L Normal 96-106 Compr ehensive Internal Medicine Work Phone: Comment on above: PATIENT NOT FASTINGP ERFORMED BY: SEVEN Rioslin6370 [facility] [id number] CO2 molar conc 22 mmol/L Normal 18-29 Comprehens mckayla Internal Medicine Work Phone: Comment on above: PATIENT NOT FASTINGP ERFORMED BY: SEVEN [facility] Xtjobo3492 [facility] [id number] Creatinine mass conc 0.78 mg/dL Normal 0.57-1.00 Comp rehensive Internal Medicine Work Phone: Comment on above: PATIENT NOT FASTINGP ERFORMED BY: SEVEN Tom Btjfce4027 [facility] [id number] GFR/1.73 sq M predicted among blacks CKD-EPI vol rate/area (S/P/Bld) 112 mL/min/1.73 Normal Comprehensiv e Internal Medicine Work Phone: Comment on above: PATIENT NOT FASTINGP ERFORMED BY: SEVEN LabYelena Syjafj9796 [facility] [id number] GFR/1.73 sq M predicted among non-blacks CKD-EPI vol rate/area (S/P/Bld) 97 mL/min/1.73 Normal [facility] Work Phone: Comment on above: PATIENT NOT FASTINGP ERFORMED BY: SEVEN [facility] Ehpshg5620 [facility] [id number] Globulin Calculated mass conc (S) 2.6 g/dL Normal 1.5-4.5 [facility] Work Phone: Globulin mass conc (S) 2.6 g/dL Normal 1.5-4.5 [facility] Work Phone: Comment on above: PATIENT NOT FASTINGP ERFORMED BY: SEVEN [facility] Sbfxxu1331 [facility] [id number] Glucose mass conc 88 mg/dL Normal 65-99 Compreh ensive Internal Medicine Work Phone: Comment on above: PATIENT NOT FASTINGP ERFORMED BY: SEVEN Migdalia Lenz[address] ZeristaAtrium Health Lincolnin [place] [id number] Potassium molar conc 4.3 mmol/L Normal 3.5-5.2 Comp rehensive Internal Medicine Work Phone: Comment on above: PATIENT NOT FASTINGP ERFORMED BY: SEVEN PhillipIsauro RiosAesbml1389 [address] ZeristaAtrium Health Lincolnin [place] [id number] Protein mass conc 7.0 g/dL Normal 6.0-8.5 Compreh ensive Internal Medicine Work Phone: Comment on above: PATIENT NOT FASTINGP ERFORMED BY: SEVEN PhillipIsauro RiosAywqky9335 [address] [facility] [id number] Sodium molar conc 139 mmol/L Normal 134-144 Compreh ensive Internal Medicine Work Phone: Comment on above: PATIENT NOT FASTINGP ERFORMED BY: SEVEN Rioslin6370 [facility] [id number] Urea nitrogen mass conc 17 mg/dL Normal 6-20 [facility] Work Phone: Comment on above: PATIENT NOT FASTINGP ERFORMED BY: SEVEN PhillipIsauro RiosZqltxn7170 [facility] [id number] Urea nitrogen/Creatinine mass ratio 22 mg/mg Normal 9-23 [facility] Work Phone: Comment on above: PATIENT NOT FASTINGP ERFORMED BY: SEVEN Rioslin6370 [facility] [id number] PT (Prothrobim Time) (54097) Ordered By: Radio Station Operator on 10-28-2017 INR Coag RelTime (PPP) 2.7 {INR} Abnormal 0.8-1.2 [facility] Work Phone: Comment on above: Reference interval i s for non-anticoagulated patients. . Suggested INR therapeutic range for Vitamin K antagonist therapy: Standard Dose (moderate intensity therapeutic range): 2.0 - 3.0 Higher intensity therapeutic range 2.5 - 3.5 PATIENT WAS FASTINGP ERFORMED BY: SEVEN PhillipIsauro Gfspte3693 [facility] [id number] Prothrombin time (PT) Coag time (PPP) 25.6 {sec} Abnormal 9.1-12.0 Comprehensi ve Internal Medicine Work Phone: Comment on above: PATIENT WAS FASTINGP ERFORMED BY: [facility] Choytn8082 [facility] [id number] PT Coag (PPP) [Time] 25.6 s Abnormal 9.1-12.0 Comp rehensive Internal Medicine; [facility] Work Phone: Comment on above: PATIENT WAS FASTINGP ERFORMED BY: [facility]6370 [facility] [id number] PT (Prothrobim Time) (42060) Ordered By: Radio Station Operator on 09-07-2017 INR Coag RelTime (PPP) 2.9 {INR} Abnormal 0.8-1.2 [facility] Work Phone: Comment on above: Reference interval i s for non-anticoagulated patients. . Suggested INR therapeutic range for Vitamin K antagonist therapy: Standard Dose (moderate intensity therapeutic range): 2.0 - 3.0 Higher intensity therapeutic range 2.5 - 3.5 PATIENT NOT FASTINGP ERFORMED BY: [facility]6370 [facility] [id number] Prothrombin time (PT) Coag time (PPP) 27.6 {sec} Abnormal 9.1-12.0 Comprehensi Internal Medicine Work Phone: Comment on above: PATIENT NOT FASTINGP ERFORMED BY: [facility]6370 [facility] [id number] PT Coag (PPP) [Time] 27.6 s Abnormal 9.1-12.0 Comp rehensive Internal Medicine; [facility] Work Phone: Comment on above: PATIENT NOT FASTINGP ERFORMED BY: [facility]6370 [facility] [id number] HPV automatic (70832)Ordered By: Radio Station Operator on 06-09-2017 HPV 16+18+31+33+35+39+45 +51+52+56+58+59+68 DNA Probe+sig amp Ql (Cvx) Negative Normal [facility] Work Phone: Comment on above: This high-risk HPV t est detects thirteen high-risk types(16/18/31/33/35/39/45/51/52/56/58/59/68) without differentiation. . Source.............C ervix;EndocervixNo. of containers..01 CYTYC Thin Prep VialPATIENT NOT FASTINGPERFORMED BY: Immunity Project19 Robinson StreetSpotfav Reporting TechnologiesPaoli Hospital [id number] BY: =G [employer] Project[address] [id number] Information: [id number] HPV 16+18+31+33+35+39+45 +51+52+56+58+59+68 DNA Probe+sig amp Ql (Cvx) Negative Normal [facility]; [facility] Work Phone: Comment on above: This high-risk HPV t est detects thirteen high-risk types(16/18/31/33/35/39/45/51/52/56/58/59/68) without differentiation. . Source.............C ervix;EndocervixNo. of containers..01 CYTYC Thin Prep VialPATIENT NOT FASTINGPERFORMED BY: Pint Please[address] [place] [address] [id number] BY: =G Immunity Project[address] [id number] Information: [id number] Microscopic observation Other stain Nom (Unsp spec) . Normal [facility] Work Phone: Comment on above: Source.............C ervix;EndocervixNo. of containers..01 CYTYC Thin Prep VialPATIENT NOT FASTINGPERFORMED BY: Pint Please[address] [place], [place] [address]Spotfav Reporting TechnologiesPaoli Hospital [id number] BY: =G Pint Please120 [place] Octavianoh[facility] W [id number] Information: [id number] Pathology report final diagnosis Narrative SPRCS Normal [facility] Work Phone: Comment on above: UNSATISFACTORY FOR E VALUATION.Suggest follow up as clinically appropriate.Specimen processed and examined but unsatisfactory for evaluation ofepithelial abnormality because of insufficient cellularity.Areas of partially obscuring inflammtory exudate are present.Z11.51Jose Lynn, Hotel Maintenance Engineer (ASCP)Asia Mcallister, Supervisory Hotel Maintenance Engineer (ASCP) Source.............C ervix;EndocervixNo. of containers..01 CYTYC Thin Prep VialPATIENT NOT FASTINGPERFORMED BY: [employer] Dfvuconwqw016 [place] [facility] W [id number] BY: =G Immunity Projectton120 [place] OctavianoCentral Valley Medical Center [id number] Information: [id number] HPV automatic (83127) PAPSMR Normal [facility] Work Phone: Comment on above: The Pap smear is a s creening test designed to aid in the detection ofpremalignant and malignant conditions of the uterine cervix. It is not adiagnostic procedure and should not be used as the sole means of detectingcervical cancer. Both false-positive and false-negative reports do occur. .This liquid based ThinPrep(R) pap test was screened with theuse of an image guided system. Source.............C ervix;EndocervixNo. of containers..01 CYTYC Thin Prep VialPATIENT NOT FASTINGPERFORMED BY: [employer] Jaufqkeiff[address] [place] [facility] W [id number] BY: =G Lab[employer] Jjkrpinbbv460 [place] [facility] W [id number] Information: [id number] CBC W/AUTO DIFF WBC (25325)O rdered By: Radio Station Operator on 06-08-2017 Basophils #/vol (Bld) 0.0 {x10E3/uL} Normal 0.0-0.2 [facility] Work Phone: Comment on above: PATIENT NOT FASTINGP ERFORMED BY: SEVEN Rioslin6370 [facility] [id number] Basophils (Bld) [#/Vol] 0.0 10*3/uL Normal 0.0-0.2 [facility]; [facility] Work Phone: Comment on above: PATIENT NOT FASTINGP ERFORMED BY: PhillipJulie [place] 7524570 [facility] [id number] Basophils Auto #/vol (Bld) 0.0 {x10E3/uL} Normal 0.0-0.2 [facility] Work Phone: Basophils/100 WBC (Bld) 0 % Normal [facility] Work Phone: Comment on above: PATIENT NOT FASTINGP ERFORMED BY: Phillip[address] [id number] Basophils/100 WBC Auto (Bld) 0 % Normal [facility] Work Phone: Eosinophils #/vol (Bld) 0.1 {x10E3/uL} Normal 0.0-0.4 [facility] Work Phone: Comment on above: PATIENT NOT FASTINGP ERFORMED BY: [place] [id number] [facility] [id number] Eosinophils (Bld) [#/Vol] 0.1 10*3/uL Normal 0.0-0.4 [facility]; [facility] Work Phone: Comment on above: PATIENT NOT FASTINGP ERFORMED BY: [place] 3617870 [facility] [id number] Eosinophils Auto #/vol (Bld) 0.1 {x10E3/uL} Normal 0.0-0.4 [facility] Work Phone: Eosinophils/100 WBC (Bld) 1 % Normal [facility] Work Phone: Comment on above: PATIENT NOT FASTINGP ERFORMED BY: SEVEN [facility] Wjodvm9454 [address] [facility] [place] [id number] Eosinophils/100 WBC Auto (Bld) 1 % Normal [facility] Work Phone: Erythrocyte distribution width Auto Ratio (RBC) 13.8 % Normal 12.3-15.4 [facility] Work Phone: Erythrocyte distribution width Ratio (RBC) 13.8 % Normal 12.3-15.4 [facility] Work Phone: Comment on above: PATIENT NOT FASTINGP ERFORMED BY: SEVEN [facility] Kjvupz6525 [address] [facility] [id number] Hematocrit Auto Volume Fraction (Bld) 40.0 % Normal 34.0-46.6 [facility] Work Phone: Hematocrit Volume Fraction (Bld) 40.0 % Normal 34.0-46.6 [facility] Work Phone: Comment on above: PATIENT NOT FASTINGP ERFORMED BY: SEVEN [facility] Qzlisn9437 [address] [facility] [id number] Hemoglobin mass conc (Bld) 13.6 g/dL Normal 11.1-15.9 [facility] Work Phone: Comment on above: PATIENT NOT FASTINGP ERFORMED BY: [facility] Ixpzvr8010 [address] [facility] [id number] Immature granulocytes #/vol (Bld) 0.0 {x10E3/uL} Normal 0.0-0.1 [facility] Work Phone: Comment on above: PATIENT NOT FASTINGP ERFORMED BY: [facility] Rrtsqr7779 [address] [facility] [place] [id number] Immature granulocytes (Bld) [#/Vol] 0.0 10*3/uL Normal 0.0-0.1 [facility]; [facility] Work Phone: Comment on above: PATIENT NOT FASTINGP ERFORMED BY: LabCoSt. Joseph's Wayne HospitalIyoovt0009 [address] [facility] [id number] Immature granulocytes/100 WBC (Bld) 0 % Normal [facility] Work Phone: Comment on above: PATIENT NOT FASTINGP ERFORMED BY: [facility]VEN [facility] Pdxtht2018 [facility] [id number] Lymphocytes #/vol (Bld) 2.3 {x10E3/uL} Normal 0.7-3.1 [facility] Work Phone: Comment on above: PATIENT NOT FASTINGP ERFORMED BY: LabCoKelly Ville [id number] [facility] [id number] Lymphocytes (Bld) [#/Vol] 2.3 10*3/uL Normal 0.7-3.1 [facility]; [facility] Work Phone: Comment on above: PATIENT NOT FASTINGP ERFORMED BY: SEVEN [facility] Kjidys3194 [facility] [id number] Lymphocytes Auto #/vol (Bld) 2.3 {x10E3/uL} Normal 0.7-3.1 [facility] Work Phone: Lymphocytes/100 WBC (Bld) 30 % Normal [facility] Work Phone: Comment on above: PATIENT NOT FASTINGP ERFORMED BY: [facility]VEN [facility]Saint [facility] Peisbi5621 [facility] [id number] Lymphocytes/100 WBC Auto (Bld) 30 % Normal [facility] Work Phone: MCH Auto Entitic mass (RBC) 29.3 pg Normal 26.6-33.0 [facility] Work Phone: MCH Entitic mass (RBC) 29.3 pg Normal 26.6-33.0 [facility] Work Phone: Comment on above: PATIENT NOT FASTINGP ERFORMED BY: LabHenry [facility]6370 [facility] [id number] MCHC Auto mass conc (RBC) 34.0 g/dL Normal 31.5-35.7 [facility] Work Phone: MCHC mass conc (RBC) 34.0 g/dL Normal 31.5-35.7 Comp [facility] Internal Medicine Work Phone: Comment on above: PATIENT NOT FASTINGP ERFORMED BY: SEVEN LabCo Oetpfn4118 [facility] [id number] MCV Auto Entitic volume (RBC) 86 fL Normal 79-97 [facility] Work Phone: MCV Entitic volume (RBC) 86 fL Normal 79-97 [facility] Work Phone: Comment on above: PATIENT NOT FASTINGP ERFORMED BY: CB [facility] Biszmd2509 [facility] [id number] Monocytes #/vol (Bld) 0.5 {x10E3/uL} Normal 0.1-0.9 [facility] Work Phone: Comment on above: PATIENT NOT FASTINGP ERFORMED BY: SEVEN [facility] Tndrvb3737 [facility] [id number] Monocytes (Bld) [#/Vol] 0.5 10*3/uL Normal 0.1-0.9 [facility]; [facility] Work Phone: Comment on above: PATIENT NOT FASTINGP ERFORMED BY: SEVEN LabCo Vykohm0720 [facility] [id number] Monocytes Auto #/vol (Bld) 0.5 {x10E3/uL} Normal 0.1-0.9 [facility] Work Phone: Monocytes/100 WBC (Bld) 7 % Normal [facility] Work Phone: Comment on above: PATIENT NOT FASTINGP ERFORMED BY: LabCo Egtvxj5435 [facility] [id number] Monocytes/100 WBC Auto (Bld) 7 % Normal [facility] Work Phone: Neutrophils #/vol (Bld) 4.6 {x10E3/uL} Normal 1.4-7.0 [facility] Work Phone: Comment on above: PATIENT NOT FASTINGP ERFORMED BY: CB [facility] Wkyvef1002 [facility] [id number] Neutrophils (Bld) [#/Vol] 4.6 10*3/uL Normal 1.4-7.0 [facility]; [facility] Work Phone: Comment on above: PATIENT NOT FASTINGP ERFORMED BY: SEVEN Migdalia Lenz6370 [address] [place] [id number] Neutrophils Auto #/vol (Bld) 4.6 {x10E3/uL} Normal 1.4-7.0 [facility] Work Phone: Neutrophils/100 WBC (Bld) 62 % Normal [facility] Work Phone: Comment on above: PATIENT NOT FASTINGP ERFORMED BY: SEVEN Negromaryjo Yzxtll8122 [address] Roadbl[address] [place] [id number] Neutrophils/100 WBC Auto (Bld) 62 % Normal [facility] Work Phone: Platelets #/vol (Bld) 206 {x10E3/uL} Normal 150-379 [facility] Work Phone: Comment on above: PATIENT NOT FASTINGP ERFORMED BY: SEVEN Negromaryjo RiosOxoqlm4341 [address] RoadAtrium Health Lincolnin [place] [id number] Platelets (Bld) [#/Vol] 206 10*3/uL Normal 150-379 [facility]; [facility] Work Phone: Comment on above: PATIENT NOT FASTINGP ERFORMED BY: SEVEN PhillipIsauro RiosDkuhxu7815 [facility] [place] [id number] Platelets Auto #/vol (Bld) 206 {x10E3/uL} Normal 150-379 [facility] Work Phone: RBC #/vol (Bld) 4.64 {x10E6/uL} Normal 3.77-5.28 Comp [facility] Internal Medicine Work Phone: Comment on above: PATIENT NOT FASTINGP ERFORMED BY: SEVEN LabYelenarp Mfaoko7891 [facility] Hospitalbl[facility] [place] [id number] RBC (Bld) [#/Vol] 4.64 10*6/uL Normal 3.77-5.28 Compr ensive Internal Medicine; [facility] Work Phone: Comment on above: PATIENT NOT FASTINGP ERFORMED BY: SEVEN LabCo Itwcqa3500 [address] RoadDublin [place] [id number] RBC Auto #/vol (Bld) 4.64 {x10E6/uL} Normal 3.77-5.28 [facility] Work Phone: WBC #/vol (Bld) 7.5 {x10E3/uL} Normal 3.4-10.8 Compr ehensive Internal Medicine Work Phone: Comment on above: PATIENT NOT FASTINGP ERFORMED BY: LabCo Fljqyw6497 [address] RoadAtrium Health Lincolnin [place] [id number] WBC (Bld) [#/Vol] 7.5 10*3/uL Normal 3.4-10.8 Compre [facility]; [facility] Work Phone: Comment on above: PATIENT NOT FASTINGP ERFORMED BY: [facility]6370 [facility] [id number] WBC Auto #/vol (Bld) 7.5 {x10E3/uL} Normal 3.4-10.8 [facility] Work Phone: METABOLIC PANEL, COMPREHENSI VE (63500)Ordered By: Radio Station Operator on 06-08-2017 Albumin mass conc 4.2 g/dL Normal 3.5-5.5 Compreh [facility] Internal Medicine Work Phone: Comment on above: PATIENT NOT FASTINGP ERFORMED BY: LabHenry [facility]6370 [facility]in [place] [id number] Albumin/Globulin mass ratio 1.7 {ratio} Normal 1.2-2.2 [facility] Work Phone: Comment on above: PATIENT NOT FASTINGP ERFORMED BY: LabCo Jinonl2640 [facility] Hospitalblin [place] [id number] ALP [Catalytic activity/Vol] 49 U/L Normal 39-117 [facility]; [facility] Work Phone: Comment on above: PATIENT NOT FASTINGP ERFORMED BY: LabHenry [facility]6370 [address] [facility] HospitalDublin [place] [id number] ALP enzyme act/vol 49 [iU]/L Normal 39-117 [facility] Internal Medicine Work Phone: Comment on above: PATIENT NOT FASTINGP ERFORMED BY: SEVEN Lenz6370 [address] RoadDublin [place] [id number] ALT [Catalytic activity/Vol] 15 U/L Normal 0-32 [facility]; [facility] Internal Medicine Work Phone: Comment on above: PATIENT NOT FASTINGP ERFORMED BY: SEVEN LabIsauro Lenz6370 [address] RoadDublin [place] [id number] ALT enzyme act/vol 15 [iU]/L Normal 0-32 [facility] Internal Medicine Work Phone: Comment on above: PATIENT NOT FASTINGP ERFORMED BY: SEVEN Migdalia Lenz6[address]Dublin [place] [id number] AST [Catalytic activity/Vol] 24 U/L Normal 0-40 [facility] Internal Medicine; [facility] Internal Medicine Work Phone: Comment on above: PATIENT NOT FASTINGP ERFORMED BY: SEVEN Migdalia Lenz6370 [address] RoadDublin [place] [id number] AST enzyme act/vol 24 [iU]/L Normal 0-40 [facility] Internal Medicine Work Phone: Comment on above: PATIENT NOT FASTINGP ERFORMED BY: SEVEN Migdalia Lenz6[address] [place] [id number] Bilirubin mass conc 0.4 mg/dL Normal 0.0-1.2 Compr [facility] Internal Medicine Work Phone: Comment on above: PATIENT NOT FASTINGP ERFORMED BY: SEVEN LabIsauro RiosZwahmp0942 [address] RoadDublin [place] [id number] Calcium mass conc 8.8 mg/dL Normal 8.7-10.2 Compreh [facility] Internal Medicine Work Phone: Comment on above: PATIENT NOT FASTINGP ERFORMED BY: SEVEN LabYelenarp Uujwdf9246 [address] RoadDublin [place] [id number] Chloride molar conc 103 mmol/L Normal 96-106 [facility]erens[facility] Internal [facility] Work Phone: Comment on above: PATIENT NOT FASTINGP ERFORMED BY: SEVEN [facility] Gijcqy3487 [address] RoadAtrium Health Lincolnin [place] [id number] CO2 molar conc 21 mmol/L Normal 18-29 Comprehens mckayla Internal Medicine Work Phone: Comment on above: PATIENT NOT FASTINGP ERFORMED BY: SEVEN [facility] Gdncaw1159 [facility]in [place] [id number] Creatinine mass conc 0.68 mg/dL Normal 0.57-1.00 Comp rehensive Internal Medicine Work Phone: Comment on above: PATIENT NOT FASTINGP ERFORMED BY: [facility] Jtgyry1189 [facility]in [place] [id number] GFR/1.73 sq M predicted among blacks CKD-EPI vol rate/area (S/P/Bld) 129 mL/min/1.73 Normal Comprehensiv e Internal Medicine Work Phone: Comment on above: PATIENT NOT FASTINGP ERFORMED BY: [facility] Coxtek5580 [facility] [id number] GFR/1.73 sq M predicted among non-blacks CKD-EPI vol rate/area (S/P/Bld) 112 mL/min/1.73 Normal [facility] Work Phone: Comment on above: PATIENT NOT FASTINGP ERFORMED BY: [facility] Refoqe4443 [facility] [id number] Globulin Calculated mass conc (S) 2.5 g/dL Normal 1.5-4.5 [facility] Work Phone: Globulin mass conc (S) 2.5 g/dL Normal 1.5-4.5 [facility] Work Phone: Comment on above: PATIENT NOT FASTINGP ERFORMED BY: CB [facility] Wwgidt0585 [facility]in [place] [id number] Glucose mass conc 65 mg/dL Normal 65-99 Compreh ensive Internal Medicine Work Phone: Comment on above: PATIENT NOT FASTINGP ERFORMED BY: CB [facility] Mvvhcf1618 [facility]in [place] [id number] Potassium molar conc 4.1 mmol/L Normal 3.5-5.2 Comp rehensive Internal Medicine Work Phone: Comment on above: PATIENT NOT FASTINGP ERFORMED BY: SEVEN Lenz6370 [facility] [id number] Protein mass conc 6.7 g/dL Normal 6.0-8.5 Compreh ensive Internal Medicine Work Phone: Comment on above: PATIENT NOT FASTINGP ERFORMED BY: SEVEN Lenz6370 [facility] [id number] Sodium molar conc 141 mmol/L Normal 134-144 Compreh ensive Internal Medicine Work Phone: Comment on above: PATIENT NOT FASTINGP ERFORMED BY: SEVEN Negromaryjo Urawbq3075 [facility] [id number] Urea nitrogen mass conc 15 mg/dL Normal 6-20 [facility] Work Phone: Comment on above: PATIENT NOT FASTINGP ERFORMED BY: SEVEN Negromaryjo Zbhgmm2687 [facility] [id number] Urea nitrogen/Creatinine mass ratio 22 mg/mg Normal 9-23 [facility] Work Phone: Comment on above: PATIENT NOT FASTINGP ERFORMED BY: SEVEN Negromaryjo Rpbtmn6997 [facility] [id number] PT (Prothrobim Time) (16869) Ordered By: Radio Station Operator on 06-08-2017 INR Coag RelTime (PPP) 2.7 {INR} Abnormal 0.8-1.2 [facility] Work Phone: Comment on above: Reference interval i s for non-anticoagulated patients. . Suggested INR therapeutic range for Vitamin K antagonist therapy: Standard Dose (moderate intensity therapeutic range): 2.0 - 3.0 Higher intensity therapeutic range 2.5 - 3.5 STANDING ORDER; GILBERTO ENT NOT FASTINGPERFORMED BY: SEVEN Migdalia Rioslin6370 [facility] [id number] Prothrombin time (PT) Coag time (PPP) 27.3 {sec} Abnormal 9.1-12.0 Comprehensi Internal Medicine Work Phone: Comment on above: STANDING ORDER; GILBERTO ENT NOT FASTINGPERFORMED BY: SEVEN CodinGame Ffbwkg0482 [email or web address].COMFormerly [facility] [id number] PT Coag (PPP) [Time] 27.3 s Abnormal 9.1-12.0 Comp rehensive Internal Medicine; [facility] Work Phone: Comment on above: STANDING ORDER; GILBERTO ENT NOT FASTINGPERFORMED BY: SEVEN CodinGame Iscljg1100 [email or web address].COMFormerly [facility] [id number] Vitamin D Hydroxy (37334)Ord ered By: Radio Station Operator on 06-08-2017 25-Hydroxyvitamin D2+25-Hydroxyvitamin D3 mass conc 49.2 ng/mL Normal 30.0-100.0 [facility] Work Phone: Comment on above: Vitamin D deficiency has been defined by the [place] of[place]icine and an Endocrine Society practice guideline as alevel of serum 25-OH vitamin D less than 20 ng/mL (1,2).The Endocrine Society went on to further define vitamin Dinsufficiency as a level between 21 and 29 ng/mL (2).1. IOM ([place] of Medicine). 2010. Dietary reference intakes for calcium and D. [place]: The National Academies Press.2. Dominick MF, Wale [place], Beverly DALE, et al. Evaluation, treatment, and prevention of vitamin D deficiency: an Endocrine Society clinical practice guideline. JCEM. 2010; 96(7):1911-30. PATIENT NOT FASTINGP ERFORMED BY: LaunchCyte6370 [facility] [id number] PT (Prothrobim Time) (94640) Ordered By: Radio Station Operator on 03-25-2017 INR Coag RelTime (PPP) 2.1 {INR} Abnormal 0.8-1.2 [facility] Work Phone: Comment on above: Reference interval i s for non-anticoagulated patients. . Suggested INR therapeutic range for Vitamin K antagonist therapy: Standard Dose (moderate intensity therapeutic range): 2.0 - 3.0 Higher intensity therapeutic range 2.5 - 3.5 STANDING ORDER; GILBERTO ENT NOT FASTINGPERFORMED BY: CodinGame Vdfoxm0862 [address] RoadDuin [place] [id number] Prothrombin time (PT) Coag time (PPP) 21.2 {sec} Abnormal 9.1-12.0 [facility] Internal Medicine Work Phone: Comment on above: STANDING ORDER; GILBERTO ENT NOT FASTINGPERFORMED BY: SEVEN [facility] Vlfrbu3970 [address] RoadDublin [place] [id number] PT Coag (PPP) [Time] 21.2 s Abnormal 9.1-12.0 Comp rehensive Internal Medicine; [facility] Work Phone: Comment on above: STANDING ORDER; GILBERTO ENT NOT FASTINGPERFORMED BY: SEVEN LabCo Fvyiux5442 [address] RoadDublin [place] [id number] PT (Prothrobim Time) (06076) Ordered By: Radio Station Operator on 11-29-2016 INR Coag RelTime (PPP) 2.4 {INR} Abnormal 0.8-1.2 [facility] Internal Medicine Work Phone: Comment on above: Reference interval i s for non-anticoagulated patients. . Suggested INR therapeutic range for Vitamin K antagonist therapy: Standard Dose (moderate intensity therapeutic range): 2.0 - 3.0 Higher intensity therapeutic range 2.5 - 3.5 STANDING ORDER; GILBERTO ENT NOT FASTINGPERFORMED BY: SEVEN LabCo Pqnhgn3148 [address] RoadDublin [place] [id number] Prothrombin time (PT) Coag time (PPP) 24.1 {sec} Abnormal 9.1-12.0 [facility] Internal Medicine Work Phone: Comment on above: STANDING ORDER; GILBERTO ENT NOT FASTINGPERFORMED BY: SEVEN [facility] Colmlg9606 [address] RoadDublin [place] [id number] PT Coag (PPP) [Time] 24.1 s Abnormal 9.1-12.0 [facility] Hospitalensive [facility]; [facility] Work Phone: Comment on above: STANDING ORDER; GILBERTO ENT NOT FASTINGPERFORMED BY: SEVEN [facility] Peusjp9549 [address] RoadDublin [place] [id number] C-REACTIVE PROTEIN (40246)Or dered By: Radio Station Operator on 11-17-2016 CRP mass conc 0.6 mg/L Normal 0.0-4.9 Comprehensi Internal Medicine Work Phone: Comment on above: PATIENT NOT FASTINGP ERFORMED BY: SEVEN Lab[facility] Sfqmme6612 [facility] [id number] CBC W/AUTO DIFF WBC (12472)O rdered By: Radio Station Operator on 11-17-2016 Basophils #/vol (Bld) 0.0 {x10E3/uL} Normal 0.0-0.2 [facility] Work Phone: Comment on above: PATIENT NOT FASTINGP ERFORMED BY: LabCoSt. Joseph's Wayne HospitalPfzuzi4720 [facility] [id number] Basophils (Bld) [#/Vol] 0.0 10*3/uL Normal 0.0-0.2 [facility]; [facility] Work Phone: Comment on above: PATIENT NOT FASTINGP ERFORMED BY: LabHenry [facility] Hospital6370 [facility] [id number] Basophils Auto #/vol (Bld) 0.0 {x10E3/uL} Normal 0.0-0.2 [facility] Work Phone: Basophils/100 WBC (Bld) 0 % Normal [facility] Work Phone: Comment on above: PATIENT NOT FASTINGP ERFORMED BY: LabHenry [facility] Hospital6370 [facility] [id number] Basophils/100 WBC Auto (Bld) 0 % Normal [facility] Work Phone: Eosinophils #/vol (Bld) 0.1 {x10E3/uL} Normal 0.0-0.4 [facility] Work Phone: Comment on above: PATIENT NOT FASTINGP ERFORMED BY: LabCoSt. Joseph's Wayne HospitalNvpnzu4565 [facility] [id number] Eosinophils (Bld) [#/Vol] 0.1 10*3/uL Normal 0.0-0.4 [facility]; [facility] Work Phone: Comment on above: PATIENT NOT FASTINGP ERFORMED BY: SEVEN [facility] Menjil6959 [facility] [id number] Eosinophils Auto #/vol (Bld) 0.1 {x10E3/uL} Normal 0.0-0.4 [facility] Work Phone: Eosinophils/100 WBC (Bld) 1 % Normal [facility] Work Phone: Comment on above: PATIENT NOT FASTINGP ERFORMED BY: SEVEN [facility] Myykix7254 [facility] [id number] Eosinophils/100 WBC Auto (Bld) 1 % Normal [facility] Work Phone: Erythrocyte distribution width Auto Ratio (RBC) 13.3 % Normal 12.3-15.4 [facility] Work Phone: Erythrocyte distribution width Ratio (RBC) 13.3 % Normal 12.3-15.4 [facility] Work Phone: Comment on above: PATIENT NOT FASTINGP ERFORMED BY: SEVEN LabCoSt. Joseph's Wayne HospitalPdstci7820 [facility] [id number] Hematocrit Auto Volume Fraction (Bld) 41.3 % Normal 34.0-46.6 [facility] Work Phone: Hematocrit Volume Fraction (Bld) 41.3 % Normal 34.0-46.6 [facility] Work Phone: Comment on above: PATIENT NOT FASTINGP ERFORMED BY: SEVEN LabCoSt. Joseph's Wayne HospitalOlpcdj0878 [facility] [id number] Hemoglobin mass conc (Bld) 13.8 g/dL Normal 11.1-15.9 [facility] Work Phone: Comment on above: PATIENT NOT FASTINGP ERFORMED BY: SEVEN [facility] Ajlyvu1693 [facility] [id number] Immature granulocytes #/vol (Bld) 0.0 {x10E3/uL} Normal 0.0-0.1 [facility] Work Phone: Comment on above: PATIENT NOT FASTINGP ERFORMED BY: SEVEN LabCoSt. Joseph's Wayne HospitalDefpru2491 [facility] [id number] Immature granulocytes (Bld) [#/Vol] 0.0 10*3/uL Normal 0.0-0.1 [facility]; [facility] Work Phone: Comment on above: PATIENT NOT FASTINGP ERFORMED BY: LabCo Dvysjd2320 [address]bl[address] [place] [id number] Immature granulocytes/100 WBC (Bld) 0 % Normal [facility] Work Phone: Comment on above: PATIENT NOT FASTINGP ERFORMED BY: LabJulie Ville [id number] [facility]in [place] [id number] Lymphocytes #/vol (Bld) 2.1 {x10E3/uL} Normal 0.7-3.1 [facility] Work Phone: Comment on above: PATIENT NOT FASTINGP ERFORMED BY: LabJulie Ville 7524570 [facility] [id number] Lymphocytes (Bld) [#/Vol] 2.1 10*3/uL Normal 0.7-3.1 [facility]; [facility] Work Phone: Comment on above: PATIENT NOT FASTINGP ERFORMED BY: LabHenry [facility] Hospital6370 [facility]in [place] [id number] Lymphocytes Auto #/vol (Bld) 2.1 {x10E3/uL} Normal 0.7-3.1 [facility] Work Phone: Lymphocytes/100 WBC (Bld) 33 % Normal [facility] Work Phone: Comment on above: PATIENT NOT FASTINGP ERFORMED BY: LabHenry [facility] Hospital6370 [facility]in [place] [id number] Lymphocytes/100 WBC Auto (Bld) 33 % Normal [facility] Work Phone: MCH Auto Entitic mass (RBC) 29.1 pg Normal 26.6-33.0 [facility] Work Phone: MCH Entitic mass (RBC) 29.1 pg Normal 26.6-33.0 [facility] Work Phone: Comment on above: PATIENT NOT FASTINGP ERFORMED BY: SEVEN [facility] Xopajm3137 [facility]in [place] [id number] MCHC Auto mass conc (RBC) 33.4 g/dL Normal 31.5-35.7 [facility] Work Phone: MCHC mass conc (RBC) 33.4 g/dL Normal 31.5-35.7 Comp rehensive Internal Medicine Work Phone: Comment on above: PATIENT NOT FASTINGP ERFORMED BY: SEVEN [facility] Vvotai0770 [facility] [id number] MCV Auto Entitic volume (RBC) 87 fL Normal 79-97 [facility] Work Phone: MCV Entitic volume (RBC) 87 fL Normal 79-97 [facility] Work Phone: Comment on above: PATIENT NOT FASTINGP ERFORMED BY: SEVEN [facility] Qorijy0921 [facility] [id number] Monocytes #/vol (Bld) 0.5 {x10E3/uL} Normal 0.1-0.9 [facility] Work Phone: Comment on above: PATIENT NOT FASTINGP ERFORMED BY: LabCo Xvrgcg8670 [facility] [id number] Monocytes (Bld) [#/Vol] 0.5 10*3/uL Normal 0.1-0.9 [facility]; [facility] Work Phone: Comment on above: PATIENT NOT FASTINGP ERFORMED BY: [facility] Azrvbo5510 [facility] [id number] Monocytes Auto #/vol (Bld) 0.5 {x10E3/uL} Normal 0.1-0.9 [facility] Work Phone: Monocytes/100 WBC (Bld) 8 % Normal [facility] Work Phone: Comment on above: PATIENT NOT FASTINGP ERFORMED BY: [facility] Ivkfge1973 [facility] [id number] Monocytes/100 WBC Auto (Bld) 8 % Normal [facility] Work Phone: Neutrophils #/vol (Bld) 3.7 {x10E3/uL} Normal 1.4-7.0 [facility] Work Phone: Comment on above: PATIENT NOT FASTINGP ERFORMED BY: CB [facility] Kqduef9086 [address] RoadDublin [place] [id number] Neutrophils (Bld) [#/Vol] 3.7 10*3/uL Normal 1.4-7.0 [facility]; [facility] Work Phone: Comment on above: PATIENT NOT FASTINGP ERFORMED BY: CB [facility] Tbcybi0110 [address]Dublin [place] [id number] Neutrophils Auto #/vol (Bld) 3.7 {x10E3/uL} Normal 1.4-7.0 [facility] Work Phone: Neutrophils/100 WBC (Bld) 58 % Normal [facility] Work Phone: Comment on above: PATIENT NOT FASTINGP ERFORMED BY: CB [facility] Ukyouw0213 [address] RoadAtrium Health Lincolnin [place] [id number] Neutrophils/100 WBC Auto (Bld) 58 % Normal [facility] Work Phone: Platelets #/vol (Bld) 212 {x10E3/uL} Normal 150-379 [facility] Work Phone: Comment on above: PATIENT NOT FASTINGP ERFORMED BY: CB [facility] Ldjgdy5442 [address]Dublin [place] [id number] Platelets (Bld) [#/Vol] 212 10*3/uL Normal 150-379 [facility]; [facility] Work Phone: Comment on above: PATIENT NOT FASTINGP ERFORMED BY: CB [facility] Owyoch8171 [address] RoadDublin [place] [id number] Platelets Auto #/vol (Bld) 212 {x10E3/uL} Normal 150-379 [facility] Work Phone: RBC #/vol (Bld) 4.74 {x10E6/uL} Normal 3.77-5.28 Comp rehensive Internal Medicine Work Phone: Comment on above: PATIENT NOT FASTINGP ERFORMED BY: SEVEN Lenz6370 [facility] [id number] RBC (Bld) [#/Vol] 4.74 10*6/uL Normal 3.77-5.28 [facility] Internal Medicine; [facility] Work Phone: Comment on above: PATIENT NOT FASTINGP ERFORMED BY: SEVEN Tom Owmurq1723 [facility] [id number] RBC Auto #/vol (Bld) 4.74 {x10E6/uL} Normal 3.77-5.28 [facility] Work Phone: WBC #/vol (Bld) 6.3 {x10E3/uL} Normal 3.4-10.8 [facility] Internal Medicine Work Phone: Comment on above: PATIENT NOT FASTINGP ERFORMED BY: SEVEN Tom Eceqrn5905 [facility] [id number] WBC (Bld) [#/Vol] 6.3 10*3/uL Normal 3.4-10.8 [facility]; [facility] Work Phone: Comment on above: PATIENT NOT FASTINGP ERFORMED BY: SEVEN Rioslin6370 [facility] [id number] WBC Auto #/vol (Bld) 6.3 {x10E3/uL} Normal 3.4-10.8 [facility] Work Phone: METABOLIC PANEL, COMPREHENSI VE ([id number])Ordered By: Radio Station Operator on 11-17-2016 Albumin mass conc 4.2 g/dL Normal 3.5-5.5 Compreh [facility] Internal Medicine Work Phone: Comment on above: PATIENT NOT FASTINGP ERFORMED BY: SEVEN Tom Xpzbmx3478 [facility] [id number] Albumin/Globulin mass ratio 1.7 {ratio} Normal 1.1-2.5 [facility] Work Phone: Comment on above: PATIENT NOT FASTINGP ERFORMED BY: SEVEN [facility] Mvxpvq9865 [address] RoadDublin [place] [id number] ALP [Catalytic activity/Vol] 45 U/L Normal 39-117 [facility]; [facility] Internal Medicine Work Phone: Comment on above: PATIENT NOT FASTINGP ERFORMED BY: CB [facility] Nidpal9959 [address] RoadDublin [place] [id number] ALP enzyme act/vol 45 [iU]/L Normal 39-117 [facility] Internal Medicine Work Phone: Comment on above: PATIENT NOT FASTINGP ERFORMED BY: CB [facility] Pjwutk8736 [address] RoadDublin [place] [id number] ALT [Catalytic activity/Vol] 17 U/L Normal 0-32 [facility] Internal Medicine; [facility] Internal Medicine Work Phone: Comment on above: PATIENT NOT FASTINGP ERFORMED BY: SEVEN [facility] Dsemjf7684 Kennedy RoadDublin [place] [id number] ALT enzyme act/vol 17 [iU]/L Normal 0-32 [facility] Internal Medicine Work Phone: Comment on above: PATIENT NOT FASTINGP ERFORMED BY: SEVEN [facility] Lmtyna4979 [address] RoadDublin [place] [id number] AST [Catalytic activity/Vol] 20 U/L Normal 0-40 [facility] Internal Medicine; [facility] Internal Medicine Work Phone: Comment on above: PATIENT NOT FASTINGP ERFORMED BY: CB [facility] Civzas0498 [address] RoadDublin [place] [id number] AST enzyme act/vol 20 [iU]/L Normal 0-40 [facility] Internal Medicine Work Phone: Comment on above: PATIENT NOT FASTINGP ERFORMED BY: CB [facility] Ayvqwu5840 [address] RoadDublin [place] [id number] Bilirubin mass conc 0.6 mg/dL Normal 0.0-1.2 [facility] Internal Medicine Work Phone: Comment on above: PATIENT NOT FASTINGP ERFORMED BY: CB [facility] Jivloa2045 [address]Dublin [place] [id number] Calcium mass conc 9.3 mg/dL Normal 8.7-10.2 Compreh ensive Internal Medicine Work Phone: Comment on above: PATIENT NOT FASTINGP ERFORMED BY: SEVEN [facility] Ymsbwm9517 [address] [facility] [place] [id number] Chloride molar conc 103 mmol/L Normal 96-106 Compr ehensive Internal Medicine Work Phone: Comment on above: PATIENT NOT FASTINGP ERFORMED BY: CB [facility] Yzifyx4815 [address] [facility] [id number] CO2 molar conc 24 mmol/L Normal 18-29 Comprehens mckayla Internal Medicine Work Phone: Comment on above: PATIENT NOT FASTINGP ERFORMED BY: SEVEN [facility] Wwfhak7495 [address] [facility] [id number] Creatinine mass conc 0.63 mg/dL Normal 0.57-1.00 Comp rehensive Internal Medicine Work Phone: Comment on above: PATIENT NOT FASTINGP ERFORMED BY: CB [facility] Ejzlne8876 [facility] [id number] GFR/1.73 sq M predicted among blacks CKD-EPI vol rate/area (S/P/Bld) 133 mL/min/1.73 Normal Comprehensiv e Internal Medicine Work Phone: Comment on above: PATIENT NOT FASTINGP ERFORMED BY: CB [facility] Xmbuzl1569 [address] [facility] [id number] GFR/1.73 sq M predicted among non-blacks CKD-EPI vol rate/area (S/P/Bld) 116 mL/min/1.73 Normal [facility] Work Phone: Comment on above: PATIENT NOT FASTINGP ERFORMED BY: CB [facility] Iniizy7115 [address] [facility] [id number] Globulin Calculated mass conc (S) 2.5 g/dL Normal 1.5-4.5 [facility] Work Phone: Globulin mass conc (S) 2.5 g/dL Normal 1.5-4.5 [facility] Work Phone: Comment on above: PATIENT NOT FASTINGP ERFORMED BY: SEVEN [facility] Gvjynw3116 [address] [facility] [id number] Glucose mass conc 83 mg/dL Normal 65-99 Compreh ensive Internal Medicine Work Phone: Comment on above: PATIENT NOT FASTINGP ERFORMED BY: SEVEN [facility] Skybac3127 [address] [facility] [id number] Potassium molar conc 4.3 mmol/L Normal 3.5-5.2 Comp rehensive Internal Medicine Work Phone: Comment on above: PATIENT NOT FASTINGP ERFORMED BY: SEVEN [facility] Mjjcpo2975 [address] [facility] [id number] Protein mass conc 6.7 g/dL Normal 6.0-8.5 Compreh ensive Internal Medicine Work Phone: Comment on above: PATIENT NOT FASTINGP ERFORMED BY: SEVEN [facility] Ppzfak1991 [address] [facility] [id number] Sodium molar conc 141 mmol/L Normal 134-144 Compreh ensive Internal Medicine Work Phone: Comment on above: PATIENT NOT FASTINGP ERFORMED BY: [facility] Qscjjv2037 [facility] [id number] Urea nitrogen mass conc 12 mg/dL Normal 6-20 [facility] Work Phone: Comment on above: PATIENT NOT FASTINGP ERFORMED BY: [facility] Yofqnk8751 [facility] [id number] Urea nitrogen/Creatinine mass ratio 19 mg/mg Normal 8-20 [facility] Medicine Work Phone: Comment on above: PATIENT NOT FASTINGP ERFORMED BY: [facility] Nsskxy4497 [address] [facility] [id number] MUMPS IgG ([id number])Ordered By: Radio Station Operator on 11-17-2016 MuV IgG IA Qn (S) 43.9 AU/mL Normal Compreh ensive Internal Medicine Work Phone: Comment on above: Negative <9.0 Equivo david 9.0 - 10.9 Positive >10.9 A positive result generally indicates past exposure to Mumps virus or previous vaccination. PATIENT NOT FASTINGP ERFORMED BY: SEVEN CorceuticalsHenry Ford [facility] Hospital6370 [facility] [id number] PT (Prothrobim Time) (98134) Ordered By: Radio Station Operator on 11-17-2016 INR Coag RelTime (PPP) 1.9 {INR} Abnormal 0.8-1.2 [facility] Work Phone: Comment on above: Reference interval i s for non-anticoagulated patients. . Suggested INR therapeutic range for Vitamin K antagonist therapy: Standard Dose (moderate intensity therapeutic range): 2.0 - 3.0 Higher intensity therapeutic range 2.5 - 3.5 PATIENT NOT FASTINGP ERFORMED BY: PhillipHenry [facility] Hospital6370 [facility] [id number] Prothrombin time (PT) Coag time (PPP) 19.3 {sec} Abnormal 9.1-12.0 Comprehensi ve Internal Medicine Work Phone: Comment on above: PATIENT NOT FASTINGP ERFORMED BY: [facility] Alma6370 [facility] [id number] PT Coag (PPP) [Time] 19.3 s Abnormal 9.1-12.0 Comp rehensive Internal Medicine; [facility] Work Phone: Comment on above: PATIENT NOT FASTINGP ERFORMED BY: CorceuticalsHenry Ford [facility]and[facility] Hospital6370 [facility] [id number] RUBELLA IgG (15210)Ordered B y: Radio Station Operator on 11-17-2016 Rubella virus IgG Qn (S) 1.44 {index} Normal [facility] Work Phone: Comment on above: Non-immune <0.90 Equ ivocal 0.90 - 0.99 Immune >0.99 PATIENT NOT FASTINGP ERFORMED BY: [facility] Alma6370 [facility] [id number] RUBEOLA IgG (11906)Ordered B y: Radio Station Operator on 11-17-2016 MeV IgG IA Qn (S) 38.9 AU/mL Normal Compreh ensive Internal Medicine Work Phone: Comment on above: Negative <25.0 Equiv ocal 25.0 - 29.9 Positive >29.9 Presence of antibodies to Rubeola is presumptive evidence of immunity except when acute infection is suspected. PATIENT NOT FASTINGP ERFORMED BY: SEVEN [employer] Rjelpu8888 [facility] [id number] SED RATE ERYTHROCYTE (30934) Ordered By: Radio Station Operator on 11-17-2016 ESR Velocity (Bld) 2 mm/h Normal 0-32 Compre [facility] Internal Medicine Work Phone: Comment on above: PATIENT NOT FASTINGP ERFORMED BY: CodinGameSt. Joseph's Wayne HospitalCtonup2718 [facility] [id number] PT (Prothrobim Time) ([id number]) Ordered By: Radio Station Operator on 09-29-2016 INR Coag RelTime (PPP) 2.4 {INR} Abnormal 0.8-1.2 [facility] Work Phone: Comment on above: Reference interval i s for non-anticoagulated patients. . Suggested INR therapeutic range for Vitamin K antagonist therapy: Standard Dose (moderate intensity therapeutic range): 2.0 - 3.0 Higher intensity therapeutic range 2.5 - 3.5 STANDING ORDER; GILBERTO ENT NOT FASTINGPERFORMED BY: CorceuticalsSaint Luke'S Hospital Mmreou1780 [facility] [id number] Prothrombin time (PT) Coag time (PPP) 24.3 {sec} Abnormal 9.1-12.0 Comprehensi ve Internal Medicine Work Phone: Comment on above: STANDING ORDER; GILBERTO ENT NOT FASTINGPERFORMED BY: CorceuticalsHenry Ford Wyandotte Hospital6370 [facility] [id number] PT Coag (PPP) [Time] 24.3 s Abnormal 9.1-12.0 Comp rehensive Internal Medicine; [facility] Work Phone: Comment on above: STANDING ORDER; GILBERTO ENT NOT FASTINGPERFORMED BY: CorceuticalsHenry Ford [facility]and[facility] Hospital6370 [facility] [id number] PT (Prothrobim Time) ([id number]) Ordered By: Radio Station Operator on 07-16-2016 INR Coag RelTime (PPP) 2.4 {INR} Abnormal 0.8-1.2 [facility] Work Phone: Comment on above: Reference interval i s for non-anticoagulated patients. . Suggested INR therapeutic range for Vitamin K antagonist therapy: Standard Dose (moderate intensity therapeutic range): 2.0 - 3.0 Higher intensity therapeutic range 2.5 - 3.5 STANDING ORDER; GILBERTO ENT NOT FASTINGPERFORMED BY: [facility] Havduv8793 [facility] [id number] Information: [id number] Prothrombin time (PT) Coag time (PPP) 24.1 {sec} Abnormal 9.1-12.0 [facility] Internal Medicine Work Phone: Comment on above: STANDING ORDER; GILBERTO ENT NOT FASTINGPERFORMED BY: [facility] Nevehg6148 [facility] [id number] Information: [id number] PT Coag (PPP) [Time] 24.1 s Abnormal 9.1-12.0 [facility] Internal Medicine; [facility] Medicine Work Phone: Comment on above: STANDING ORDER; GILBERTO ENT NOT FASTINGPERFORMED BY: [facility] Zjxqzg7785 [facility] [id number] Information: [id number] PT (Prothrobim Time) (44739) Ordered By: Radio Station Operator on 07-09-2016 INR Coag RelTime (PPP) 2.2 {INR} Abnormal 0.8-1.2 [facility] Internal Medicine Work Phone: Comment on above: Reference interval i s for non-anticoagulated patients. . Suggested INR therapeutic range for Vitamin K antagonist therapy: Standard Dose (moderate intensity therapeutic range): 2.0 - 3.0 Higher intensity therapeutic range 2.5 - 3.5 STANDING ORDER; GILBERTO ENT NOT FASTINGPERFORMED BY: [facility] Xazilh2422 [facility] [id number] Information: [id number] Prothrombin time (PT) Coag time (PPP) 22.5 {sec} Abnormal 9.1-12.0 Comprehensann [facility] Internal Medicine Work Phone: Comment on above: STANDING ORDER; GILBERTO ENT NOT FASTINGPERFORMED BY: SEVEN [facility] Gkkokp9055 [facility] [id number] Information: [id number] PT Coag (PPP) [Time] 22.5 s Abnormal 9.1-12.0 Comp rehensive Internal Medicine; [facility] Work Phone: Comment on above: STANDING ORDER; GILBERTO ENT NOT FASTINGPERFORMED BY: SEVEN [facility] Mbfrin0345 [facility] [id number] Information: [id number] URINE JAVON CULTURE-IDENTIFICA [place] (17200)Ordered By: Radio Station Operator on 07-09-2016 Bacteria identified Cx Nom (U) ECV Abnormal [facility] Work Phone: Comment on above: Escherichia coli, id entified by an automated biochemical system.Greater than 100,000 colony forming units per mL S = Susceptible; I = Intermediate; R = Resistant P = Positive; N = Negative MICS are expressed in micrograms per mL Antibiotic RSLT#1 RSLT#2 RSLT#3 RSLT#4Amoxicillin/Clavulanic Acid SAmpicillin SCefepime SCeftriaxone SCefuroxime SCephalothin SCiprofloxacin SErtapenem SGentamicin SImipenem SLevofloxacin SNitrofurantoin SPiperacillin STetracycline STobramycin STrimethoprim/Sulfa S PATIENT NOT FASTINGP ERFORMED BY: SEVEN [facility] Kdhxpo9568 [facility] [id number] Information: [id number] Bacteria identified Cx Nom (U) Final report Abnormal [facility] Work Phone: Comment on above: PATIENT NOT FASTINGP ERFORMED BY: SEVEN [facility] Dbcfhg4138 [facility] [id number] Information: [id number] Urinalysis, Office (74307)Or dered By: Mylene Harrison on 07-09-2016 Bilirubin Ql (U) Negative Normal Comprehe nsive Internal Medicine Work Phone: Bilirubin Ql (U) Negative Normal Comprehe nsive Internal Medicine; [facility] Work Phone: Glucose Test strip (U) [Mass/Vol] Negative Normal [facility]; [facility] Work Phone: Glucose Test strip mass conc (U) Negative Normal [facility] Work Phone: Hemoglobin Ql (U) Hemolyzed Small Normal Co mprehensive Internal Medicine Work Phone: Hemoglobin Test strip Ql (U) Hemolyzed Small Normal [facility] Work Phone: Ketones Ql (U) Negative Normal Comprehens mckayla Internal Medicine Work Phone: Ketones Ql (U) Negative Normal Comprehens mckayla Internal Medicine; [facility] Work Phone: Leukocyte esterase Test strip Ql (U) Small Normal [facility] Work Phone: Nitrite Ql (U) Negative Normal Comprehens mckayla Internal Medicine Work Phone: Nitrite Ql (U) Negative Normal Comprehens mckayla Internal Medicine; [facility] Work Phone: Nitrite Test strip Ql (U) Negative Normal [facility] Work Phone: pH (U) 5.0 [pH] Normal [facility] Work Phone: pH Test strip (U) 5.0 [pH] Normal Compreh ensive Internal Medicine Work Phone: Protein Ql (U) Negative Normal Comprehens mckayla Internal Medicine Work Phone: Protein Ql (U) Negative Normal Comprehens mckayla Internal Medicine; [facility] Work Phone: Protein Test strip Ql (U) Negative Normal [facility] Work Phone: Specific gravity Relative Density (U) 1.020 1 Normal Comprehensi ve Internal Medicine Work Phone: Urobilinogen mass/time (24H U) Normal Normal [facility] Work Phone: PT (Prothrobim Time) (40575) Ordered By: Radio Station Operator on 04-06-2016 INR Coag RelTime (PPP) 3.0 {INR} Abnormal 0.8-1.2 [facility] Internal Medicine Work Phone: Comment on above: Reference interval i s for non-anticoagulated patients. . Suggested INR therapeutic range for Vitamin K antagonist therapy: Standard Dose (moderate intensity therapeutic range): 2.0 - 3.0 Higher intensity therapeutic range 2.5 - 3.5 STANDING ORDER; GILBERTO ENT NOT FASTINGPERFORMED BY: [facility] Exjbfk7709 [facility] [id number] Information: [id number], [id number] Prothrombin time (PT) Coag time (PPP) 31.4 {sec} Abnormal 9.1-12.0 [facility] Internal Medicine Work Phone: Comment on above: STANDING ORDER; GILBERTO ENT NOT FASTINGPERFORMED BY: SEVEN [facility] Oaeexy7514 [facility] [id number] Information: [id number], [id number] PT Coag (PPP) [Time] 31.4 s Abnormal 9.1-12.0 [facility] Internal Medicine; [facility] Internal Medicine Work Phone: Comment on above: STANDING ORDER; GILBERTO ENT NOT FASTINGPERFORMED BY: [facility] Ryxnvt3291 [facility] [id number] Information: [id number], [id number] PT (Prothrobim Time) (19814) Ordered By: Radio Station Operator on 03-19-2016 INR Coag RelTime (PPP) 2.8 {INR} Abnormal 0.8-1.2 [facility] Internal Medicine Work Phone: Comment on above: Reference interval i s for non-anticoagulated patients. . Suggested INR therapeutic range for Vitamin K antagonist therapy: Standard Dose (moderate intensity therapeutic range): 2.0 - 3.0 Higher intensity therapeutic range 2.5 - 3.5 STANDING ORDER; GILBERTO ENT NOT FASTINGPERFORMED BY: [facility] Lorstn8249 [facility] [id number] Information: [id number] Prothrombin time (PT) Coag time (PPP) 29.0 {sec} Abnormal 9.1-12.0 [facility]prehens[facility] Internal Medicine Work Phone: Comment on above: STANDING ORDER; GILBERTO ENT NOT FASTINGPERFORMED BY: [facility] Nqnzid9312 [facility] [id number] Information: [id number] PT Coag (PPP) [Time] 29.0 s Abnormal 9.1-12.0 Comp rehensive Internal Medicine; [facility] Internal Medicine Work Phone: Comment on above: STANDING ORDER; GILBERTO ENT NOT FASTINGPERFORMED BY: [facility] Dwusdo9563 [facility] [id number] Information: [id number] PT (Prothrobim Time) (50244) Ordered By: Radio Station Operator on 01-14-2016 INR Coag RelTime (PPP) 2.2 {INR} Abnormal 0.8-1.2 [facility] Internal Medicine Work Phone: Comment on above: Reference interval i s for non-anticoagulated patients. . Suggested INR therapeutic range for Vitamin K antagonist therapy: Standard Dose (moderate intensity therapeutic range): 2.0 - 3.0 Higher intensity therapeutic range 2.5 - 3.5 STANDING ORDER; GILBERTO ENT NOT FASTINGPERFORMED BY: [facility] Alma6370 [facility] [id number] Information: [id number] Prothrombin time (PT) Coag time (PPP) 23.2 {sec} Abnormal 9.1-12.0 [facility] Internal [facility] Work Phone: Comment on above: STANDING ORDER; GILBERTO ENT NOT FASTINGPERFORMED BY: [facility] Dqzllj2974 [facility] [id number] Information: [id number] PT Coag (PPP) [Time] 23.2 s Abnormal 9.1-12.0 Comp [facility] Internal Medicine; [facility] Internal Medicine Work Phone: Comment on above: STANDING ORDER; GILBERTO ENT NOT FASTINGPERFORMED BY: [facility] Pyapgk0765 [facility] [id number] Information: [id number] PT (Prothrobim Time) (15277) Ordered By: Radio Station Operator on 12-17-2015 INR Coag RelTime (PPP) 2.5 {INR} Abnormal 0.8-1.2 [facility] Internal Medicine Work Phone: Comment on above: Reference interval i s for non-anticoagulated patients. . Suggested INR therapeutic range for Vitamin K antagonist therapy: Standard Dose (moderate intensity therapeutic range): 2.0 - 3.0 Higher intensity therapeutic range 2.5 - 3.5 STANDING ORDER; GILBERTO ENT NOT FASTINGPERFORMED BY: [facility] Cilsjt8738 [facility] [id number] Information: [id number] Prothrombin time (PT) Coag time (PPP) 26.3 {sec} Abnormal 9.1-12.0 [facility]prehadventist [facility] Internal Medicine Work Phone: Comment on above: STANDING ORDER; GILBERTO ENT NOT FASTINGPERFORMED BY: [facility] Vszass7205 [facility] [id number] Information: [id number] PT Coag (PPP) [Time] 26.3 s Abnormal 9.1-12.0 Comp [facility] Internal Medicine; [facility] Internal Medicine Work Phone: Comment on above: STANDING ORDER; GILBERTO ENT NOT FASTINGPERFORMED BY: [facility] Ouuxbn3805 [facility] [id number] Information: [id number] PT (Prothrobim Time) (61106) Ordered By: Radio Station Operator on 12-03-2015 INR Coag RelTime (PPP) 2.0 {INR} Abnormal 0.8-1.2 [facility] Internal Medicine Work Phone: Comment on above: Reference interval i s for non-anticoagulated patients. . Suggested INR therapeutic range for Vitamin K antagonist therapy: Standard Dose (moderate intensity therapeutic range): 2.0 - 3.0 Higher intensity therapeutic range 2.5 - 3.5 STANDING ORDER; GILBERTO ENT NOT FASTINGPERFORMED BY: [facility] Dynngv8376 [facility] [id number] Information: [id number] Prothrombin time (PT) Coag time (PPP) 20.6 {sec} Abnormal 9.1-12.0 Comprehensi Internal Medicine Work Phone: Comment on above: STANDING ORDER; GILBERTO ENT NOT FASTINGPERFORMED BY: SEVEN Lenz6370 [facility] [id number] Information: [id number] PT Coag (PPP) [Time] 20.6 s Abnormal 9.1-12.0 Comp rehensive Internal Medicine; [facility] Work Phone: Comment on above: STANDING ORDER; GILBERTO ENT NOT FASTINGPERFORMED BY: SEVEN PhillipSaint [facility] Oxuwsl6719 [facility] [id number] Information: [id number] PT (Prothrobim Time) (29278) Ordered By: Radio Station Operator on 11-05-2015 INR Coag RelTime (PPP) 2.0 {INR} Abnormal 0.8-1.2 [facility] Work Phone: Comment on above: Reference interval i s for non-anticoagulated patients. . Suggested INR therapeutic range for Vitamin K antagonist therapy: Standard Dose (moderate intensity therapeutic range): 2.0 - 3.0 Higher intensity therapeutic range 2.5 - 3.5 STANDING ORDER; GILBERTO ENT NOT FASTINGPERFORMED BY: SEVEN Negro Qrtcvx4334 [facility] [id number] Information: [id number] Prothrombin time (PT) Coag time (PPP) 21.0 {sec} Abnormal 9.1-12.0 [facility] Internal Medicine Work Phone: Comment on above: STANDING ORDER; GILBERTO ENT NOT FASTINGPERFORMED BY: SEVEN PhillipHenry [facility] Hospital6370 [facility] [id number] Information: [id number] PT Coag (PPP) [Time] 21.0 s Abnormal 9.1-12.0 Comp rehensive Internal Medicine; [facility] Work Phone: Comment on above: STANDING ORDER; GILBERTO ENT NOT FASTINGPERFORMED BY: SEVEN [facility]6370 [facility] [id number] Information: [id number] PT (Prothrobim Time) (80881) Ordered By: Radio Station Operator on 09-09-2015 INR Coag RelTime (PPP) 2.6 {INR} Abnormal 0.8-1.2 [facility] Internal Medicine Work Phone: Comment on above: Reference interval i s for non-anticoagulated patients. . Suggested INR therapeutic range for Vitamin K antagonist therapy: Standard Dose (moderate intensity therapeutic range): 2.0 - 3.0 Higher intensity therapeutic range 2.5 - 3.5 Standing Order; GILBERTO ENT NOT FASTINGPERFORMED BY: SEVEN [facility] Uwmqoh1174 [address] [facility] [id number] Information: [id number] Prothrombin time (PT) Coag time (PPP) 27.4 {sec} Abnormal 9.1-12.0 [facility]prehadventist [facility] Internal [facility] Work Phone: Comment on above: Standing Order; GILBERTO ENT NOT FASTINGPERFORMED BY: [facility] Tytnfo1313 [address] [facility] [id number] Information: [id number] PT Coag (PPP) [Time] 27.4 s Abnormal 9.1-12.0 Comp [facility] Internal Medicine; [facility] Internal Medicine Work Phone: Comment on above: Standing Order; GILBERTO ENT NOT FASTINGPERFORMED BY: SEVEN [facility] Qrdjop0930 [facility] [id number] Information: [id number] PT (Prothrobim Time) (31705) Ordered By: Radio Station Operator on 07-01-2015 INR Coag RelTime (PPP) 2.0 {INR} Abnormal 0.8-1.2 [facility] Internal Medicine Work Phone: Comment on above: Reference interval i s for non-anticoagulated patients. . Suggested INR therapeutic range for Vitamin K antagonist therapy: Standard Dose (moderate intensity therapeutic range): 2.0 - 3.0 Higher intensity therapeutic range 2.5 - 3.5 Standing Order; GILBERTO ENT NOT FASTINGPERFORMED BY: CB [facility] Vryvxb5961 [facility] [id number] Information: [id number] Prothrombin time (PT) Coag time (PPP) 21.0 {sec} Abnormal 9.1-12.0 Comprehensi ve Internal Medicine Work Phone: Comment on above: Standing Order; GILBERTO ENT NOT FASTINGPERFORMED BY: SEVEN [facility] Wzevno3010 [facility] [id number] Information: [id number], [id number] PT Coag (PPP) [Time] 21.0 s Abnormal 9.1-12.0 Comp rehensive Internal Medicine; [facility] Work Phone: Comment on above: Standing Order; GILBERTO ENT NOT FASTINGPERFORMED BY: SEVEN [place] [id number] [facility] [id number] Information: [id number], [id number] Prothrombin Time w/INROrdere d By: Radio Station Operator on 05-22-2015 INR Coag RelTime (PPP) 2.3 {INR} Normal [facility] Work Phone: Comment on above: Test performed at:[facility] Vzpgfpeuwy4924 [facility] [place] [address] Prothrombin time (PT) Coag time (PPP) 25.6 s Abnormal 11.7-14.9 [facility] Internal Medicine Work Phone: Comment on above: Test performed at:[facility] [address] [place], [place] [id number] Prothrombin Time (PT)Ordered By: Radio Station Operator on 05-13-2015 INR Coag RelTime (PPP) 1.9 {INR} Abnormal 0.8-1.2 [facility] Work Phone: Comment on above: Reference interval i s for non-anticoagulated patients. . Suggested INR therapeutic range for Vitamin K antagonist therapy: Standard Dose (moderate intensity therapeutic range): 2.0 - 3.0 Higher intensity therapeutic range 2.5 - 3.5 PATIENT NOT FASTINGP ERFORMED BY: [place] [id number] [facility] [id number] Information: [id number] Prothrombin time (PT) Coag time (PPP) 20.4 {sec} Abnormal 9.1-12.0 [facility] Internal Medicine Work Phone: Comment on above: PATIENT NOT FASTINGP ERFORMED BY: SEVEN Negromaryjo Qffbxu0534 [facility] [id number] Information: [id number] Prothrombin Time (PT)Ordered By: Radio Station Operator on 04-28-2015 INR Coag RelTime (PPP) 1.8 {INR} Abnormal 0.8-1.2 [facility] Internal Medicine Work Phone: Comment on above: Reference interval i s for non-anticoagulated patients. . Suggested INR therapeutic range for Vitamin K antagonist therapy: Standard Dose (moderate intensity therapeutic range): 2.0 - 3.0 Higher intensity therapeutic range 2.5 - 3.5 PATIENT NOT FASTINGP ERFORMED BY: SEVEN [place] [id number] [facility] [id number] Information: [id number] Prothrombin time (PT) Coag time (PPP) 19.1 {sec} Abnormal 9.1-12.0 [facility] Internal Medicine Work Phone: Comment on above: PATIENT NOT FASTINGP ERFORMED BY: SEVEN Rioslin6370 [facility] [id number] Information: [id number] PT (Prothrobim Time) (73688) Ordered By: Radio Station Operator on 03-04-2015 INR Coag RelTime (PPP) 2.7 {INR} Abnormal 0.8-1.2 [facility] Internal Medicine Work Phone: Comment on above: Reference interval i s for non-anticoagulated patients. . Suggested INR therapeutic range for Vitamin K antagonist therapy: Standard Dose (moderate intensity therapeutic range): 2.0 - 3.0 Higher intensity therapeutic range 2.5 - 3.5 Standing Order; GILBERTO ENT NOT FASTINGPERFORMED BY: SEVEN [facility]6370 [facility] [id number] Information: [id number] Prothrombin time (PT) Coag time (PPP) 29.7 {sec} Abnormal 9.1-12.0 Comprehensi ve Internal Medicine Work Phone: Comment on above: Standing Order; GILBERTO ENT NOT FASTINGPERFORMED BY: SEVEN Lenz6370 [facility] [id number] Information: [id number] PT Coag (PPP) [Time] 29.7 s Abnormal 9.1-12.0 Comp rehensive Internal Medicine; [facility] Work Phone: Comment on above: Standing Order; GILBERTO ENT NOT FASTINGPERFORMED BY: SEVEN [facility] L[facility]ont4505 [facility] [id number] Information: [id number] PT (Prothrobim Time) (98338) Ordered By: Radio Station Operator on 02-05-2015 INR Coag RelTime (PPP) 2.5 {INR} Abnormal 0.8-1.2 [facility] Work Phone: Comment on above: Reference interval i s for non-anticoagulated patients. . Suggested INR therapeutic range for Vitamin K antagonist therapy: Standard Dose (moderate intensity therapeutic range): 2.0 - 3.0 Higher intensity therapeutic range 2.5 - 3.5 Standing Order; GILBERTO ENT NOT FASTINGPERFORMED BY: SEVEN [facility] Qtgolz5323 [facility] [id number] Information: [id number], [id number] Prothrombin time (PT) Coag time (PPP) 27.3 {sec} Abnormal 9.1-12.0 [facility] Internal [facility] Work Phone: Comment on above: Standing Order; GILBERTO ENT NOT FASTINGPERFORMED BY: SEVEN [facility] Uxheuy1048 [facility] [id number] Information: [id number], [id number] PT Coag (PPP) [Time] 27.3 s Abnormal 9.1-12.0 Comp rehensive Internal Medicine; [facility] Work Phone: Comment on above: Standing Order; GILBERTO ENT NOT FASTINGPERFORMED BY: SEVEN [facility] Zrdhrh5634 [facility] [id number] Information: [id number], [id number] PT (Prothrobim Time) (88571) Ordered By: Radio Station Operator on 01-28-2015 INR Coag RelTime (PPP) 1.6 {INR} Abnormal 0.8-1.2 [facility] Internal Medicine Work Phone: Comment on above: Reference interval i s for non-anticoagulated patients. . Suggested INR therapeutic range for Vitamin K antagonist therapy: Standard Dose (moderate intensity therapeutic range): 2.0 - 3.0 Higher intensity therapeutic range 2.5 - 3.5 Standing Order; GILBERTO ENT NOT FASTINGPERFORMED BY: CB [facility] Ucndja3941 [facility] [id number] Information: [id number] Prothrombin time (PT) Coag time (PPP) 17.6 {sec} Abnormal 9.1-12.0 [facility] Internal [facility] Work Phone: Comment on above: Standing Order; GILBERTO ENT NOT FASTINGPERFORMED BY: [facility] Dlbdyx2979 [facility] [id number] Information: [id number] PT Coag (PPP) [Time] 17.6 s Abnormal 9.1-12.0 Comp [facility] Internal Medicine; [facility] Internal Medicine Work Phone: Comment on above: Standing Order; GILBERTO ENT NOT FASTINGPERFORMED BY: [facility] Yefnte3245 [facility] [id number] Information: [id number] PT (Prothrobim Time) (12323) Ordered By: Radio Station Operator on 12-23-2014 INR Coag RelTime (PPP) 2.1 {INR} Abnormal 0.8-1.2 [facility] Internal Medicine Work Phone: Comment on above: Reference interval i s for non-anticoagulated patients. . Suggested INR therapeutic range for Vitamin K antagonist therapy: Standard Dose (moderate intensity therapeutic range): 2.0 - 3.0 Higher intensity therapeutic range 2.5 - 3.5 Standing Order; GILBERTO ENT NOT FASTINGPERFORMED BY: CB [facility] Otqkox6154 [facility] [id number] Information: [id number] Prothrombin time (PT) Coag time (PPP) 23.2 {sec} Abnormal 9.1-12.0 Comprehensi Internal Medicine Work Phone: Comment on above: Standing Order; GILBERTO ENT NOT FASTINGPERFORMED BY: SEVEN [facility] Gjtxiz6246 [facility] [id number] Information: [id number] PT Coag (PPP) [Time] 23.2 s Abnormal 9.1-12.0 Comp rehensive Internal Medicine; [facility] Work Phone: Comment on above: Standing Order; GILBERTO ENT NOT FASTINGPERFORMED BY: SEVEN [facility] Tdpqgx8223 [facility] [id number] Information: [id number] Rapid Strep Test, Office (95 120)on 11-11-2014 S. pyogenes Ag EIA Ql (Throat) Negative Normal [facility]; [facility] Work Phone: Rapid Strep Test, Office (12 650)Ordered By: Irene Cronin on 11-11-2014 S. pyogenes Ag IA Ql (Unsp spec) Negative Normal [facility] Work Phone: Throat Culture ([id number])Ordere d By: Radio Station Operator on 11-11-2014 Bacteria identified Respiratory culture Nom (Unsp spec) Final report Normal [facility] Work Phone: Comment on above: PATIENT NOT FASTINGP ERFORMED BY: SEVEN [facility] Wiyckq5570 [facility] [id number] Information: SRC:THRT [id number] Bacteria identified Respiratory culture Nom (Unsp spec) RRF Normal [facility] Work Phone: Comment on above: Routine respiratory fernando PATIENT NOT FASTINGP ERFORMED BY: SEVEN [facility] Asjxsn1247 [facility] [id number] Information: SRC:THRT [id number] PT (Prothrobim Time) (63229) Ordered By: Radio Station Operator on 10-21-2014 INR Coag RelTime (PPP) 2.4 {INR} Abnormal 0.8-1.2 [facility] Internal Medicine Work Phone: Comment on above: Reference interval i s for non-anticoagulated patients. . Suggested INR therapeutic range for Vitamin K antagonist therapy: Standard Dose (moderate intensity therapeutic range): 2.0 - 3.0 Higher intensity therapeutic range 2.5 - 3.5 Standing Order; GILBERTO ENT NOT FASTINGPERFORMED BY: [facility] Vifftn1347 [facility] [id number] Information: [id number] Prothrombin time (PT) Coag time (PPP) 26.6 {sec} Abnormal 9.1-12.0 [facility] Internal Medicine Work Phone: Comment on above: Standing Order; GILBERTO ENT NOT FASTINGPERFORMED BY: CB [facility] Tryvyf2722 [facility] [id number] Information: [id number] PT Coag (PPP) [Time] 26.6 s Abnormal 9.1-12.0 Comp [facility]; [facility] Internal Medicine Work Phone: Comment on above: Standing Order; GILBERTO ENT NOT FASTINGPERFORMED BY: [facility] Gygnbc6572 [facility] [id number] Information: [id number] Rapid Strep Test, Office (06 587)Ordered By: Julia Dotson on 10-14-2014 S. pyogenes Ag EIA Ql (Throat) Positive Normal [facility]; [facility] Internal Medicine Work Phone: S. pyogenes Ag IA Ql (Unsp spec) Positive Normal [facility] Internal Medicine Work Phone: PT (Prothrobim Time) (12369) Ordered By: Radio Station Operator on 10-08-2014 INR Coag RelTime (PPP) 2.2 {INR} Abnormal 0.8-1.2 [facility] Internal Medicine Work Phone: Comment on above: Reference interval i s for non-anticoagulated patients. . Suggested INR therapeutic range for Vitamin K antagonist therapy: Standard Dose (moderate intensity therapeutic range): 2.0 - 3.0 Higher intensity therapeutic range 2.5 - 3.5 Standing Order; GILBERTO ENT NOT FASTINGPERFORMED BY: [facility] Jpdxil5058 [facility] [id number] Information: [id number] Prothrombin time (PT) Coag time (PPP) 23.5 {sec} Abnormal 9.1-12.0 Comprehensi Internal Medicine Work Phone: Comment on above: Standing Order; GILBERTO ENT NOT FASTINGPERFORMED BY: [facility]6370 [facility] [id number] Information: [id number] PT Coag (PPP) [Time] 23.5 s Abnormal 9.1-12.0 Comp rehensive Internal Medicine; [facility] Work Phone: Comment on above: Standing Order; GILBERTO ENT NOT FASTINGPERFORMED BY: [facility]6370 [facility] [id number] Information: [id number] PT (Prothrobim Time) (49492) Ordered By: Radio Station Operator on 08-12-2014 INR Coag RelTime (PPP) 2.1 {INR} Abnormal 0.8-1.2 [facility] Work Phone: Comment on above: Reference interval i s for non-anticoagulated patients. . Suggested INR therapeutic range for Vitamin K antagonist therapy: Standard Dose (moderate intensity therapeutic range): 2.0 - 3.0 Higher intensity therapeutic range 2.5 - 3.5 Standing Order; GILBERTO ENT NOT FASTINGPERFORMED BY: [facility]6370 [facility] [id number] Information: [id number] Prothrombin time (PT) Coag time (PPP) 23.2 {sec} Abnormal 9.1-12.0 [facility] Internal [facility] Work Phone: Comment on above: Standing Order; GILBERTO ENT NOT FASTINGPERFORMED BY: [facility]6370 [facility] [id number] Information: [id number] PT Coag (PPP) [Time] 23.2 s Abnormal 9.1-12.0 Comp rehensive Internal Medicine; [facility] Internal Medicine Work Phone: Comment on above: Standing Order; GILBERTO ENT NOT FASTINGPERFORMED BY: SEVEN PhillipJulie [place] 7524570 [facility] [id number] Information: [id number] PT (PROTHROMBIN TIME) (58855 )Ordered By: Radio Station Operator on 07-02-2014 INR Coag RelTime (PPP) 2.4 {INR} Abnormal 0.8-1.2 [facility] Internal Medicine Work Phone: Comment on above: Reference interval i s for non-anticoagulated patients. . Suggested INR therapeutic range for Vitamin K antagonist therapy: Standard Dose (moderate intensity therapeutic range): 2.0 - 3.0 Higher intensity therapeutic range 2.5 - 3.5 PATIENT NOT FASTINGP ERFORMED BY: SEVEN [place] [id number] [facility] [id number] Information: [id number] Prothrombin time (PT) Coag time (PPP) 26.1 {sec} Abnormal 9.1-12.0 [facility] Internal Medicine Work Phone: Comment on above: PATIENT NOT FASTINGP ERFORMED BY: SEVEN FisherJulie [place] 7524570 [facility] [id number] Information: [id number] PT Coag (PPP) [Time] 26.1 s Abnormal 9.1-12.0 [facility] Internal Medicine; [facility] Internal Medicine Work Phone: Comment on above: PATIENT NOT FASTINGP ERFORMED BY: [place] 3617870 [facility] [id number] Information: [id number] PT (PROTHROMBIN TIME) (89466 )Ordered By: Radio Station Operator on 06-18-2014 INR Coag RelTime (PPP) 2.0 {INR} Abnormal 0.8-1.2 [facility] Internal Medicine Work Phone: Comment on above: Reference interval i s for non-anticoagulated patients. . Suggested INR therapeutic range for Vitamin K antagonist therapy: Standard Dose (moderate intensity therapeutic range): 2.0 - 3.0 Higher intensity therapeutic range 2.5 - 3.5 PATIENT NOT FASTINGP ERFORMED BY: SEVEN [facility] Abclus0463 [facility] [id number] Information: [id number] Prothrombin time (PT) Coag time (PPP) 20.8 {sec} Abnormal 9.1-12.0 Comprehensi Internal Medicine Work Phone: Comment on above: PATIENT NOT FASTINGP ERFORMED BY: [place] [id number] [facility] [id number] Information: [id number] PT Coag (PPP) [Time] 20.8 s Abnormal 9.1-12.0 Comp rehensive Internal Medicine; [facility] Work Phone: Comment on above: PATIENT NOT FASTINGP ERFORMED BY: [facility] Jgyjik1289 [facility] [id number] Information: [id number] PT (PROTHROMBIN TIME) (29431 )Ordered By: Radio Station Operator on 06-11-2014 INR Coag RelTime (PPP) 2.1 {INR} Abnormal 0.8-1.2 [facility] Work Phone: Comment on above: Reference interval i s for non-anticoagulated patients. . Suggested INR therapeutic range for Vitamin K antagonist therapy: Standard Dose (moderate intensity therapeutic range): 2.0 - 3.0 Higher intensity therapeutic range 2.5 - 3.5 PATIENT NOT FASTINGP ERFORMED BY: [facility]6370 [facility] [id number] Information: [id number] Prothrombin time (PT) Coag time (PPP) 22.3 {sec} Abnormal 9.1-12.0 Comprehensi Internal Medicine Work Phone: Comment on above: PATIENT NOT FASTINGP ERFORMED BY: SEVEN [facility] Weewtr8770 [facility] [id number] Information: [id number] PT Coag (PPP) [Time] 22.3 s Abnormal 9.1-12.0 Comp rehensive Internal Medicine; [facility] Work Phone: Comment on above: PATIENT NOT FASTINGP ERFORMED BY: [address] [id number] Information: [id number] CBC WITH MANUAL DIFF (55525) Ordered By: Radio Station Operator on 05-14-2014 Basophils #/vol (Bld) 0.0 {x10E3/uL} Normal 0.0-0.2 [facility] Work Phone: Comment on above: PATIENT WAS FASTINGP ERFORMED BY: [address] [id number] Information: [id number] Basophils (Bld) [#/Vol] 0.0 10*3/uL Normal 0.0-0.2 [facility]; [facility] Work Phone: Comment on above: PATIENT WAS FASTINGP ERFORMED BY: [address] [id number] Information: [id number] Basophils Auto #/vol (Bld) 0.0 {x10E3/uL} Normal 0.0-0.2 [facility] Work Phone: Basophils/100 WBC (Bld) 1 % Normal 0-3 [facility] Work Phone: Comment on above: PATIENT WAS FASTINGP ERFORMED BY: [address] [id number] Information: [id number] Basophils/100 WBC Auto (Bld) 1 % Normal 0-3 [facility] Work Phone: Eosinophils #/vol (Bld) 0.1 {x10E3/uL} Normal 0.0-0.4 [facility] Work Phone: Comment on above: PATIENT WAS FASTINGP ERFORMED BY: [address] [id number] Information: [id number] Eosinophils (Bld) [#/Vol] 0.1 10*3/uL Normal 0.0-0.4 [facility]; [facility] Work Phone: Comment on above: PATIENT WAS FASTINGP ERFORMED BY: SEVEN Rioslin6370 [facility] [id number] Information: [id number] Eosinophils Auto #/vol (Bld) 0.1 {x10E3/uL} Normal 0.0-0.4 [facility] Work Phone: Eosinophils/100 WBC (Bld) 2 % Normal 0-5 [facility] Work Phone: Comment on above: PATIENT WAS FASTINGP ERFORMED BY: SEVEN [address] [id number] Information: [id number] Eosinophils/100 WBC Auto (Bld) 2 % Normal 0-5 [facility] Work Phone: Erythrocyte distribution width Auto Ratio (RBC) 13.3 % Normal 12.3-15.4 [facility] Work Phone: Erythrocyte distribution width Ratio (RBC) 13.3 % Normal 12.3-15.4 [facility] Work Phone: Comment on above: PATIENT WAS FASTINGP ERFORMED BY: SEVEN Negron [address] [id number] Information: [id number] Hematocrit Auto Volume Fraction (Bld) 40.6 % Normal 34.0-46.6 [facility] Work Phone: Hematocrit Volume Fraction (Bld) 40.6 % Normal 34.0-46.6 [facility] Work Phone: Comment on above: PATIENT WAS FASTINGP ERFORMED BY: SEVEN [address] [id number] Information: [id number] Hemoglobin mass conc (Bld) 13.4 g/dL Normal 11.1-15.9 [facility] Work Phone: Comment on above: PATIENT WAS FASTINGP ERFORMED BY: [place] 3617870 [facility] [id number] Information: [id number] Immature granulocytes #/vol (Bld) 0.0 {x10E3/uL} Normal 0.0-0.1 [facility] Work Phone: Comment on above: PATIENT WAS FASTINGP ERFORMED BY: [address] [id number] Information: [id number] Immature granulocytes (Bld) [#/Vol] 0.0 10*3/uL Normal 0.0-0.1 [facility]; [facility] Work Phone: Comment on above: PATIENT WAS FASTINGP ERFORMED BY: [address] [id number] Information: [id number] Immature granulocytes/100 WBC (Bld) 0 % Normal 0-2 [facility] Work Phone: Comment on above: PATIENT WAS FASTINGP ERFORMED BY: [address] [id number] Information: [id number] Lymphocytes #/vol (Bld) 1.9 {x10E3/uL} Normal 0.7-3.1 [facility] Work Phone: Comment on above: PATIENT WAS FASTINGP ERFORMED BY: [address] [id number] Information: 601165,[id number] Lymphocytes (Bld) [#/Vol] 1.9 10*3/uL Normal 0.7-3.1 [facility]; [facility] Work Phone: Comment on above: PATIENT WAS FASTINGP ERFORMED BY: [place] 3617870 [facility] [id number] Information: [id number] Lymphocytes Auto #/vol (Bld) 1.9 {x10E3/uL} Normal 0.7-3.1 [facility] Work Phone: Lymphocytes/100 WBC (Bld) 34 % Normal 14-46 [facility] Work Phone: Comment on above: PATIENT WAS FASTINGP ERFORMED BY: SEVEN [facility] Omcoub6959 [facility] [id number] Information: [id number] Lymphocytes/100 WBC Auto (Bld) 34 % Normal 14-46 [facility] Work Phone: MCH Auto Entitic mass (RBC) 28.3 pg Normal 26.6-33.0 [facility] Work Phone: MCH Entitic mass (RBC) 28.3 pg Normal 26.6-33.0 [facility] Work Phone: Comment on above: PATIENT WAS FASTINGP ERFORMED BY: SEVEN [facility] HospitalYelena Nczyds[address] [id number] Information: [id number] MCHC Auto mass conc (RBC) 33.0 g/dL Normal 31.5-35.7 [facility] Work Phone: MCHC mass conc (RBC) 33.0 g/dL Normal 31.5-35.7 Comp [facility] Internal Medicine Work Phone: Comment on above: PATIENT WAS FASTINGP ERFORMED BY: SEVEN Rioslin6370 [facility] [id number] Information: [id number] MCV Auto Entitic volume (RBC) 86 fL Normal 79-97 [facility] Work Phone: MCV Entitic volume (RBC) 86 fL Normal 79-97 [facility] Work Phone: Comment on above: PATIENT WAS FASTINGP ERFORMED BY: SEVEN [place] 2579570 [facility] [id number] Information: [id number] Monocytes #/vol (Bld) 0.4 {x10E3/uL} Normal 0.1-0.9 [facility] Work Phone: Comment on above: PATIENT WAS FASTINGP ERFORMED BY: [facility]6370 [facility] [id number] Information: [id number] Monocytes (Bld) [#/Vol] 0.4 10*3/uL Normal 0.1-0.9 [facility]; [facility] Work Phone: Comment on above: PATIENT WAS FASTINGP ERFORMED BY: [address] [id number] Information: [id number] Monocytes Auto #/vol (Bld) 0.4 {x10E3/uL} Normal 0.1-0.9 [facility] Work Phone: Monocytes/100 WBC (Bld) 7 % Normal -12 [facility] Work Phone: Comment on above: PATIENT WAS FASTINGP ERFORMED BY: [address] [id number] Information: [id number] Monocytes/100 WBC Auto (Bld) 7 % Normal - [facility] Work Phone: Neutrophils #/vol (Bld) 3.1 {x10E3/uL} Normal 1.4-7.0 [facility] Work Phone: Comment on above: PATIENT WAS FASTINGP ERFORMED BY: [place] 3617870 [facility] [id number] Information: [id number] Neutrophils (Bld) [#/Vol] 3.1 10*3/uL Normal 1.4-7.0 [facility]; [facility] Work Phone: Comment on above: PATIENT WAS FASTINGP ERFORMED BY: [place] 3617870 [facility] [id number] Information: [id number] Neutrophils Auto #/vol (Bld) 3.1 {x10E3/uL} Normal 1.4-7.0 [facility] Work Phone: Neutrophils/100 WBC (Bld) 56 % Normal 40-74 [facility] Work Phone: Comment on above: PATIENT WAS FASTINGP ERFORMED BY: SEVEN LabComaryjo RiosDfjetd4462 [facility] [id number] Information: [id number] Neutrophils/100 WBC Auto (Bld) 56 % Normal 40-74 [facility] Work Phone: Platelets #/vol (Bld) 173 {x10E3/uL} Normal 150-379 [facility] Work Phone: Comment on above: Please note refere nce interval change PATIENT WAS FASTINGP ERFORMED BY: SEVEN LabComaryjo RiosBtsdpc2820 [facility] [id number] Information: [id number] Platelets (Bld) [#/Vol] 173 10*3/uL Normal 150-379 [facility]; [facility] Work Phone: Comment on above: Please note refere nce interval change PATIENT WAS FASTINGP ERFORMED BY: SEVEN [facility]Saint [facility] Wopgnr7443 [facility] [id number] Information: [id number] Platelets Auto #/vol (Bld) 173 {x10E3/uL} Normal 150-379 [facility] Work Phone: Comment on above: Please note refere nce interval change RBC #/vol (Bld) 4.73 {x10E6/uL} Normal 3.77-5.28 [facility] Internal Medicine Work Phone: Comment on above: PATIENT WAS FASTINGP ERFORMED BY: SEVEN [facility] Saghnz9226 [facility] [id number] Information: [id number] RBC (Bld) [#/Vol] 4.73 10*6/uL Normal 3.77-5.28 [facility] Internal Medicine; [facility] Work Phone: Comment on above: PATIENT WAS FASTINGP ERFORMED BY: SEVEN [facility] Abyuck4732 [facility] [id number] Information: [id number] RBC Auto #/vol (Bld) 4.73 {x10E6/uL} Normal 3.77-5.28 [facility] Work Phone: WBC #/vol (Bld) 5.5 {x10E3/uL} Normal 3.4-10.8 Compr ensive Internal Medicine Work Phone: Comment on above: PATIENT WAS FASTINGP ERFORMED BY: SEVEN [facility]6370 [facility] [id number] Information: [id number] WBC (Bld) [#/Vol] 5.5 10*3/uL Normal 3.4-10.8 Compre [facility] Internal Medicine; [facility] Work Phone: Comment on above: PATIENT WAS FASTINGP ERFORMED BY: SEVEN [place] 2579570 [facility] [id number] Information: [id number] WBC Auto #/vol (Bld) 5.5 {x10E3/uL} Normal 3.4-10.8 [facility] Work Phone: LIPID PANEL (10035)Ordered B y: Radio Station Operator on 05-14-2014 Cholesterol in HDL mass conc 61 mg/dL Normal [facility] Work Phone: Comment on above: According to ATP-III Guidelines, HDL-C >59 mg/dL is considered anegative risk factor for CHD. PATIENT WAS FASTINGP ERFORMED BY: SEVEN [facility]6370 [facility] [id number] Cholesterol in LDL mass conc 83 mg/dL Normal 0-99 [facility] Work Phone: Comment on above: PATIENT WAS FASTINGP ERFORMED BY: [address] [id number] Cholesterol in LDL/Cholesterol in HDL mass ratio 1.4 {ratio_units} Normal 0.0-3.2 [facility] Work Phone: Comment on above: PATIENT WAS FASTINGP ERFORMED BY: [facility]6370 [facility] [place] [id number] Cholesterol in VLDL mass conc 24 mg/dL Normal 5-40 [facility] Work Phone: Comment on above: PATIENT WAS FASTINGP ERFORMED BY: SEVEN Rioslin6370 [address] [facility] [place] [id number] Cholesterol mass conc 168 mg/dL Normal 100-199 [facility] Work Phone: Comment on above: PATIENT WAS FASTINGP ERFORMED BY: SEVEN LabYelena Pvgzqb9896 [address] [facility] [id number] Triglyceride mass conc 119 mg/dL Normal 0-149 [facility] Work Phone: Comment on above: PATIENT WAS FASTINGP ERFORMED BY: SEVEN Negro Fogisb4871 [facility] [id number] METABOLIC PANEL, COMPREHENSI VE (78990)Ordered By: Radio Station Operator on 05-14-2014 Albumin mass conc 4.1 g/dL Normal 3.5-5.5 Compreh ensive Internal Medicine Work Phone: Comment on above: PATIENT WAS FASTINGP ERFORMED BY: SEVEN LabSaint [facility] Cqbpcp6776 [facility] [place] [id number] Albumin/Globulin mass ratio 1.7 {ratio} Normal 1.1-2.5 [facility] Work Phone: Comment on above: PATIENT WAS FASTINGP ERFORMED BY: SEVEN [facility]Henry [facility]6370 [facility] [id number] ALP [Catalytic activity/Vol] 50 U/L Normal 39-117 [facility]; [facility] Work Phone: Comment on above: PATIENT WAS FASTINGP ERFORMED BY: SEVEN LabCo Brsuol5658 [facility] [place] [id number] ALP enzyme act/vol 50 [iU]/L Normal 39-117 Compre hensive Internal Medicine Work Phone: Comment on above: PATIENT WAS FASTINGP ERFORMED BY: SEVEN [facility]Co Sfrsbq6759 [facility] [place] [id number] ALT [Catalytic activity/Vol] 29 U/L Normal 0-32 [facility]; [facility] Work Phone: Comment on above: PATIENT WAS FASTINGP ERFORMED BY: SEVEN [facility] Byotss9864 [address] RoadDublin [place] [id number] ALT enzyme act/vol 29 [iU]/L Normal 0-32 Compre [facility] Internal Medicine Work Phone: Comment on above: PATIENT WAS FASTINGP ERFORMED BY: CB [facility] Dexlen0955 [address] RoadDublin [place] [id number] AST [Catalytic activity/Vol] 30 U/L Normal 0-40 [facility]; [facility] Internal Medicine Work Phone: Comment on above: PATIENT WAS FASTINGP ERFORMED BY: CB [facility] Iheojh5671 Kennedy RoadDublin [place] [id number] AST enzyme act/vol 30 [iU]/L Normal 0-40 [facility] Internal Medicine Work Phone: Comment on above: PATIENT WAS FASTINGP ERFORMED BY: [facility] Ioltyt5649 [address] RoadDublin [place] [id number] Bilirubin mass conc 0.7 mg/dL Normal 0.0-1.2 Compr ensive Internal Medicine Work Phone: Comment on above: PATIENT WAS FASTINGP ERFORMED BY: [facility] Fvlsih2080 [address] RoadDublin [place] [id number] Calcium mass conc 9.3 mg/dL Normal 8.7-10.2 Compreh ensive Internal Medicine Work Phone: Comment on above: PATIENT WAS FASTINGP ERFORMED BY: CB [facility] Jtgrzo2166 [address] RoadDublin [place] [id number] Chloride molar conc 102 mmol/L Normal 97-108 Compr ensive Internal Medicine Work Phone: Comment on above: PATIENT WAS FASTINGP ERFORMED BY: CB [facility] Xmylco3851 [address] RoadDublin [place] [id number] CO2 molar conc 24 mmol/L Normal 18-29 Comprehens mckayla Internal Medicine Work Phone: Comment on above: Please note refere nce interval change PATIENT WAS FASTINGP ERFORMED BY: SEVEN [facility] Mgkhqb6612 [address] [facility] [id number] Creatinine mass conc 0.71 mg/dL Normal 0.57-1.00 Comp rehensive Internal Medicine Work Phone: Comment on above: PATIENT WAS FASTINGP ERFORMED BY: SEVEN [facility] Hyygwh8221 [address] [facility] [id number] GFR/1.73 sq M predicted among blacks CKD-EPI vol rate/area (S/P/Bld) 129 mL/min/1.73 Normal Comprehensiv e Internal Medicine Work Phone: Comment on above: PATIENT WAS FASTINGP ERFORMED BY: SEVEN LabComaryjo RiosPwhpgx6183 [facility] [id number] GFR/1.73 sq M predicted among non-blacks CKD-EPI vol rate/area (S/P/Bld) 111 mL/min/1.73 Normal [facility] Work Phone: Comment on above: PATIENT WAS FASTINGP ERFORMED BY: SEVEN LabComaryjo RiosOzchab3681 [facility] [id number] Globulin Calculated mass conc (S) 2.4 g/dL Normal 1.5-4.5 [facility] Work Phone: Globulin mass conc (S) 2.4 g/dL Normal 1.5-4.5 [facility] Work Phone: Comment on above: PATIENT WAS FASTINGP ERFORMED BY: SEVEN LabCo Ottqsq1826 [facility] [id number] Glucose mass conc 83 mg/dL Normal 65-99 Compreh ensive Internal Medicine Work Phone: Comment on above: PATIENT WAS FASTINGP ERFORMED BY: SEVEN [facility] Yclcdk4517 [facility] [id number] Potassium molar conc 4.2 mmol/L Normal 3.5-5.2 Comp rehensive Internal Medicine Work Phone: Comment on above: PATIENT WAS FASTINGP ERFORMED BY: SEVEN [facility] Pjujpl3563 [facility] [id number] Protein mass conc 6.5 g/dL Normal 6.0-8.5 Compreh ensive Internal Medicine Work Phone: Comment on above: PATIENT WAS FASTINGP ERFORMED BY: SEVEN Tom Dklkce9134 [facility] [id number] Sodium molar conc 139 mmol/L Normal 134-144 Compreh ensive Internal Medicine Work Phone: Comment on above: PATIENT WAS FASTINGP ERFORMED BY: [facility]6370 [facility] [id number] Urea nitrogen mass conc 10 mg/dL Normal 6-20 [facility] Work Phone: Comment on above: PATIENT WAS FASTINGP ERFORMED BY: [facility] Ovfwpw9383 [facility] [id number] Urea nitrogen/Creatinine mass ratio 14 mg/mg Normal 8-20 [facility] Work Phone: Comment on above: PATIENT WAS FASTINGP ERFORMED BY: [facility]6370 [facility] [id number] PT (PROTHROMBIN TIME) ([id number] )Ordered By: Radio Station Operator on 05-14-2014 INR Coag RelTime (PPP) 2.9 {INR} Abnormal 0.8-1.2 [facility] Work Phone: Comment on above: Reference interval i s for non-anticoagulated patients. . Suggested INR therapeutic range for Vitamin K antagonist therapy: Standard Dose (moderate intensity therapeutic range): 2.0 - 3.0 Higher intensity therapeutic range 2.5 - 3.5 PATIENT NOT FASTINGP ERFORMED BY: [facility]6370 [facility] [id number] Information: [id number],2ND ORDER NO DRAW F EE Prothrombin time (PT) Coag time (PPP) 29.6 {sec} Abnormal 9.1-12.0 Comprehensi Internal Medicine Work Phone: Comment on above: PATIENT NOT FASTINGP ERFORMED BY: [place] 3617870 [facility] [id number] Information: [id number],2ND ORDER NO DRAW F EE PT Coag (PPP) [Time] 29.6 s Abnormal 9.1-12.0 Comp rehensive Internal Medicine; [facility] Work Phone: Comment on above: PATIENT NOT FASTINGP ERFORMED BY: [facility]6370 [facility] [id number] Information: [id number],2ND ORDER NO DRAW F EE TSH (97511)Ordered By: Ephraim m Artificial Stone Applicator on 05-14-2014 Thyrotropin Qn 1.090 {uIU/mL} Normal 0.450-4.500 Compr ehensive Internal Medicine Work Phone: Comment on above: PATIENT WAS FASTINGP ERFORMED BY: SEVEN LabCoSt. Joseph's Wayne HospitalHylzay3388 [facility] [id number] HPV automatic (93390)Ordered By: Radio Station Operator on 05-08-2014 HPV 16+18+31+33+35+39+45 +51+52+56+58+59+68 DNA Probe+sig amp Ql (Cvx) Negative Normal [facility] Work Phone: Comment on above: This high-risk HPV t est detects thirteen high-risk types(16/18/31/33/35/39/45/51/52/56/58/59/68) without differentiation. . Source.............C ervical;EndocervicalNo. of containers..01 CYTYC Thin Prep VialPATIENT NOT FASTINGPERFORMED BY: WB [facility]Co Wcwvsbxmgc200 [facility] [id number] BY: =G [facility] Xfieskhzzr806 [facility] CampusrKindred Hospital South Philadelphia [id number] Information: [id number] HPV 16+18+31+33+35+39+45 +51+52+56+58+59+68 DNA Probe+sig amp Ql (Cvx) Negative Normal [facility]; [facility] Work Phone: Comment on above: This high-risk HPV t est detects thirteen high-risk types(16/18/31/33/35/39/45/51/52/56/58/59/68) without differentiation. . Source.............C ervical;EndocervicalNo. of containers..01 CYTYC Thin Prep VialPATIENT NOT FASTINGPERFORMED BY: [facility] Anyeoekbjm227 [facility] W [id number] BY: =G [facility] Vjahbdryaf[address] [id number] Information: [id number] Microscopic observation Other stain Nom (Unsp spec) . Normal [facility] Work Phone: Comment on above: Source.............C ervical;EndocervicalNo. of containers..01 CYTYC Thin Prep VialPATIENT NOT FASTINGPERFORMED BY: CorceuticalsSaint Luke'S Hospital Pqusvdkgir[address] [id number] BY: =G LabSaint Luke'S Hospital Mptzwovolt[address] [id number] Information: [id number] Pathology report final diagnosis Narrative [facility] Normal [facility] Work Phone: Comment on above: NEGATIVE FOR INTRAEP ITHELIAL LESION AND MALIGNANCY.Satisfactory for evaluation. Endocervical and/or squamous metaplasticcells (endocervical component) are present.V70.0 ; [facility]y hospitalGlendy Castillo Hotel Maintenance Engineer (ASCP) Source.............C ervical;EndocervicalNo. of containers..01 CYTYC Thin Prep VialPATIENT NOT FASTINGPERFORMED BY: LabCo Zxakwfmtku[address] [id number] BY: =G LabSaint Luke'S Hospital Hcivycrlii05701 Choi Streetrwellspan health W [id number] Information: [id number] HPV automatic (79793) PAPSMR Normal [facility] Work Phone: Comment on above: The Pap smear is a s creening test designed to aid in the detection ofpremalignant and malignant conditions of the uterine cervix. It is not adiagnostic procedure and should not be used as the sole means of detectingcervical cancer. Both false-positive and false-negative reports do occur. .This liquid based ThinPrep(R) pap test was screened with theuse of an image guided system. Source.............C ervical;EndocervicalNo. of containers..01 CYTYC Thin Prep VialPATIENT NOT FASTINGPERFORMED BY: WB Pint Please120 [facility], DelawareApparityhoboken university medical center W [id number] BY: =G CodinGamerp Dmdyuklzcu034 [facility] W [id number] Information: [id number] PT (Prothrobim Time) (59092) Ordered By: Radio Station Operator on 04-12-2014 INR Coag RelTime (PPP) 2.6 {INR} Abnormal 0.8-1.2 [facility] Work Phone: Comment on above: Reference interval i s for non-anticoagulated patients. . Suggested INR therapeutic range for Vitamin K antagonist therapy: Standard Dose (moderate intensity therapeutic range): 2.0 - 3.0 Higher intensity therapeutic range 2.5 - 3.5 PATIENT NOT FASTINGP ERFORMED BY: CodinGame Otwizo9841 [facility] [id number] Information: [id number] Prothrombin time (PT) Coag time (PPP) 27.2 {sec} Abnormal 9.1-12.0 Comprehensi Internal Medicine Work Phone: Comment on above: PATIENT NOT FASTINGP ERFORMED BY: iCeutica6370 [facility] [id number] Information: [id number]...[id number] PT Coag (PPP) [Time] 27.2 s Abnormal 9.1-12.0 Comp rehensive Internal Medicine; [facility] Work Phone: Comment on above: PATIENT NOT FASTINGP ERFORMED BY: SEVEN FisherHenry [facility] Hospital6370 [facility] [id number] Information: [id number] PT (PROTHROMBIN TIME) (48498 )Ordered By: Radio Station Operator on 04-04-2014 INR Coag RelTime (PPP) 2.4 {INR} Abnormal 0.8-1.2 [facility] Work Phone: Comment on above: Reference interval i s for non-anticoagulated patients. . Suggested INR therapeutic range for Vitamin K antagonist therapy: Standard Dose (moderate intensity therapeutic range): 2.0 - 3.0 Higher intensity therapeutic range 2.5 - 3.5 PATIENT NOT FASTINGP ERFORMED BY: PhillipHenry [facility] Hospital6370 [facility] [id number] Information: [id number],[id number] Prothrombin time (PT) Coag time (PPP) 25.4 {sec} Abnormal 9.1-12.0 Comprehensi Internal Medicine Work Phone: Comment on above: PATIENT NOT FASTINGP ERFORMED BY: SEVEN PhillipHenry Ford [facility] Hospital6370 [facility] [id number] Information: [id number],[id number] PT Coag (PPP) [Time] 25.4 s Abnormal 9.1-12.0 Comp re[facility] Internal [facility]; [facility] Internal Medicine Work Phone: Comment on above: PATIENT NOT FASTINGP ERFORMED BY: [facility]6370 [facility] [id number] Information: [id number] PT (PROTHROMBIN TIME) (89516 )Ordered By: Radio Station Operator on 03-08-2014 INR Coag RelTime (PPP) 2.3 {INR} Abnormal 0.8-1.2 [facility] Internal Medicine Work Phone: Comment on above: Reference interval i s for non-anticoagulated patients. . Suggested INR therapeutic range for Vitamin K antagonist therapy: Standard Dose (moderate intensity therapeutic range): 2.0 - 3.0 Higher intensity therapeutic range 2.5 - 3.5 PATIENT NOT FASTINGP ERFORMED BY: [facility]6370 [facility] [id number] Information: [id number] Prothrombin time (PT) Coag time (PPP) 24.4 {sec} Abnormal 9.1-12.0 [facility] Facilityens[facility] Internal Medicine Work Phone: Comment on above: PATIENT NOT FASTINGP ERFORMED BY: [place] 3617870 [facility] [id number] Information: [id number],[id number] PT Coag (PPP) [Time] 24.4 s Abnormal 9.1-12.0 [facility] Internal Medicine; [facility] Work Phone: Comment on above: PATIENT NOT FASTINGP ERFORMED BY: PhillipSaint [facility]S Hospital Yoosfs8718 [facility] [id number] Information: [id number] Prothrombin Time (PT)Ordered By: Radio Station Operator on 01-18-2014 INR Coag RelTime (PPP) 2.6 {INR} Abnormal 0.8-1.2 [facility] Internal Medicine Work Phone: Comment on above: Reference interval i s for non-anticoagulated patients. . Suggested INR therapeutic range for Vitamin K antagonist therapy: Standard Dose (moderate intensity therapeutic range): 2.0 - 3.0 Higher intensity therapeutic range 2.5 - 3.5 PATIENT NOT FASTINGP ERFORMED BY: [facility]6370 [facility] [id number] Information: [id number], [id number] Prothrombin time (PT) Coag time (PPP) 26.9 {sec} Abnormal 9.1-12.0 [facility] Internal Medicine Work Phone: Comment on above: PATIENT NOT FASTINGP ERFORMED BY: [facility]6370 [facility] [id number] Information: [id number], [id number] PT (PROTHROMBIN TIME) (73079 )Ordered By: Radio Station Operator on 01-08-2014 INR Coag RelTime (PPP) 1.9 {INR} Abnormal 0.8-1.2 [facility] Work Phone: Comment on above: Reference interval i s for non-anticoagulated patients. . Suggested INR therapeutic range for Vitamin K antagonist therapy: Standard Dose (moderate intensity therapeutic range): 2.0 - 3.0 Higher intensity therapeutic range 2.5 - 3.5 PATIENT NOT FASTINGP ERFORMED BY: SEVEN LabCo Qjjxgj4877 [facility] [id number] Information: [id number] Prothrombin time (PT) Coag time (PPP) 20.0 {sec} Abnormal 9.1-12.0 Comprehensi ve Internal Medicine Work Phone: Comment on above: PATIENT NOT FASTINGP ERFORMED BY: LabSaint [facility] Hospital Rygdcc4729 [address] [facility] [id number] Information: [id number] PT Coag (PPP) [Time] 20.0 s Abnormal 9.1-12.0 Comp rehensive Internal Medicine; [facility] Work Phone: Comment on above: PATIENT NOT FASTINGP ERFORMED BY: [facility]6370 [facility] [id number] Information: [id number],H41901 PT (PROTHROMBIN TIME) ([id number] )Ordered By: Radio Station Operator on 12-28-2013 INR Coag RelTime (PPP) 1.7 {INR} Abnormal 0.8-1.2 [facility] Work Phone: Comment on above: Reference interval i s for non-anticoagulated patients. . Suggested INR therapeutic range for Vitamin K antagonist therapy: Standard Dose (moderate intensity therapeutic range): 2.0 - 3.0 Higher intensity therapeutic range 2.5 - 3.5 PATIENT NOT FASTINGP ERFORMED BY: LabSaint [facility] Hospital Xmdnqw6637 [facility] [id number] Information: [id number] Prothrombin time (PT) Coag time (PPP) 18.0 {sec} Abnormal 9.1-12.0 Comprehensi ve Internal Medicine Work Phone: Comment on above: PATIENT NOT FASTINGP ERFORMED BY: [facility]Co Ezxnpk0399 [facility] [id number] Information: [id number],[id number] PT Coag (PPP) [Time] 18.0 s Abnormal 9.1-12.0 Comp reh[facility] Internal Medicine; [facility] Work Phone: Comment on above: PATIENT NOT FASTINGP ERFORMED BY: LaunchCyte6370 [facility] [id number] Information: [id number] Prothrombin Time (PT)Ordered By: Radio Station Operator on 12-18-2013 INR Coag RelTime (PPP) 3.1 {INR} Abnormal 0.8-1.2 [facility] Internal Medicine Work Phone: Comment on above: Reference interval i s for non-anticoagulated patients. . Suggested INR therapeutic range for Vitamin K antagonist therapy: Standard Dose (moderate intensity therapeutic range): 2.0 - 3.0 Higher intensity therapeutic range 2.5 - 3.5 PERFORMED BY: Bindo6370 [facility] [id number] Information: PT ON ANTIBIOTICS Prothrombin time (PT) Coag time (PPP) 31.7 {sec} Abnormal 9.1-12.0 Comprehensann [facility] forensic center Internal Medicine Work Phone: Comment on above: PERFORMED BY: Bindo6370 [facility] [id number] Information: PT ON ANTIBIOTICS PT (PROTHROMBIN TIME) ([id number] )Ordered By: Radio Station Operator on 12-05-2013 INR Coag RelTime (PPP) 2.6 {INR} Abnormal 0.8-1.2 [facility] Internal Medicine Work Phone: Comment on above: Reference interval i s for non-anticoagulated patients. . Suggested INR therapeutic range for Vitamin K antagonist therapy: Standard Dose (moderate intensity therapeutic range): 2.0 - 3.0 Higher intensity therapeutic range 2.5 - 3.5 PATIENT NOT FASTINGP ERFORMED BY: LaunchCyte6370 [facility] [id number] Information: [id number] Prothrombin time (PT) Coag time (PPP) 27.3 {sec} Abnormal 9.1-12.0 Comprehensi Internal Medicine Work Phone: Comment on above: PATIENT NOT FASTINGP ERFORMED BY: SEVEN Serna70 [facility] [id number] Information: [id number] PT Coag (PPP) [Time] 27.3 s Abnormal 9.1-12.0 Comp rehensive Internal Medicine; [facility] Work Phone: Comment on above: PATIENT NOT FASTINGP ERFORMED BY: SEVEN Tom Rhonmh3255 [facility] [id number] Information: [id number] PT (PROTHROMBIN TIME) (90848 )Ordered By: Radio Station Operator on 11-28-2013 INR Coag RelTime (PPP) 3.5 {INR} Abnormal 0.8-1.2 [facility] Internal Medicine Work Phone: Comment on above: Reference interval i s for non-anticoagulated patients. . Suggested INR therapeutic range for Vitamin K antagonist therapy: Standard Dose (moderate intensity therapeutic range): 2.0 - 3.0 Higher intensity therapeutic range 2.5 - 3.5 PATIENT NOT FASTINGP ERFORMED BY: SEVEN Tom Ixczap6711 [facility] [id number] Information: [id number] Prothrombin time (PT) Coag time (PPP) 36.1 {sec} Abnormal 9.1-12.0 [facility] Facility[facility] Internal Medicine Work Phone: Comment on above: PATIENT NOT FASTINGP ERFORMED BY: SEVEN Tom Dquhux4890 [facility] [id number] Information: [id number] PT Coag (PPP) [Time] 36.1 s Abnormal 9.1-12.0 Comp rehensive Internal Medicine; [facility] Work Phone: Comment on above: PATIENT NOT FASTINGP ERFORMED BY: SEVEN [facility] Bafxor4485 [facility] [id number] Information: [id number] PT (PROTHROMBIN TIME) ([id number] )Ordered By: Radio Station Operator on 11-07-2013 INR Coag RelTime (PPP) 2.6 {INR} Abnormal 0.8-1.2 [facility] Work Phone: Comment on above: Reference interval i s for non-anticoagulated patients. . Suggested INR therapeutic range for Vitamin K antagonist therapy: Standard Dose (moderate intensity therapeutic range): 2.0 - 3.0 Higher intensity therapeutic range 2.5 - 3.5 PATIENT NOT FASTINGP ERFORMED BY: Billboard Jungle70 MobiscopeFormerly [facility] [id number] Information: [id number] Prothrombin time (PT) Coag time (PPP) 27.3 {sec} Abnormal 9.1-12.0 [facility] Internal Medicine Work Phone: Comment on above: PATIENT NOT FASTINGP ERFORMED BY: Billboard Jungle70 MobiscopeFormerly [facility] [id number] Information: [id number] PT Coag (PPP) [Time] 27.3 s Abnormal 9.1-12.0 [facility] Internal Medicine; [facility] Work Phone: Comment on above: PATIENT NOT FASTINGP ERFORMED BY: Billboard Jungle70 MobiscopeFormerly [facility] [id number] Information: [id number] Prothrombin Time (PT)Ordered By: Radio Station Operator on 10-31-2013 INR Coag RelTime (PPP) 1.5 {INR} Abnormal 0.8-1.2 [facility] Internal Medicine Work Phone: Comment on above: Reference interval i s for non-anticoagulated patients. . Suggested INR therapeutic range for Vitamin K antagonist therapy: Standard Dose (moderate intensity therapeutic range): 2.0 - 3.0 Higher intensity therapeutic range 2.5 - 3.5 PERFORMED BY: Bindo6370 MobiscopeFormerly [facility] [id number] Prothrombin time (PT) Coag time (PPP) 16.0 {sec} Abnormal 9.1-12.0 [facility] Work Phone: Comment on above: PERFORMED BY: [employer]70 [facility] [id number] PT (PROTHROMBIN TIME) ([id number] )Ordered By: Radio Station Operator on 08-23-2013 INR Coag RelTime (PPP) 2.6 {INR} Abnormal 0.8-1.2 [facility] Work Phone: Comment on above: Reference interval i s for non-anticoagulated patients. . Suggested INR therapeutic range for Vitamin K antagonist therapy: Standard Dose (moderate intensity therapeutic range): 2.0 - 3.0 Higher intensity therapeutic range 2.5 - 3.5 PATIENT NOT FASTINGP ERFORMED BY: CorceuticalsHenry [facility]6370 [facility] [id number] Information: [id number] Prothrombin time (PT) Coag time (PPP) 26.6 {sec} Abnormal 9.1-12.0 [facility] Medicine Work Phone: Comment on above: PATIENT NOT FASTINGP ERFORMED BY: LabCoSt. Joseph's [facility] HospitalPqtupm2892 [facility] [id number] Information: [id number] PT Coag (PPP) [Time] 26.6 s Abnormal 9.1-12.0 [facility] Internal Medicine; [facility] Work Phone: Comment on above: PATIENT NOT FASTINGP ERFORMED BY: LabCoSt. Joseph's Wayne HospitalSebkln2780 [facility] [id number] Information: [id number] FINGER(S) MIN 2 VIEWSOrdered By: Radio Station Operator on 08-06-2013 FINGER(S) MIN 2 VIEWS See Note Normal [facility] Work Phone: Comment on above: STUDY: X-RAY - RIGHT HAND, ATTENTION FOURTH FINGER REASON FOR EXAM: Female, 33 years old. Pain following injury. TECHNIQUE: 3 view(s) of the finger were obtained. COMPARISON: None. FINDINGS:Normal metacarpal head. Normal metacarpophalangeal joint. Normal proximal phalanx. Normal middle phalanx. Normal distal phalanx. Normal proximal interphalangeal joint. Normal distal interphalangealjoint. IMPRESSION:Normal x-ray examination of the finger. Signed:Bud Major M.D.August 07, 2013 at 1:31:09 PM [id number] Signed GP/GP If you are the referring physician and would like to consult with theradiologist who provided this interpretation, please contact Lso Soriano at [phone]. If this radiologist is unavailable, youwill be directed to another radiologist to assist. If you are a patient with a question regarding this report, pleasecontactyour referring physician directly. Professional Interpretation Provided By: [employer], Phone , These documents contain legally protected and confidential healthinformation intended only for the use of the individual or entity namedabove. If you are not the intended recipient, you are hereby notifiedthatany disclosure, copying, distribution, or other use of these documents isstrictly prohibited. If you have received this information in error,pleasenotify the sender immediately and arrange for the return or destructionofthese documents. Dictated on 08/07/13 1331 by Maria Antonia Major MDranscribed on 08/07/131334 by ITS IMPORTSign by Bud Major MD on 08/07/131334 Sign by: Bud Major MD PT (Prothrobim Time) (26710) Ordered By: Radio Station Operator on 08-02-2013 INR Coag RelTime (PPP) 1.8 {INR} Abnormal 0.8-1.2 [facility] Work Phone: Comment on above: Reference interval i s for non-anticoagulated patients. . Suggested INR therapeutic range for Vitamin K antagonist therapy: Standard Dose (moderate intensity therapeutic range): 2.0 - 3.0 Higher intensity therapeutic range 2.5 - 3.5 PATIENT NOT FASTINGP ERFORMED BY: SEVEN [facility]6370 [facility] [id number] Information: [id number] Prothrombin time (PT) Coag time (PPP) 18.5 {sec} Abnormal 9.1-12.0 [facility] Work Phone: Comment on above: PATIENT NOT FASTINGP ERFORMED BY: [place] [id number] [facility] [id number] Information: [id number] PT Coag (PPP) [Time] 18.5 s Abnormal 9.1-12.0 Comp [facility] Internal Medicine; [facility] Work Phone: Comment on above: PATIENT NOT FASTINGP ERFORMED BY: [facility] Oaqylh0866 [facility] [id number] Information: [id number] PT (Prothrobim Time) (39048) Ordered By: Radio Station Operator on 06-19-2013 INR Coag RelTime (PPP) 2.2 {INR} Abnormal 0.8-1.2 [facility] Work Phone: Comment on above: Reference interval i s for non-anticoagulated patients. . Suggested INR therapeutic range for Vitamin K antagonist therapy: Standard Dose (moderate intensity therapeutic range): 2.0 - 3.0 Higher intensity therapeutic range 2.5 - 3.5 PATIENT NOT FASTINGP ERFORMED BY: [facility]6370 [facility] [id number] Information: [id number] Prothrombin time (PT) Coag time (PPP) 22.5 {sec} Abnormal 9.1-12.0 [facility] Internal Medicine Work Phone: Comment on above: PATIENT NOT FASTINGP ERFORMED BY: [facility]6370 [facility] [id number] Information: [id number] PT Coag (PPP) [Time] 22.5 s Abnormal 9.1-12.0 Comp [facility] Internal Medicine; [facility] Work Phone: Comment on above: PATIENT NOT FASTINGP ERFORMED BY: SEVEN Tina [place] [id number] [facility] [id number] Information: [id number] PT (Prothrobim Time) (04920) Ordered By: Radio Station Operator on 06-04-2013 INR Coag RelTime (PPP) 2.6 {INR} Abnormal 0.8-1.2 [facility] Internal Medicine Work Phone: Comment on above: Reference interval i s for non-anticoagulated patients. . Suggested INR therapeutic range for Vitamin K antagonist therapy: Standard Dose (moderate intensity therapeutic range): 2.0 - 3.0 Higher intensity therapeutic range 2.5 - 3.5 PATIENT NOT FASTINGP ERFORMED BY: SEVEN [place] [id number] [facility] [id number] Information: ADD [id number] AND DRAW FEE 99 [id number] Prothrombin time (PT) Coag time (PPP) 26.3 {sec} Abnormal 9.1-12.0 [facility] Internal Medicine Work Phone: Comment on above: PATIENT NOT FASTINGP ERFORMED BY: SEVEN [place] [id number] [facility] [id number] Information: ADD [id number] AND DRAW FEE 99 [id number] PT Coag (PPP) [Time] 26.3 s Abnormal 9.1-12.0 [facility] Internal Medicine; [facility] Internal Medicine Work Phone: Comment on above: PATIENT NOT FASTINGP ERFORMED BY: [place] [id number] [facility] [id number] Information: ADD [id number] AND DRAW FEE [id number] PT (Prothrobim Time) (82853) Ordered By: Radio Station Operator on 05-28-2013 INR Coag RelTime (PPP) 1.5 {INR} Abnormal 0.8-1.2 [facility] Internal Medicine Work Phone: Comment on above: Reference interval i s for non-anticoagulated patients. . Suggested INR therapeutic range for Vitamin K antagonist therapy: Standard Dose (moderate intensity therapeutic range): 2.0 - 3.0 Higher intensity therapeutic range 2.5 - 3.5 PATIENT NOT FASTINGP ERFORMED BY: [facility]6370 [facility] [id number] Information: [id number] Prothrombin time (PT) Coag time (PPP) 16.1 {sec} Abnormal 9.1-12.0 Comprehensi ve Internal Medicine Work Phone: Comment on above: PATIENT NOT FASTINGP ERFORMED BY: [facility]6370 [facility] [id number] Information: [id number] PT Coag (PPP) [Time] 16.1 s Abnormal 9.1-12.0 Comp [facility]ive Internal Medicine; [facility] Work Phone: Comment on above: PATIENT NOT FASTINGP ERFORMED BY: [place] [id number] [facility] [id number] Information: [id number] PT (Prothrobim Time) (44045) Ordered By: Radio Station Operator on 05-25-2013 INR Coag RelTime (PPP) 1.2 {INR} Normal 0.8-1.2 [facility] Work Phone: Comment on above: Reference interval i s for non-anticoagulated patients. . Suggested INR therapeutic range for Vitamin K antagonist therapy: Standard Dose (moderate intensity therapeutic range): 2.0 - 3.0 Higher intensity therapeutic range 2.5 - 3.5 Please note reference interval change PATIENT NOT FASTINGP ERFORMED BY: [facility]6370 [facility] [id number] Information: [id number] Prothrombin time (PT) Coag time (PPP) 12.2 {sec} Abnormal 9.1-12.0 [facility] Work Phone: Comment on above: Please note refere nce interval change PATIENT NOT FASTINGP ERFORMED BY: [facility]6370 [facility] [id number] Information: [id number] PT Coag (PPP) [Time] 12.2 s Abnormal 9.1-12.0 [facility] Internal [facility]; [facility] Internal Medicine Work Phone: Comment on above: Please note refere nce interval change PATIENT NOT FASTINGP ERFORMED BY: SEVEN [facility] Mdjxkk2033 [facility] [id number] Information: [id number] PT (Prothrobim Time) (58783) Ordered By: Radio Station Operator on 05-21-2013 INR Coag RelTime (PPP) 4.6 {INR} Abnormal 0.8-1.2 [facility] Internal Medicine Work Phone: Comment on above: Client Requested [place] Reference interval is for non-anticoagulated patients. . Suggested INR therapeutic range for Vitamin K antagonist therapy: Standard Dose (moderate intensity therapeutic range): 2.0 - 3.0 Higher intensity therapeutic range 2.5 - 3.5 Please note reference interval change PATIENT NOT FASTINGP ERFORMED BY: [place] [id number] [facility] [id number] Information: [id number] Prothrombin time (PT) Coag time (PPP) 46.9 {sec} Abnormal 9.1-12.0 [facility] Internal Medicine Work Phone: Comment on above: Please note refere nce interval change PATIENT NOT FASTINGP ERFORMED BY: [facility]6370 [facility] [id number] Information: [id number] PT Coag (PPP) [Time] 46.9 s Abnormal 9.1-12.0 [facility] Internal Medicine; [facility] Internal Medicine Work Phone: Comment on above: Please note refere nce interval change PATIENT NOT FASTINGP ERFORMED BY: [facility]6370 [facility] [id number] Information: [id number] PT (Prothrobim Time) (95597) Ordered By: Radio Station Operator on 04-10-2013 INR Coag RelTime (PPP) 2.6 {INR} Abnormal 0.8-1.2 [facility] Work Phone: Comment on above: Reference interval i s for non-anticoagulated patients. . Suggested INR therapeutic range for Vitamin K antagonist therapy: Standard Dose (moderate intensity therapeutic range): 2.0 - 3.0 Higher intensity therapeutic range 2.5 - 3.5 PATIENT NOT FASTINGP ERFORMED BY: SEVEN LabCo Nzgicb1412 [facility] [id number] Information: [id number] Prothrombin time (PT) Coag time (PPP) 26.6 {sec} Abnormal 9.1-12.0 [facility] Work Phone: Comment on above: PATIENT NOT FASTINGP ERFORMED BY: SEVEN LabCoKelly Ville [id number] [facility] [id number] Information: [id number] PT Coag (PPP) [Time] 26.6 s Abnormal 9.1-12.0 [facility] Internal Medicine; [facility] Work Phone: Comment on above: PATIENT NOT FASTINGP ERFORMED BY: SEVEN LabHenry [facility]6370 [facility] [id number] Information: [id number] PT (Prothrobim Time) (66004) Ordered By: Radio Station Operator on 03-23-2013 INR Coag RelTime (PPP) 1.8 {INR} Abnormal 0.8-1.2 [facility] Work Phone: Comment on above: Reference interval i s for non-anticoagulated patients. . Suggested INR therapeutic range for Vitamin K antagonist therapy: Standard Dose (moderate intensity therapeutic range): 2.0 - 3.0 Higher intensity therapeutic range 2.5 - 3.5 PATIENT NOT FASTINGP ERFORMED BY: LabHenry [facility]6370 [facility] [id number] Information: ADD [id number] AND DRAW FEE [id number] Prothrombin time (PT) Coag time (PPP) 18.7 {sec} Abnormal 9.1-12.0 Comprehensi ve Internal Medicine Work Phone: Comment on above: PATIENT NOT FASTINGP ERFORMED BY: SEVEN LabCo Eqlfjd7462 [facility] [id number] Information: ADD J0378 AND DRAW FEE [id number] 660 PT Coag (PPP) [Time] 18.7 s Abnormal 9.1-12.0 Comp rehensive Internal Medicine; [facility] Internal Medicine Work Phone: Comment on above: PATIENT NOT FASTINGP ERFORMED BY: LabCo Ljtgmq2932 [facility] [id number] Information: ADD J0378 AND DRAW FEE [id number] 660 PT (Prothrobim Time) (23576) Ordered By: Radio Station Operator on 02-28-2013 INR Coag RelTime (PPP) 2.1 {INR} Abnormal 0.8-1.2 [facility] Internal Medicine Work Phone: Comment on above: Reference interval i s for non-anticoagulated patients. . Suggested INR therapeutic range for Vitamin K antagonist therapy: Standard Dose (moderate intensity therapeutic range): 2.0 - 3.0 Higher intensity therapeutic range 2.5 - 3.5 PATIENT NOT FASTINGP ERFORMED BY: [facility]6370 [facility] [id number] Information: [id number] Prothrombin time (PT) Coag time (PPP) 22.0 {sec} Abnormal 9.1-12.0 [facility] Internal Medicine Work Phone: Comment on above: PATIENT NOT FASTINGP ERFORMED BY: LabCo Ajjewu4090 [facility] [id number] Information: [id number] PT Coag (PPP) [Time] 22.0 s Abnormal 9.1-12.0 Comp [facility] Internal Medicine; [facility] Internal Medicine Work Phone: Comment on above: PATIENT NOT FASTINGP ERFORMED BY: LabCo Ptwaam8145 [facility] [id number] Information: [id number] PT (Prothrobim Time) (53075) Ordered By: Radio Station Operator on 02-14-2013 INR Coag RelTime (PPP) 2.8 {INR} Abnormal 0.8-1.2 [facility] Work Phone: Comment on above: Reference interval i s for non-anticoagulated patients. . Suggested INR therapeutic range for Vitamin K antagonist therapy: Standard Dose (moderate intensity therapeutic range): 2.0 - 3.0 Higher intensity therapeutic range 2.5 - 3.5 PATIENT NOT FASTINGP ERFORMED BY: Billboard Jungle70 MobiscopeFormerly [facility] [id number] Information: [id number] Prothrombin time (PT) Coag time (PPP) 28.7 {sec} Abnormal 9.1-12.0 [facility] Internal Medicine Work Phone: Comment on above: PATIENT NOT FASTINGP ERFORMED BY: Billboard Jungle70 MobiscopeFormerly [facility] [id number] Information: [id number] PT Coag (PPP) [Time] 28.7 s Abnormal 9.1-12.0 [facility] Internal Medicine; [facility] Work Phone: Comment on above: PATIENT NOT FASTINGP ERFORMED BY: [employer]70 MINGDAO.COMFormerly [facility] [id number] Information: [id number] Prothrombin Time (PT)Ordered By: Radio Station Operator on 02-07-2013 INR Coag RelTime (PPP) 1.6 {INR} Abnormal 0.8-1.2 [facility] Work Phone: Comment on above: Reference interval i s for non-anticoagulated patients. . Suggested INR therapeutic range for Vitamin K antagonist therapy: Standard Dose (moderate intensity therapeutic range): 2.0 - 3.0 Higher intensity therapeutic range 2.5 - 3.5 PERFORMED BY: Bindo6370 MobiscopeFormerly [facility] [id number] Prothrombin time (PT) Coag time (PPP) 16.3 {sec} Abnormal 9.1-12.0 [facility] Internal [facility] Work Phone: Comment on above: PERFORMED BY: [employer]70 [facility] [id number] Prothrombin Time (PT)Ordered By: Radio Station Operator on 12-27-2012 INR Coag RelTime (PPP) 2.1 {INR} Abnormal 0.8-1.2 [facility] Work Phone: Comment on above: Reference interval i s for non-anticoagulated patients. . Suggested INR therapeutic range for Vitamin K antagonist therapy: Standard Dose (moderate intensity therapeutic range): 2.0 - 3.0 Higher intensity therapeutic range 2.5 - 3.5 PERFORMED BY: Bindo6370 [facility] [id number] Prothrombin time (PT) Coag time (PPP) 21.4 {sec} Abnormal 9.1-12.0 Comprehensi ve Internal Medicine Work Phone: Comment on above: PERFORMED BY: [employer]in[employer]6370 [facility] [id number] PT (Prothrobim Time) (43678) Ordered By: Radio Station Operator on 11-15-2012 INR Coag RelTime (PPP) 2.7 {INR} Abnormal 0.8-1.2 [facility] Work Phone: Comment on above: Reference interval i s for non-anticoagulated patients. . Suggested INR therapeutic range for Vitamin K antagonist therapy: Standard Dose (moderate intensity therapeutic range): 2.0 - 3.0 Higher intensity therapeutic range 2.5 - 3.5 PATIENT NOT FASTINGP ERFORMED BY: [employer]6370 [facility] [id number] Information: [id number] Prothrombin time (PT) Coag time (PPP) 28.0 {sec} Abnormal 9.1-12.0 Comprehensi ve Internal Medicine Work Phone: Comment on above: PATIENT NOT FASTINGP ERFORMED BY: [employer]6370 [facility] [id number] Information: [id number] PT Coag (PPP) [Time] 28.0 s Abnormal 9.1-12.0 Comp rehensive Internal Medicine; [facility] Work Phone: Comment on above: PATIENT NOT FASTINGP ERFORMED BY: SEVEN Tom Nfxwzb4223 [facility] [id number] Information: [id number] PT (Prothrobim Time) (55990) Ordered By: Radio Station Operator on 10-04-2012 INR Coag RelTime (PPP) 1.8 {INR} Abnormal 0.8-1.2 [facility] Work Phone: Comment on above: Reference interval i s for non-anticoagulated patients. . Suggested INR therapeutic range for Vitamin K antagonist therapy: Standard Dose (moderate intensity therapeutic range): 2.0 - 3.0 Higher intensity therapeutic range 2.5 - 3.5 PATIENT NOT FASTINGP ERFORMED BY: SEVEN Rioslin6370 [facility] [id number] Information: [id number] Prothrombin time (PT) Coag time (PPP) 18.6 {sec} Abnormal 9.1-12.0 [facility] Internal Medicine Work Phone: Comment on above: PATIENT NOT FASTINGP ERFORMED BY: SEVEN Tom Fwhfwv6133 [facility] [id number] Information: [id number] PT Coag (PPP) [Time] 18.6 s Abnormal 9.1-12.0 Comp rehensive Internal Medicine; [facility] Internal Medicine Work Phone: Comment on above: PATIENT NOT FASTINGP ERFORMED BY: SEVEN TomSt. Joseph's Wayne HospitalIfigar7978 [facility] [id number] Information: [id number] Prothrombin Time (PT)Ordered By: Radio Station Operator on 08-14-2012 INR Coag RelTime (PPP) 2.0 {INR} Abnormal 0.8-1.2 [facility] Internal Medicine Work Phone: Comment on above: Reference interval i s for non-anticoagulated patients. . Suggested INR therapeutic range for Vitamin K antagonist therapy: Standard Dose (moderate intensity therapeutic range): 2.0 - 3.0 Higher intensity therapeutic range 2.5 - 3.5 A duplicate report h as been generated due to demographic updates.PERFORMED BY: SEVEN Rioslin6370 [facility] [id number] Information: ACCT# CORRECTED 08-16-12. Prothrombin time (PT) Coag time (PPP) 21.1 {sec} Abnormal 9.1-12.0 Compre[facility]si ve Internal Medicine Work Phone: Comment on above: A duplicate report h as been generated due to demographic updates.PERFORMED BY: SEVEN [facility]6370 [facility] [id number] Information: ACCT# CORRECTED 08-16-12. PTOrdered By: Radio Station Operator on 07-19-2012 INR Coag RelTime (PPP) 2.6 {INR} Normal [facility] Work Phone: Prothrombin time (PT) Coag time (PPP) 2.6 s Normal Comprehensi ve Internal Medicine Work Phone: Prothrombin time (PT) Coag time (PPP) 26.0 s Abnormal 11.9-14.4 Comprehensi ve Internal Medicine Work Phone: PT 26.0 s Abnormal 11.9-14.4 [facility] Work Phone: PTOrdered By: Radio Station Operator on 07-11-2012 INR Coag RelTime (PPP) 1.8 {INR} Normal [facility] Work Phone: Prothrombin time (PT) Coag time (PPP) 1.8 s Normal Comprehensi ve Internal Medicine Work Phone: Prothrombin time (PT) Coag time (PPP) 19.6 s Abnormal 11.9-14.4 Compre[facility]si ve Internal Medicine Work Phone: PT 19.6 s Abnormal 11.9-14.4 [facility] Work Phone: PTOrdered By: Radio Station Operator on 07-03-2012 INR Coag RelTime (PPP) 1.9 {INR} Normal [facility] Work Phone: Prothrombin time (PT) Coag time (PPP) 1.9 s Normal Comprehensi ve Internal Medicine Work Phone: Prothrombin time (PT) Coag time (PPP) 20.3 s Abnormal 11.9-14.4 Comprehensi ve Internal Medicine Work Phone: PT 20.3 s Abnormal 11.9-14.4 [facility] Work Phone: PTOrdered By: Radio Station Operator on 06-26-2012 INR Coag RelTime (PPP) 1.7 {INR} Normal [facility] Work Phone: Prothrombin time (PT) Coag time (PPP) 1.7 s Normal Comprehensi ve Internal Medicine Work Phone: Prothrombin time (PT) Coag time (PPP) 18.9 s Abnormal 11.9-14.4 Comprehensi ve Internal Medicine Work Phone: PT 18.9 s Abnormal 11.9-14.4 [facility] Work Phone: PTOrdered By: Radio Station Operator on 05-12-2012 INR Coag RelTime (PPP) 2.2 {INR} Normal [facility] Work Phone: Prothrombin time (PT) Coag time (PPP) 22.4 s Abnormal 11.9-14.4 Comprehensi ve Internal Medicine Work Phone: Prothrombin time (PT) Coag time (PPP) 2.2 s Normal Comprehensi ve Internal Medicine Work Phone: PT 22.4 s Abnormal 11.9-14.4 [facility] Work Phone: PTOrdered By: Radio Station Operator on 05-05-2012 INR Coag RelTime (PPP) 2.7 {INR} Normal [facility] Work Phone: Prothrombin time (PT) Coag time (PPP) 2.7 s Normal Compre[facility] Work Phone: Prothrombin time (PT) Coag time (PPP) 26.1 s Abnormal 11.9-14.4 Compre[facility]si [facility] Work Phone: PT 26.1 s Abnormal 11.9-14.4 [facility] Work Phone: CBCMDOrdered By: Maggy rivera on 04-28-2012 Eosinophils/100 WBC (Bld) 2 % Normal 0-5 [facility] Work Phone: Eosinophils/100 WBC Auto (Bld) 2 % Normal 0-5 [facility] Work Phone: Erythrocyte distribution width Auto Ratio (RBC) 13.4 % Normal 11.6-14.6 [facility] Work Phone: Erythrocyte distribution width Ratio (RBC) 13.4 % Normal 11.6-14.6 [facility] Work Phone: Hematocrit Auto Volume Fraction (Bld) 39.1 % Normal 37-47 [facility] Work Phone: Hematocrit Volume Fraction (Bld) 39.1 % Normal 37-47 [facility] Work Phone: Hemoglobin mass conc (Bld) 13.5 g/dL Normal 12.0-16.0 [facility] Work Phone: Lymphocytes/100 WBC (Bld) 27 % Normal 19-41 [facility] Work Phone: Lymphocytes/100 WBC Auto (Bld) 27 % Normal 19-41 [facility] Work Phone: MCH Auto Entitic mass (RBC) 29.9 pg Normal 27.0-32.0 [facility] Work Phone: MCH Entitic mass (RBC) 29.9 pg Normal 27.0-32.0 [facility] Work Phone: MCHC Auto mass conc (RBC) 34.6 g/dL Normal 32-36 [facility] Work Phone: MCHC mass conc (RBC) 34.6 g/dL Normal 32-36 Comp rehensive [facility] Work Phone: MCV Auto Entitic volume (RBC) 86.6 fL Normal 81-99 [facility] Work Phone: MCV Entitic volume (RBC) 86.6 fL Normal 81-99 [facility] Work Phone: Neutrophils #/vol (Bld) 5.2 3/uL Normal 2.0-7.7 [facility] Work Phone: Neutrophils Auto #/vol (Bld) 5.2 3/uL Normal 2.0-7.7 [facility] Work Phone: Platelets #/vol (Bld) 180 10*3/uL Normal 150-450 [facility] Work Phone: Platelets Auto #/vol (Bld) 180 10*3/uL Normal 150-450 [facility] Work Phone: RBC #/vol (Bld) 4.52 {M/mm3} Normal 4.2-5.4 Compre[facility] Work Phone: RBC #/vol (Bld) NORM C+C Normal Comprehen s[facility] Work Phone: RBC Auto #/vol (Bld) NORM C+C Normal Comp rehensive [facility] Work Phone: RBC Auto #/vol (Bld) 4.52 {M/mm3} Normal 4.2-5.4 Co m[facility] Work Phone: WBC #/vol (Bld) 7.4 10*3/uL Normal 4.4-11.0 Comprehe nsive [facility] Work Phone: WBC Auto #/vol (Bld) 7.4 10*3/uL Normal 4.4-11.0 Com prehensive [facility] Work Phone: CBCMD ADEQUATE Normal [facility] Work Phone: CBCMD 100 1 Normal [facility] Work Phone: CBCMD 4 % Normal 0-10 [facility] Work Phone: CBCMD 67 % Normal 47-70 [facility] Work Phone: CMPOrdered By: System Manage r on 04-28-2012 Albumin mass conc 4.2 g/dL Normal 3.4-5.0 Compreh ens[facility] Work Phone: Albumin/Globulin mass ratio 1.6 {RATIO} Normal 0.9-2.4 [facility] Work Phone: ALP enzyme act/vol 47 U/L Abnormal 50-136 Compre [facility] Work Phone: ALT enzyme act/vol 31 U/L Normal 12-78 Compre [facility] Work Phone: Anion gap 3 molar conc 7 mmol/L Normal 5-15 [facility] Work Phone: Anion gap molar conc 7 mmol/L Normal 5-15 Comp rehensive [facility] Work Phone: AST enzyme act/vol 26 U/L Normal 15-37 Compre [facility] Work Phone: Bilirubin mass conc 0.60 mg/dL Normal 0.00-1.00 Compr ensive [facility] Work Phone: Calcium mass conc 8.5 mg/dL Normal 8.5-10.1 [facility] Work Phone: Chloride molar conc 106 mmol/L Normal 98-107 Compr [facility] Work Phone: CO2 molar conc 27.0 mmol/L Normal 21.0-32.0 Comprehen [facility] Work Phone: Creatinine mass conc 0.9 mg/dL Normal 0.6-1.0 Comp [facility] Work Phone: GFR/1.73 sq M predicted among blacks MDRD vol rate/area (S/P/Bld) 93 mL/min/{1.73_m2} Normal Comprehe nsive [facility] Work Phone: GFR/1.73 sq M.predicted MDRD vol rate/area 77 mL/min/{1.73_m2} Normal Comprehensiv e [facility] Work Phone: Globulin Calculated mass conc (S) 2.7 g/dL Normal 2.7-4.2 [facility] Work Phone: Globulin mass conc (S) 2.7 g/dL Normal 2.7-4.2 [facility] Work Phone: Glucose mass conc 82 mg/dL Normal 70-110 Compreh ensive [facility] Work Phone: Potassium molar conc 4.2 mmol/L Normal 3.5-5.1 Comp rehensive [facility] Work Phone: Protein mass conc 6.9 g/dL Normal 6.4-8.2 Compreh ensive [facility] Work Phone: Sodium molar conc 140 mmol/L Normal 136-145 Compreh ensive [facility] Work Phone: Urea nitrogen mass conc 16 mg/dL Normal 7-18 [facility] Work Phone: Urea nitrogen/Creatinine mass ratio 17.8 {RATIO} Normal 10-20 [facility] Work Phone: LIPIDOrdered By: System Lilian rivera on 04-28-2012 Cholesterol in HDL mass conc 51 mg/dL Normal [facility] Work Phone: Comment on above: Reference Range HDL <40 mg/dL Low HDL Cholesterol HDL >or= 60 mg/dL High HDL Cholesterol Cholesterol in LDL mass conc 96 mg/dL Normal 0-130 [facility] Work Phone: Cholesterol in VLDL mass conc 20 mg/dL Normal 5-40 [facility] Work Phone: Cholesterol mass conc 167 mg/dL Normal [facility] Work Phone: Comment on above: <200 mg/dL Desirable 200-240 mg/dL Borderline >240 mg/dL High Risk Triglyceride mass conc 102 mg/dL Normal [facility] Work Phone: Comment on above: Serum Triglycerides Reference Interval Normal <150 mg/dL Borderline high 150 - 199 mg/dL High 200 - 499 mg/dL Very High > or = 500 mg/dL PTOrdered By: Radio Station Operator on 04-28-2012 INR Coag RelTime (PPP) 4.0 {INR} Abnormal [facility] Work Phone: Prothrombin time (PT) Coag time (PPP) 35.3 s Abnormal 11.9-14.4 [facility] Work Phone: Prothrombin time (PT) Coag time (PPP) 4.0 s Abnormal Compre[facility] Work Phone: PT 35.3 s Abnormal 11.9-14.4 [facility] Work Phone: TSHOrdered By: System Manage r on 04-28-2012 Thyrotropin Qn 0.56 {uIU/mL} Normal 0.358-3.74 Compreh ensive [facility] Work Phone: [id number] By: System Man ager on 04-25-2012 PAPIG3 Negative Normal [facility] Work Phone: Comment on above: This high-risk HPV t est detects thirteen high-risk types(16/18/31/33/35/39/45/51/52/56/58/59/68) withoutdifferentiation. .Performed at: [address] [id number] Director: Asha Osborne MD, Phone: [phone] at: =[address] [id number] Director: Asha Osborne MD, Phone: [phone] PAPIG3 Comment Normal [facility] Work Phone: Comment on above: The Pap smear is a s creening test designed to aid in thedetection of premalignant and malignant conditions of theuterine cervix. It is not a diagnostic procedure andshould not be used as the sole means of detecting cervicalcancer. Both false-positive and false-negative reports dooccur. . NEGATIVE FOR INTRAEP ITHELIAL LESION AND MALIGNANCY.Satisfactory for evaluation. Endocervical and/or squamous metaplasticcells (endocervical component) are present.Layne Andres, Hotel Maintenance Engineer (ASCP)This liquid based ThinPrep(R) pap test was screened withthe use of an image guided system. PAPIG3 . Normal [facility] Work Phone: PTOrdered By: Radio Station Operator on 04-11-2012 INR Coag RelTime (PPP) 2.5 {INR} Normal [facility] Work Phone: Prothrombin time (PT) Coag time (PPP) 25.2 s Abnormal 11.9-14.4 [facility]pre[facility] Work Phone: Prothrombin time (PT) Coag time (PPP) 2.5 s Normal Compre[facility]si [facility] Work Phone: PT 25.2 s Abnormal 11.9-14.4 [facility] Work Phone: PTOrdered By: Radio Station Operator on 04-04-2012 INR Coag RelTime (PPP) 1.0 {INR} Normal [facility] Work Phone: Prothrombin time (PT) Coag time (PPP) 13.2 s Normal 11.9-14.4 [facility]pre[facility] Work Phone: Prothrombin time (PT) Coag time (PPP) 1.0 s Normal Compre[facility]si [facility] Work Phone: PT 13.2 s Normal 11.9-14.4 [facility] Work Phone: PTOrdered By: Radio Station Operator on 03-23-2012 INR Coag RelTime (PPP) 3.3 {INR} Normal [facility] Work Phone: Prothrombin time (PT) Coag time (PPP) 3.3 s Normal Compre[facility]si [facility] Work Phone: Prothrombin time (PT) Coag time (PPP) 31.9 s Abnormal 11.9-14.4 Compre[facility]si [facility] Work Phone: PT 31.9 s Abnormal 11.9-14.4 [facility] Work Phone: PTOrdered By: Radio Station Operator on 03-13-2012 INR Coag RelTime (PPP) 3.2 {INR} Normal [facility] Work Phone: Prothrombin time (PT) Coag time (PPP) 30.9 s Abnormal 11.9-14.4 [facility] Work Phone: Prothrombin time (PT) Coag time (PPP) 3.2 s Normal Compre[facility] Work Phone: PT 30.9 s Abnormal 11.9-14.4 [facility] Work Phone: PTOrdered By: Radio Station Operator on 02-08-2012 INR Coag RelTime (PPP) 2.8 {INR} Normal [facility] Work Phone: Prothrombin time (PT) Coag time (PPP) 28.4 s Abnormal 11.9-14.4 [facility] Work Phone: Prothrombin time (PT) Coag time (PPP) 2.8 s Normal Compre[facility] Work Phone: PT 28.4 s Abnormal 11.9-14.4 [facility] Work Phone: PRO TIMEOrdered By: Jobzippers on 01-03-2012 INR Coag RelTime (PPP) 2.6 {INR} Normal [facility] Work Phone: Prothrombin time (PT) Coag time (PPP) 26.8 s Abnormal 11.9-14.4 [facility] Work Phone: Prothrombin time (PT) Coag time (PPP) 2.6 s Normal Compre[facility]si [facility] Work Phone: PRO TIMEOrdered By: Jobzippers on 11-29-2011 INR Coag RelTime (PPP) 2.3 {INR} Normal [facility] Work Phone: Prothrombin time (PT) Coag time (PPP) 24.4 s Abnormal 11.9-14.4 [facility] Work Phone: Prothrombin time (PT) Coag time (PPP) 2.3 s Normal Compre[facility]si [facility] Work Phone: PRO TIMEOrdered By: Jobzippers on 10-11-2011 INR Coag RelTime (PPP) 2.3 {INR} Normal [facility] Work Phone: Prothrombin time (PT) Coag time (PPP) 24.0 s Abnormal 11.9-14.4 Compre[facility]si [facility] Work Phone: Prothrombin time (PT) Coag time (PPP) 2.3 s Normal Compre[facility]si [facility] Work Phone: PRO TIMEOrdered By: Jobzippers on 08-18-2011 INR Coag RelTime (PPP) 2.6 {INR} Normal [facility] Work Phone: Prothrombin time (PT) Coag time (PPP) 26.4 s Abnormal 11.9-14.4 [facility]pre[facility]si [facility] Work Phone: Prothrombin time (PT) Coag time (PPP) 2.6 s Normal Compre[facility]si [facility] Work Phone: PRO TIMEOrdered By: Jobzippers on 07-20-2011 INR Coag RelTime (PPP) 2.5 {INR} Normal [facility] Work Phone: Prothrombin time (PT) Coag time (PPP) 26.3 s Abnormal 11.9-14.4 Compre[facility]si [facility] Work Phone: Prothrombin time (PT) Coag time (PPP) 2.5 s Normal Comprehensi [facility] Work Phone: PRO TIMEOrdered By: Jobzippers on 06-01-2011 INR Coag RelTime (PPP) 2.9 {INR} Normal [facility] Work Phone: Prothrombin time (PT) Coag time (PPP) 29.1 s Abnormal 11.9-14.4 Compre[facility]si [facility] Work Phone: Prothrombin time (PT) Coag time (PPP) 2.9 s Normal Compre[facility]si [facility] Work Phone: PRO TIMEOrdered By: Jobzippers on 04-27-2011 INR Coag RelTime (PPP) 2.0 {INR} Normal [facility] Work Phone: Prothrombin time (PT) Coag time (PPP) 22.2 s Abnormal 11.9-14.4 Compre[facility]si [facility] Work Phone: Comment on above: Effective APRIL 20 11. Prothrombin time (PT) Coag time (PPP) 2.0 s Normal Compre[facility]si [facility] Work Phone: PRO TIMEOrdered By: Jobzippers on 04-14-2011 INR Coag RelTime (PPP) 1.2 {INR} Normal [facility] Work Phone: Prothrombin time (PT) Coag time (PPP) 13.0 s Abnormal 9.1-11.7 Compre[facility]si [facility] Work Phone: Prothrombin time (PT) Coag time (PPP) 1.2 s Normal Comprehensi [facility] Work Phone: LQDPAP [id number] By: Lore ystem Artificial Stone Applicator on 03-10-2011 LQDPAP [id number] Comment Normal Comprehen [facility] Work Phone: Comment on above: NEGATIVE FOR INTRAEP ITHELIAL LESION AND MALIGNANCY.Satisfactory for evaluation. Endocervical and/or squamous metaplasticcells (endocervical component) are present.Ada Perez CytotechnologistThis liquid based ThinPrep(R) pap test was screened withthe use of an image guided system. The Pap smear is a s creening test designed to aid in thedetection of premalignant and malignant conditions of theuterine cervix. It is not a diagnostic procedure andshould not be used as the sole means of detecting cervicalcancer. Both false-positive and false-negative reports dooccur. .The HPV DNA reflex criteria were not met with this specimenresult therefore, no HPV testing was performed. .Performed at: [address] [id number] Director: Asha Osborne MD, Phone: [phone] CYTOLOGY INFORMATION :- CLINICAL INFORMATION: - DATE LMP/MENOPAUSE: [id number] LMP- COLLECTION VIAL: Thin Prep Vial- BEHAVIORAL INTERVENTION SPECIALIST SOURCE: - COLLECTION TECHNIQUE: LQDPAP [id number] . [facility] Work Phone: Comment on above: CYTOLOGY INFORMATION :- CLINICAL INFORMATION: - DATE LMP/MENOPAUSE: [id number] LMP- COLLECTION VIAL: Thin Prep Vial- BEHAVIORAL INTERVENTION SPECIALIST SOURCE: - COLLECTION TECHNIQUE: PRO TIMEOrdered By: Maggy martinez on 03-03-2011 INR Coag RelTime (PPP) 2.4 {INR} Normal [facility] Work Phone: Prothrombin time (PT) Coag time (PPP) 24.8 s Abnormal 9.1-11.7 Comprehensi ve [facility] Work Phone: Prothrombin time (PT) Coag time (PPP) 2.4 s Normal Comprehensi ve [facility] Work Phone: VIT D,25 [id number] By: Hilario stem Artificial Stone Applicator on 02-18-2011 VIT D,25 82013 66.3 ng/mL Normal 32.0-100.0 Comprehens [facility] Work Phone: Comment on above: Recent studies consi [place] the lower limit of 32.0 ng/mL to claire threshold for optimal health.Terrance GARCIA. J Nutr. 2004;135(2):317-22.Performed at: [address] [id number] Director: Ninfa Nash MD, Phone: [phone] FREE [id number] By: Maggy plaza on 02-16-2011 T3 free mass conc 2.6 pg/mL Normal 2.18-3.98 Compreh ensive [facility] Work Phone: PRO TIMEOrdered By: Maggy martinez on 02-16-2011 INR Coag RelTime (PPP) 1.8 {INR} Normal [facility] Work Phone: Prothrombin time (PT) Coag time (PPP) 19.0 s Abnormal 9.1-11.7 Comprehensi ve [facility] Work Phone: Prothrombin time (PT) Coag time (PPP) 1.8 s Normal Comprehensi ve [facility] Work Phone: T4 FREE DIRECTOrdered By: Hilario stem Artificial Stone Applicator on 02-16-2011 T4 free mass conc 1.05 ng/dL Normal 0.76-1.46 Compreh ensive [facility] Work Phone: TSHOrdered By: System Manage r on 02-16-2011 Thyrotropin Qn 0.58 {uIU/mL} Normal 0.358-3.74 Compreh ensive [facility] Work Phone: VITAMIN [id number] By: Ephraim caballero Artificial Stone Applicator on 02-16-2011 Cobalamin (Vitamin B12) mass conc 782 pg/mL Normal 254-1320 [facility] Work Phone: Comment on above: There is a low frequ ency possibility that high titers ofintrinsic blocking antibodies may not be completely inactivated during the reaction pretreatment stepof this testing method. If test results are in conflictwith the clinical diagnosis, patient should be testedfor the presence of intrinsic factor blocking antibodies. PRO TIMEOrdered By: Jobzippers on 02-01-2011 INR Coag RelTime (PPP) 2.3 {INR} Normal [facility] Work Phone: Prothrombin time (PT) Coag time (PPP) 23.9 s Abnormal 9.1-11.7 Comprehensi ve [facility] Work Phone: Prothrombin time (PT) Coag time (PPP) 2.3 s Normal Comprehensi ve [facility] Work Phone: CBCOrdered By: Weemba r on 01-28-2011 Erythrocyte distribution width Auto Ratio (RBC) 12.8 % Normal 11.6-14.6 [facility] Work Phone: Erythrocyte distribution width Ratio (RBC) 12.8 % Normal 11.6-14.6 [facility] Work Phone: Hematocrit Auto Volume Fraction (Bld) 39.5 % Normal 37-47 [facility] Work Phone: Hematocrit Volume Fraction (Bld) 39.5 % Normal 37-47 [facility] Work Phone: Hemoglobin mass conc (Bld) 13.8 g/dL Normal 12.0-16.0 [facility] Work Phone: MCH Auto Entitic mass (RBC) 30.1 pg Normal 27.0-32.0 [facility] Work Phone: MCH Entitic mass (RBC) 30.1 pg Normal 27.0-32.0 [facility] Work Phone: MCHC Auto mass conc (RBC) 34.8 g/dL Normal 32-36 [facility] Work Phone: MCHC mass conc (RBC) 34.8 g/dL Normal 32-36 Comp rehensive [facility] Medicine Work Phone: MCV Auto Entitic volume (RBC) 86.5 fL Normal 81-99 [facility] Work Phone: MCV Entitic volume (RBC) 86.5 fL Normal 81-99 [facility] Work Phone: Platelet mean volume Auto Entitic volume (Bld) 10.1 fL Normal 6.5-12.0 [facility] Work Phone: Platelet mean volume Entitic volume (Bld) 10.1 fL Normal 6.5-12.0 Comprehensi ve [facility] Work Phone: Platelets #/vol (Bld) 179 10*3/uL Normal 150-450 [facility] Work Phone: Platelets Auto #/vol (Bld) 179 10*3/uL Normal 150-450 [facility] Work Phone: RBC #/vol (Bld) 4.57 {M/mm3} Normal 4.2-5.4 Compreh ensive [facility] Work Phone: RBC Auto #/vol (Bld) 4.57 {M/mm3} Normal 4.2-5.4 Co mprehensive [facility] Work Phone: WBC #/vol (Bld) 5.3 10*3/uL Normal 4.4-11.0 Comprehe nsive [facility] Work Phone: WBC Auto #/vol (Bld) 5.3 10*3/uL Normal 4.4-11.0 Com prehensive [facility] Work Phone: COMP METABOLICOrdered By: Hilario stem Artificial Stone Applicator on 01-28-2011 Albumin mass conc 4.0 g/dL Normal 3.4-5.0 Compreh ensive [facility] Work Phone: Albumin/Globulin mass ratio 1.3 {RATIO} Normal 0.9-2.4 [facility] Work Phone: ALP enzyme act/vol 46 U/L Abnormal 50-136 Compre hensive [facility] Work Phone: ALT enzyme act/vol 22 U/L Normal 12-78 Compre hensive [facility] Work Phone: Anion gap 3 molar conc 8 mmol/L Normal 5-15 [facility] Work Phone: Anion gap molar conc 8 mmol/L Normal 5-15 Comp rehensive [facility] Work Phone: AST enzyme act/vol 15 U/L Normal 15-37 Compre hensive [facility] Work Phone: Bilirubin mass conc 0.50 mg/dL Normal 0.00-1.00 Compr ehensive [facility] Work Phone: Calcium mass conc 9.4 mg/dL Normal 8.5-10.1 Compreh ensive [facility] Work Phone: Chloride molar conc 105 mmol/L Normal 98-107 Compr ehensive [facility] Work Phone: CO2 molar conc 26.0 mmol/L Normal 21.0-32.0 Comprehen sive [facility] Work Phone: Creatinine mass conc 0.9 mg/dL Normal 0.6-1.0 [facility] Work Phone: GFR/1.73 sq M predicted among blacks MDRD vol rate/area (S/P/Bld) 95 mL/min/{1.73_m2} Normal Comprehe nsive [facility] Medicine Work Phone: GFR/1.73 sq M.predicted MDRD vol rate/area 78 mL/min/{1.73_m2} Normal Comprehensiv e [facility] Medicine Work Phone: Globulin Calculated mass conc (S) 3.1 g/dL Normal 2.7-4.2 [facility] Work Phone: Globulin mass conc (S) 3.1 g/dL Normal 2.7-4.2 [facility] Work Phone: Glucose mass conc 84 mg/dL Normal 70-110 Compreh ensive [facility] Work Phone: Potassium molar conc 4.0 mmol/L Normal 3.5-5.1 Comp rehensive [facility] Work Phone: Protein mass conc 7.1 g/dL Normal 6.4-8.2 Compreh ensive [facility] Work Phone: Sodium molar conc 139 mmol/L Normal 136-145 Compreh ensive [facility] Work Phone: Urea nitrogen mass conc 11 mg/dL Normal 7-18 [facility] Work Phone: Urea nitrogen/Creatinine mass ratio 12.2 {RATIO} Normal 10-20 [facility] Work Phone: LIPIDOrdered By: Maggy rivera on 01-28-2011 Cholesterol in HDL mass conc 57 mg/dL Normal [facility] Work Phone: Comment on above: Reference Range HDL <40 mg/dL Low HDL Cholesterol HDL >or= 60 mg/dL High HDL Cholesterol Cholesterol in LDL mass conc 100 mg/dL Normal 0-130 [facility] Work Phone: Cholesterol in VLDL mass conc 24 mg/dL Normal 5-40 [facility] Work Phone: Cholesterol mass conc 181 mg/dL Normal [facility] Work Phone: Comment on above: <200 mg/dL Desirable 200-240 mg/dL Borderline >240 mg/dL High Risk Triglyceride mass conc 119 mg/dL Normal [facility] Work Phone: Comment on above: Serum Triglycerides Reference Interval Normal <150 mg/dL Borderline high 150 - 199 mg/dL High 200 - 499 mg/dL Very High > or = 500 mg/dL PRO TIMEOrdered By: Maggy martinez on 01-28-2011 INR Coag RelTime (PPP) 3.8 {INR} Abnormal [facility] Work Phone: Prothrombin time (PT) Coag time (PPP) 39.5 s Abnormal 9.1-11.7 Comprehensi ve [facility] Work Phone: Prothrombin time (PT) Coag time (PPP) 3.8 s Abnormal Comprehensi ve [facility] Work Phone: PRO TIMEOrdered By: Maggy martinez on 01-18-2011 INR Coag RelTime (PPP) 1.9 {INR} Normal [facility] Work Phone: Prothrombin time (PT) Coag time (PPP) 19.6 s Abnormal 9.1-11.7 Comprehensi ve [facility] Medicine Work Phone: Prothrombin time (PT) Coag time (PPP) 1.9 s Normal Comprehensi ve [facility] Work Phone: PRO TIMEOrdered By: Jobzippers on 11-16-2010 INR Coag RelTime (PPP) 2.2 {INR} Normal [facility] Work Phone: Prothrombin time (PT) Coag time (PPP) 22.9 s Abnormal 9.1-11.7 Comprehensi ve [facility] Work Phone: Prothrombin time (PT) Coag time (PPP) 2.2 s Normal Comprehensi ve [facility] Work Phone: PRO TIMEOrdered By: Jobzippers on 10-21-2010 INR Coag RelTime (PPP) 1.7 {INR} Normal [facility] Work Phone: Prothrombin time (PT) Coag time (PPP) 17.5 s Abnormal 9.1-11.7 Comprehensi ve [facility] Work Phone: Prothrombin time (PT) Coag time (PPP) 1.7 s Normal Comprehensi ve [facility] Work Phone: PRO TIMEOrdered By: Jobzippers on 10-14-2010 INR Coag RelTime (PPP) 1.4 {INR} Normal [facility] Work Phone: Prothrombin time (PT) Coag time (PPP) 14.6 s Abnormal 9.1-11.7 Comprehensi ve [facility] Medicine Work Phone: Prothrombin time (PT) Coag time (PPP) 1.4 s Normal Comprehensi ve [facility] Work Phone: PRO TIMEOrdered By: Jobzippers on 10-07-2010 INR Coag RelTime (PPP) 1.4 {INR} Normal [facility] Work Phone: Prothrombin time (PT) Coag time (PPP) 14.3 s Abnormal 9.1-11.7 Comprehensi ve [facility] Medicine Work Phone: Prothrombin time (PT) Coag time (PPP) 1.4 s Normal Comprehensi ve [facility] Work Phone: PRO TIMEOrdered By: System Dwolla on 07-24-2010 INR Coag RelTime (PPP) 1.9 {INR} Normal [facility] Work Phone: Prothrombin time (PT) Coag time (PPP) 19.5 s Abnormal 9.1-11.7 Comprehensi ve [facility] Medicine Work Phone: Prothrombin time (PT) Coag time (PPP) 1.9 s Normal Comprehensi ve [facility] Work Phone: PRO TIMEOrdered By: System Dwolla on 07-16-2010 INR Coag RelTime (PPP) 4.1 {INR} Abnormal [facility] Work Phone: Comment on above: RESULTS CALLED TO PABLITO HANCOCK RN 07/16/10 CRYSTAL HANSEN.REPORT READ BACK BY SAME . Prothrombin time (PT) Coag time (PPP) 42.5 s Abnormal 9.1-11.7 [facility] Work Phone: Prothrombin time (PT) Coag time (PPP) 4.1 s Abnormal Compre[facility] Work Phone: Comment on above: RESULTS CALLED TO PABLITO HANCOCK RN 07/16/10 CRYSTAL HANSEN.REPORT READ BACK BY SAME . PRO TIMEOrdered By: Jobzippers on 06-04-2010 INR Coag RelTime (PPP) 2.3 {INR} Normal [facility] Work Phone: Prothrombin time (PT) Coag time (PPP) 24.1 s Abnormal 9.1-11.7 [facility] Work Phone: Prothrombin time (PT) Coag time (PPP) 2.3 s Normal [facility] Work Phone: PRO TIMEOrdered By: System Dwolla on 05-20-2010 INR Coag RelTime (PPP) 2.6 {INR} Normal [facility] Work Phone: Prothrombin time (PT) Coag time (PPP) 26.3 s Abnormal 9.1-11.7 [facility] Work Phone: Prothrombin time (PT) Coag time (PPP) 2.6 s Normal [facility] Work Phone: PRO TIMEOrdered By: Jobzippers on 05-13-2010 INR Coag RelTime (PPP) 3.2 {INR} Normal [facility] Work Phone: Prothrombin time (PT) Coag time (PPP) 32.9 s Abnormal 9.1-11.7 [facility] Work Phone: Prothrombin time (PT) Coag time (PPP) 3.2 s Normal [facility] Work Phone: PRO TIMEOrdered By: Jobzippers on 04-23-2010 INR Coag RelTime (PPP) 2.8 {INR} Normal [facility] Work Phone: Prothrombin time (PT) Coag time (PPP) 29.3 s Abnormal 9.1-11.7 [facility] Work Phone: Prothrombin time (PT) Coag time (PPP) 2.8 s Normal [facility] Work Phone: PRO TIMEOrdered By: Jobzippers on 02-27-2010 INR Coag RelTime (PPP) 2.8 {INR} Normal [facility] Work Phone: Prothrombin time (PT) Coag time (PPP) 29.1 s Abnormal 9.1-11.7 [facility] Work Phone: Prothrombin time (PT) Coag time (PPP) 2.8 s Normal [facility] Work Phone: PRO TIMEOrdered By: Jobzippers on 01-07-2010 INR Coag RelTime (PPP) 2.1 {INR} Normal [facility] Work Phone: Prothrombin time (PT) Coag time (PPP) 23.4 s Abnormal 9.1-11.7 [facility] Work Phone: Prothrombin time (PT) Coag time (PPP) 2.1 s Normal [facility] Work Phone: PRO TIMEOrdered By: Jobzippers on 12-23-2009 INR Coag RelTime (PPP) 1.4 {INR} Normal [facility] Work Phone: Prothrombin time (PT) Coag time (PPP) 15.0 s Abnormal 9.1-11.7 [facility]pre[facility] Work Phone: Prothrombin time (PT) Coag time (PPP) 1.4 s Normal [facility] Work Phone: CULTURE, THROATOrdered By: S ystem Artificial [employer] Applicator on 11-25-2009 CULTURE, THROAT See Note Normal Comprehen s[facility] Work Phone: Comment on above: Normal throat fernando isolated. No beta-hemolyticstreptococcus isolated. PRO TIMEOrdered By: Jobzippers on 08-12-2009 INR Coag RelTime (PPP) 2.4 {INR} Normal [facility] Work Phone: Prothrombin time (PT) Coag time (PPP) 27.1 s Abnormal 9.1-11.7 [facility]pre[facility] Work Phone: Prothrombin time (PT) Coag time (PPP) 2.4 s Normal Com[facility] Work Phone: PRO TIMEOrdered By: Jobzippers on 07-29-2009 INR Coag RelTime (PPP) 3.5 {INR} Normal [facility] Work Phone: Prothrombin time (PT) Coag time (PPP) 40.9 s Abnormal 9.1-11.7 Compre[facility] Work Phone: Comment on above: STAT PLEAS E CALL DR OATES WITH RESULTS Prothrombin time (PT) Coag time (PPP) 3.5 s Normal Com[facility] Work Phone: Comment on above: STAT PLEAS E CALL DR OATES WITH RESULTS Vital Signs Date Time Vital Sign Value Performing Clinician Facility 12-24-2020 13:14-0500 BMI (Body Mass Index) 28.46 kg/m2 Jammie Sanchez [facility]; [facility] Work Phone: 12-24-2020 13:14-0500 Body Temperature 97 [degF] Jammie Sanchez [facility]; [facility] Work Phone: Comment on above: Method: Thermal Scan 12-24-2020 13:14-0500 Body weight 79.38 kg Jammie Sanchez [facility]; [facility] Work Phone: 12-24-2020 13:14-0500 BP Diastolic 62 mm[Hg] Jammie Sanchez [facility]; [facility] Work Phone: Comment on above: Patient Position: Sitting; Cuff Location : Left Arm; Cuff Size: Standard 12-24-2020 13:14-0500 BP Systolic 102 mm[Hg] Jammie Sanchez [facility]; [facility] Work Phone: Comment on above: Patient Position: Sitting; Cuff Location : Left Arm; Cuff Size: Standard 12-24-2020 13:14-0500 BSA (Body Surface Area) 1.88 m2 Jammie Sanchez [facility]; [facility] Work Phone: 12-24-2020 13:14-0500 Height 167 cm Jammie Sanchez [facility]; [facility] Work Phone: 12-24-2020 13:14-0500 Pulse (Heart Rate) 53 /min Jammie Sanchez [facility]; [facility] Work Phone: Comment on above: Pattern: Regular 12-24-2020 13:14-0500 Respiratory Rate 16 /min Jammie Sanchez [facility]; [facility] Work Phone: Comment on above: Pattern: Unlabored 12-05-2019 08:07-0500 BMI (Body Mass Index) 26.02 kg/m2 Jammie Sanchez [facility] Work Phone: 12-05-2019 08:07-0500 Body Temperature 97.6 [degF] Jammie Sanchez [facility] Work Phone: Comment on above: Method: Temporal 12-05-2019 08:07-0500 Body weight 72.58 kg Jammie Sanchez [facility] Internal Medicine Work Phone: 12-05-2019 08:07-0500 BP Diastolic 60 mm[Hg] Jammie Sanchez [facility] Work Phone: Comment on above: Patient Position: Sitting; Cuff Location : Left Arm; Cuff Size: Standard 12-05-2019 08:07-0500 BP Systolic 90 mm[Hg] Jammie Sanchez [facility] Work Phone: Comment on above: Patient Position: Sitting; Cuff Location : Left Arm; Cuff Size: Standard 12-05-2019 08:07-0500 BSA (Body Surface Area) 1.81 m2 Jammie Sanchez [facility] Work Phone: 12-05-2019 08:07-0500 Height 167 cm Jammie Sanchez [facility] Internal Medicine Work Phone: 12-05-2019 08:07-0500 Pulse (Heart Rate) 48 /min Jammie Sanchez [facility] Medicine Work Phone: Comment on above: Pattern: Regular 12-05-2019 08:07-0500 Respiratory Rate 16 /min Jammie Sanchez [facility] Work Phone: Comment on above: Pattern: Unlabored 11-01-2018 13:08-0500 BMI (Body Mass Index) 29.76 kg/m2 Jammie Sanchez [facility] Medicine Work Phone: 11-01-2018 13:08-0500 Body Temperature 97.9 [degF] Jammie Sanchez [facility] Medicine Work Phone: Comment on above: Method: Temporal 11-01-2018 13:08-0500 Body weight 83.01 kg Jammie Sanchez [facility] Medicine Work Phone: 11-01-2018 13:08-0500 BP Diastolic 68 mm[Hg] Jammie Sanchez [facility] Work Phone: Comment on above: Patient Position: Sitting; Cuff Location : Left Arm; Cuff Size: Standard 11-01-2018 13:08-0500 BP Systolic 108 mm[Hg] Jammie Sanchez [facility] Work Phone: Comment on above: Patient Position: Sitting; Cuff Location : Left Arm; Cuff Size: Standard 11-01-2018 13:08-0500 BSA (Body Surface Area) 1.92 m2 Jammie Sanchez [facility] Work Phone: 11-01-2018 13:08-0500 Height 167 cm Jammie Sanchez [facility] Medicine Work Phone: 11-01-2018 13:08-0500 Pulse (Heart Rate) 48 /min Jammie Sanchez [facility] Work Phone: Comment on above: Pattern: Regular 11-01-2018 13:08-0500 Respiratory Rate 16 /min Jammie Sanchez [facility] Internal Medicine Work Phone: Comment on above: Pattern: Unlabored 11-01-2018 13:08-0500 Weight 83.01 kg Kylie Fast [facility] Internal Medicine Work Phone: 11-11-2017 07:49-0500 BMI (Body Mass Index) 29.27 kg/m2 Julia Slarb [employer] WORK[employer] [facility] Internal Medicine Work Phone: 11-11-2017 07:49-0500 Body Temperature 97.9 [degF] Julia Slarb [employer] WORK[employer] [facility] Internal Medicine Work Phone: 11-11-2017 07:49-0500 Body weight 81.65 kg Julia Slarb [employer] WORK[employer] [facility] Internal Medicine Work Phone: 11-11-2017 07:49-0500 BP Diastolic 72 mm[Hg] Julia Slarb [employer] [facility] Internal Medicine Work Phone: Comment on above: Patient Position: Sitting; Cuff Location : Left Arm; Cuff Size: Standard 11-11-2017 07:49-0500 BP Systolic 104 mm[Hg] Julia Dotson LPN [facility] Work Phone: Comment on above: Patient Position: Sitting; Cuff Location : Left Arm; Cuff Size: Standard 11-11-2017 07:49-0500 BSA (Body Surface Area) 1.91 m2 Julia Dotson LPN [facility] Work Phone: 11-11-2017 07:49-0500 Height 167 cm Julia Dotson LPN [facility] Work Phone: 11-11-2017 07:49-0500 Pulse (Heart Rate) 69 /min Julia Dotson LPN [facility] Work Phone: Comment on above: Pattern: Regular 11-11-2017 07:49-0500 Pulse Oximetry 98 % Kylie Junior [facility] Internal Medicine Work Phone: Comment on above: Room air 11-11-2017 07:49-0500 Respiratory Rate 16 /min Julia Dotson LPN [facility] Work Phone: Comment on above: Pattern: Unlabored 11-11-2017 07:49-0500 SaO2% (BldA) [Mass fraction] 98 % Julia Colerb [employer] WORK[employer] [facility]; [facility] Work Phone: Comment on above: Room air 11-11-2017 07:49-0500 Weight 81.65 kg Kylie Junior [facility] Internal Medicine Work Phone: 06-08-2017 13:36-0400 BMI (Body Mass Index) 29.6 kg/m2 Jammie Sanchez [facility] Work Phone: 06-08-2017 13:36-0400 Body Temperature 98.2 [degF] Jammie Sanchez [facility] Work Phone: Comment on above: Method: Temporal 06-08-2017 13:36-0400 Body weight 82.56 kg Jammie Sanchez [facility] Work Phone: 06-08-2017 13:36-0400 BP Diastolic 62 mm[Hg] Jammie Sanchez [facility] Work Phone: Comment on above: Patient Position: Sitting; Cuff Location : Left Arm; Cuff Size: Standard 06-08-2017 13:36-0400 BP Systolic 115 mm[Hg] Jammie Sanchez [facility] Internal Medicine Work Phone: Comment on above: Patient Position: Sitting; Cuff Location : Left Arm; Cuff Size: Standard 06-08-2017 13:36-0400 BSA (Body Surface Area) 1.92 m2 Jammie Sanchez [facility] Internal Medicine Work Phone: 06-08-2017 13:36-0400 Height 167 cm Jammie Sanchez [facility] Medicine Work Phone: 06-08-2017 13:36-0400 Pulse (Heart Rate) 40 /min Jammie Sanchez [facility] Internal Medicine Work Phone: Comment on above: Pattern: Regular 06-08-2017 13:36-0400 Respiratory Rate 16 /min Jammie Sanchez [facility] Internal Medicine Work Phone: Comment on above: Pattern: Unlabored 06-08-2017 13:36-0400 Weight 82.56 kg Kylie Fast [facility] Internal Medicine Work Phone: 11-17-2016 08:04-0500 BMI (Body Mass Index) 29.6 kg/m2 Jett Wang [facility] Internal Medicine Work Phone: 11-17-2016 08:04-0500 Body Temperature 98 [degF] Jett Wang [facility] Medicine Work Phone: 11-17-2016 08:04-0500 Body weight 82.56 kg Jett Wang [facility] Internal Medicine Work Phone: 11-17-2016 08:04-0500 BP Di[facility] 58 mm[Hg] [facility]: Comment on above: Patient Position: Sitting; Cuff Location : Left Arm; Cuff Size: Standard 11-17-2016 08:04-0500 BP Systolic 106 mm[Hg] [facility] Work [facility]: Comment on above: Patient Position: Sitting; Cuff Location : Left Arm; Cuff Size: Standard 11-17-2016 08:04-0500 BSA (Body Surface Area) 1.92 m2 Jett Wang [facility] Internal Medicine Work Phone: 11-17-2016 08:04-0500 Height 167 cm Jett Wang [facility] Internal Medicine Work Phone: 11-17-2016 08:04-0500 Pulse (Heart Rate) 54 /min Jett Wang [facility] Internal Medicine Work Phone: Comment on above: Pattern: Regular 11-17-2016 08:04-0500 Respiratory Rate 16 /min Jett Wang [facility] Internal Medicine Work Phone: Comment on above: Pattern: Unlabored 11-17-2016 08:04-0500 Weight 82.56 kg Kylie Junior [facility] Work Phone: 07-09-2016 07:08-0400 BMI (Body Mass Index) 28.14 kg/m2 Mylene Harrison RN [facility] Work Phone: 07-09-2016 07:08-0400 Body Temperature 96.8 [degF] Mylene Harrison RN [facility] Work Phone: Comment on above: Method: Temporal 07-09-2016 07:08-0400 Body weight 78.47 kg Mylene Harrison RN [facility] Work Phone: 07-09-2016 07:08-0400 BP Diastolic 70 mm[Hg] Mylene Harrison RN [facility] Work Phone: Comment on above: Patient Position: Sitting; Cuff Location : Left Arm; Cuff Size: Large 07-09-2016 07:08-0400 BP Systolic 126 mm[Hg] Mylene Harrison RN [facility] Work Phone: Comment on above: Patient Position: Sitting; Cuff Location : Left Arm; Cuff Size: Large 07-09-2016 07:08-0400 BSA (Body Surface Area) 1.88 m2 Mylene Harrison RN [facility] Work Phone: 07-09-2016 07:08-0400 Height 167 cm Mylene Harrison RN [facility] Work Phone: 07-09-2016 07:08-0400 Pulse (Heart Rate) 72 /min Mylene Harrison RN [facility] Internal Medicine Work Phone: Comment on above: Pattern: Regular 07-09-2016 07:08-0400 Pulse Oximetry 98 % Kylie Junior [facility] Internal Medicine Work Phone: Comment on above: Room air 07-09-2016 07:08-0400 Respiratory Rate 16 /min Mylene Harrison RN [facility] Work Phone: Comment on above: Pattern: Unlabored 07-09-2016 07:08-0400 SaO2% (BldA) [Mass fraction] 98 % Mylene Harrison RN [facility]; [facility] Work Phone: Comment on above: Room air 07-09-2016 07:08-0400 Weight 78.47 kg Kylie Junior [facility] Internal Medicine Work Phone: 02-07-2015 08:03-0400 BMI (Body Mass Index) 28.14 kg/m2 Darlene Drew [facility] Internal Medicine Work Phone: 02-07-2015 08:03-0400 Body Temperature 97.2 [degF] Darlene Drew [facility] Internal Medicine Work Phone: 02-07-2015 08:03-0400 Body weight 78.47 kg Darlene Drew [facility] Internal Medicine Work Phone: 02-07-2015 08:03-0400 BP Diastolic 72 mm[Hg] Darlene Drew [facility] Internal Medicine Work Phone: Comment on above: Patient Position: Sitting; Cuff Location : Left Arm; Cuff Size: Large 02-07-2015 08:03-0400 BP Systolic 102 mm[Hg] Darlene Drew [facility] Internal Medicine Work Phone: Comment on above: Patient Position: Sitting; Cuff Location : Left Arm; Cuff Size: Large 02-07-2015 08:03-0400 BSA (Body Surface Area) 1.88 m2 Darlene Drew [facility] Internal Medicine Work Phone: 02-07-2015 08:03-0400 Height 167 cm Darlene Drew [facility] Internal Medicine Work Phone: 02-07-2015 08:03-0400 Pulse (Heart Rate) 56 /min Darlene Garciasunny [facility] Internal Medicine Work Phone: Comment on above: Pattern: Regular 02-07-2015 08:03-0400 Respiratory Rate 16 /min Darlene Garciasunny [facility] Internal Medicine Work Phone: Comment on above: Pattern: Unlabored 02-07-2015 08:03-0400 Weight 78.47 kg Kylie Junior [facility] Internal Medicine Work Phone: 11-11-2014 09:17-0500 BMI (Body Mass Index) 27.65 kg/m2 ELIZABETH Malin KELL [facility] Internal Medicine Work Phone: 11-11-2014 09:17-0500 Body Temperature 97.8 [degF] ELIZABETH Malin KELL [facility] Internal Medicine Work Phone: Comment on above: Method: Temporal 11-11-2014 09:17-0500 Body weight 77.11 kg ELIZABETH Malin KELL [facility] Internal Medicine Work Phone: 11-11-2014 09:17-0500 BP Diastolic 70 mm[Hg] ELIZABETH Malin [employer] WORK[employer] [facility] Internal Medicine Work Phone: Comment on above: Patient Position: Sitting; Cuff Location : Left Arm; Cuff Size: Standard 11-11-2014 09:17-0500 BP Systolic 108 mm[Hg] ELIZABETH Malin KELL [facility] Internal Medicine Work Phone: Comment on above: Patient Position: Sitting; Cuff Location : Left Arm; Cuff Size: Standard 11-11-2014 09:17-0500 BSA (Body Surface Area) 1.86 m2 ELIZABETH Malin KELL [facility] Internal Medicine Work Phone: 11-11-2014 09:17-0500 Height 167 cm ELIZABETH Malin [employer] WORK[employer] [facility] Internal Medicine Work Phone: 11-11-2014 09:17-0500 Pulse (Heart Rate) 56 /min ELIZABETH Malin KELL [facility] Internal Medicine Work Phone: Comment on above: Pattern: Regular 11-11-2014 09:17-0500 Pulse Oximetry 99 % Kylie Junior [facility] Internal Medicine Work Phone: Comment on above: Room air 11-11-2014 09:17-0500 Respiratory Rate 18 /min ELIZABETH Malin LPN [facility] Work Phone: Comment on above: Pattern: Unlabored 11-11-2014 09:17-0500 SaO2% (BldA) [Mass fraction] 99 % ELIZABETH Malin KELL [facility]; [facility] Work Phone: Comment on above: Room air 11-11-2014 09:17-0500 Weight 77.11 kg Kylie Junior [facility] Internal Medicine Work Phone: 10-14-2014 09:19-0500 BMI (Body Mass Index) 27.65 kg/m2 ELIZABETH Malin KELL [facility] Work Phone: 10-14-2014 09:19-0500 Body Temperature 97 [degF] ELIZABETH Malin KELL [facility] Work Phone: Comment on above: Method: Temporal 10-14-2014 09:19-0500 Body weight 77.11 kg ELIZABETH Malin KELL [facility] Work Phone: 10-14-2014 09:19-0500 BP Diastolic 70 mm[Hg] ELIZABETH Malin KELL [facility] Work Phone: Comment on above: Patient Position: Sitting; Cuff Location : Left Arm; Cuff Size: Standard 10-14-2014 09:19-0500 BP Systolic 110 mm[Hg] ELIZABETH Malin KELL [facility] Work Phone: Comment on above: Patient Position: Sitting; Cuff Location : Left Arm; Cuff Size: Standard 10-14-2014 09:19-0500 BSA (Body Surface Area) 1.86 m2 ELIZABETH Malin KELL [facility] Work Phone: 10-14-2014 09:19-0500 Height 167 cm ELIZABETH Malin KELL [facility] Internal Medicine Work Phone: 10-14-2014 09:19-0500 Pulse (Heart Rate) 64 /min ELIZABETH Malin KELL [facility] Work Phone: Comment on above: Pattern: Regular 10-14-2014 09:19-0500 Respiratory Rate 20 /min ELIZABETH Malin KELL [facility] Work Phone: Comment on above: Pattern: Unlabored 10-14-2014 09:19-0500 Weight 77.11 kg Kylie Junior [facility] Work Phone: 05-08-2014 14:14-0400 BMI (Body Mass Index) 28.12 kg/m2 Joyce Evans RN [facility] Internal Medicine Work Phone: 05-08-2014 14:14-0400 Body Temperature 98.5 [degF] Joyce Evans RN [facility] Work Phone: Comment on above: Method: Temporal 05-08-2014 14:14-0400 Body weight 78.43 kg Joyce Evans RN [facility] Work Phone: 05-08-2014 14:14-0400 BP Diastolic 72 mm[Hg] Joyce Evans RN [facility] Work Phone: Comment on above: Patient Position: Sitting; Cuff Location : Left Arm; Cuff Size: Standard 05-08-2014 14:14-0400 BP Systolic 118 mm[Hg] Joyce Evans RN [facility] Work Phone: Comment on above: Patient Position: Sitting; Cuff Location : Left Arm; Cuff Size: Standard 05-08-2014 14:14-0400 BSA (Body Surface Area) 1.88 m2 Joyce Evans RN [facility] Work Phone: 05-08-2014 14:14-0400 Height 167 cm Joyce Evans RN [facility] Work Phone: 05-08-2014 14:14-0400 Pulse (Heart Rate) 56 /min Joyce Evans RN [facility] Work Phone: Comment on above: Pattern: Regular 05-08-2014 14:14-0400 Pulse Oximetry 98 % Kylie Fast [facility] Work Phone: Comment on above: Room air 05-08-2014 14:14-0400 Respiratory Rate 18 /min Joyce Evans RN [facility] Work Phone: Comment on above: Pattern: Unlabored 05-08-2014 14:140400 SaO2% (BldA) [Mass fraction] 98 % Joyce Evans RN [facility]; [facility] Work Phone: Comment on above: Room air 05-08-2014 14:140400 Weight 78.43 kg Kylie Fast [facility] Internal Medicine Work Phone: 04-29-2014 10:20-0400 BMI (Body Mass Index) 27.81 kg/m2 Darlene Drew [facility] Work Phone: 04-29-2014 10:20-0400 Body Temperature 98.8 [degF] Darlene Drew [facility] Internal Medicine Work Phone: 04-29-2014 10:20-0400 Body weight 77.57 kg Darlene Drew [facility] Medicine Work Phone: 04-29-2014 10:20-0400 BP Diastolic 70 mm[Hg] Darlene Drew [facility] Internal Medicine Work Phone: Comment on above: Patient Position: Sitting; Cuff Location : Left Arm; Cuff Size: Large 04-29-2014 10:20-0400 BP Systolic 108 mm[Hg] Darlene Drew [facility] Internal Medicine Work Phone: Comment on above: Patient Position: Sitting; Cuff Location : Left Arm; Cuff Size: Large 04-29-2014 10:20-0400 BSA (Body Surface Area) 1.87 m2 Darlene Drew [facility] Internal Medicine Work Phone: 04-29-2014 10:20-0400 Height 167 cm Darlene Snow Internal Medicine Work Phone: 04-29-2014 10:20-0400 Pulse (Heart Rate) 48 /min Darlene Drew [facility] Medicine Work Phone: Comment on above: Pattern: Regular 04-29-2014 10:20-0400 Respiratory Rate 16 /min Darlene Drew [facility] Internal Medicine Work Phone: Comment on above: Pattern: Unlabored 04-29-2014 10:20-0400 Weight 77.57 kg Kylie Junior [facility] Internal Medicine Work Phone: 12-14-2013 08:23-0500 BMI (Body Mass Index) 27.81 kg/m2 Darlene Garciasunny [facility] Work Phone: 12-14-2013 08:23-0500 Body Temperature 100 [degF] Darlene Drew [facility] Work Phone: 12-14-2013 08:23-0500 Body weight 77.57 kg Darlene Drew [facility] Work Phone: 12-14-2013 08:23-0500 BP Diastolic 82 mm[Hg] Darlene Garciasunny [facility] Internal Medicine Work Phone: Comment on above: Patient Position: Sitting; Cuff Location : Left Arm; Cuff Size: Large 12-14-2013 08:23-0500 BP Systolic 112 mm[Hg] Darlene Drew [facility] Internal Medicine Work Phone: Comment on above: Patient Position: Sitting; Cuff Location : Left Arm; Cuff Size: Large 12-14-2013 08:23-0500 BSA (Body Surface Area) 1.87 m2 Darlene Garciasunny [facility] Internal Medicine Work Phone: 12-14-2013 08:23-0500 Height 167 cm Darlene Viki [facility] Internal Medicine Work Phone: 12-14-2013 08:23-0500 Pulse (Heart Rate) 46 /min Darlene Drew [facility] Work Phone: Comment on above: Pattern: Regular 12-14-2013 08:23-0500 Respiratory Rate 18 /min Darlene Garciasunny [facility] Internal Medicine Work Phone: Comment on above: Pattern: Unlabored 12-14-2013 08:23-0500 Weight 77.57 kg Kylie Junior [facility] Internal Medicine Work Phone: 08-06-2013 15:58-0400 BMI (Body Mass Index) 27.41 kg/m2 Mylene Harrison RN [facility] Internal Medicine Work Phone: 08-06-2013 15:58-0400 Body Temperature 98.6 [degF] Mylene Harrison RN [facility] Work Phone: Comment on above: Method: Oral 08-06-2013 15:58-0400 Body weight 76.46 kg Mylene Harrison RN [facility] Work Phone: 08-06-2013 15:58-0400 BP Diastolic 68 mm[Hg] Mylene Harrison RN [facility] Work Phone: Comment on above: Patient Position: Sitting; Cuff Location : Left Arm; Cuff Size: Large 08-06-2013 15:58-0400 BP Systolic 118 mm[Hg] Mylene Harrison RN [facility] Work Phone: Comment on above: Patient Position: Sitting; Cuff Location : Left Arm; Cuff Size: Large 08-06-2013 15:58-0400 BSA (Body Surface Area) 1.85 m2 Mylene Harrison RN [facility] Work Phone: 08-06-2013 15:58-0400 Height 167 cm Mylene Harrison RN [facility] Work Phone: 08-06-2013 15:58-0400 Pulse (Heart Rate) 64 /min Mylene Harrison RN [facility] Work Phone: Comment on above: Pattern: Regular 08-06-2013 15:58-0400 Respiratory Rate 18 /min Mylene Harrison RN [facility] Work Phone: Comment on above: Pattern: Unlabored 08-06-2013 15:58-0400 Weight 76.46 kg Kylie Vernon [facility] Work Phone: 06-05-2012 09:37-0400 BMI (Body Mass Index) 30.41 kg/m2 Darlene Drew [facility] Work Phone: 06-05-2012 09:37-0400 Body Temperature 97.9 [degF] Darlene Drew [facility] Work Phone: 06-05-2012 09:37-0400 Body weight 84.82 kg Darlene Drew [facility] Work Phone: 06-05-2012 09:37-0400 BP Diastolic 76 mm[Hg] Darlene Penarosassunny [facility] Work Phone: Comment on above: Patient Position: Sitting; Cuff Location : Left Arm; Cuff Size: Large 06-05-2012 09:37-0400 BP Systolic 110 mm[Hg] Darlene Penarosassunny [facility] Work Phone: Comment on above: Patient Position: Sitting; Cuff Location : Left Arm; Cuff Size: Large 06-05-2012 09:37-0400 BSA (Body Surface Area) 1.94 m2 Darlene Viki [facility] Work Phone: 06-05-2012 09:37-0400 Height 167 cm Darlene Viki [facility] Work Phone: 06-05-2012 09:37-0400 Pulse (Heart Rate) 60 /min [facility]arlene Fl[facility]resa [facility] Work Phone: Comment on above: Pattern: Regular 06-05-2012 09:37-0400 Respiratory Rate 18 /min Darlene Viki [facility] Work Phone: Comment on above: Pattern: Unlabored 06-05-2012 09:37-0400 Weight 84.82 kg Kyliedulce Junior [facility] Work Phone: 04-25-2012 12:00-0400 BMI (Body Mass Index) 30.9 kg/m2 Darlene Viki [facility] Work Phone: 04-25-2012 12:00-0400 Body Temperature 98.5 [degF] Darlene Viki [facility] Work Phone: 04-25-2012 12:00-0400 Body weight 86.18 kg Darlene Viki [facility] Work Phone: 04-25-2012 12:00-0400 BP Diastolic 74 mm[Hg] Darlene Viki [facility] Work Phone: Comment on above: Patient Position: Sitting; Cuff Location : Left Arm; Cuff Size: Large 04-25-2012 12:00-0400 BP Systolic 108 mm[Hg] Darlene Viki [facility] Work Phone: Comment on above: Patient Position: Sitting; Cuff Location : Left Arm; Cuff Size: Large 04-25-2012 12:00-0400 BSA (Body Surface Area) 1.95 m2 Darlene Viki [facility] Work Phone: 04-25-2012 12:00-0400 Height 167 cm Darlene Viki [facility] Work Phone: 04-25-2012 12:00-0400 Pulse (Heart Rate) 64 /min Darlene Viki [facility] Medicine Work Phone: Comment on above: Pattern: Regular 04-25-2012 12:00-0400 Respiratory Rate 16 /min Darlene Drew [facility] Work Phone: Comment on above: Pattern: Unlabored 04-25-2012 12:00-0400 Weight 86.18 kg Kyliedulce Junior [facility] Work Phone: 03-09-2011 15:21-0400 BMI (Body Mass Index) 33.27 kg/m2 Darlene Viki [facility] Medicine Work Phone: 03-09-2011 15:21-0400 Body Temperature 97.9 [degF] Darlene Drew [facility] Work Phone: 03-09-2011 15:21-0400 Body weight 92.08 kg Darlene Viki [facility] Work Phone: 03-09-2011 15:21-0400 BP Diastolic 60 mm[Hg] Darlene Viki [facility] Work Phone: Comment on above: Patient Position: Sitting; Cuff Location : Left Arm; Cuff Size: Large 03-09-2011 15:21-0400 BP Systolic 106 mm[Hg] Darlene Drew [facility] Work Phone: Comment on above: Patient Position: Sitting; Cuff Location : Left Arm; Cuff Size: Large 03-09-2011 15:21-0400 BSA (Body Surface Area) 2 m2 Darlene Drew [facility] Work Phone: 03-09-2011 15:21-0400 Height 166.37 cm Darlene Penateresa [facility] Work Phone: 03-09-2011 15:21-0400 Pulse (Heart Rate) 60 /min [facility]arlene Drew [facility] Internal [facility] Work Phone: Comment on above: Pattern: Regular 03-09-2011 15:21-0400 Respiratory Rate 16 /min Darlene Penateresa [facility] Work Phone: Comment on above: Pattern: Unlabored 03-09-2011 15:21-0400 Weight 92.08 kg Kyliedulce Junior [facility] Work Phone: 02-08-2011 14:27-0400 BMI (Body Mass Index) 32.94 kg/m2 Darlene Penateresa [facility] Internal Medicine Work Phone: 02-08-2011 14:27-0400 Body Temperature 98.8 [degF] Darlene Penateresa [facility] Work Phone: 02-08-2011 14:27-0400 Body weight 91.17 kg Darlene Penateresa [facility] Work Phone: 02-08-2011 14:27-0400 BP Diastolic 84 mm[Hg] Darlene Penateresa [facility] Work Phone: Comment on above: Patient Position: Sitting; Cuff Location : Left Arm; Cuff Size: Standard 02-08-2011 14:27-0400 BP Systolic 124 mm[Hg] Darlene Viki [facility] Work Phone: Comment on above: Patient Position: Sitting; Cuff Location : Left Arm; Cuff Size: Standard 02-08-2011 14:27-0400 BSA (Body Surface Area) 1.99 m2 Darlene Penateresa [facility] Work Phone: 02-08-2011 14:27-0400 Height 166.37 cm Darlene Penateresa [facility] Work Phone: 02-08-2011 14:27-0400 Pulse (Heart Rate) 64 /min Darlene Drew [facility] Work Phone: Comment on above: Pattern: Regular 02-08-2011 14:27-0400 Respiratory Rate 16 /min Darlene Penateresa [facility] Work Phone: Comment on above: Pattern: Unlabored 02-08-2011 14:27-0400 Weight 91.17 kg Kylie Fast [facility] Work Phone: 12-26-2009 07:02-0500 Body Temperature 98.1 [degF] Rosana Koroma RN [facility] Work Phone: Comment on above: Method: Oral 12-26-2009 07:02-0500 Body weight 91.63 kg Rosana Koroma RN [facility] Work Phone: 12-26-2009 07:02-0500 BP Diastolic 62 mm[Hg] Rosana Koroma RN [facility] Work Phone: Comment on above: Patient Position: Sitting; Cuff Location : Left Arm; Cuff Size: Large 12-26-2009 07:02-0500 BP Systolic 100 mm[Hg] Rosana Koroma RN [facility] Work Phone: Comment on above: Patient Position: Sitting; Cuff Location : Left Arm; Cuff Size: Large 12-26-2009 07:02-0500 Pulse (Heart Rate) 72 /min Rosana Koroma RN [facility] Work Phone: Comment on above: Pattern: Regular 12-26-2009 07:02-0500 Respiratory Rate 16 /min Rosana Koroma RN [facility] Work Phone: Comment on above: Pattern: Unlabored 12-26-2009 07:02-0500 Weight 91.63 kg Kylie Fast [facility] Work Phone: 11-24-2009 14:55-0500 BMI (Body Mass Index) 31.47 kg/m2 Mylene Harrison RN [facility] Work Phone: 11-24-2009 14:55-0500 Body Temperature 100.3 [degF] Mylene Harrison RN [facility] Work Phone: Comment on above: Method: Oral 11-24-2009 14:55-0500 Body weight 88.45 kg Mylene Harrison RN [facility] Work Phone: 11-24-2009 14:55-0500 BP Diastolic 78 mm[Hg] Mylene Harrison RN [facility] Work Phone: Comment on above: Patient Position: Sitting; Cuff Location : Left Arm; Cuff Size: Large 11-24-2009 14:55-0500 BP Systolic 118 mm[Hg] Mylene Harrison RN [facility] Work Phone: Comment on above: Patient Position: Sitting; Cuff Location : Left Arm; Cuff Size: Large 11-24-2009 14:55-0500 BSA (Body Surface Area) 1.98 m2 Mylene Harrison RN [facility] Work Phone: 11-24-2009 14:55-0500 Height 167.64 cm Mylene Harrison RN [facility] Work Phone: 11-24-2009 14:55-0500 Pulse (Heart Rate) 80 /min Mylene Harrison RN [facility] Work Phone: Comment on above: Pattern: Regular 11-24-2009 14:55-0500 Respiratory Rate 20 /min Mylene Harrison RN [facility] Work Phone: Comment on above: Pattern: Unlabored 11-24-2009 14:55-0500 Weight 88.45 kg Kylie Vernon [facility] Work Phone: 07-29-2009 14:54-0400 BMI (Body Mass Index) 31.47 kg/m2 Riribhavesh Myers [facility] Work Phone: 07-29-2009 14:54-0400 Body weight 88.45 kg Riri Myers [facility] Work Phone: 07-29-2009 14:54-0400 BP Diastolic 90 mm[Hg] Riri Lucia [facility] Work Phone: Comment on above: Patient Position: Supine; Cuff Location: Left Arm; Cuff Size: Standard 07-29-2009 14:54-0400 BP Systolic 142 mm[Hg] Riri Myers [facility] Work Phone: Comment on above: Patient Position: Supine; Cuff Location: Left Arm; Cuff Size: Standard 07-29-2009 14:54-0400 BSA (Body Surface Area) 1.98 m2 Riri Myers [facility] Work Phone: 07-29-2009 14:54-0400 Head Circumference 0 cm Kylie Junior [facility] Work Phone: 07-29-2009 14:54-0400 Head Occipital-frontal circumference 0 cm Riri Myers [facility]; [facility] Work Phone: 07-29-2009 14:54-0400 Height 167.64 cm Riri Myers [facility] Work Phone: 07-29-2009 14:54-0400 Pulse (Heart Rate) 60 /min Riri Myers [facility] Work Phone: Comment on above: Pattern: Regular 07-29-2009 14:54-0400 Respiratory Rate 16 /min Riri Myers [facility] Work Phone: Comment on above: Pattern: Unlabored 07-29-2009 14:54-0400 Weight 88.45 kg Kylie Junior [facility] Work Phone: Encounters Encounter Date Encounter Type Care Provider Facility Start: 07-29-2025 ambulatory Kylie Fast Facility:[facility] Start: 10-31-2023 End: 10-31-2023 ambulatory [facility] Work Phone: Start: 10-31-2023 End: 10-31-2023 Patient encounter procedure [facility] Work Phone: Start: 06-02-2022 End: 06-03-2022 Office outpatient visit 10 minutes Kylie Fast DO Work Phone: [facility] Start: 02-05-2022 End: 02-05-2022 Office outpatient visit 5 minutes Kylie Fast DO Work Phone: [facility] Start: 12-24-2020 End: 12-28-2020 Office outpatient visit 15 minutes Kyliedulce Junior [facility] Start: 12-08-2020 End: 12-08-2020 Lab Order Kylie Junior [facility] Start: 12-08-2020 End: 12-08-2020 Patient encounter status Kylie Junior DO Work Phone: [facility] Start: 11-25-2020 End: 11-26-2020 Phone Encounter Kylie Junior [facility] Start: 08-06-2020 End: 08-06-2020 Office outpatient visit 5 minutes Kyliedulce Junior [facility] Start: 12-05-2019 End: 12-05-2019 Office outpatient visit 40 minutes Kylie Vernon [facility] Start: 11-03-2018 End: 11-03-2018 Phone Encounter Kylie Junior [facility] Start: 11-01-2018 Patient encounter procedure Kylie Garcia Vernon [facility] Start: 11-01-2018 End: 01-14-2019 Office outpatient visit 15 minutes Kylie Vernon [facility] Start: 11-01-2018 End: 01-14-2019 Patient encounter status Kylie Junior DO Work Phone: [facility] Start: 11-01-2018 Review Kyliedulce Junior [facility] Start: 03-27-2018 End: 03-27-2018 Phone Encounter Kyliedulce Junior [facility] Start: 01-02-2018 End: 01-02-2018 Phone Encounter Kyliedulce Junior [facility] Start: 11-11-2017 End: 11-27-2017 Office outpatient visit 25 minutes Kylie Junior [facility] Start: 10-28-2017 End: 10-28-2017 Office outpatient visit 5 minutes Kyliedulce Junior [facility] Start: 09-07-2017 End: 09-07-2017 Historical Summary Kylie Vernon [facility] Start: 06-10-2017 End: 06-10-2017 Phone Encounter Kylie Vernon [facility] Start: 06-08-2017 End: 06-08-2017 Medical examinations/reports status Kylie Junior DO Work Phone: [facility] Start: 06-08-2017 End: 06-08-2017 Office outpatient visit 25 minutes Kylie Junior [facility] Start: 03-28-2017 End: 03-28-2017 Phone Encounter Kylie Fast [facility] Start: 11-30-2016 End: 11-30-2016 Office outpatient visit 5 minutes Klyie Fast [facility] Start: 11-17-2016 End: 12-01-2016 Office outpatient visit 25 minutes Kylie Fast [facility] Start: 09-30-2016 End: 09-30-2016 Phone Encounter Kylie Fast [facility] Start: 09-29-2016 End: 09-29-2016 Office outpatient visit 5 minutes Kylie Fast [facility] Start: 07-19-2016 End: 07-19-2016 Phone Encounter Kylie Fast [facility] Start: 07-12-2016 End: 07-12-2016 Phone Encounter Kylie Fast [facility] Start: 07-09-2016 End: 07-09-2016 Office outpatient visit 15 minutes Kylie Fast [facility] Start: 04-07-2016 End: 04-07-2016 Phone Encounter Kylie Fast [facility] Start: 2016 End: 2016 Phone Encounter Kylie Fast [facility] Start: 01-15-2016 End: 01-15-2016 Phone Encounter Kylie Fast [facility] Start: 12-18-2015 End: 12-18-2015 Phone Encounter Kylie Fast [facility] Start: 12-04-2015 End: 12-04-2015 Phone Encounter Kylie Fast [facility] Start: 11-06-2015 End: 11-06-2015 Phone Encounter Kylie Fast [facility] Start: 11-05-2015 End: 11-05-2015 Phone Encounter Kylie Fast [facility] Start: 09-10-2015 End: 09-10-2015 Phone Encounter Kylie Fast [facility] Start: 07-02-2015 End: 07-02-2015 Phone Encounter Kylie Fast [facility] Start: 05-14-2015 End: 05-14-2015 Phone Encounter Kylie Fast [facility] Start: 03-05-2015 End: 03-05-2015 Phone Encounter Kylie Fast [facility] Start: 02-07-2015 End: 02-09-2015 Office outpatient visit 25 minutes Kylie Fast [facility] Start: 02-06-2015 End: 02-06-2015 Phone Encounter Kylie Fast [facility] Start: 01-31-2015 End: 01-31-2015 Phone Encounter Kylie Fast [facility] Start: 01-29-2015 End: 01-29-2015 Patient encounter procedure Kylie Junior [facility] Start: 12-24-2014 End: 12-24-2014 Phone Encounter Kylie Junior [facility] Start: 11-11-2014 End: 11-11-2014 Lab Order Kylie Junior [facility] Start: 11-11-2014 End: 11-11-2014 Periodic preventive med est patient 18-39 yrs Kylie Junior [facility] Start: 10-22-2014 End: 10-22-2014 Phone Encounter Kylie Junior [facility] Start: 10-14-2014 End: 10-14-2014 Office outpatient visit 40 minutes Kylie Junior [facility] Start: 08-13-2014 End: 08-13-2014 Phone Encounter Kylie Junior [facility] Start: 08-12-2014 End: 08-12-2014 Lab Order Kylie Junior [facility] Start: 07-03-2014 End: 07-03-2014 Phone Encounter Kylie Junior [facility] Start: 06-19-2014 End: 06-19-2014 Phone Encounter Kylie Junior [facility] Start: 06-12-2014 End: 06-12-2014 Patient encounter procedure Kylie Junior [facility] Start: 05-15-2014 End: 05-15-2014 Phone Encounter Kylie Junior [facility] Start: 05-08-2014 End: 05-08-2014 Medical examinations/reports status Kylie Junior DO Work Phone: [facility] Start: 05-08-2014 End: 05-08-2014 Patient encounter procedure Kylie Junior [facility] Start: 04-29-2014 End: 04-29-2014 Patient encounter procedure Kylie Junior [facility] Start: 04-16-2014 End: 04-16-2014 Phone Encounter Kylie Junior [facility] Start: 04-12-2014 End: 04-12-2014 Lab Order Kylie Junior [facility] Start: 04-05-2014 End: 04-05-2014 Phone Encounter Kylie Junior [facility] Start: 03-11-2014 End: 03-11-2014 Phone Encounter Kylie Junior [facility] Start: 12-14-2013 End: 12-14-2013 Patient encounter procedure Kylie Junior [facility] Start: 11-30-2013 End: 11-30-2013 Phone Encounter Kylie Junior [facility] Start: 11-07-2013 End: 11-07-2013 Patient encounter procedure Kylie Junior [facility] Start: 08-06-2013 End: 08-06-2013 Patient encounter procedure Kylie Junior [facility] Start: 11-16-2012 End: 11-16-2012 Phone Encounter Kylie Junior [facility] Start: 08-16-2012 End: 08-16-2012 Annotation/Addendum Kylie Junior [facility] Start: 08-14-2012 End: 08-14-2012 Patient encounter procedure Kylie Junior [facility] Start: 07-12-2012 End: 07-12-2012 Phone Encounter Kylie Junior [facility] Start: 06-05-2012 End: 06-05-2012 Patient encounter procedure Kylie Junior [facility] Start: 04-25-2012 End: 04-25-2012 Medical examinations/reports status Kylie Junior DO Work Phone: [facility] Start: 04-25-2012 End: 04-25-2012 Patient encounter procedure Kylie Junior [facility] Start: 04-12-2012 End: 04-12-2012 Phone Encounter Kylie Junior [facility] Start: 03-27-2012 End: 03-27-2012 Annotation/Addendum Kylie Vernon [facility] Start: 03-13-2012 End: 03-13-2012 Phone Encounter Kylie Junior [facility] Start: 01-03-2012 End: 01-03-2012 Annotation/Addendum Kylie Junior [facility] Start: 08-18-2011 End: 08-18-2011 Patient encounter procedure Kylie Junior [facility] Start: 07-20-2011 End: 07-20-2011 Phone Encounter Kylie Junior [facility] Start: 06-01-2011 End: 06-01-2011 Phone Encounter Kylie Junior [facility] Start: 04-27-2011 End: 04-27-2011 Phone Encounter Kylie Junior [facility] Start: 03-09-2011 End: 03-09-2011 Medical examinations/reports status Kylie Junior DO Work Phone: [facility] Start: 03-09-2011 End: 03-09-2011 Patient encounter procedure Kylie Junior [facility] Start: 02-16-2011 End: 02-16-2011 Erroneous Entry Kylie Junior [facility] Start: 02-08-2011 End: 02-08-2011 Annotation/Addendum Kylie Junior [facility] Start: 02-08-2011 End: 02-08-2011 Patient encounter procedure Kylie Junior [facility] Start: 01-19-2011 End: 01-19-2011 Phone Encounter Kylie Junior [facility] Start: 10-14-2010 End: 10-14-2010 Phone Encounter Kylie Junior [facility] Start: 10-07-2010 End: 10-07-2010 Annotation/Addendum Kylie Junior [facility] Start: 09-14-2010 End: 09-14-2010 Patient encounter procedure Kylie Junior [facility] Start: 07-24-2010 End: 07-24-2010 Phone Encounter Kylie Junior [facility] Start: 07-16-2010 End: 07-16-2010 Phone Encounter Kylie Junior [facility] Start: 06-04-2010 End: 06-04-2010 Phone Encounter Kylie Junior [facility] Start: 05-20-2010 End: 05-20-2010 Phone Encounter Kylie Junior [facility] Start: 05-13-2010 End: 05-13-2010 Historical Summary Kylie Junior [facility] Start: 04-24-2010 End: 04-24-2010 Phone Encounter Kylie Junior [facility] Start: 02-27-2010 End: 02-27-2010 Historical Summary Kylie Junior [facility] Start: 12-26-2009 End: 12-26-2009 Patient encounter procedure Kylie Junior [facility] Start: 12-24-2009 End: 12-24-2009 Annotation/Addendum Kylie Junior [facility] Start: 12-24-2009 End: 12-24-2009 Phone Encounter Kylie Junior [facility] Start: 11-24-2009 End: 11-24-2009 Patient encounter procedure Kylie Junior [facility] Start: 08-13-2009 End: 08-13-2009 Phone Encounter Kylie Junior [facility] Start: 07-30-2009 End: 07-30-2009 Historical Summary Kylie Junior [facility] Start: 07-29-2009 End: 07-29-2009 Historical Summary Kylie Junior [facility] Start: 07-29-2009 End: 07-29-2009 Office outpatient new 20 minutes Kyliedulce Junior [facility] Medical examinations/reports status Jammie Manchak [employer] [facility]; [facility] Work Phone: Medical examinations/reports status Kylie Junior DO Work Phone: [facility]; [facility] Work Phone: Patient encounter status Jammie Sanchez CMA [facility]; [facility] Work Phone: Patient encounter status Kylie Junior DO Work Phone: [facility]; [facility] Work Phone: Procedures Date Procedure Procedure Detail Performing Clinician Start: 10-31-2023 Screening mammography Start: 07-20-2022 End: 07-20-2022 Urgent Care Visit Report Procedure Note: See Note; NOTES: [facility] [address] [place] [address] OFFICE VISIT Date of Service: 07/20/22 MR#: [id number] Acct: [id number] Name: TILA CARRERA Rep #: [id number] : [id number] Provider: SIVAKUMAR Cormier Age/Sex: 42/F Location: [email or web address] Status: Signed Intake Vital Signs 07/20/22 06:53 BP 124/76 H Blood Pressure Location Lt brachial Position Sitting Respiration 15 Pulse 81 Pulse Source Monitor Temp 98.0 F Temp Source Temporal Pulse Oximetry (%) 98 Oxygen Delivery Method room air Intake Visit Reasons: CONCERN FOR STREP/ILL X2DAY/PCR COVID TEST Allergies No Known Allergies Allergy (Verified 07/20/22 06:54) Medications amoxicillin 500 mg capsule 500 mg PO BID 10 days #20 caps 07/20/22 [Rx Confirmed 07/20/22] PFSH Medical History Encounter for screening for COVID-19 Social History Smoking Status: Never smoker alcohol intake: current alcohol intake frequency: a few times a week Alcohol type: wine HPI HPI Details: TILA CARRERA, is a 42 F who presents to the office today for complaint of sore throat. Patient states this started last night. Patient denies fever, chills, sweats. No cough, shortness of breath appropriate. No loss of taste or smell. No other associated symptoms or alleviating/aggravating factors. ROS Const Constitutional: Positive for other (as above) Exam Const General: cooperative and healthy appearing HENAL Head: normal to inspection Ears: hearing grossly normal bilaterally, TM's normal bilaterally and EAC's normal Nose: external nose normal and nasal discharge clear Mouth: oral mucosae normal Throat: abnormal tonsil bilaterally Resp Effort Inspection: normal respiratory effort Auscultation: Bilateral: Clear to Auscultation Cardio Palpation: normal PMI Rate: regular rate Rhythm: regular rhythm Neuro General: patient alert and CN's II-XI intact bilaterally Psych Appearance: grossly normal Mental Status: mental status grossly normal Results POC Lupe Rapid Strep POC Lupe Rapid Strep Positive Last Edit by Maria R Caban RN on 07/20/22 07:03 Coding Level of Care Code Off vis,est,level 3 Diagnoses Strep pharyngitis J02.0 Assessment and Plan Assessment and Plan (1) Strep pharyngitis: Status: Acute Plan: Amoxicillin as prescribed today. Encouraged to get plenty of rest, drink lots of clear liquids, and use Tylenol or Ibuprofen (unless contraindicated) for fever and comfort. Patient also educated on other symptomatic management techniques. To be seen in 7-10 days if no improvement; sooner if worsening of symptoms. Patient advised of potential red flags and when appropriate to report to the ED. Patient verbalized understanding and agreement with all the above. Orders: Orders POC Lupe Rapid Strep A Today J02.9 - Acute pharyngitis, unspecified Medications: New amoxicillin 500 mg PO BID 10 days 20 caps 0RF 07/20/22 0824 <Electronically signed by Bhaskar SHAVER> Date Bhaskar SHAVER Cosigner Signature: Date (if applicable) CC: Kylie Junior DO Work Phone: Start: 11-18-2021 End: 11-18-2021 Urgent Care Visit Report Comments: See Note; NOTES: [facility] [address] [id number] OFFICE VISIT Date of Service: 11/18/21 MR#: [id number] Acct: [id number] Name: TILA CARRERA Rep #: [id number] : 1980 Provider: SIVAKUMAR welsh Age/Sex: 41/F Location: [email or web address] Status: Signed Intake Vital Signs 11/18/21 07:47 Height 5 ft 6 in Weight: 176 lb 4 oz BMI 28.4 BP 110/70 Blood Pressure Location Lt brachial Position Sitting Respiration 14 Pulse 69 Pulse Source Monitor Temp 97.9 F Temp Source Temporal Pulse Oximetry (%) 99 Oxygen Delivery Method room air Intake Visit Reasons: SINUS INFECTION/ COVID TEST Allergies No Known Allergies Allergy (Verified 11/18/21 07:47) Medications NK 11/18/21 [History Confirmed 11/18/21] [facility] Medical History (Updated 11/18/21 @ 07:54 by Hitesh SHAVER, SIVAKUMAR) Encounter for screening for COVID-19 Social History Smoking Status: Never smoker alcohol intake: current alcohol intake frequency: a few times a week Alcohol type: wine HPI HPI Details: TILA CARRERA, is a 41 F who presents to the office today for 5 day h/o cough, dale, sore throat, sinus congestion/ runny nose. COVID19 vaccine and booster utd. + COVID19 exposure 5 days ago. x2 neg covid19 home kits since symptoms began. Mucinex Cold and SINUS some help. Nonsmoker. No other c/o at this time. ROS Const Constitutional: Positive for other (as above) Exam Const General: cooperative, healthy appearing, comfortable and no acute distress Nutritional Appearance: average body habitus and well nourished Orientation: alert, awake and oriented x3 HENMT Head: normal to inspection Ears: hearing grossly normal bilaterally, external ears normal, TM's normal bilaterally and EAC's normal Nose: external nose normal, nares normal, septum normal and nasal discharge clear Face and sinus: normal facial exam, face symmetric and sinus tenderness frontal and maxillary; not ethmoid Mouth: oral mucosae normal, lip normal, tongue normal and moist mucous membranes Throat: posterior oropharynx normal, tonsils normal, uvula midline and no postnasal drainage Eyes General: appearance normal, both eyes and all related structures Neck Neck: normal visual inspection, full ROM, no lymphadenopathy, no meningeal signs and supple Neck mass: No Thyroid: thyroid normal Lymphatic: no lymphadenopathy noted Chest Chest palpation inspection: normal inspection of the chest Resp Effort Inspection: normal respiratory effort, able to speak in complete sentences, symmetric chest movement and no cough Auscultation: Bilateral: Clear to Auscultation Cardio Palpation: normal PMI Rate: regular rate Rhythm: regular rhythm Heart Sounds: S1 normal, S2 normal, no gallops, no murmurs and no rubs Pulses: radial pulses present GI Inspection: normal to inspection Palpation: soft and no hepatosplenomegaly Skin General: no rashes or lesions noted Neuro General: patient alert, patient awake, patient oriented x3 and gait normal Cognition: normal cognition Speech: speech normal Gait: normal gait Motor: muscle tone normal throughout Sensory Exam: no sensory deficits noted Psych Appearance: grossly normal Mental Status: mental status grossly normal Mood: congruent mood Affect: normal affect Speech and Movement: speech and movement normal Attitude: cooperative Thought Process: normal Thought Content: normal Judgment: judgment good Coding Level of Care Code Off vis,new,level 2 Diagnoses Encounter for screening for COVID-19 Z11.52 Assessment and Plan Assessment and Plan (1) Encounter for screening for COVID-19: Status: Acute Plan - Hitesh SHAVER PA: POC COVID-19 screening in office today. Copy of results offered in office today. Supportive measures as instructed today. Follow-up with PCP in 5 to 7 days should symptoms not improve, sooner should symptoms worsen or any other concerns develop. Patient states acknowledging understanding all the above. This note was generated with Pressgramation software. It may contain incorrect words, spelling, and punctuation that were not noted in checking the note before signing. Plan Details Other Orders: Orders: POC Rapid SARS Antigen Today 11/18/21 08 <Electronically signed by Hitesh SHAVER> Date Hitesh Dewitt Signature: Date (if applicable) CC: Kylie Junior DO Work Phone: Start: 01-01-2021 End: 01-02-2021 SCRN MAMM (CAD)W/NOLA BILAT Comments: See Note; NOTES: [facility] Imaging Services [address] [place] [address] SCRN MAMM (CAD)W/NOLA BILAT MR#: [id number] Acct: [id number] Name: TILA CARRERA Rep #: [id number] : 1980 F 40 From: Bud lopes MD PCP: Dr. Kylie Junior DO Status: REG CLI Study: SCRN MAMM (CAD)W/NOLA BILAT Date of Exam: 12/22 12/11 Exam# [id number] Ordering Dr: Kylie Junior DO MAMMOGRAPHY - BILATERAL SCREENING REASON FOR EXAM: Female, 40 years old. Routine annual screening examination. PERTINENT HISTORY: Non-contributory. TECHNIQUE: Digital bilateral breast nola (3D mammographic acquisition) in the CC and MLO projections. 2-D mediolateral oblique (MLO) and craniocaudad (CC) views of both breasts were obtained. CAD: Full Field Digital Mammography with Computer Added Detection was performed. COMPARISON: Comparison is made with prior examination dated 12/22/2018. FINDINGS: Breast Composition: The breasts are heterogeneously dense, which may obscure small masses. There are no dominant masses or suspicious calcifications. No other significant abnormalities are identified. There has been no significant change since the prior study. BI/SCRN MAMM (CAD)W/NOLA BILAT IMPRESSION: Stable bilateral screening mammogram. Yearly follow-up mammogram recommended. (A) ASSESSMENT CATEGORY: BIRADS Category 1: Negative. A letter regarding these results will be sent to the patient by the facility within 30 days. Approximately 10% of breast cancers are not detected by mammography. A normal mammogram should not delay biopsy of a clinically suspicious abnormality. [id number] Electronically Signed: Bud Major MD at 10:15 EST , Service support , CC: Dr. Kylie Junior DO Bar And Filler Assembler: Signed Kylie Junior Work Phone: Start: 12-22-2018 End: 12-25-2018 SCREENING MAMM (CAD), BILAT Comments: See Note; NOTES: [facility] Imaging Services [address] [place] [id number] SCREENING MAMM (CAD), BILAT MR#: [id number] Acct: [id number] Name: TILA CARRERA Rep #: [id number] : 1980 F 38 From: Bud Major MD PCP: Kylie Junior DO Status: REG CLI Study: SCREENING MAMM (CAD), BILAT Date of Exam: 12/22/18 Exam# [id number] Ordering Dr: Kylie Junior DO MAMMOGRAPHY - BILATERAL SCREENING REASON FOR EXAM: Female, 38 years old. Routine annual screening examination. PERTINENT HISTORY: Non-contributory. TECHNIQUE: Digital bilateral breast nola (3D mammographic acquisition) in the CC and MLO projections. 2-D mediolateral oblique (MLO) and craniocaudad (CC) views of both breasts were obtained. CAD: Full Field Digital Mammography with Computer Added Detection was performed. COMPARISON: None. Baseline examination. FINDINGS: Breast Composition: The breasts are heterogeneously dense, which may obscure small masses. There are no dominant masses or suspicious calcifications. No other significant abnormalities are identified. BI/SCREENING MAMM (CAD), BILAT IMPRESSION: Negative screening mammogram. Yearly followup mammogram recommended. (A) ASSESSMENT CATEGORY: BIRADS Category 1: Negative. A letter regarding these results will be sent to the patient by the facility within 30 days. Approximately 10% of breast cancers are not detected by mammography. A normal mammogram should not delay biopsy of a clinically suspicious abnormality. [id number] Electronically Signed: Bud Major MD at 8:38 EST , Service support , CC: Kylie Junior DO Bar And Filler Assembler: Signed Kylie Junior Work Phone: Start: 08-04-2016 End: 08-04-2016 Inital Evaluation (1) - PT Comments: See Note; NOTES: [facility] [address] [place] [address]. [address] [place] [address] Fax REHABILITATION SERVICES INITIAL EVALUATION MR#: [id number] Acct: [id number] Name: TILA CARRERA Rep #: [id number] : 1980 36 From: Adrienne Mahoney DPT Referring DrGladys: Kylie Junior DO Status: REG RCR Insurance: [facility] Patient's Visit Information TILA CARRERA is a 36 year old F referred to Physical Therapy by Kylie Junior DO with a diagnosis of Leg and Knee Pain. Date of Evaluation: 08/04/16 Physical Therapist: Adrienne Mahoney - Visit Plan Frequency: 3x /Week Duration: 3 Weeks Plan: Focus on core s/s. - Subjective Subjective: Patient reports having issue with the right knee-January- ran the marathon and then took some time off. Pain is located in the anterior knee and the top of the gastroc. Taking time off-from March did not run- then started back after about a month- 2-3 miles at a time 3-4x a week. [...] lean and anterior pelvic tilt- challenged to correct with VC's. HR/TR: Heel raise- increased muscle tone left>right. TR : no differences. Balance: SLS 30 sec but increased sway and muscle activation right>left. Poor control with eyes closed. Sensation/Reflex: WNL. ROM: WNL. Palpation: not tender around knee- increased tenderness throughout head of lateral and medial gastroc. Strength: Core-fair minus, Hip: 4-/5 throughout, Knee: 4+/5, Ankle: 5/5. Flexibility: ITBand: severe, Gastroc: mod , Soleus-mod, Hamstring: mod, Quad: moderate - Goals Goal 1:: Patient will be I with HEP and progression Goal Time Frame: 4-6 Weeks Goal 2:: Patient will demo 4+/5 strength in LE where deficit to ease ADL's Goal Time Frame: 4-6 Weeks Goal 3:: Patient will maintain proper posture t/o tx session to demo increased core s/s. Goal Time Frame: 4-6 Weeks Goal 4:: Patient will report 0/10 pain for 1 week with all normal ADL's and recreational activities. Goal Time Frame: 4-6 Weeks - Rehabilitation Potential Physical Therapy Diagnosis: Patient presents with hypomobility- she has decreased strength, flexibility and muscular endurance leading to pain with functional mobility. Rehabilitation Potential: Fair - Anticipated Interventions Patient/Client Instruction: Educate patient on: Benefits of Fitness Program For the Purpose of:: To increase tolerance to activity/condition/positio n Therapeutic Exercise to Include: Strength training, Endurance training, Balance training, Agility training, Body mechanics, Postural training, Flexibilty training, Gait and locomotor training, Dynamic Lumbar Stabilization, Scapular Strength/Stabilization For the Purpose of:: To improve muscle performance and motor function Manual Therapy Techniques to Include: Functional dry needling For the Purpose of:: To decrease swelling/inflammation Thank you for the opportunity to evaluate your patient. For Medicare and Medicare HMO plans, please review the plan of care and approve it. It will need to be FAXED BACK to us at [phone] for Medicare purposes. Please let me know if there are questions or concerns regarding this plan of care. Physician Signature: Date: <Electronically signed by Adrienne Mahoney DPT> 08/04/16 1641 CC: Kylie Junior DO ELR Signed For Medicare only, by signing this I certify the plan of care. __ Physicians Signature Date Kylie Junior Start: 03-26-2016 End: 03-26-2016 PT D/C Summary (1) Comments: See Note; NOTES: [facility] Physical [facility] [address] [place] [address]. [address] [place] [address] Fax REHABILITATION SERVICES DISCHARGE SUMMARY MR#: [id number] Acct: [id number] Name: TILA CARRERA Rep #: [id number] : 1980 36 From: Kade Dejesus PT, FRANK, SCS, CSCS Referring Dr.: Tonny Farris Status: REG RCR Insurance: [facility] HP - PT D/C Summary It has been my pleasure to treat TILA CARRERA under orders from Tonny Farris DO, for the diagnosis of RIGHT KNEE ,GASTROCSOLEUS STRAIN,PERONEAL SRAIN,,IT BAND for a total of 8 visit(s) . Please see the following information for a summary of their discharge status. - Subjective Subjective: I finished the marathon weekend and had a course [place] of 4:25. Only had knee pain after [...] Goal Progress: Goal Met Goal 3:: Improve biomechanics of running to decrease knee pain. Goal Progress: Progressing Goal 4:: Patient able to run with in limitations to complete marathon. Goal 5:: Perform video anaylisis Goal Progress: Progressing - Plan Plan: Redesigned a HEp to include corrective exercises - D/C Information If there are questions or concerns regarding this patient's physical therapy, please feel free to call me at [phone]. Thank you for the referral of this patient. Sincerely, Kade Dejesus <Electronically signed by Kade Dejesus PT, FRANK, MARY, CSCS> 03/26/16 1541 CC: Kylie Junior DO; Tonny Farris Signed Kylie Junior Start: 03-08-2016 End: 03-08-2016 Inital Evaluation (1) - PT Comments: See Note; NOTES: [facility] [address] [place] [address]. [address] [place] [address] Fax REHABILITATION SERVICES INITIAL EVALUATION MR#: [id number] Acct: [id number] Name: TILA CARRERA Rep #: [id number] : 1980 35 From: Yohannes Iverson PT, Cert. MDT Referring Dr.: Tonny Farris Status: REG R Insurance: [employer] [facility] Date: Patient's Visit Information TILA CARRERA is a 35 year old F referred to Physical Therapy by Tonny Farris DO with a diagnosis of RIGHT KNEE ,GASTROCSOLEUS STRAIN,PERONEAL SRAIN,,IT BAND. Date of Evaluation: 03/05/16 Physical Therapist: Yohannes Iverson - Visit Plan Frequency: 3x /Week Duration: 4 Weeks - Subjective Subjective: This 35 y/o female presents to physical therapy with right knee pain lateral aspect for 4 weeks. Patient noticed increase in pain during a run ,especially down hill , descending steps.Walking /standing /bike aggravates symptoms.Does trail running ,last race 25k traik run. Some better on trails. Denies parathesia/tingling. Runs in [place] run, [place] run [place].Patients training for marathon ,last attempted run tuesday 12 miles ,walk run because pain. SOCIAL: single. HOBBIES : running. 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 GAIT: normal wilfredo. SHOE WEAR : lateral posterior heel. PALPATION : LATERAL I-TBAND ,latera G-S instertion ,lateral soleus,greater tronchenter. AROM KNEE : 0- 135 DEGREES. FLEXABILTY: WNL I-T band,hams,quad,rectus femoris,IR /ER ,PRIFORMIS. MMT:5/5 quads/hams/ankle,ER/IR4/5, HIP EXT 4/5,GLUTS 4/5,HIPABD 4/5,4-/5 HIP ADD. PROPRIOCEPTION: sliightlty impaired. NO ASSYMMTRIES AFTER PERFORMING BRIDGE. - Special Tests R Knee Esau - Meniscus: Negative R Knee Apley - Meniscus: Negative R Knee Patellar Apprehension - PFS: Negative R Knee Patellar Grind - PFS: Negative R Knee [...] Weeks Goal 4:: Patient able to run with in limitations to complete marathon. Goal Time Frame: 4-6 Weeks Goal 5:: Perform video anaylisis Goal Time Frame: 4-6 Weeks - Rehabilitation Potential Physical Therapy Diagnosis: This 35 y/o female who is a advid runner has had knee pain with longer distance lateral aspect of knee along with IT BAND pain with tender trigger muscle along IT BAND and gastroc region thus will benifit from skilled PT Rehabilitation Potential: Good - Anticipated Interventions Patient/Client Instruction: Educate patient on: Condition, Plan of Care, Benefits of Fitness Program For the Purpose of:: To decrease pain, To decrease swelling/inflammation, To improve muscle performance and motor function, To improve ability of physical actions for home/community/work/ leisure, To improve gait and locomotor functions, To improve health of tissue Other: RUNNING Therapeutic Exercise to Include: Strength training, Balance training, Agility training, Flexibilty training For the Purpose of:: To decrease pain, To decrease swelling/inflammation, To improve nutrient delivery to tissue, To improve muscle performance and motor function, To increase tolerance to activity/condition/positio n, To improve ability of physical actions for home/community/work/ leisure, To improve gait and locomotor functions, To increase flexibility/ROM, To prevent re- injury Other: RUNNING Functional Training to Include: Functional sports training For the Purpose of:: To decrease pain, To increase oxygenation perfusion, To increase tolerance to activity/condition/positio n Other: RUNNING Manual Therapy Techniques to Include: Trigger point massage, Massage, Mobilization, Functional dry needling Comment: KAUSHAL For the Purpose of:: To decrease pain, To increase ROM, To improve muscle performance and motor function, To increase tolerance to activity/condition/positio n, To improve ability of physical actions for home/community/work/leisur e, To improve health of tissue, To decrease soft tissue restriction, To prevent re-injury IF ES: Yes Cryotherapy (ice pack, ice [...] to be FAXED BACK to us at [phone] for Medicare purposes. Please let me know if there are questions or concerns regarding this plan of care. Physician Signature: Date: <Electronically signed by Yohannes Iverson PT, Cert. MDT> 03/08/16 1021 CC: Kylie Junior DO; Tonny Farris Signed For Medicare only, by signing this I certify the plan of care. __ Physicians Signature Date Kylie Junior Start: 04-21-2015 End: 04-21-2015 Inital Evaluation - PT Comments: See Note; NOTES: [facility] 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 Farris with a diagnosis of right knee lateral gastroc IT band strain. This is an individual, who is running and slipped or caught her foot on a metal object and fell forward onto her right knee. She typically runs between 20-40 miles a week with 1 speed work, 1 hill work out if possible. She is training for a marathon on March 23 in [place]. This weekend she is traveling to [place] to compete in a 10 K with her friends. She denies injuring her knee prior. Dr. Farris took x-rays, but no MRI [...] to her lower extremity over the lateral gastroc soleus complex, she had crepitus and pain with palpation. She does have tight gastroc soleus complex to begin with. Neurologically, I felt she was intact. ASSESSMENT: Right soleus strain. PROBLEMS: 1. Decreased ADLs or ability to run. [...] 6.5. I did not notice anything unusual other than she has a little bit of a forefoot whip upon contact. Kade Emanuel C: Tonny Farris T: PAULY JOB: [id number] <Electronically signed by Kade Dejesus > 04/21/15 1615 CC: Signed For Medicare only, by signing this I certify the plan of care. __ Physicians Signature Date Kylie Junior Start: 04-21-2015 End: 04-21-2015 PT Discharge Summary Comments: See Note; NOTES: [facility] Physical Therapy [facility] [address] [place] [address] Fax REHABILITATION SERVICES DISCHARGE SUMMARY MR#: [id number] Acct: [id number] Name: TILA CARRERA Rep #: [id number] : 1980 35 From: Kade Dejesus Referring Dr.: Tonny Farris Status: PRE RCR Eval Date: Discharge Date: DATE OF SERVICE: 04/15/2015 Tila has been seen for 10 of her scheduled 12 visits. She has recently competed in both [place] in [place] as well as a Full [place] in [place] on the same weekend. She has essentially no more right lateral soleus pain at all. I have given her some exercises to continue to perform specifically inhibition techniques and some stretching as well as some eccentric strengthening. If Tila has any problems in the near future, I would be happy to see her otherwise she is discharged from our care. Kade Emanuel C: Tonny Farris T: [facility] JOB: [id number] <Electronically signed by Kade Dejesus > 04/21/15 1615 CC: Signed Kylie Junior Start: 02-07-2015 End: 02-07-2015 Knee 4 or More Views Comments: See Note; NOTES: [facility] Imaging Services [address] [place] [address] Radiology Report MR#: [id number] Acct: [id number] Name: TILA CARRERA Rep #: [id number] : 1980 F 34 From: Rajani Grossman MD PCP: Kylie Junior DO Status: REG CLI Study: Knee 4 or More Views Date of Exam: 02/07/15 Exam# [id number] Ordering Dr: Kylie Junior DO STUDY: X-RAY - RIGHT KNEE REASON FOR EXAM: Female, 34 years old. Knee pain TECHNIQUE: 4 view(s) of the knee. COMPARISON: None. FINDINGS: Normal visualized distal femur. Normal visualized proximal tibia and fibula. Normal proximal tibiofibular articulation. Normal medial femorotibial compartment. Normal lateral femorotibial compartment. Normal patellofemoral articulation. The soft tissue structures are unremarkable. IMPRESSION: Normal x-ray examination of the knee. Electronically Signed: Shamir Grossman MD at 14:49 EDT Tel , Service support [phone], RAD/Knee 4 or More Views IMPRESSION: Normal x-ray examination of the knee. Electronically Signed: Shamir Grossman MD at 14:49 EDT Tel , Service support [phone], CC: Kylie Junior DO Bar And Filler Assembler: Signed Kylie Junior Work Phone: Plan of Treatment Date Care Activity Detail Author Start: 06-03-2022 Procedure Education Eprescribed prescriptions (G8553) [facility]; [facility] Work Phone: Start: 12-24-2020 Procedure Education Eprescribed prescriptions (G8553) [facility]; [facility] Work Phone: Start: 11-25-2020 CBC, PLATELETS & MANUAL DIFF (25237) CBC, PLATELETS & MANUAL DIFF (18683) [facility]; [facility] Work Phone: Start: 11-25-2020 Comprehensive metabolic panel METABOLIC PANEL, COMPREHENSIVE (64553) [facility]; [facility] Work Phone: Start: 12-05-2019 Procedure Education Eprescribed prescriptions (G8553) [facility] Work Phone: Start: 11-01-2018 Comprehensive metabolic panel METABOLIC PANEL, COMPREHENSIVE (37295) [facility] Work Phone: Start: 11-01-2018 Blood count complete auto&auto difrntl wbc CBC W/AUTO DIFF WBC (09889) [facility] Work Phone: Start: 11-01-2018 Lipid panel LIPID PANEL (61781) [facility] Work Phone: Start: 11-01-2018 Procedure Education Eprescribed prescriptions (G8553) [facility] Work Phone: Start: 11-01-2018 Hpv, dna, amp probe HPV automatic (47181) [facility] Work [facility]: Start: 11-01-2018 Cytp cerv/vag auto thin layer prep mnl screen Thin prep Pap (22769) (no STD testing) [facility] Work Phone: Start: 08-03-2018 Prothrombin time PT (Prothrobim Time) (53205) [facility]; [facility] Work Phone: Start: 08-03-2018 Prothrombin time (PT) Coag time (PPP) PT (Prothrobim Time) (49047) [facility] Work Phone: Start: 07-04-2018 Prothrombin time PT (Prothrobim Time) (86450) [facility]; [facility] Work Phone: Start: 07-04-2018 Prothrombin time (PT) Coag time (PPP) PT (Prothrobim Time) (16454) [facility] Work Phone: Start: 06-04-2018 Prothrombin time PT (Prothrobim Time) (29431) [facility]; [facility] Work Phone: Start: 06-04-2018 Prothrombin time (PT) Coag time (PPP) PT (Prothrobim Time) (73479) [facility] Work Phone: Start: 03-06-2018 Prothrombin time PT (Prothrobim Time) (04475) [facility]; [facility] Work Phone: Start: 03-06-2018 Prothrombin time (PT) Coag time (PPP) PT (Prothrobim Time) (81077) [facility] Work Phone: Start: 11-11-2017 Procedure Education Eprescribed prescriptions (G8553) [facility] Work Phone: Start: 11-11-2017 Lipid panel LIPID PANEL (52881) [facility] Work Phone: Start: 06-08-2017 Procedure Education Eprescribed prescriptions (G8553) [facility] Work Phone: Start: 06-08-2017 Provider Instructions for Treatment [facility] Work Phone: Start: 06-08-2017 Cytp cerv/vag auto thin layer prep mnl screen Thin prep Pap (47221) (no STD testing) [facility] Work Phone: Start: 11-17-2016 Procedure Education Eprescribed prescriptions (G8553) [facility] Work Phone: Start: 07-09-2016 Patient Education Bladder Infection: Brief Version *: uti [facility] Work Phone: Start: 07-09-2016 Procedure Education Eprescribed prescriptions (G8553) [facility] Work Phone: Start: 07-08-2015 Prothrombin time PT (Prothrobim Time) (10788) [facility]; [facility] Work Phone: Comment on above: Standing Order Start: 07-08-2015 Prothrombin time (PT) Coag time (PPP) PT (Prothrobim Time) (17763) [facility] Work Phone: Comment on above: Standing Order Start: 06-08-2015 Prothrombin time PT (Prothrobim Time) (39555) [facility]; [facility] Work Phone: Comment on above: Standing Order Start: 06-08-2015 Prothrombin time (PT) Coag time (PPP) PT (Prothrobim Time) (58115) [facility] Work Phone: Comment on above: Standing Order Start: 05-09-2015 Prothrombin time PT (Prothrobim Time) (82033) [facility]; [facility] Work Phone: Comment on above: Standing Order Start: 05-09-2015 Prothrombin time (PT) Coag time (PPP) PT (Prothrobim Time) (43029) [facility] Work Phone: Comment on above: Standing Order Start: 02-07-2015 Procedure Education Eprescribed prescriptions (G8553) [facility] Work Phone: Start: 11-11-2014 Provider Instructions for Treatment [facility] Work Phone: Start: 10-14-2014 Patient Education Sore throat: diagnosis and treatment [facility] Work Phone: Start: 10-14-2014 Cul bact xcpt urine blood/stool aerobic isol JAVON CULTURE-OTHER (97575) [facility] Work Phone: Start: 05-08-2014 Cytp cerv/vag auto thin layer prep mnl screen Thin prep Pap (03209) (no STD testing) [facility] Work Phone: Start: 05-08-2014 Provider Instructions for Treatment [facility] Work Phone: Start: 04-29-2014 Procedure Education Eprescribed prescriptions (G8553) [facility] Work Phone: Start: 04-06-2014 Prothrombin time PT (PROTHROMBIN TIME) (79497) [facility]; [facility] Work Phone: Start: 04-06-2014 Prothrombin time (PT) Coag time (PPP) PT (PROTHROMBIN TIME) (07327) [facility] Work Phone: Start: 06-05-2012 Patient Education Deep Vein Thrombosis *: blood clots [facility] Work Phone: Start: 04-25-2012 Patient Education Pap Test (Cervical Smear) *: pap smear of cervix [facility] Work Phone: Start: 04-25-2012 Provider Instructions for Treatment [facility] Work Phone: Start: 04-25-2012 Blood count manual cell count each CBC WITH MANUAL DIFF (31722) [facility] Work Phone: Start: 04-25-2012 Comprehensive metabolic panel METABOLIC PANEL, COMPREHENSIVE (34998) [facility] Work Phone: Start: 04-25-2012 Assay of thyroid stimulating hormone tsh TSH (81018) [facility]; [facility] Work Phone: Start: 04-25-2012 Thyrotropin Qn TSH (74785) [facility] Work Phone: Start: 04-25-2012 Lipid panel LIPID PANEL (64625) [facility] Work Phone: Start: 04-25-2012 Hpv, dna, amp probe HPV automatic (57073) [facility] Work [facility]: Start: 04-25-2012 Cytp cerv/vag auto thin layer prep mnl screen Thin prep Pap (08405) (no STD testing) [facility] Work Phone: Start: 01-03-2012 Prothrombin time PT (Prothrobim Time) (62415) [facility]; [facility] Work Phone: Comment on above: standing order Start: 01-03-2012 Prothrombin time (PT) Coag time (PPP) PT (Prothrobim Time) (76804) [facility] Work Phone: Comment on above: standing order Start: 03-09-2011 Cytp cerv/vag auto thin layer prep mnl screen Thin prep Pap (01772) (no STD testing) [facility] Work Phone: Start: 03-09-2011 Provider Instructions for Treatment [facility] Work Phone: Start: 02-16-2011 Prothrombin time PT (PROTHROMBIN TIME) (94746) [facility]; [facility] Work Phone: Start: 02-16-2011 Prothrombin time (PT) Coag time (PPP) PT (PROTHROMBIN TIME) (65109) [facility] Work Phone: Start: 02-08-2011 25 hydroxy includes fractions if performed Vitamin D Hydroxy (20216) [facility] Work Phone: Start: 02-08-2011 Assay of triiodothyronine t3 free T3, FREE (TRIDOTHYRONINE) (10385) [facility]; [facility] Work Phone: Start: 02-08-2011 T3 free mass conc T3, FREE (TRIDOTHYRONINE) (73938) [facility] Work Phone: Start: 02-08-2011 Assay of free thyroxine T4, FREE (THYROXINE) (93549) [facility]; [facility] Work Phone: Start: 02-08-2011 T4 free mass conc T4, FREE (THYROXINE) (40563) [facility] Work Phone: Start: 02-08-2011 Cobalamin (Vitamin B12) mass conc VITAMIN B-12 (CYANOCOBALAMIN) (46809) [facility] Work Phone: Start: 02-08-2011 Cyanocobalamin vitamin b-12 VITAMIN B-12 (CYANOCOBALAMIN) (65750) [facility]; [facility] Work Phone: Start: 02-08-2011 Assay of thyroid stimulating hormone tsh TSH (85247) [facility]; [facility] Work Phone: Start: 02-08-2011 Thyrotropin Qn TSH (05433) [facility] Work Phone: Start: 01-19-2011 Prothrombin time PT (PROTHROMBIN TIME) (69157) [facility]; [facility] Work Phone: Comment on above: standing order Start: 01-19-2011 Prothrombin time (PT) Coag time (PPP) PT (PROTHROMBIN TIME) (45157) [facility] Work Phone: Comment on above: standing order Start: 01-19-2011 Blood count complete automated CBC & PLATELETS (AUTO) (49227) [facility] Work Phone: Start: 01-19-2011 Lipid panel LIPID PANEL (76204) [facility] Work Phone: Start: 01-19-2011 Comprehensive metabolic panel METABOLIC PANEL, COMPREHENSIVE (31669) [facility] Work Phone: Start: 11-24-2009 Cul bact xcpt urine blood/stool aerobic isol JAVON CULTURE-OTHER (81000) [facility] Work Phone: Start: 11-24-2009 [place] streptococcus group a Rapid Strep Test, Office (24385) [facility]; [facility] Work Phone: Start: 11-24-2009 S. pyogenes Ag IA Ql (Unsp spec) Rapid Strep Test, Office (92033) [facility] Work Phone: Start: 07-29-2009 Provider Instructions for Treatment Follow up [facility] Work Phone: [facility] Work [facility]: [facility] Work [facility]: [facility] Work [facility]: [facility] Work [facility]: [facility] Work [facility] Work [facility]: [facility]: [facility]: [facility]: [facility]: [facility]: [facility]: [facility]: [facility]: [facility]: [facility] Work [facility]: [facility] Work [facility] Work [facility]: [facility] Work [facility]: [facility] Work [facility]: [facility]; [facility] Work Phone: Payers Date Payer Category Payer Self-pay [id number] 2012 Unknown [id number] 1980 Unknown [id number] Unknown [facility] [employer] [place] Unknown [id number] Unknown [id number] Social History Date Type Detail Facility Exercise History Former smoker [facility] Work Phone: Comment on above: 3-5 days per week ru nning/lifting Lives alone [employer]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 [facility] Work Phone: Tobacco use: Tobacco use: [facility]; [facility] Work Phone: Start: 1980 Sex Assigned At Female [facility] Start: 07-20-2022 Tobacco smoking status NHIS Unknown if ever smoked [facility] Evaluation note Note Date & Type Note Facility Evaluation note No assessment information availa ble [facility] Work Phone: Instructions Note Date & Type Note Facility Instructions Name Patient Instructions Indication:BMI 28.0-28.9,adult Start: Instruction Type:Provider Instructions for Treatment How to Access Health Information Online using Patient Portal and 3rd [employer] Apps Indication:BMI 28.0-28.9,adult Start: Instruction Type:Patient Education How to access health information online Indication:[facility] Start:05-Dec-19 Instruction Type:Patient Education How to access health information online - Detail Indication:[facility] Start:05-Dec-19 Instruction Type:Patient Education Patient Instructions Indication:[facility] Start:05-Dec-19 Instruction Type:Provider Instructions for Treatment How to access health information online Indication:BMI 29.0-29.9,adult Start:01-Nov-20 Instruction Type:Patient Education How to access health information online - Detail Indication:BMI 29.0-29.9,adult Start:01-Nov-20 Instruction Type:Patient Education Patient Instructions Indication:BMI 29.0-29.9,adult Start:01-Nov-20 Instruction Type:Provider Instructions for Treatment How to access health information online Indication:Nonsmoker Start:11-Nov-20 Instruction Type:Patient Education How to access health information online - Detail Indication:Nonsmoker Start:11-Nov-20 Instruction Type:Patient Education Patient Instructions Indication:Nonsmoker Start:11-Nov-20 Instruction Type:Provider Instructions for Treatment How to access health information online Indication:Nonsmoker Start:08-Jun-20 Instruction Type:Patient Education How to access health information online - Detail Indication:Nonsmoker Start:08-Jun-20 Instruction Type:Patient Education Patient Instructions Indication:Nonsmoker Start:08-Jun-20 Instruction Type:Provider Instructions for Treatment How to access health information online Indication:Nonsmoker Start:17-Nov-20 Instruction Type:Patient Education How to access health information online - Detail Indication:Nonsmoker Start:17-Nov-20 16 Instruction Type:Patient Education Patient Instructions Indication:Nonsmoker Start:17-Nov-20 16 Instruction Type:Provider Instructions for Treatment How to access health information online Indication:Dysuria Start:09-Jul-20 16 Instruction Type:Patient Education How to access health information online - Detail Indication:Dysuria Start:09-Jul-20 16 Instruction Type:Patient Education Patient Instructions Indication:Dysuria Start:09-Jul-20 16 Instruction Type:Provider Instructions for Treatment Patient Instructions Indication:Lower Leg Pain Start:08-Feb-20 15 Instruction Type:Provider Instructions for Treatment Patient Instructions Indication:Well female exam with routine gynecological exam Start:08-May-20 14 Instruction Type:Provider Instructions for Treatment Patient Instructions 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 Start: 4 Instruction Type:Provider Instructions for Treatment Patient Instructions Indication:Acute Sinusitis (Renamed from Acute infection of nasal sinus) Start:14-Dec-19 14 Instruction Type:Provider Instructions for Treatment Patient Instructions Indication:Finger pain Start:06-Aug-20 13 Instruction Type:Provider Instructions for Treatment [facility]; [facility] Work Phone: Instructions Note Date & Type Note Facility Instructions Name Patient Instructions Indication:BMI 28.0-28.9,adult Start: Instruction Type:Provider Instructions for Treatment How to Access Health Information Online using Patient Portal and 3rd [employer] Apps Indication:BMI 28.0-28.9,adult Start: Instruction Type:Patient Education How to access health information online Indication:[facility] Start:05-Dec-19 Instruction Type:Patient Education How to access health information online - Detail Indication:[facility] Start:05-Dec-19 Instruction Type:Patient Education Patient Instructions Indication:[facility] Start:05-Dec-19 Instruction Type:Provider Instructions for Treatment How to access health information online Indication:BMI 29.0-29.9,adult Start:01-Nov-20 Instruction Type:Patient Education How to access health information online - Detail Indication:BMI 29.0-29.9,adult Start:01-Nov-20 Instruction Type:Patient Education Patient Instructions Indication:BMI 29.0-29.9,adult Start:01-Nov-20 Instruction Type:Provider Instructions for Treatment How to access health information online Indication:Nonsmoker Start:11-Nov-20 Instruction Type:Patient Education How to access health information online - Detail Indication:Nonsmoker Start:11-Nov-20 Instruction Type:Patient Education Patient Instructions Indication:Nonsmoker Start:11-Nov-20 Instruction Type:Provider Instructions for Treatment How to access health information online Indication:Nonsmoker Start:08-Jun-20 Instruction Type:Patient Education How to access health information online - Detail Indication:Nonsmoker Start:08-Jun-20 Instruction Type:Patient Education Patient Instructions Indication:Nonsmoker Start:08-Jun-20 Instruction Type:Provider Instructions for Treatment How to access health information online Indication:Nonsmoker Start:17-Nov-20 Instruction Type:Patient Education How to access health information online - Detail Indication:Nonsmoker Start:17-Nov-20 Instruction Type:Patient Education Patient Instructions Indication:Nonsmoker Start:17-Nov-20 Instruction Type:Provider Instructions for Treatment How to access health information online Indication:Dysuria Start:09-Jul-20 16 Instruction Type:Patient Education How to access health information online - Detail Indication:Dysuria Start:09-Jul-20 16 Instruction Type:Patient Education Patient Instructions Indication:Dysuria Start:09-Jul-20 16 Instruction Type:Provider Instructions for Treatment Patient Instructions Indication:Lower Leg Pain Start:08-Feb-20 15 Instruction Type:Provider Instructions for Treatment Patient Instructions Indication:Well female exam with routine gynecological exam Start:08-May-20 14 Instruction Type:Provider Instructions for Treatment Patient Instructions 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 Start: Instruction Type:Provider Instructions for Treatment Patient Instructions Indication:Acute Sinusitis (Renamed from Acute infection of nasal sinus) Start:14-Dec-19 14 Instruction Type:Provider Instructions for Treatment Patient Instructions Indication:Finger pain Start:06-Aug-20 13 Instruction Type:Provider Instructions for Treatment [facility]; [facility] Work Phone: Instructions Note Date & Type Note Facility Instructions Name Patient Instructions Indication:COVID Start:03-Jun-20 Instruction Type:Provider Instructions for Treatment Patient Instructions Indication:BMI 28.0-28.9,adult Start: 1 Instruction Type:Provider Instructions for Treatment How to Access Health Information Online using Patient Portal and 3rd [employer] Apps Indication:BMI 28.0-28.9,adult Start: Instruction Type:Patient Education How to access health information online Indication:[facility] Start:05-Dec-19 Instruction Type:Patient Education How to access health information online - Detail Indication:[facility] Start:05-Dec-19 Instruction Type:Patient Education Patient Instructions Indication:[facility] Start:05-Dec-19 Instruction Type:Provider Instructions for Treatment How to access health information online Indication:BMI 29.0-29.9,adult Start:01-Nov-20 Instruction Type:Patient Education How to access health information online - Detail Indication:BMI 29.0-29.9,adult Start:01-Nov-20 Instruction Type:Patient Education Patient Instructions Indication:BMI 29.0-29.9,adult Start:01-Nov-20 Instruction Type:Provider Instructions for Treatment How to access health information online Indication:Nonsmoker Start:22-Dec-20 17 Instruction Type:Patient Education How to access health information online - Detail Indication:Nonsmoker Start:11-Nov-20 Instruction Type:Patient Education Patient Instructions Indication:Nonsmoker Start:11-Nov-20 Instruction Type:Provider Instructions for Treatment How to access health information online Indication:Nonsmoker Start:08-Jun-20 17 Instruction Type:Patient Education How to access health information online - Detail Indication:Nonsmoker Start:08-Jun-20 17 Instruction Type:Patient Education Patient Instructions Indication:Nonsmoker Start:08-Jun-20 17 Instruction Type:Provider Instructions for Treatment How to access health information online Indication:Nonsmoker Start:17-Nov-20 16 Instruction Type:Patient Education How to access health information online - Detail Indication:Nonsmoker Start:17-Nov-20 16 Instruction Type:Patient Education Patient Instructions Indication:Nonsmoker Start:17-Nov-20 16 Instruction Type:Provider Instructions for Treatment How to access health information online Indication:Dysuria Start:09-Jul-20 16 Instruction Type:Patient Education How to access health information online - Detail Indication:Dysuria Start:09-Jul-20 16 Instruction Type:Patient Education Patient Instructions Indication:Dysuria Start:09-Jul-20 16 Instruction Type:Provider Instructions for Treatment Patient Instructions Indication:Lower Leg Pain Start:08-Feb-20 15 Instruction Type:Provider Instructions for Treatment Patient Instructions Indication:Well female exam with routine gynecological exam Start:08-May-20 14 Instruction Type:Provider Instructions for Treatment Patient Instructions 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 Start: 4 Instruction Type:Provider Instructions for Treatment Patient Instructions Indication:Acute Sinusitis (Renamed from Acute infection of nasal sinus) Start:14-Dec-19 14 Instruction Type:Provider Instructions for Treatment Patient Instructions Indication:Finger pain Start:06-Aug-20 13 Instruction Type:Provider Instructions for Treatment [facility]; [facility] Work Phone: Instructions Note Date & Type Note Facility Instructions Name Patient Instructions Indication:COVID Start:03-Jun-20 Instruction Type:Provider Instructions for Treatment Patient Instructions Indication:BMI 28.0-28.9,adult Start: 1 Instruction Type:Provider Instructions for Treatment How to Access Health Information Online using Patient Portal and 3rd [employer] Apps Indication:BMI 28.0-28.9,adult Start: 1 Instruction Type:Patient Education How to access health information online Indication:[facility] Start:05-Dec-19 Instruction Type:Patient Education How to access health information online - Detail Indication:[facility] Start:05-Dec-19 Instruction Type:Patient Education Patient Instructions Indication:[facility] Start:05-Dec-19 Instruction Type:Provider Instructions for Treatment How to access health information online Indication:BMI 29.0-29.9,adult Start:01-Nov-20 Instruction Type:Patient Education How to access health information online - Detail Indication:BMI 29.0-29.9,adult Start:01-Nov-20 Instruction Type:Patient Education Patient Instructions Indication:BMI 29.0-29.9,adult Start:01-Nov-20 Instruction Type:Provider Instructions for Treatment How to access health information online Indication:Nonsmoker Start:11-Nov-20 Instruction Type:Patient Education How to access health information online - Detail Indication:Nonsmoker Start:11-Nov-20 Instruction Type:Patient Education Patient Instructions Indication:Nonsmoker Start:11-Nov-20 Instruction Type:Provider Instructions for Treatment How to access health information online Indication:Nonsmoker Start:08-Jun-20 Instruction Type:Patient Education How to access health information online - Detail Indication:Nonsmoker Start:08-Jun-20 Instruction Type:Patient Education Patient Instructions Indication:Nonsmoker Start:08-Jun-20 Instruction Type:Provider Instructions for Treatment How to access health information online Indication:Nonsmoker Start:17-Nov-20 Instruction Type:Patient Education How to access health information online - Detail Indication:Nonsmoker Start:17-Nov-20 Instruction Type:Patient Education Patient Instructions Indication:Nonsmoker Start:17-Nov-20 Instruction Type:Provider Instructions for Treatment How to access health information online Indication:Dysuria Start:09-Jul-20 Instruction Type:Patient Education How to access health information online - Detail Indication:Dysuria Start:09-Jul-20 Instruction Type:Patient Education Patient Instructions Indication:Dysuria Start:09-Jul-20 Instruction Type:Provider Instructions for Treatment Patient Instructions Indication:Lower Leg Pain Start:08-Feb-20 Instruction Type:Provider Instructions for Treatment Patient Instructions Indication:Well female exam with routine gynecological exam Start:08-May-20 14 Instruction Type:Provider Instructions for Treatment Patient Instructions 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 Start: Instruction Type:Provider Instructions for Treatment Patient Instructions Indication:Acute Sinusitis (Renamed from Acute infection of nasal sinus) Start:14-Dec-19 14 Instruction Type:Provider Instructions for Treatment Patient Instructions Indication:Finger pain Start:06-Aug-20 Instruction Type:Provider Instructions for Treatment [facility] Work Phone: Family History No Family History Records FoundUnknown Family Member Name Dates Details Mother Comments:In good health, thy roid disease Status:Active Paternal Grandmother Comments:stroke, In stable h ealth Status:Active Unknown Family Member Name Dates Details Mother Comments:In good health, thy roid disease Status:Active Paternal Grandmother Comments:stroke, In stable h ealth Status:Active Unknown Family Member Name Dates Details Mother Comments:In good health, thy roid disease Status:Active Paternal Grandmother Comments:stroke, In stable h ealth Status:Active Unknown Family Member Name Dates Details Mother Comments:In good health, thy roid disease Status:Active Paternal Grandmother Comments:stroke, In stable h ealth Status:Active Unknown Family Member Name Dates Details Mother Comments:In good health, thy roid disease Status:Active Paternal Grandmother Comments:stroke, In stable h ealth Status:Active Unknown Family Member Name Dates Details Mother Comments:In good health, thy roid disease Status:Active Paternal Grandmother Comments:stroke, In stable h ealth Status:Active Unknown Family Member Name Dates Details Mother Comments:In good health, thy roid disease Status:Active Paternal Grandfather Comments: OLD AGE 100 Status:Active Paternal Grandmother Comments:stroke, In stable h ealth Status:Active Unknown Family Member Name Dates Details Mother Comments:In good health, thy roid disease Status:Active Paternal Grandmother Comments:stroke, In stable h ealth Status:Active Unknown Family Member Name Dates Details Mother Comments:In good health, thy roid disease Status:Active Paternal Grandfather Comments: OLD AGE 100 Status:Active Paternal Grandmother Comments:stroke, In stable h ealth Status:Active Unknown Family Member Name Dates Details Mother Comments:In good health, thy roid disease Status:Active Paternal Grandfather Comments: OLD AGE 100 Status:Active Paternal Grandmother Comments:stroke, In stable h ealth Status:Active Unknown Family Member Name Dates Details Mother Comments:In good health, thy roid disease Status:Active Paternal Grandfather Comments: OLD AGE 100 Status:Active Paternal Grandmother Comments:stroke, In stable h ealth Status:Active Unknown Family Member Name Dates Details Mother Comments:In good health, thy roid disease Status:Active Paternal Grandfather Comments: OLD AGE 100 Status:Active Paternal Grandmother Comments:stroke, In stable h ealth Status:Active Unknown Family Member Name Dates Details Mother Comments:In good health, thy roid disease Status:Active Paternal Grandfather Comments: OLD AGE 100 Status:Active Paternal Grandmother Comments:stroke, In stable h ealth Status:Active Instructions Name Dates Details BMI 29.0-29.9,adult : How to access health information online Indication:BMI 29.0-29.9,adult BMI 29.0-29.9,adult : How to access health information online - Detail Indication:BMI 29.0-29.9,adult BMI 29.0-29.9,adult : Patien t Instructions Indication:BMI 29.0-29.9,adult Nonsmoker : How to access he alth information online Indication:Nonsmoker Nonsmoker : How to access he alth information online - Detail Indication:Nonsmoker Nonsmoker : Patient Instruct ions Indication:Nonsmoker Dysuria : How to access heal th information online Indication:Dysuria Dysuria : How to access heal th information online - Detail Indication:Dysuria Dysuria : Patient Instructio ns Indication:Dysuria Lower Leg Pain : Patient Ins tructions Indication:Lower Leg Pain Well female exam with routin e gynecological exam : Patient Instructions Indication:Well female exam with routine gynecological exam Venous embolism and thrombos is of deep vessels of distal lower extremity : Patient Instructions 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 Acute Sinusitis (Renamed fro m Acute infection of nasal sinus) : Patient Instructions Indication:Acute Sinusitis (Renamed from Acute infection of nasal sinus) Finger pain : Patient Instru ctions Indication:Finger pain Name Dates Details BMI 29.0-29.9,adult : How to access health information online Indication:BMI 29.0-29.9,adult BMI 29.0-29.9,adult : How to access health information online - Detail Indication:BMI 29.0-29.9,adult BMI 29.0-29.9,adult : Patien t Instructions Indication:BMI 29.0-29.9,adult Nonsmoker : How to access he alth information online Indication:Nonsmoker Nonsmoker : How to access he alth information online - Detail Indication:Nonsmoker Nonsmoker : Patient Instruct ions Indication:Nonsmoker Dysuria : How to access heal th information online Indication:Dysuria Dysuria : How to access heal th information online - Detail Indication:Dysuria Dysuria : Patient Instructio ns Indication:Dysuria Lower Leg Pain : Patient Ins tructions Indication:Lower Leg Pain Well female exam with routin e gynecological exam : Patient Instructions Indication:Well female exam with routine gynecological exam Venous embolism and thrombos is of deep vessels of distal lower extremity : Patient Instructions 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 Acute Sinusitis (Renamed fro m Acute infection of nasal sinus) : Patient Instructions Indication:Acute Sinusitis (Renamed from Acute infection of nasal sinus) Finger pain : Patient Instru ctions Indication:Finger pain Name Dates Details BMI 29.0-29.9,adult : How to access health information online Indication:BMI 29.0-29.9,adult BMI 29.0-29.9,adult : How to access health information online - Detail Indication:BMI 29.0-29.9,adult BMI 29.0-29.9,adult : Patien t Instructions Indication:BMI 29.0-29.9,adult Nonsmoker : How to access he alth information online Indication:Nonsmoker Nonsmoker : How to access he alth information online - Detail Indication:Nonsmoker Nonsmoker : Patient Instruct ions Indication:Nonsmoker Dysuria : How to access heal th information online Indication:Dysuria Dysuria : How to access heal th information online - Detail Indication:Dysuria Dysuria : Patient Instructio ns Indication:Dysuria Lower Leg Pain : Patient Ins tructions Indication:Lower Leg Pain Well female exam with routin e gynecological exam : Patient Instructions Indication:Well female exam with routine gynecological exam Venous embolism and thrombos is of deep vessels of distal lower extremity : Patient Instructions 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 Acute Sinusitis (Renamed fro m Acute infection of nasal sinus) : Patient Instructions Indication:Acute Sinusitis (Renamed from Acute infection of nasal sinus) Finger pain : Patient Instru ctions Indication:Finger pain Name Dates Details BMI 29.0-29.9,adult : How to access health information online Indication:BMI 29.0-29.9,adult BMI 29.0-29.9,adult : How to access health information online - Detail Indication:BMI 29.0-29.9,adult BMI 29.0-29.9,adult : Patien t Instructions Indication:BMI 29.0-29.9,adult Nonsmoker : How to access he alth information online Indication:Nonsmoker Nonsmoker : How to access he alth information online - Detail Indication:Nonsmoker Nonsmoker : Patient Instruct ions Indication:Nonsmoker Dysuria : How to access heal th information online Indication:Dysuria Dysuria : How to access heal th information online - Detail Indication:Dysuria Dysuria : Patient Instructio ns Indication:Dysuria Lower Leg Pain : Patient Ins tructions Indication:Lower Leg Pain Well female exam with routin e gynecological exam : Patient Instructions Indication:Well female exam with routine gynecological exam Venous embolism and thrombos is of deep vessels of distal lower extremity : Patient Instructions 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 Acute Sinusitis (Renamed fro m Acute infection of nasal sinus) : Patient Instructions Indication:Acute Sinusitis (Renamed from Acute infection of nasal sinus) Finger pain : Patient Instru ctions Indication:Finger pain Name Dates Details How to access health informa tion online Indication:[facility] EX[facility] Start:05-Dec-2019 Instruction Type:Patient Education How to access health informa tion online - Detail Indication:[facility] Start:05-Dec-2019 Instruction Type:Patient Education Patient Instructions Indication:[facility] Start:05-Dec-2019 Instruction Type:Provider Instructions for Treatment How to access health informa tion online Indication:BMI 29.0-29.9,adult Start:01-Nov-2018 Instruction Type:Patient Education How to access health informa tion online - Detail Indication:BMI 29.0-29.9,adult Start:01-Nov-2018 Instruction Type:Patient Education Patient Instructions Indication:BMI 29.0-29.9,adult Start:01-Nov-2018 Instruction Type:Provider Instructions for Treatment How to access health informa tion online Indication:Nonsmoker Start:11-Nov-2017 Instruction Type:Patient Education How to access health informa tion online - Detail Indication:Nonsmoker Start:11-Nov-2017 Instruction Type:Patient Education Patient Instructions Indication:Nonsmoker Start:11-Nov-2017 Instruction Type:Provider Instructions for Treatment How to access health informa tion online Indication:Nonsmoker Start:08-Jun-2017 Instruction Type:Patient Education How to access health informa tion online - Detail Indication:Nonsmoker Start:08-Jun-2017 Instruction Type:Patient Education Patient Instructions Indication:Nonsmoker Start:08-Jun-2017 Instruction Type:Provider Instructions for Treatment How to access health informa tion online Indication:Nonsmoker Start:17-Nov-2016 Instruction Type:Patient Education How to access health informa tion online - Detail Indication:Nonsmoker Start:17-Nov-2016 Instruction Type:Patient Education Patient Instructions Indication:Nonsmoker Start:17-Nov-2016 Instruction Type:Provider Instructions for Treatment How to access health informa tion online Indication:Dysuria Start:09-Jul-2016 Instruction Type:Patient Education How to access health informa tion online - Detail Indication:Dysuria Start:09-Jul-2016 Instruction Type:Patient Education Patient Instructions Indication:Dysuria Start:09-Jul-2016 Instruction Type:Provider Instructions for Treatment Patient Instructions Indication:Lower Leg Pain Start:07-Feb-2015 Instruction Type:Provider Instructions for Treatment Patient Instructions Indication:Well female exam with routine gynecological exam Start:08-May-2014 Instruction Type:Provider Instructions for Treatment Patient Instructions 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 Start:29-Apr-2014 Instruction Type:Provider Instructions for Treatment Patient Instructions Indication:Acute Sinusitis (Renamed from Acute infection of nasal sinus) Start:14-Dec-2013 Instruction Type:Provider Instructions for Treatment Patient Instructions Indication:Finger pain Start:06-Aug-2013 Instruction Type:Provider Instructions for Treatment Name Dates Details How to access health informa tion online Indication:[facility] Start:05-Dec-2019 Instruction Type:Patient Education How to access health informa tion online - Detail Indication:[facility] Start:05-Dec-2019 Instruction Type:Patient Education Patient Instructions Indication:[facility] Start:05-Dec-2019 Instruction Type:Provider Instructions for Treatment How to access health informa tion online Indication:BMI 29.0-29.9,adult Start:01-Nov-2018 Instruction Type:Patient Education How to access health informa tion online - Detail Indication:BMI 29.0-29.9,adult Start:01-Nov-2018 Instruction Type:Patient Education Patient Instructions Indication:BMI 29.0-29.9,adult Start:01-Nov-2018 Instruction Type:Provider Instructions for Treatment How to access health informa tion online Indication:Nonsmoker Start:11-Nov-2017 Instruction Type:Patient Education How to access health informa tion online - Detail Indication:Nonsmoker Start:11-Nov-2017 Instruction Type:Patient Education Patient Instructions Indication:Nonsmoker Start:11-Nov-2017 Instruction Type:Provider Instructions for Treatment How to access health informa tion online Indication:Nonsmoker Start:08-Jun-2017 Instruction Type:Patient Education How to access health informa tion online - Detail Indication:Nonsmoker Start:08-Jun-2017 Instruction Type:Patient Education Patient Instructions Indication:Nonsmoker Start:08-Jun-2017 Instruction Type:Provider Instructions for Treatment How to access health informa tion online Indication:Nonsmoker Start:17-Nov-2016 Instruction Type:Patient Education How to access health informa tion online - Detail Indication:Nonsmoker Start:17-Nov-2016 Instruction Type:Patient Education Patient Instructions Indication:Nonsmoker Start:17-Nov-2016 Instruction Type:Provider Instructions for Treatment How to access health informa tion online Indication:Dysuria Start:09-Jul-2016 Instruction Type:Patient Education How to access health informa tion online - Detail Indication:Dysuria Start:09-Jul-2016 Instruction Type:Patient Education Patient Instructions Indication:Dysuria Start:09-Jul-2016 Instruction Type:Provider Instructions for Treatment Patient Instructions Indication:Lower Leg Pain Start:07-Feb-2015 Instruction Type:Provider Instructions for Treatment Patient Instructions Indication:Well female exam with routine gynecological exam Start:08-May-2014 Instruction Type:Provider Instructions for Treatment Patient Instructions 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 Start:29-Apr-2014 Instruction Type:Provider Instructions for Treatment Patient Instructions Indication:Acute Sinusitis (Renamed from Acute infection of nasal sinus) Start:14-Dec-2013 Instruction Type:Provider Instructions for Treatment Patient Instructions Indication:Finger pain Start:06-Aug-2013 Instruction Type:Provider Instructions for Treatment Name Dates Details Patient Instructions Indication:BMI 28.0-28.9,adult Start:24-Dec-2020 Instruction Type:Provider Instructions for Treatment How to Access Health Informa tion Online using Patient Portal and 3rd [employer] Apps Indication:BMI 28.0-28.9,adult Start:24-Dec-2020 Instruction Type:Patient Education How to access health informa tion online Indication:[facility] Start:05-Dec-2019 Instruction Type:Patient Education How to access health informa tion online - Detail Indication:[facility] Start:05-Dec-2019 Instruction Type:Patient Education Patient Instructions Indication:[facility] Start:05-Dec-2019 Instruction Type:Provider Instructions for Treatment How to access health informa tion online Indication:BMI 29.0-29.9,adult Start:01-Nov-2018 Instruction Type:Patient Education How to access health informa tion online - Detail Indication:BMI 29.0-29.9,adult Start:01-Nov-2018 Instruction Type:Patient Education Patient Instructions Indication:BMI 29.0-29.9,adult Start:01-Nov-2018 Instruction Type:Provider Instructions for Treatment How to access health informa tion online Indication:Nonsmoker Start:11-Nov-2017 Instruction Type:Patient Education How to access health informa tion online - Detail Indication:Nonsmoker Start:11-Nov-2017 Instruction Type:Patient Education Patient Instructions Indication:Nonsmoker Start:11-Nov-2017 Instruction Type:Provider Instructions for Treatment How to access health informa tion online Indication:Nonsmoker Start:08-Jun-2017 Instruction Type:Patient Education How to access health informa tion online - Detail Indication:Nonsmoker Start:08-Jun-2017 Instruction Type:Patient Education Patient Instructions Indication:Nonsmoker Start:08-Jun-2017 Instruction Type:Provider Instructions for Treatment How to access health informa tion online Indication:Nonsmoker Start:17-Nov-2016 Instruction Type:Patient Education How to access health informa tion online - Detail Indication:Nonsmoker Start:17-Nov-2016 Instruction Type:Patient Education Patient Instructions Indication:Nonsmoker Start:17-Nov-2016 Instruction Type:Provider Instructions for Treatment How to access health informa tion online Indication:Dysuria Start:09-Jul-2016 Instruction Type:Patient Education How to access health informa tion online - Detail Indication:Dysuria Start:09-Jul-2016 Instruction Type:Patient Education Patient Instructions Indication:Dysuria Start:09-Jul-2016 Instruction Type:Provider Instructions for Treatment Patient Instructions Indication:Lower Leg Pain Start:07-Feb-2015 Instruction Type:Provider Instructions for Treatment Patient Instructions Indication:Well female exam with routine gynecological exam Start:08-May-2014 Instruction Type:Provider Instructions for Treatment Patient Instructions 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 Start:29-Apr-2014 Instruction Type:Provider Instructions for Treatment Patient Instructions Indication:Acute Sinusitis (Renamed from Acute infection of nasal sinus) Start:14-Dec-2013 Instruction Type:Provider Instructions for Treatment Patient Instructions Indication:Finger pain Start:06-Aug-2013 Instruction Type:Provider Instructions for Treatment Name Dates Details How to access health informa tion online Indication:[facility] Start:05-Dec-2019 Instruction Type:Patient Education How to access health informa tion online - Detail Indication:[facility] Start:05-Dec-2019 Instruction Type:Patient Education Patient Instructions Indication:[facility] Start:05-Dec-2019 Instruction Type:Provider Instructions for Treatment How to access health informa tion online Indication:BMI 29.0-29.9,adult Start:01-Nov-2018 Instruction Type:Patient Education How to access health informa tion online - Detail Indication:BMI 29.0-29.9,adult Start:01-Nov-2018 Instruction Type:Patient Education Patient Instructions Indication:BMI 29.0-29.9,adult Start:01-Nov-2018 Instruction Type:Provider Instructions for Treatment How to access health informa tion online Indication:Nonsmoker Start:11-Nov-2017 Instruction Type:Patient Education How to access health informa tion online - Detail Indication:Nonsmoker Start:11-Nov-2017 Instruction Type:Patient Education Patient Instructions Indication:Nonsmoker Start:11-Nov-2017 Instruction Type:Provider Instructions for Treatment How to access health informa tion online Indication:Nonsmoker Start:08-Jun-2017 Instruction Type:Patient Education How to access health informa tion online - Detail Indication:Nonsmoker Start:08-Jun-2017 Instruction Type:Patient Education Patient Instructions Indication:Nonsmoker Start:08-Jun-2017 Instruction Type:Provider Instructions for Treatment How to access health informa tion online Indication:Nonsmoker Start:17-Nov-2016 Instruction Type:Patient Education How to access health informa tion online - Detail Indication:Nonsmoker Start:17-Nov-2016 Instruction Type:Patient Education Patient Instructions Indication:Nonsmoker Start:17-Nov-2016 Instruction Type:Provider Instructions for Treatment How to access health informa tion online Indication:Dysuria Start:09-Jul-2016 Instruction Type:Patient Education How to access health informa tion online - Detail Indication:Dysuria Start:09-Jul-2016 Instruction Type:Patient Education Patient Instructions Indication:Dysuria Start:09-Jul-2016 Instruction Type:Provider Instructions for Treatment Patient Instructions Indication:Lower Leg Pain Start:07-Feb-2015 Instruction Type:Provider Instructions for Treatment Patient Instructions Indication:Well female exam with routine gynecological exam Start:08-May-2014 Instruction Type:Provider Instructions for Treatment Patient Instructions 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 Start:29-Apr-2014 Instruction Type:Provider Instructions for Treatment Patient Instructions Indication:Acute Sinusitis (Renamed from Acute infection of nasal sinus) Start:14-Dec-2013 Instruction Type:Provider Instructions for Treatment Patient Instructions Indication:Finger pain Start:06-Aug-2013 Instruction Type:Provider Instructions for Treatment Summary Purpose Advance Directives No Advanced Directives Records FoundNo Advanced Directives Records Found Chief Complaint and Reason for Visit Chief Complaint SCREENING Additional Source Comments INFORMATION SOURCE (unrecogn ized section and content) DATE CREATED AUTHOR 11/03/[address] [facility] DATE CREATED AUTHOR AUTHOR'S ORGANIZ ATION 07/26/2025 [facility] Goals (unrecognized section and content) Goals may be documented in a n alternate sectionGoals may be documented in an alternate sectionGoals may be documented in an alternate section Care Teams (unrecognized sec tion and content) Team Status: Active Member Role Status Dates Dr. Kylie Junior DO Family Provider Active Dr. Kylie Junior , DO Primary Care Provider Active Team Status: Inactive Member Role Status Dates Dr. Kylie Junior , Primary Care Provide r, Attending Provider, Referring Provider Active FOR RECORDS PERTAINING TO PATIENTS WHO ARE OR HAVE BEEN ENROLLED IN A CHEMICAL DEPENDENCY/SUBSTANCEABUSE PROGRAM, SOME INFORMATION MAY BE OMITTED. This clinical summary was aggregated from multiple sources. Caution should be exercised in using it in the provision of clinical care. This summary normalizes information from multiple sources, and as a consequence, information in this document may materially change the coding, format and clinical context of patient data. In addition, data may be omitted in some cases. CLINICAL DECISIONS SHOULD BE BASED ON THE PRIMARY CLINICAL RECORDS. [facility] provides no warranty or guarantee of the accuracy or completeness of information in this document.
== END | disposition home or self-care (01) ==
LOC: OPBI 07:49
PROVIDERS: PCP Internal Medicine; Referring Provider Internal Medicine; Visit Provider Internal Medicine
DX: Z12.31 Encounter for screening mammogram for malignant neoplasm of breast (principal)
CPT/HCPCS: 77063; 77067